=== PATIENT | male | born 1980 ===

== ENCOUNTER 2017-12-13 16:37 | Inpatient (IN) | payer MEDICAID, SELFPAY ==
[2017-12-13] MEDS ORDERED: Clindamycin 600mg/50ml D5W 300 MG/25 ML VIAL IVPB STA (17:12)
[2017-12-13] MEDS ORDERED: Vancomycin 1 g Inj ONE (17:33)
[2017-12-13 17:43] LABS: BASO % 0.4 % (0.0-2.0); EOS # 0.1 K/uL (0.0-0.7); HEMOGLOBIN 14.2 g/dL (12.0-18.0); LYMPH # 0.7 K/uL (1.0-4.3); LYMPH % 9.7 % (20.0-40.0); MEAN CELL VOLUME 77.8 fl (80.0-94.0); MEAN CORPUSCULAR HEMOGLOBIN 25.9 pg (27.0-31.0); MEAN CORPUSCULAR HGB CONC 33.3 g/dL (33.0-37.0); MEAN PLATELET VOLUME 8.2 fl (7.2-11.7); MONO # 0.6 K/uL (0.0-0.8); NEUT # 5.9 K/uL (1.8-7.0); NEUT % 80.9 % (50.0-75.0); PLATELET COUNT 261 K/uL (130-400); RBC 5.46 Mil/uL (4.40-5.90); RED CELL DISTRIBUTION WIDTH 13.9 % (11.5-14.5); WHITE BLOOD COUNT 7.3 K/uL (4.8-10.8)
--- NOTE | 2017-12-13 17:45 | ED PDOC ---
HPI: Back Time Seen by Provider: 12/13/17 16:48 Chief Complaint (Nursing): Back Pain Chief Complaint (Provider): chronic pain from sinus tract History Per: Patient, Family History/Exam Limitations: no limitations Onset/Duration Of Symptoms: Days (chronic) Current Symptoms Are (Timing): Still Present Quality Of Discomfort: "Pain" Associated Symptoms: Other (fever) Additional Complaint(s): Sundar Maloney is a 37 year old male, with a past medical history of paraplegia, who presents to the emergency department complaining of fever and a worsening chronic pain to sinus tracts in the back from surgery site since yesterday. Patient states he recently moved from [place] x20 days ago and became paraplegic after he attempted suicide by jumping off a building. Family member states patient constantly drains from sinus tracts and they change his dressing daily due to it. Patient was initially prescribed antibiotics but hasn' t taken any in many years despite the constant draining. He denies any chills, nausea or vomit. No further medical complaints. PMD: None provided. Past Medical History Reviewed: Historical Data, Nursing Documentation, Vital Signs Vital Signs: Last Vital Signs Temp 101.7 F H 12/13/17 16:40 Pulse 127 H 12/13/17 17:35 Resp 18 12/13/17 17:35 BP 130/76 12/13/17 16:40 Pulse Ox 99 12/13/17 17:35 - Medical History Other PMH: paraplegia - Surgical History Surgical History: Back Surgery - Family History Family History: States: Unknown Family Hx - Living Arrangements Living Arrangements: With Family - Social History Current smoker - smoking cessation education provided: No Alcohol: None Drugs: Denies - Home Medications Home Medications: Ambulatory Orders Medication Instructions Recorded No Known Home Med 12/13/17 - Allergies Allergies/Adverse Reactions: Allergies Allergy/AdvReac Type Severity Reaction Status Date / Time aspirin Allergy URTICARIA Verified 12/13/17 19:12 shellfish derived Allergy ANAPHYLAXIS Verified 12/13/17 17:13 Review of Systems ROS Statement: Except As Marked, All Systems Reviewed And Found Negative Constitutional: Positive for: Fever. Negative for: Chills Gastrointestinal: Negative for: Nausea, Vomiting Musculoskeletal: Positive for: Back Pain (chronic sinus tracts) Physical Exam - Reviewed Nursing Documentation Reviewed: Yes Vital Signs Reviewed: Yes - Physical Exam Appears: Positive for: Non-toxic, No Acute Distress Head Exam: Positive for: ATRAUMATIC, NORMAL INSPECTION, NORMOCEPHALIC Skin: Positive for: Normal Color, Warm, Dry Eye Exam: Positive for: Normal appearance, EOMI, PERRL Neck: Positive for: Painless ROM, Supple Cardiovascular/Chest: Positive for: Regular Rate, Rhythm. Negative for: Murmur Respiratory: Positive for: Normal Breath Sounds. Negative for: Respiratory Distress Gastrointestinal/Abdominal: Positive for: Normal Exam, Soft. Negative for: Tenderness Back: Positive for: Other (midline surgical scar w/ 3 opening tracts draining serosanguineous. Surrounding tenderness b/l from healed incision site.) Extremity: Negative for: Normal ROM (No symmetrical movement on lower extremities ) Neurologic/Psych: Positive for: Alert, Oriented (x3) - Laboratory Results Result Diagrams: 12/13/17 17:38 12/13/17 17:38 - ECG O2 Sat by Pulse Oximetry: 99 (RA) Pulse Ox Interpretation: Normal Medical Decision Making Medical Decision Making: Time: 16:48 Initial Impression: fistula sinus tract infection r/o sepsis Initial Plan: --VBG --EKG --CMP --Magnesium --Phosphorus --CBC w/ differential --PTT --PT --Chest portable [RAD] --Tylenol 325mg tab 975 mg PO --Clindamycin --Lactated Ringers 2,000 ml IV --Vancomycin 1 gm/NS 250 ml X1Dose --Blood culture --Urine culture --Urinalysis --Reevaluation 17:38 CXR FINDINGS: LUNGS: No active pulmonary disease. PLEURA: No significant pleural effusion identified, no pneumothorax apparent. CARDIOVASCULAR: Normal. OSSEOUS STRUCTURES: Incompletely visualize Bedolla rods lower thoracic and lumbar spine. VISUALIZED UPPER ABDOMEN: Normal. OTHER FINDINGS: None. IMPRESSION: No active disease. ----- Scribe Attestation: Documented by Shawn Blunt, acting as a scribe for Monique Nguyễn MD. Provider Scribe Attestation: All medical record entries made by the Scribe were at my direction and personally dictated by me. I have reviewed the chart and agree that the record accurately reflects my personal performance of the history, physical exam, medical decision making, and the department course for this patient. I have also personally directed, reviewed, and agree with the discharge instructions and disposition. Patient has uncontrolled DM, fever, drainage from fistula tracts of the spine and initial lactate of 2.5. His HR is improved and a repeat lactate is pending. Will admit to hospitalist for further management of sepsis. Disposition - Clinical Impression Clinical Impression: Fever, Diabetes, Spine fracture, Paraplegia - Patient ED Disposition Is Patient to be Admitted: Yes Doctor Will See Patient In The: Hospital - Disposition Disposition: Transfer of Care Disposition Time: 19:26 Condition: GUARDED Forms: [facility] ([place]) - Pt Status Changed To: Hospital Disposition Of: Inpatient - Admit Certification Admit to Inpatient:: After my assessment, the patient will require hospitalization for at least two midnights. This is because of the severity of symptoms shown, intensity of services needed, and/or the medical risk in this patient being treated as an outpatient. - POA Present On Arrival: None
--- NOTE | 2017-12-13 17:46 | RAD ---
Date of service: 12/13/2017 HISTORY: Sepsis Patient COMPARISON: No prior. FINDINGS: LUNGS: No active pulmonary disease. PLEURA: No significant pleural effusion identified, no pneumothorax apparent. CARDIOVASCULAR: Normal. OSSEOUS STRUCTURES: Incompletely visualize Bedolla rods lower thoracic and lumbar spine. VISUALIZED UPPER ABDOMEN: Normal. OTHER FINDINGS: None. IMPRESSION: No active disease.
[2017-12-13 17:48] LABS: VENOUS BLOOD GAS BASE EXCESS 2.2 mmol/L (0.0-2.0); VENOUS BLOOD GAS PCO2 56 mmHg (40-60); VENOUS BLOOD GAS PO2 15 mm/Hg (30-55); VENOUS BLOOD PH 7.33 (7.32-7.43)
[2017-12-13 17:53] LABS: ALBUMIN 4.2 g/dL (3.5-5.0); CALCIUM 9.1 mg/dL (8.4-10.2); GFR NON-AFRICAN AMERICAN > 60
[2017-12-13 17:55] LABS: INR 1.3 (0.9-1.2); PARTIAL THROMBOPLASTIN TIME 30.2 Seconds (25.6-37.1); PROTHROMBIN TIME 13.9 Seconds (9.8-13.1)
[2017-12-13 18:01] LABS: ALT/SGPT 16 U/L (21-72); AST/SGOT 25 U/L (17-59); BLOOD UREA NITROGEN 12 mg/dl (9-20)
[2017-12-13 18:09] LABS: URINE BACTERIA MANY (<OCC); URINE BILIRUBIN NEGATIVE (NEGATIVE); URINE BLOOD LARGE (NEGATIVE); URINE CLARITY TURBID (Clear); URINE COLOR YELLOW (YELLOW); URINE GLUCOSE (UA) >=500 mg/dL (Normal); URINE LEUKOCYTE ESTERASE LARGE Leu/uL (Negative); URINE PROTEIN 100 mg/dL (NEGATIVE)
[2017-12-13] MEDS ORDERED: Clindamycin in NS 300 MG/50 ML BAG IVPB STA (19:22)
--- NOTE | 2017-12-13 19:40 | ED PDOC ---
HPI: Back <Monique Nguyễn - Last Filed: 12/14/17 00:30> <Luis Alberto Bacon - Last Filed: 12/14/17 10:22> Time Seen by Provider: 12/13/17 19:45 Chief Complaint (Nursing): Back Pain Past Medical History Vital Signs: Last Vital Signs Temp 98.5 F 12/13/17 19:33 Pulse 96 H 12/13/17 23:10 Resp 12/13/17 23:10 BP 106/68 12/13/17 23:10 Pulse Ox 96 12/13/17 23:10 <DelmaMoniquelily Blas - Last Filed: 12/14/17 00:30> Vital Signs: Last Vital Signs Temp 99.6 F 12/13/17 18:26 Pulse 116 H 12/13/17 18:26 Resp 18 12/13/17 18:26 BP 116/72 12/13/17 18:26 Pulse Ox 98 12/13/17 18:26 - Medical History Other PMH: paraplegia - Surgical History Surgical History: Back Surgery - Family History Family History: States: Unknown Family Hx - Social History Current smoker - smoking cessation education provided: No Alcohol: None Drugs: Denies <Luis Alberto Bacon - Last Filed: 12/14/17 10:22> - Home Medications Home Medications: Ambulatory Orders Medication Instructions Recorded No Known Home Med 12/13/17 - Allergies Allergies/Adverse Reactions: Allergies Allergy/AdvReac Type Severity Reaction Status Date / Time aspirin Allergy URTICARIA Verified 12/13/17 19:12 shellfish derived Allergy ANAPHYLAXIS Verified 12/13/17 17:13 - Laboratory Results Result Diagrams: 12/13/17 17:38 12/13/17 17:38 - Radiology X-Ray: Viewed By In - Critical Care Total Time (In Min): 30 <Monique Nguyễn - Last Filed: 12/14/17 00:30> - Laboratory Results Result Diagrams: 12/14/17 05:20 12/14/17 05:20 - ECG O2 Sat by Pulse Oximetry: 98 <Luis Alberto Bacon - Last Filed: 12/14/17 10:22> Medical Decision Making Medical Decision Making: Case d/w neurosurgery before and after CT-scan of the spine. Dr. Weir does not feel that there is a need for neurosurgical intervention. Case d/w Dr. Sorensen after surgery evaluation and review of CT-scan. After discussion with Dr. Julio, it is felt that surgical intervention in the OR is not presently needed. Patient will need wound care and IV antibiotics and surgery followup. repeat lactate is normal HR now <100 BP is stable <Monique Nguyễn - Last Filed: 12/14/17 00:30> Disposition - Patient ED Disposition Is Patient to be Admitted: Yes Doctor Will See Patient In The: Hospital - Disposition Disposition: Transfer of Care Disposition Time: 00:34 - Pt Status Changed To: Hospital Disposition Of: Inpatient - Admit Certification Admit to Inpatient:: After my assessment, the patient will require hospitalization for at least two midnights. This is because of the severity of symptoms shown, intensity of services needed, and/or the medical risk in this patient being treated as an outpatient. - POA Present On Arrival: None <Monique Nguyễn - Last Filed: 12/14/17 00:30> <Luis Alberto Bacon - Last Filed: 12/14/17 10:22> - Clinical Impression Clinical Impression: Fever, Diabetes, Spine fracture, Paraplegia - Disposition Condition: GUARDED
[2017-12-13 20:32] LABS: VENOUS BLOOD GAS BASE EXCESS 2.7 mmol/L (0.0-2.0); VENOUS BLOOD GAS PCO2 36 mmHg (40-60); VENOUS BLOOD GAS PO2 83 mm/Hg (30-55); VENOUS BLOOD PH 7.47 (7.32-7.43)
[2017-12-13 20:43] LABS: BANDS 4 % (0-2); EOSINOPHIL 1 % (0-7); LYMPHOCYTE 11 % (20-50); MONOCYTE 10 % (0-10); NEUTROPHIL 74 % (42-75); PLATELET ESTIMATE NORMAL (NORMAL); TOTAL CELLS COUNTED 100
[2017-12-13 20:44] LABS: MICROCYTOSIS SLIGHT; TOXIC GRANULATION PRESENT
[2017-12-13] MEDS ORDERED: Sodium Chloride 0.9% 50 ML IV ONE (21:37)
[2017-12-13] MEDS ORDERED: Iohexol 300 100 ML IJ ONE (21:37)
[2017-12-14] MEDS ORDERED: Dextrose 50% SYRINGE Inj (50 ml) IV PRN (00:40)
[2017-12-14] MEDS ORDERED: Glucagon Recombinant 1 mg Inj IM PRN (00:40)
--- NOTE | 2017-12-14 00:40 | CP.PCM.CON ---
History of Present Illness - History of Present Illness History of Present Illness: General surgery consult note for Dr. Jeni Mcdaniels, PGY-2 Pt S & E at bedside at [facility]. Italian speaking only. Wendy Ramirez - #[id number] 37M w/PMH sig for paraplegia and subsequent back surgery consulted for back abscess. Pt reports back pain since incident/surgery, drainage from 3 sites along midline of spine x 2 years. Back pain worsened 2 days [employer], pt reports wounds have not been draining as much as usual due to "new mattress". Pt usually changes his wound dressings himself. Admits to F & C x 1 day. Denies N & V, changes in bowel or bladder habits, abdominal pain, WARREN, cough, congestion , sore throat, chest pain, SOB, other complaints. In ED - febrile Tmax 101.7, no leukocytosis. 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 absent: Headache - EENT Ears: absent: Dizziness Nose/Mouth/Throat: absent: Sore Throat - Cardiovascular Cardiovascular: absent: Chest Pain - Respiratory Respiratory: absent: Cough - Gastrointestinal Gastrointestinal: absent: Abdominal Pain, Constipation, Diarrhea, Hematemesis, Hematochezia, Nausea, Vomiting - Genitourinary Genitourinary: absent: Change in Urinary Stream, Dysuria, Hematuria - Musculoskeletal Musculoskeletal: Back Pain (chronic) Additional comments: unable to purposefully move legs, has involuntary twitching - Integumentary Integumentary: Wounds (3 draining wounds along spine). absent: Erythema - Psychiatric Psychiatric: absent: Change in Appetite - Endocrine Endocrine: absent: Fatigue Past Patient History - Past Social History Alcohol: None Drugs: Denies - NEUROLOGICAL Other/Comment: Paraplegic - PSYCHIATRIC Hx Substance Use: No Meds Allergies/Adverse Reactions: Allergies Allergy/AdvReac Type Severity Reaction Status Date / Time aspirin Allergy URTICARIA Verified 12/13/17 19:12 shellfish derived Allergy ANAPHYLAXIS Verified 12/13/17 17:13 - Medications Medications: Current Medications Piperacillin Sod/Tazobactam (Sod 3.375 gm/ Sodium Chloride) 100 mls @ 100 mls/ hr IVPB Q6 ADAM PRN Reason: Protocol Vancomycin HCl (Vancomycin Inj) 1,000 mg 15 mg/kg (1000 mg) IVPB Q12H ADAM PRN Reason: Protocol Physical Exam - Constitutional Appears: Non-toxic, No Acute Distress - Head Exam Head Exam: ATRAUMATIC, NORMAL INSPECTION, NORMOCEPHALIC - Eye Exam Eye Exam: EOMI, Normal appearance - ENT Exam ENT Exam: Mucous Membranes Moist. absent: Normal Exam (poor dentition) - Neck Exam Neck exam: Positive for: Full Rom, Normal Inspection - Respiratory Exam Respiratory Exam: NORMAL BREATHING PATTERN - Cardiovascular Exam Cardiovascular Exam: Tachycardia, +S1, +S2 - GI/Abdominal Exam GI & Abdominal Exam: Soft. absent: Distended, Firm, Guarding, Tenderness - Extremities Exam Extremities exam: Negative for: normal inspection Additional comments: atrophy of lower extremities with few superficial scabs, internal rotation of left leg - Back Exam Back exam: tenderness. absent: NORMAL INSPECTION, rash noted Additional comments: 3 midline small circular wounds draining purulent material, one in thoracic area , one in midthoracic and one in lumbar area, no erythema or fluctuance appreciated. Tender to palpation. Able to palpate applicance/paraspinal rodes under skin. Small dressings in place saturated with purulent output. - Neurological Exam Neurological exam: Alert, CN II-XII Intact, Oriented x3 - Psychiatric Exam Psychiatric exam: Normal Affect, Normal Mood - Skin Skin Exam: Dry, Normal Color, Warm Results - Vital Signs Recent Vital Signs: Last Vital Signs Temp 98.5 F 12/13/17 19:33 Pulse 96 H 12/13/17 23:10 Resp 17 12/13/17 23:10 BP 106/68 12/13/17 23:10 Pulse Ox 96 12/13/17 23:10 - Labs Result Diagrams: 12/13/17 17:38 12/13/17 17:38 Labs: Laboratory Results - last 24 hr 12/13/17 12/13/17 12/13/17 17:19 17:38 17:38 WBC 7.3 RBC 5.46 Hgb 14.2 Hct 42.5 MCV 77.8 L MCH 25.9 L MCHC 33.3 RDW 13.9 Plt Count 261 MPV 8.2 Neut % (Auto) 80.9 H Lymph % (Auto) 9.7 L Wharton % (Auto) 8.0 Eos % (Auto) 1.0 Baso % (Auto) 0.4 Neut # (Auto) 5.9 Lymph # (Auto) 0.7 L Wharton # (Auto) 0.6 Eos # (Auto) 0.1 Baso # (Auto) 0.0 Neutrophils % (Manual) 74 Band Neutrophils % 4 H Lymphocytes % (Manual) 11 L Monocytes % (Manual) 10 Eosinophils % (Manual) 1 Toxic Granulation Present Platelet Estimate Normal Microcytosis (manual) Slight PT INR APTT pO2 15 L VBG pH 7.33 VBG pCO2 56 VBG HCO3 24.4 VBG Total CO2 31.2 H VBG O2 Sat (Calc) 19.8 L VBG Base Excess 2.2 H VBG Potassium 3.6 Sodium 134.0 134 Chloride 95.0 L 97 L Glucose 379 H Lactate 2.5 H FiO2 21.0 Potassium 4.0 Carbon Dioxide 22 Anion Gap 19 BUN 12 Creatinine 0.5 L Est GFR ( Amer) > 60 Est GFR (Non-Af Amer) > 60 Random Glucose 333 H Calcium 9.1 Phosphorus 3.0 Magnesium 1.6 Total Bilirubin 0.9 AST 25 ALT 16 L Alkaline Phosphatase 108 Total Protein 8.3 H Albumin 4.2 Globulin 4.0 H Albumin/Globulin Ratio 1.0 Venous Blood Potassium 3.6 Urine Color Urine Clarity Urine pH Ur Specific Chandler Urine Protein Urine Glucose (UA) Urine Ketones Urine Blood Urine Nitrate Urine Bilirubin Urine Urobilinogen Ur Leukocyte Esterase Urine RBC (Auto) Urine Microscopic WBC Urine Bacteria Urine Yeast (Budding) 12/13/17 12/13/17 12/13/17 17:38 17:56 20:16 WBC RBC Hgb Hct MCV MCH MCHC RDW Plt Count MPV Neut % (Auto) Lymph % (Auto) Wharton % (Auto) Eos % (Auto) Baso % (Auto) Neut # (Auto) Lymph # (Auto) Wharton # (Auto) Eos # (Auto) Baso # (Auto) Neutrophils % (Manual) Band Neutrophils % Lymphocytes % (Manual) Monocytes % (Manual) Eosinophils % (Manual) Toxic Granulation Platelet Estimate Microcytosis (manual) PT 13.9 H INR 1.3 H APTT 30.2 pO2 83 H VBG pH 7.47 H VBG pCO2 36 L VBG HCO3 27.0 VBG Total CO2 27.3 VBG O2 Sat (Calc) 99.5 H VBG Base Excess 2.7 H VBG Potassium 3.5 L Sodium 127.0 L Chloride 100.0 Glucose 355 H Lactate 1.5 FiO2 21.0 Potassium Carbon Dioxide Anion Gap BUN Creatinine Est GFR ( Amer) Est GFR (Non-Af Amer) Random Glucose Calcium Phosphorus Magnesium Total Bilirubin AST ALT Alkaline Phosphatase Total Protein Albumin Globulin Albumin/Globulin Ratio Venous Blood Potassium 3.5 L Urine Color Yellow Urine Clarity Turbid Urine pH 5.0 Ur Specific Chandler 1.030 Urine Protein 100 Urine Glucose (UA) >=500 Urine Ketones Negative Urine Blood Large Urine Nitrate Negative Urine Bilirubin Negative Urine Urobilinogen 2.0 Ur Leukocyte Esterase Large Urine RBC (Auto) 140 H Urine Microscopic WBC 645 H Urine Bacteria Many H Urine Yeast (Budding) Occ H Assessment & Plan - Assessment and Plan (Free Text) Assessment: 37M w/PMH sig for paraplegia and subsequent back surgery consulted for back abscess- unable to appreciate abscess, wounds continuing to drain Plan: Monitor wounds IV Abx Pain control Wound care Admit to medicine No general surgery intervention at this time DW attending Enedelia, PGY-2 - Date & Time Date: 12/14/17 Time: 00:39
[2017-12-14] MEDS ORDERED: Vancomycin 500 mg Inj IVPB SCH (00:45)
[2017-12-14] MEDS ORDERED: Vancomycin 1 g Inj ONE (01:01)
[2017-12-14] MEDS: Sodium Chloride 0.9% 1,000 ML IV SCH ×2 (01:03→10:44)
[2017-12-14] MEDS ORDERED: Oxycodone/Acetaminophen 5/325 mg Tab ONE (01:22)
[2017-12-14] MEDS: Oxycodone/Acetaminophen 5/325 mg Tab PO PRN ×3 (01:22→21:30)
[2017-12-14] MEDS ORDERED: Insulin Regular 100 units/ml ONE (01:40)
--- NOTE | 2017-12-14 01:40 | CP.PCM.HP ---
History of Present Illness - History of Present Illness History of Present Illness: Chief complaint: Back pain and draining superficial lesions on his back. HPI: Sundar Maloney is a 37 year old Salvadorean speaking male with a past medical history of paraplegia, DM, frequent UTI's and a neurogenic bladder he self drains with a condom catheter. He comes in with 3 draining superficial ulcers with a sinus tract complaining of fever and a worsening chronic pain due to sinus tracts in the back that worsened in the last 24 hrs. Patient states he recently moved from [place] approx 3 weeks back but never attended doctors back in [place] for the last 10 yrs and is therefore not on any medications or knows of any other medical conditions other than that mentioned above. He became paraplegic in 2003 after he attempted suicide by jumping off a building. Family member states patient constantly drains from sinus tracts and they change his dressing daily due to it. Patient was initially prescribed antibiotics but hasn't taken any in many years despite the constant draining. He has no other complaints. PMD: None provided, no insurance PMHX: DM type 2, paraplegia from the waist down, draining sinus tracts for several years Vital Signs: Last Vital Signs Temp 101.7 F H 12/13/17 16:40 Pulse 127 H 12/13/17 17:35 Resp 18 12/13/17 17:35 BP 130/76 12/13/17 16:40 Pulse Ox 99 12/13/17 17:35 Surgical History: Back Surgery with Bedolla Rods inserted Social HX: No toxic habits, denies smoking, lives with family and just moved from [place] Family History: States: Unknown Family Hx Home Medication: DEnies Allergies/Adverse Reactions: Allergies Allergy/AdvReac Type Severity Reaction Status Date / Time aspirin Allergy URTICARIA Verified 12/13/17 19:12 shellfish derived Allergy ANAPHYLAXIS Verified 12/13/17 17:13 ROS Statement: Except As Marked, All Systems Reviewed And Found Negative Constitutional: Positive for: Fever. Negative for: Chills Gastrointestinal: Negative for: Nausea, Vomiting Musculoskeletal: Positive for: Back Pain (chronic sinus tracts) Physical EXAM Appears: Positive for: Non-toxic, No Acute Distress Head Exam: Positive for: ATRAUMATIC, NORMAL INSPECTION, NORMOCEPHALIC Skin: Positive for: Normal Color, Warm, Dry Eye Exam: Positive for: Normal appearance, EOMI, PERRL Neck: Positive for: Painless ROM, Supple Cardiovascular/Chest: Positive for: Regular Rate, Rhythm. Negative for: Murmur Respiratory: Positive for: Normal Breath Sounds. Negative for: Respiratory Distress Gastrointestinal/Abdominal: Positive for: Normal Exam, Soft. Negative for: Tenderness Back: Positive for: Other (midline surgical scar w/ 3 opening tracts draining serosanguineous. Surrounding tenderness b/l from healed incision site.) Extremity: Negative for: Normal ROM (No symmetrical movement on lower extremities ) Neurologic/Psych: Positive for: Alert, Oriented (x3) - ECG O2 Sat by Pulse Oximetry: 99 (RA) Pulse Ox Interpretation: Normal Present on Admission - Present on Admission Any Indicators Present on Admission: Yes History of DVT/PE: No History of Uncontrolled Diabetes: Yes Urinary Catheter: Yes (Condom Catheter) Decubitus Ulcer Present: No Review of Systems - Constitutional Constitutional: Fever, Headache - EENT Eyes: absent: As Per HPI, Blind Spots, Blurred Vision, Change in Vision, Decreased Night Vision, Diplopia, Discharge, Dry Eye, Exophthalmos, Floaters, Irritation, Itchy Eyes, Loss of Peripheral Vision, Pain, Photophobia, Requires Corrective Lenses, Sees Flashes, Spots in Vision, Tunnel Vision, Other Visual Disturbances, Loss of Vision, Other Ears: absent: As Per HPI, Decreased Hearing, Ear Discharge, Ear Pain, Tinnitus, Abnormal Hearing, Disequilibrium, Dizziness, Other Nose/Mouth/Throat: absent: As Per HPI, Epistaxis, Nasal Congestion, Nasal Discharge, Nasal Obstruction, Nasal Trauma, Nose Pain, Post Nasal Drip, Sinus Pain, Sinus Pressure, Bleeding Gums, Change in Voice, Dental Pain, Dry Mouth, Dysphagia, Halitosis, Hoarsness, Lip Swelling, Mouth Lesions, Mouth Pain, Odynophagia, Sore Throat, Throat Swelling, Tongue Swelling, Facial Pain, Neck Pain, Neck Mass, Other - Cardiovascular Cardiovascular: absent: As Per HPI, Acrocyanosis, Chest Pain, Chest Pain at Rest , Chest Pain with Activity, Claudication, Diaphoresis, Dyspnea, Dyspnea on Exertion, Edema, Irregular Heart Rhythm, Pain Radiating to Arm/Neck/Jaw, Leg Edema, Leg Ulcers, Lightheadedness, Orthopnea, Palpitations, Paroxysmal Nocturnal Dyspnea, Pedal Edema, Radiating Pain, Rapid Heart Rate, Slow Heart Rate, Syncope, Other - Respiratory Respiratory: absent: As Per HPI, Cough, Dyspnea, Hemoptysis, Dyspnea on Exertion , Wheezing, Snoring, Stridor, Pain on Inspiration, Chest Congestion, Excessive Mucous Production, Change in Mucous Color, Pain with Coughing, Other - Gastrointestinal Gastrointestinal: absent: As Per HPI, Abdominal Pain, Belching, Bloating, Change in Bowel Habits, Change in Stool Character, Coffee Ground Emesis, Constipation, Cramping, Diarrhea, Dyspepsia, Dysphagia, Early Satiety, Excessive Flatus, Fecal Incontinence, Heartburn, Hematemesis, Hematochezia, Loose Stools, Melena, Nausea, Odynophagia, Temesmus, Vomiting, Other - Genitourinary Genitourinary: absent: As Per HPI, Change in Urinary Stream, Difficulty Urinating, Dysuria, Flank Pain, Hematuria, Pyuria, Nocturia, Urinary Incontinence, Urinary Frequency, Urinary Hesitance, Urinary Urgency, Voiding Freq/Small Amts, Freq UTI, Hx Renal/Bladder Calculi, Hx /Renal Surgery, Bladder Distension, Other - Musculoskeletal Musculoskeletal: absent: As Per HPI, Abnormal Gait, Arthralgias, Atrophy, Back Pain, Deformity, Joint Swelling, Limited Range of Motion, Loss of Height, Muscle Cramps, Muscle Weakness, Myalgias, Neck Pain, Numbness, Radiating Pain into Limb, Stiffness, Tingling, Other - Integumentary Integumentary: absent: As Per HPI, Acne, Alopecia, Bleeding Lesions, Change in Hair, Change in Nails, Change in Pigmentation, Changing Lesions, Dry Skin, Erythema, Furuncle, Hirsutism, Lesions, New Lesions, Non-Healing Lesions, Photosensitivity, Pruritus, Rash, Skin Pain, Skin Ulcer, Sores, Striae, Swelling , Unusual Bruising, Wounds, Jaundice, Other - Neurological Neurological: absent: As Per HPI, Abnormal Gait, Abnormal Hearing, Abnormal Movements, Abnormal Speech, Behavioral Changes, Burning Sensations, Confusion, Convulsions, Disequilibrium, Dizziness, Numbness, Focal Weakness, Frequent Falls , Headaches, Lack of Coordination, Loss of Vision, Memory Loss, Paresthesias, Radicular Pain, Restless Legs, Sensory Deficit, Syncope, Tingling, Tremor, Vertigo, Weakness, Other Visual Disturbances, Other - Psychiatric Psychiatric: absent: As Per HPI, Abnormal Sleep Pattern, Anhedonia, Anxiety, Auditory Hallucinations, Behavioral Changes, Change in Appetite, Change in Libido, Confusion, Depression, Difficulty Concentrating, Hallucinations, Homicidal Ideation, Hopelessness, Irritability, Memory Loss, Mood Swings, Panic Attacks, Paranoia, Suicidal Ideation, Visual Hallucinations, Tactile Hallucinations, Other - Endocrine Endocrine: absent: As Per HPI, Change in Body Appearance, Change in Libido, Cold Intolorance, Deepening of Voice, Excessive Sweating, Fatigue, Flushing, Heat Intolorance, Increase in Ring/Shoe/Hat Size, Palpitations, Polydipsia, Polyphagia, Polyuria, Other - Hematologic/Lymphatic Hematologic: absent: As Per HPI, Easy Bleeding, Easy Bruising, Lymphadenopathy, Other Past Patient History - Past Social History Alcohol: None Drugs: Denies - NEUROLOGICAL Other/Comment: Paraplegic - PSYCHIATRIC Hx Substance Use: No Meds Allergies/Adverse Reactions: Allergies Allergy/AdvReac Type Severity Reaction Status Date / Time aspirin Allergy URTICARIA Verified 12/13/17 19:12 shellfish derived Allergy ANAPHYLAXIS Verified 12/13/17 17:13 Results - Vital Signs Recent Vital Signs: Last Vital Signs Temp 98.8 F 12/14/17 01:18 Pulse 104 H 12/14/17 01:18 Resp 14 12/14/17 01:18 BP 118/60 12/14/17 01:18 Pulse Ox 98 12/14/17 01:18 - Labs Result Diagrams: 12/13/17 17:38 12/13/17 17:38 Labs: Laboratory Results - last 24 hr 12/13/17 12/13/17 12/13/17 17:19 17:38 17:38 WBC 7.3 RBC 5.46 Hgb 14.2 Hct 42.5 MCV 77.8 L MCH 25.9 L MCHC 33.3 RDW 13.9 Plt Count 261 MPV 8.2 Neut % (Auto) 80.9 H Lymph % (Auto) 9.7 L Bowie % (Auto) 8.0 Eos % (Auto) 1.0 Baso % (Auto) 0.4 Neut # (Auto) 5.9 Lymph # (Auto) 0.7 L [place] # (Auto) 0.6 Eos # (Auto) 0.1 Baso # (Auto) 0.0 Neutrophils % (Manual) 74 Band Neutrophils % 4 H Lymphocytes % (Manual) 11 L Monocytes % (Manual) 10 Eosinophils % (Manual) 1 Toxic Granulation Present Platelet Estimate Normal Microcytosis (manual) Slight PT INR APTT pO2 15 L VBG pH 7.33 VBG pCO2 56 VBG HCO3 24.4 VBG Total CO2 31.2 H VBG O2 Sat (Calc) 19.8 L VBG Base Excess 2.2 H VBG Potassium 3.6 Sodium 134.0 134 Chloride 95.0 L 97 L Glucose 379 H Lactate 2.5 H FiO2 21.0 Potassium 4.0 Carbon Dioxide 22 Anion Gap 19 BUN 12 Creatinine 0.5 L Est GFR ( Amer) > 60 Est GFR (Non-Af Amer) > 60 Random Glucose 333 H Calcium 9.1 Phosphorus 3.0 Magnesium 1.6 Total Bilirubin 0.9 AST 25 ALT 16 L Alkaline Phosphatase 108 Total Protein 8.3 H Albumin 4.2 Globulin 4.0 H Albumin/Globulin Ratio 1.0 Venous Blood Potassium 3.6 Urine Color Urine Clarity Urine pH Ur Specific [place] Urine Protein Urine Glucose (UA) Urine Ketones Urine Blood Urine Nitrate Urine Bilirubin Urine Urobilinogen Ur Leukocyte Esterase Urine RBC (Auto) Urine Microscopic WBC Urine Bacteria Urine Yeast (Budding) 12/13/17 12/13/17 12/13/17 17:38 17:56 20:16 WBC RBC Hgb Hct MCV MCH MCHC RDW Plt Count MPV Neut % (Auto) Lymph % (Auto) [place] % (Auto) Eos % (Auto) Baso % (Auto) Neut # (Auto) Lymph # (Auto) [place] # (Auto) Eos # (Auto) Baso # (Auto) Neutrophils % (Manual) Band Neutrophils % Lymphocytes % (Manual) Monocytes % (Manual) Eosinophils % (Manual) Toxic Granulation Platelet Estimate Microcytosis (manual) PT 13.9 H INR 1.3 H APTT 30.2 pO2 83 H VBG pH 7.47 H VBG pCO2 36 L VBG HCO3 27.0 VBG Total CO2 27.3 VBG O2 Sat (Calc) 99.5 H VBG Base Excess 2.7 H VBG Potassium 3.5 L Sodium 127.0 L Chloride 100.0 Glucose 355 H Lactate 1.5 FiO2 21.0 Potassium Carbon Dioxide Anion Gap BUN Creatinine Est GFR ( Amer) Est GFR (Non-Af Amer) Random Glucose Calcium Phosphorus Magnesium Total Bilirubin AST ALT Alkaline Phosphatase Total Protein Albumin Globulin Albumin/Globulin Ratio Venous Blood Potassium 3.5 L Urine Color Yellow Urine Clarity Turbid Urine pH 5.0 Ur Specific [place] 1.030 Urine Protein 100 Urine Glucose (UA) >=500 Urine Ketones Negative Urine Blood Large Urine Nitrate Negative Urine Bilirubin Negative Urine Urobilinogen 2.0 Ur Leukocyte Esterase Large Urine RBC (Auto) 140 H Urine Microscopic WBC 645 H Urine Bacteria Many H Urine Yeast (Budding) Occ H - EKG Data Rate: Normal Assessment & Plan - Assessment and Plan (Free Text) Plan: Patient with a draining sinus tract and uncontrolled DM who is paraplegic and wanting to get insurance for his care. 1) Sinus tract with drainage:- given two - CT thoracic and spine showed a 3.5 by 4 cm lesion according to ED Physician - surgery Evaluated for Subcutaneous abscess which was drained by surgery - wound care - wound culture - iv antibiotics with IV zosyn and IV vanco - vanco trough and peak after 4 doses - medsurg admission - pain control 2) Paraplegia- - physical therapy - pain control 3) Hyponatremia and dehydration: Mild at 134 - started on NS at 125 4) Hyperglycemia- - insulin sliding scale and medium coverage - diabetic diet - iv fluid hydration 5) UTI - U/a shows many bacteria and LE along with a turbid Urine and fungal - started on PO diflucan for two days for fungal coverage - iv abx as above - urine culture GI and DVT prophylaxis - Date & Time Date: 12/14/17 Time: 01:53
[2017-12-14] MEDS: Insulin Regular 100 units/ml SC SCH ×5 (01:41→21:29)
[2017-12-14] MEDS: Piperacillin/Tazobact 3.375 GM in Sodium Chloride 0.9% 100 ML IVPB SCH ×4 (04:45→21:31)
[2017-12-14] MEDS: Magnesium Sulfate 1 gm in D5W 1 GM/100 ML BAG IVPB ONE ×2 (04:50→04:51)
[2017-12-14 07:17] LABS: BASO % 0.4 % (0.0-2.0); EOS # 0.2 K/uL (0.0-0.7); EOS % 2.4 % (0.0-4.0); HEMOGLOBIN 12.1 g/dL (12.0-18.0); LYMPH # 0.9 K/uL (1.0-4.3); LYMPH % 14.5 % (20.0-40.0); MEAN CELL VOLUME 78.3 fl (80.0-94.0); MEAN CORPUSCULAR HEMOGLOBIN 25.8 pg (27.0-31.0); MEAN PLATELET VOLUME 8.4 fl (7.2-11.7); MONO # 0.6 K/uL (0.0-0.8); MONO % 8.9 % (0.0-10.0); NEUT # 4.8 K/uL (1.8-7.0); NEUT % 73.8 % (50.0-75.0); NRBC % 0.1 % (0.0-0.0); RBC 4.7 Mil/uL (4.40-5.90); WHITE BLOOD COUNT 6.5 K/uL (4.8-10.8)
[2017-12-14 07:54] LABS: BLOOD UREA NITROGEN 8 mg/dl (9-20); CALCIUM 8.4 mg/dL (8.4-10.2); GFR NON-AFRICAN AMERICAN > 60
[2017-12-14] MEDS ORDERED: Potassium Chloride 20 mEq ER Tab PO ONE (07:58)
[2017-12-14] MEDS: Enoxaparin 40 mg Syringe SC SCH (10:43)
[2017-12-14] MEDS: Pantoprazole 40 mg EC Tab PO SCH (10:44)
[2017-12-14] MEDS: GlipiZIDE 2.5 mg SR Tab PO SCH (12:03)
--- NOTE | 2017-12-14 14:53 | CARD ---
APPROVED REPORT Date of service: 12/13/2017 EKG Measurement Heart [id number] CT [id number] <Conclusion> Sinus tachycardia Possible Left atrial enlargement Anterior infarct, age undetermined Abnormal ECG
--- NOTE | 2017-12-14 17:45 | CP.PCM.PN ---
Subjective - Date & Time of Evaluation Date of Evaluation: 12/14/17 Time of Evaluation: 17:46 - Subjective Subjective: I D NOTE FULL CONSULT DICTATED FOR PRESENT HAVE ADDED JUANIS dawson HOSPITALIST,GENERAL SURGEON, AND [employer] Objective - Vital Signs/Intake and Output Vital Signs (last 24 hours): Temp Pulse Resp BP Pulse Ox 98.1 F 106 H 18 123/76 97 12/14/17 16:58 12/14/17 16:58 12/14/17 16:58 12/14/17 16:58 12/14/17 16:58 Intake and Output: 12/14/17 12/14/17 06:59 18:59 Intake Total 1450 Output Total 1200 Balance 250 - Medications Medications: Current Medications Acetaminophen (Tylenol 325mg Tab) 650 mg PO Q6 PRN PRN Reason: Pain, Mild (1-3) Dextrose (Dextrose 50% Inj) 0 ml IV STAT PRN; Protocol PRN Reason: Hypoglycemia Protocol Dextrose (Glutose 15) 0 gm PO ONCE PRN; Protocol PRN Reason: Hypoglycemia Protocol Enoxaparin Sodium (Lovenox) 40 mg SC DAILY ADAM PRN Reason: Protocol Last Admin: 12/14/17 10:43 Dose: 40 mg Fluconazole (Diflucan) 100 mg PO DAILY ADAM PRN Reason: Protocol Stop: 12/15/17 23:59 Last Admin: 12/14/17 10:14 Dose: 100 mg Glipizide (Glucotrol Xl) 2.5 mg PO BRK ADAM Last Admin: 12/14/17 12:03 Dose: 2.5 mg Glucagon (Glucagen Diagnostic Kit) 0 mg IM STAT PRN; Protocol PRN Reason: Hypoglycemia Protocol Piperacillin Sod/Tazobactam (Sod 3.375 gm/ Sodium Chloride) 100 mls @ 100 mls/ hr IVPB Q6 ADAM PRN Reason: Protocol Last Admin: 12/14/17 10:45 Dose: 100 mls/hr Vancomycin HCl 1 gm/ Sodium (Chloride) 250 mls @ 166.667 mls/hr IVPB Q12H [facility] Last Admin: 12/14/17 11:46 Dose: 166.667 mls/hr Sodium Chloride (Sodium Chloride 0.9%) 1,000 mls @ 125 mls/hr IV .Q8H [facility] Stop: 12/15/17 00:39 Last Admin: 12/14/17 10:44 Dose: 125 mls/hr Ceftriaxone Sodium 2 gm/ (Sodium Chloride) 100 mls @ 100 mls/hr IVPB DAILY ADAM PRN Reason: Protocol Insulin Human Regular (Humulin R) 0 units SC ACHS ADAM PRN Reason: Protocol Last Admin: 12/14/17 11:41 Dose: 4 units Morphine Sulfate (Morphine) 1 mg IVP Q4 PRN PRN Reason: Pain, severe (8-10) Last Admin: 12/14/17 10:52 Dose: 1 mg Ondansetron HCl (Zofran Inj) 4 mg IVP Q6 PRN PRN Reason: Nausea/Vomiting Oxycodone/Acetaminophen (Percocet 5/325 Mg Tab) 1 tab PO Q4 PRN PRN Reason: Pain, moderate (4-7) Stop: 12/17/17 00:44 Last Admin: 12/14/17 12:02 Dose: 1 tab Pantoprazole Sodium (Protonix Ec Tab) 40 mg PO DAILY ADAM Last Admin: 12/14/17 10:44 Dose: 40 mg - Labs Labs: 12/14/17 05:20 12/14/17 05:20 PT 13.9 Seconds (9.8-13.1) H 12/13/17 17:38 INR 1.3 (0.9-1.2) H 12/13/17 17:38 APTT 30.2 Seconds (25.6-37.1) 12/13/17 17:38
[2017-12-15] MEDS: Piperacillin/Tazobact 3.375 GM in Sodium Chloride 0.9% 100 ML IVPB SCH ×4 (04:48→21:01)
[2017-12-15] MEDS: Insulin Regular 100 units/ml SC SCH ×4 (06:53→22:22)
[2017-12-15 07:06] LABS: BASO % 0.5 % (0.0-2.0); EOS # 0.1 K/uL (0.0-0.7); EOS % 2.3 % (0.0-4.0); HEMOGLOBIN 12.5 g/dL (12.0-18.0); LYMPH # 0.8 K/uL (1.0-4.3); LYMPH % 13.7 % (20.0-40.0); MEAN CELL VOLUME 78.1 fl (80.0-94.0); MEAN CORPUSCULAR HEMOGLOBIN 26.2 pg (27.0-31.0); MEAN CORPUSCULAR HGB CONC 33.6 g/dL (33.0-37.0); MEAN PLATELET VOLUME 8.3 fl (7.2-11.7); MONO # 0.5 K/uL (0.0-0.8); MONO % 8.7 % (0.0-10.0); NEUT # 4.5 K/uL (1.8-7.0); NEUT % 74.8 % (50.0-75.0); RBC 4.75 Mil/uL (4.40-5.90); RED CELL DISTRIBUTION WIDTH 13.6 % (11.5-14.5)
[2017-12-15 07:23] LABS: ALBUMIN 3.5 g/dL (3.5-5.0); ALT/SGPT 20 U/L (21-72); AST/SGOT 15 U/L (17-59); BLOOD UREA NITROGEN 7 mg/dl (9-20); CALCIUM 8.8 mg/dL (8.4-10.2); GFR NON-AFRICAN AMERICAN > 60
--- NOTE | 2017-12-15 07:27 | CP.PCM.PN ---
Subjective - Date & Time of Evaluation Date of Evaluation: 12/15/17 Time of Evaluation: 07:22 - Subjective Subjective: General Surgery - Dr. Julio Pt S&E. NAEO. Pt complains of pain in the back, unchanged. He denies any other complaints. No Fevrs/Chills. Back wounds draining purulent drainage. Objective - Vital Signs/Intake and Output Vital Signs (last 24 hours): Temp Pulse Resp BP Pulse Ox 99.0 F 112 H 18 113/63 95 12/14/17 23:23 12/14/17 23:23 12/14/17 23:23 12/14/17 23:23 12/14/17 23:23 Intake and Output: 12/15/17 12/15/17 06:59 18:59 Intake Total 3700 Output Total 3975 Balance -275 - Medications Medications: Current Medications Acetaminophen (Tylenol 325mg Tab) 650 mg PO Q6 PRN PRN Reason: Pain, Mild (1-3) Dextrose (Dextrose 50% Inj) 0 ml IV STAT PRN; Protocol PRN Reason: Hypoglycemia Protocol Dextrose (Glutose 15) 0 gm PO ONCE PRN; Protocol PRN Reason: Hypoglycemia Protocol Enoxaparin Sodium (Lovenox) 40 mg SC DAILY ADAM PRN Reason: Protocol Last Admin: 12/14/17 10:43 Dose: 40 mg Fluconazole (Diflucan) 100 mg PO DAILY ADAM PRN Reason: Protocol Stop: 12/15/17 23:59 Last Admin: 12/14/17 10:14 Dose: 100 mg Glipizide (Glucotrol Xl) 2.5 mg PO BRK [facility] Last Admin: 12/14/17 12:03 Dose: 2.5 mg Glucagon (Glucagen Diagnostic Kit) 0 mg IM STAT PRN; Protocol PRN Reason: Hypoglycemia Protocol Piperacillin Sod/Tazobactam (Sod 3.375 gm/ Sodium Chloride) 100 mls @ 100 mls/ hr IVPB Q6 ADAM PRN Reason: Protocol Last Admin: 12/15/17 04:48 Dose: 100 mls/hr Vancomycin HCl 1 gm/ Sodium (Chloride) 250 mls @ 166.667 mls/hr IVPB Q12H [facility] Last Admin: 12/15/17 00:07 Dose: 166.667 mls/hr Ceftriaxone Sodium 2 gm/ (Sodium Chloride) 100 mls @ 100 mls/hr IVPB DAILY ADAM PRN Reason: Protocol Insulin Human Regular (Humulin R) 0 units SC ACHS ADAM PRN Reason: Protocol Last Admin: 12/15/17 06:53 Dose: 4 units Morphine Sulfate (Morphine) 1 mg IVP Q4 PRN PRN Reason: Pain, severe (8-10) Last Admin: 12/14/17 10:52 Dose: 1 mg Ondansetron HCl (Zofran Inj) 4 mg IVP Q6 PRN PRN Reason: Nausea/Vomiting Oxycodone/Acetaminophen (Percocet 5/325 Mg Tab) 1 tab PO Q4 PRN PRN Reason: Pain, moderate (4-7) Stop: 12/17/17 00:44 Last Admin: 12/14/17 21:30 Dose: 1 tab Pantoprazole Sodium (Protonix Ec Tab) 40 mg PO DAILY [facility] Last Admin: 12/14/17 10:44 Dose: 40 mg Pneumococcal Polyvalent Vaccine (Pneumovax 23 Vaccine) 0.5 ml IM .ONCE ONE Stop: 12/15/17 09:01 - Labs Labs: 12/15/17 05:20 12/14/17 05:20 PT 13.9 Seconds (9.8-13.1) H 12/13/17 17:38 INR 1.3 (0.9-1.2) H 12/13/17 17:38 APTT 30.2 Seconds (25.6-37.1) 12/13/17 17:38 - Constitutional Appears: No Acute Distress - Head Exam Head Exam: ATRAUMATIC, NORMAL INSPECTION, NORMOCEPHALIC - Eye Exam Eye Exam: Normal appearance - Respiratory Exam Respiratory Exam: NORMAL BREATHING PATTERN. absent: Respiratory Distress - Cardiovascular Exam Cardiovascular Exam: REGULAR RHYTHM - Back Exam Back Exam: tenderness Additional comments: Draining sinus tracts x3 - upper thoracic, mid thoracic and lumber, lumber with signifncant region of induration and erythema, purulent drainage, palpable spinal hardware - Neurological Exam Neurological Exam: Alert, Oriented x3 - Psychiatric Exam Psychiatric exam: Normal Affect, Normal Mood - Skin Skin Exam: Dry Assessment and Plan - Assessment and Plan (Free Text) Assessment: 37M paraplegic s/p thoracolumbar spine surgery, with chronic draining sinus tracts Plan: -Wound care -IV Abx as per ID -No general surgery intervention Recommend Neurosurgical Evaluation and Tx. DW Dr Sumanth Mills PGY4
[2017-12-15] MEDS ORDERED: Pneumococcal 23-Valent Vaccine IM ONE (09:00)
[2017-12-15] MEDS: GlipiZIDE 2.5 mg SR Tab PO SCH (09:09)
[2017-12-15] MEDS: Enoxaparin 40 mg Syringe SC SCH (09:09)
[2017-12-15] MEDS: Pantoprazole 40 mg EC Tab PO SCH (09:10)
[2017-12-15] MEDS: Oxycodone/Acetaminophen 5/325 mg Tab PO PRN ×2 (09:22→20:57)
[2017-12-15] MEDS: cefTRIAXone 2 GM in Sodium Chloride 0.9% 100 ML IVPB SCH (11:00)
--- NOTE | 2017-12-15 11:23 | CP.PCM.PN ---
Subjective - Date & Time of Evaluation Date of Evaluation: 12/15/17 Time of Evaluation: 11:00 - Subjective Subjective: Pt came in febrile yesterday - no fever today sl lumbar pain and tenderness pt has 3 wound opening in his spine ( upper thoracic , mid-throracic and lumbar) lumbar wound draining some purulent discharge denies CP no SOB voiding freely Objective - Vital Signs/Intake and Output Vital Signs (last 24 hours): Temp Pulse Resp BP Pulse Ox 98.3 F 102 H 20 118/76 97 12/15/17 08:26 12/15/17 08:26 12/15/17 08:26 12/15/17 08:26 12/15/17 08:26 Intake and Output: 12/15/17 12/15/17 06:59 18:59 Intake Total 3700 Output Total 3975 Balance -275 - Medications Medications: Current Medications Acetaminophen (Tylenol 325mg Tab) 650 mg PO Q6 PRN PRN Reason: Pain, Mild (1-3) Dextrose (Dextrose 50% Inj) 0 ml IV STAT PRN; Protocol PRN Reason: Hypoglycemia Protocol Dextrose (Glutose 15) 0 gm PO ONCE PRN; Protocol PRN Reason: Hypoglycemia Protocol Enoxaparin Sodium (Lovenox) 40 mg SC DAILY ADAM PRN Reason: Protocol Last Admin: 12/15/17 09:09 Dose: 40 mg Fluconazole (Diflucan) 100 mg PO DAILY ADAM PRN Reason: Protocol Stop: 12/15/17 23:59 Last Admin: 12/15/17 09:09 Dose: 100 mg Glipizide (Glucotrol Xl) 5 mg PO BRK ADAM Glucagon (Glucagen Diagnostic Kit) 0 mg IM STAT PRN; Protocol PRN Reason: Hypoglycemia Protocol Piperacillin Sod/Tazobactam (Sod 3.375 gm/ Sodium Chloride) 100 mls @ 100 mls/ hr IVPB Q6 ADAM PRN Reason: Protocol Last Admin: 12/15/17 09:10 Dose: 100 mls/hr Vancomycin HCl 1 gm/ Sodium (Chloride) 250 mls @ 166.667 mls/hr IVPB Q12H [facility] Last Admin: 12/15/17 00:07 Dose: 166.667 mls/hr Ceftriaxone Sodium 2 gm/ (Sodium Chloride) 100 mls @ 100 mls/hr IVPB DAILY ADAM PRN Reason: Protocol Last Admin: 12/15/17 11:00 Dose: 100 mls/hr Insulin Human Regular (Humulin R) 0 units SC ACHS ADAM PRN Reason: Protocol Last Admin: 12/15/17 06:53 Dose: 4 units Morphine Sulfate (Morphine) 1 mg IVP Q4 PRN PRN Reason: Pain, severe (8-10) Last Admin: 12/14/17 10:52 Dose: 1 mg Ondansetron HCl (Zofran Inj) 4 mg IVP Q6 PRN PRN Reason: Nausea/Vomiting Oxycodone/Acetaminophen (Percocet 5/325 Mg Tab) 1 tab PO Q4 PRN PRN Reason: Pain, moderate (4-7) Stop: 12/17/17 00:44 Last Admin: 12/15/17 09:22 Dose: 1 tab Pantoprazole Sodium (Protonix Ec Tab) 40 mg PO DAILY [facility] Last Admin: 12/15/17 09:10 Dose: 40 mg - Labs Labs: 12/15/17 05:20 12/15/17 05:20 PT 13.9 Seconds (9.8-13.1) H 12/13/17 17:38 INR 1.3 (0.9-1.2) H 12/13/17 17:38 APTT 30.2 Seconds (25.6-37.1) 12/13/17 17:38 - Constitutional Appears: No Acute Distress - Head Exam Head Exam: ATRAUMATIC, NORMAL INSPECTION, NORMOCEPHALIC - Eye Exam Eye Exam: EOMI, Normal appearance, PERRL Pupil Exam: NORMAL ACCOMODATION - ENT Exam ENT Exam: Mucous Membranes Moist, Normal External Ear Exam - Neck Exam Neck Exam: Full ROM. absent: Meningismus - Respiratory Exam Respiratory Exam: absent: Respiratory Distress - Cardiovascular Exam Cardiovascular Exam: REGULAR RHYTHM, +S1, +S2 - GI/Abdominal Exam GI & Abdominal Exam: Soft, Normal Bowel Sounds. absent: Tenderness - Extremities Exam Extremities Exam: Normal Capillary Refill. absent: Calf Tenderness, Full ROM - Back Exam Back Exam: absent: CVA tenderness (L), CVA tenderness (R) - Neurological Exam Neurological Exam: Alert, Awake, Motor Sensory Deficit, Oriented x3 Neuro motor strength exam: Left Upper Extremity: 5, Right Upper Extremity: 5, Left Lower Extremity: 0, Right Lower Extremity: 0 Additional comments: no sensation LE - Psychiatric Exam Psychiatric exam: Normal Affect, Normal Mood - Skin Skin Exam: Dry, Normal Color, Warm Assessment and Plan (1) Paraspinal abscess Status: Acute (2) UTI (urinary tract infection) Status: Acute (3) Paraplegia Status: Chronic (4) Spine fracture Status: Chronic (5) DM type 2 (diabetes mellitus, type 2) Status: Chronic (6) DVT prophylaxis Status: Acute - Assessment and Plan (Free Text) Assessment: 37 y/o male Paraplegic as a results of Cord compression from Spinal Fracture after Fall 10 yrs ago s/p Spinal Surgery ( Bedolla rods placed), 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 As a result , pt has had chronic drainage from his wound intermittently for years however his last IV abx tx was 10 yrs ago. Patient came in to our ED because of fever, pain and tenderness on his lower back and increase drainage from his wound. CT of L spine/T spine :3.2 x 2.9 x 3.4 cm low-attenuation collection with peripheral enhancement in the right posterior paraspinal soft tissues. Nonspecific moderate left hydroureteronephrosis. Neurosurgery was consulted in the ED - as per Dr Weir - no neuro surgical intervention, abscess is supeficial so General Surgery was consulted. Abscess drained from wound and specimen sent for culture. 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 records from 2007 that pt had ) cont IV Vanco , Zosyn and Ceftriaxone ID consulted- discussed case with Dr downing who recommended doing an MRI of the Thoracic and L spine ESR, CRP Procalcitonin level normal (2) UTI (urinary tract infection) Status: Acute urine c/s ; Gram neg rods pt on Iv ceftriaxone and Zosyn Left Hydronephrosis noted- a sper pt's mother , this is chronic , pt is voiding freely Yeast also noted on UA - on PO Diflucan (3) Paraplegia Status: Chronic hx of Cord compression from spine fracture 2007 (4) Spine fracture s/p Bedolla Rods Status: Chronic as above (5) DM type 2 (diabetes mellitus, type 2) Status: Chronic accucheck with coverage start Levemir 10 units q hs (6) DVT prophylaxis Status: Acute Lovenox
--- NOTE | 2017-12-15 11:42 | CT ---
Date of service: 12/13/2017 PROCEDURE: CT Thoracic and Lumbar Spine with contrast HISTORY: r/o abscess vs. fluid collection COMPARISON: None. TECHNIQUE: Axial computed tomography images were obtained of the thoracic and lumbar spine were obtained, following administration of intravenous iodinated contrast. Coronal and sagittal reformatted images were created and reviewed. Intravenous contrast dose: 100 mL Omnipaque 300 Radiation dose: Total exam DLP = 1113.9 mGy-cm. This CT exam was performed using one or more of the following dose reduction techniques: Automated exposure control, adjustment of the mA and/or kV according to patient size, and/or use of iterative reconstruction technique. FINDINGS: VERTEBRAE: Bilateral pedicle screws and paraspinal rods from T8-L2. Chronic mild wedge deformity of T11. No acute fracture. DISCS/SPINAL CANAL/NEURAL FORAMINA: Within the limits of the CT technique, no disc herniation seen. No central canal or neural foraminal stenosis. Limited evaluation due to streak artifact from hardware. PARASPINAL SOFT TISSUES: 3.2 x 2.9 x 3.4 cm low-attenuation collection with peripheral enhancement in the right posterior paraspinal soft tissues. ENHANCEMENT: No abnormal enhancement. OTHER FINDINGS: Nonspecific left hydroureteronephrosis. IMPRESSION: 3.2 x 2.9 x 3.4 cm low-attenuation collection with peripheral enhancement in the right posterior paraspinal soft tissues. Nonspecific moderate left hydroureteronephrosis.
--- NOTE | 2017-12-15 11:44 | CT ---
Date of service: 12/13/2017 PROCEDURE: CT Thoracic Spine without contrast HISTORY: r/o abscess vs. fluid collection COMPARISON: None. TECHNIQUE: Axial computed tomography images were obtained of the thoracic spine without intravenous contrast. Coronal and sagittal reformatted images were created and reviewed. Radiation dose: Total exam DLP = 640.1 mGy-cm. This CT exam was performed using one or more of the following dose reduction techniques: Automated exposure control, adjustment of the mA and/or kV according to patient size, and/or use of iterative reconstruction technique. FINDINGS: VERTEBRAE: Bilateral pedicle screws and paraspinal rods extending from T8-L2. Chronic mild wedge deformity of T11. DISCS/SPINAL CANAL/NEURAL FORAMINA: Within the limits of the CT technique, no disc herniation seen. No central canal or neural foraminal stenosis.. PARASPINAL SOFT TISSUES: Abnormal infiltration in the posterior paraspinal tissues at the mid and lower thoracic spine, asymmetric to the right. OTHER FINDINGS: Unremarkable. IMPRESSION: Bedolla rods from T8-L2. The Abnormal infiltration the posterior paraspinal soft tissues asymmetric to the right.
--- NOTE | 2017-12-15 16:40 | CP.PCM.PN ---
Subjective - Date & Time of Evaluation Date of Evaluation: 12/15/17 Time of Evaluation: 16:37 - Subjective Subjective: I D NOTE GRAM NEGATIVE RODS IN URINE GRAM POSITINVE COCCI IN WOUND CULTURE FOR PRESENT NO CHANGE INANTIBIOTIC RX Objective - Vital Signs/Intake and Output Vital Signs (last 24 hours): Temp Pulse Resp BP Pulse Ox 98.3 F 102 H 20 118/76 97 12/15/17 08:26 12/15/17 08:26 12/15/17 08:26 12/15/17 08:26 12/15/17 08:26 Intake and Output: 12/15/17 12/15/17 06:59 18:59 Intake Total 3700 Output Total 3975 Balance -275 - Medications Medications: Current Medications Acetaminophen (Tylenol 325mg Tab) 650 mg PO Q6 PRN PRN Reason: Pain, Mild (1-3) Dextrose (Dextrose 50% Inj) 0 ml IV STAT PRN; Protocol PRN Reason: Hypoglycemia Protocol Dextrose (Glutose 15) 0 gm PO ONCE PRN; Protocol PRN Reason: Hypoglycemia Protocol Enoxaparin Sodium (Lovenox) 40 mg SC DAILY ADAM PRN Reason: Protocol Last Admin: 12/15/17 09:09 Dose: 40 mg Fluconazole (Diflucan) 100 mg PO DAILY ADAM PRN Reason: Protocol Stop: 12/15/17 23:59 Last Admin: 12/15/17 09:09 Dose: 100 mg Glipizide (Glucotrol Xl) 5 mg PO BRK ADAM Glucagon (Glucagen Diagnostic Kit) 0 mg IM STAT PRN; Protocol PRN Reason: Hypoglycemia Protocol Piperacillin Sod/Tazobactam (Sod 3.375 gm/ Sodium Chloride) 100 mls @ 100 mls/ hr IVPB Q6 ADAM PRN Reason: Protocol Last Admin: 12/15/17 16:19 Dose: 100 mls/hr Vancomycin HCl 1 gm/ Sodium (Chloride) 250 mls @ 166.667 mls/hr IVPB Q12H ADAM Last Admin: 12/15/17 12:37 Dose: 166.667 mls/hr Ceftriaxone Sodium 2 gm/ (Sodium Chloride) 100 mls @ 100 mls/hr IVPB DAILY ADAM PRN Reason: Protocol Last Admin: 12/15/17 11:00 Dose: 100 mls/hr Insulin Human Regular (Humulin R) 0 units SC ACHS ADAM PRN Reason: Protocol Last Admin: 12/15/17 12:45 Dose: 6 units Morphine Sulfate (Morphine) 1 mg IVP Q4 PRN PRN Reason: Pain, severe (8-10) Last Admin: 12/14/17 10:52 Dose: 1 mg Ondansetron HCl (Zofran Inj) 4 mg IVP Q6 PRN PRN Reason: Nausea/Vomiting Oxycodone/Acetaminophen (Percocet 5/325 Mg Tab) 1 tab PO Q4 PRN PRN Reason: Pain, moderate (4-7) Stop: 12/17/17 00:44 Last Admin: 12/15/17 09:22 Dose: 1 tab Pantoprazole Sodium (Protonix Ec Tab) 40 mg PO DAILY [facility] Last Admin: 12/15/17 09:10 Dose: 40 mg - Labs Labs: 12/15/17 05:20 12/15/17 05:20 PT 13.9 Seconds (9.8-13.1) H 12/13/17 17:38 INR 1.3 (0.9-1.2) H 12/13/17 17:38 APTT 30.2 Seconds (25.6-37.1) 12/13/17 17:38
[2017-12-16] MEDS: Piperacillin/Tazobact 3.375 GM in Sodium Chloride 0.9% 100 ML IVPB SCH ×4 (04:48→21:24)
[2017-12-16 06:40] LABS: BASO % 0.3 % (0.0-2.0); EOS # 0.2 K/uL (0.0-0.7); EOS % 3.6 % (0.0-4.0); HEMOGLOBIN 12.3 g/dL (12.0-18.0); LYMPH # 0.8 K/uL (1.0-4.3); LYMPH % 13.1 % (20.0-40.0); MEAN CORPUSCULAR HEMOGLOBIN 26.6 pg (27.0-31.0); MEAN CORPUSCULAR HGB CONC 34.5 g/dL (33.0-37.0); MEAN PLATELET VOLUME 7.8 fl (7.2-11.7); MONO # 0.6 K/uL (0.0-0.8); MONO % 9.4 % (0.0-10.0); NEUT # 4.4 K/uL (1.8-7.0); NEUT % 73.6 % (50.0-75.0); NRBC % 0.1 % (0.0-0.0); RBC 4.63 Mil/uL (4.40-5.90); RED CELL DISTRIBUTION WIDTH 13.8 % (11.5-14.5); WHITE BLOOD COUNT 5.9 K/uL (4.8-10.8)
[2017-12-16] MEDS: Insulin Regular 100 units/ml SC SCH ×4 (06:59→21:28)
[2017-12-16 07:19] LABS: BLOOD UREA NITROGEN 7 mg/dl (9-20); CALCIUM 8.7 mg/dL (8.4-10.2); GFR NON-AFRICAN AMERICAN > 60
--- NOTE | 2017-12-16 08:05 | CP.PCM.PN ---
Subjective - Date & Time of Evaluation Date of Evaluation: 12/16/17 Time of Evaluation: 08:03 - Subjective Subjective: Surgery Pt seen and examined. No acute events. Dressing changed by surgical team. Back wound draining ss fluids. Saturated. Denies fever, nausea, vomiting. Afebrile. Mild tachycardia. Objective - Vital Signs/Intake and Output Vital Signs (last 24 hours): Temp Pulse Resp BP Pulse Ox 98.2 F 94 H 19 114/76 97 12/16/17 07:59 12/16/17 07:59 12/16/17 07:59 12/16/17 07:59 12/16/17 07:59 Intake and Output: 12/16/17 12/16/17 06:59 18:59 Output Total 1000 Balance -1000 - Medications Medications: Current Medications Acetaminophen (Tylenol 325mg Tab) 650 mg PO Q6 PRN PRN Reason: Pain, Mild (1-3) Dextrose (Dextrose 50% Inj) 0 ml IV STAT PRN; Protocol PRN Reason: Hypoglycemia Protocol Dextrose (Glutose 15) 0 gm PO ONCE PRN; Protocol PRN Reason: Hypoglycemia Protocol Enoxaparin Sodium (Lovenox) 40 mg SC DAILY ADAM PRN Reason: Protocol Last Admin: 12/15/17 09:09 Dose: 40 mg Glipizide (Glucotrol Xl) 5 mg PO BRK ADAM Glucagon (Glucagen Diagnostic Kit) 0 mg IM STAT PRN; Protocol PRN Reason: Hypoglycemia Protocol Piperacillin Sod/Tazobactam (Sod 3.375 gm/ Sodium Chloride) 100 mls @ 100 mls/ hr IVPB Q6 ADAM PRN Reason: Protocol Last Admin: 12/16/17 04:48 Dose: 100 mls/hr Vancomycin HCl 1 gm/ Sodium (Chloride) 250 mls @ 166.667 mls/hr IVPB Q12H [facility] Last Admin: 12/16/17 00:09 Dose: 166.667 mls/hr Ceftriaxone Sodium 2 gm/ (Sodium Chloride) 100 mls @ 100 mls/hr IVPB DAILY [facility] PRN Reason: Protocol Last Admin: 12/15/17 11:00 Dose: 100 mls/hr Sodium Chloride (Sodium Chloride 0.9%) 1,000 mls @ 50 mls/hr IV .Q20H [facility] Stop: 12/17/17 08:00 Insulin Human Regular (Humulin R) 0 units SC ACHS ADAM PRN Reason: Protocol Last Admin: 12/16/17 06:59 Dose: 3 units Morphine Sulfate (Morphine) 1 mg IVP Q4 PRN PRN Reason: Pain, severe (8-10) Last Admin: 12/14/17 10:52 Dose: 1 mg Ondansetron HCl (Zofran Inj) 4 mg IVP Q6 PRN PRN Reason: Nausea/Vomiting Oxycodone/Acetaminophen (Percocet 5/325 Mg Tab) 1 tab PO Q4 PRN PRN Reason: Pain, moderate (4-7) Stop: 12/17/17 00:44 Last Admin: 12/15/17 20:57 Dose: 1 tab Pantoprazole Sodium (Protonix Ec Tab) 40 mg PO DAILY [facility] Last Admin: 12/15/17 09:10 Dose: 40 mg - Labs Labs: 12/16/17 05:45 12/16/17 05:45 PT 13.9 Seconds (9.8-13.1) H 12/13/17 17:38 INR 1.3 (0.9-1.2) H 12/13/17 17:38 APTT 30.2 Seconds (25.6-37.1) 12/13/17 17:38 - Constitutional Appears: No Acute Distress, Chronically Ill - Head Exam Head Exam: ATRAUMATIC, NORMAL INSPECTION, NORMOCEPHALIC - Eye Exam Eye Exam: EOMI, Normal appearance, PERRL Pupil Exam: NORMAL ACCOMODATION, PERRL - ENT Exam ENT Exam: Mucous Membranes Moist, Normal Exam - Neck Exam Neck Exam: Full ROM, Normal Inspection. absent: Lymphadenopathy - Respiratory Exam Respiratory Exam: NORMAL BREATHING PATTERN - Cardiovascular Exam Cardiovascular Exam: Tachycardia, REGULAR RHYTHM, +S1, +S2. absent: Murmur - GI/Abdominal Exam GI & Abdominal Exam: Soft, Normal Bowel Sounds. absent: Distended, Firm, Guarding, Rigid, Tenderness - Rectal Exam Rectal Exam: NORMAL INSPECTION - Exam Exam: NORMAL INSPECTION - Extremities Exam Extremities Exam: absent: Full ROM - Back Exam Back Exam: tenderness. absent: NORMAL INSPECTION, paraspinal tenderness Additional comments: back 3 ss draining sinuses. Dressing in place. - Neurological Exam Neurological Exam: Alert, Awake, Oriented x3. absent: Normal Gait - Skin Skin Exam: Erythema, Warm. absent: Dry, Intact, Normal Color Assessment and Plan - Assessment and Plan (Free Text) Assessment: 37M paraplegic s/p thoracolumbar spine surgery, with chronic draining sinus tracts Plan: -Wound care with betadine and peroxide. -IV Abx as per ID -No general surgery intervention Will KARLEY Julio
--- NOTE | 2017-12-16 08:19 | CON ---
DATE: 12/14/2017 INFECTIOUS DISEASE CONSULT HISTORY OF PRESENT ILLNESS: The patient is a 37-year-old male who just came from [place] with past medical history of paraplegia, diabetes, frequent UTIs and neurogenic bladder. He apparently self-catheterizes himself with a condom catheter. He apparently has a long history of drainage from the spinal area including three drainingl ulcers with sinus tract, and he was complaining of fever and worsening pain. He always has pain, but has worsened in the last 24 to 48 hours. He has not seen his doctors in [place] for the last 10 years. Apparently, he sustained an injury in 2003 and in 2007, he was treated for sinus tract drainage possibly epidural abscesses and has had drainage again over the past 10 years. Apparently, he took IV antibiotics obtained from the records being vancomycin, Zosyn, and gentamicin. He also grew MRSA from these wounds. He has had constant drainage over this period of time. Raymundo has Bedolla rods in place. When questioned again directly about when he received antibiotics, he said 10 years ago. PHYSICAL EXAMINATION: HEENT: Head is normocephalic and atraumatic. NECK: Supple. HEART: Regular sinus rhythm. LUNGS: Clear. ABDOMEN: Soft. Positive bowel sounds. BACK: He has a midline surgical scar in the back with three open tracks draining serosanguineous fluid. There is tenderness around the healed incision site. NEUROLOGIC: The patient has no movement on the lower extremities, but he is oriented to time and place. He has difficulty urinating, has dysuria and flank pain, and apparently prior history of frequent UTIs. IMPRESSION AND PLAN: The patient with draining sinus tracts and uncontrolled diabetes. He is paraplegic. He came here to try and get insurance for his care. CT scan showed a 3 x 5 x 4 cm lesion according to the emergency room physician. Apparently, he was evaluated for an abscess that was drained by Surgery. At present time, we will review urine cultures and will review cultures of the drainage. We will continue vancomycin but feel we should treat with Rocephin 2 g every 24 hours as may get better [employer] SWISS TYPE absorption.We will have this case reviewed by the medical department as I feel this case should be seen by Neurosurgery and possible further surgical intervention may be needed in regards to the sinus tract and chronic infection. In lieu of that, he would also definitely need six weeks of intravenous antibiotics treatment. Patrick Carolina MD [facility] # [id number] [facility]ITAL[facility]ulay
--- NOTE | 2017-12-16 08:40 | CP.PCM.PN ---
Subjective - Date & Time of Evaluation Date of Evaluation: 12/16/17 Time of Evaluation: 08:40 - Subjective Subjective: complains of pain located back 5/10 able to turn in bed only does not want to sit in chair due to pain no cp, no sob no diarrhea normally in wheel chair Objective - Vital Signs/Intake and Output Vital Signs (last 24 hours): Temp Pulse Resp BP Pulse Ox 98.2 F 94 H 19 114/76 97 12/16/17 07:59 12/16/17 07:59 12/16/17 07:59 12/16/17 07:59 12/16/17 07:59 Intake and Output: 12/16/17 12/16/17 06:59 18:59 Output Total 1000 Balance -1000 - Medications Medications: Current Medications Acetaminophen (Tylenol 325mg Tab) 650 mg PO Q6 PRN PRN Reason: Pain, Mild (1-3) Dextrose (Dextrose 50% Inj) 0 ml IV STAT PRN; Protocol PRN Reason: Hypoglycemia Protocol Dextrose (Glutose 15) 0 gm PO ONCE PRN; Protocol PRN Reason: Hypoglycemia Protocol Enoxaparin Sodium (Lovenox) 40 mg SC DAILY ADAM PRN Reason: Protocol Last Admin: 12/15/17 09:09 Dose: 40 mg Glipizide (Glucotrol Xl) 5 mg PO BRK ADAM Glucagon (Glucagen Diagnostic Kit) 0 mg IM STAT PRN; Protocol PRN Reason: Hypoglycemia Protocol Piperacillin Sod/Tazobactam (Sod 3.375 gm/ Sodium Chloride) 100 mls @ 100 mls/ hr IVPB Q6 ADAM PRN Reason: Protocol Last Admin: 12/16/17 04:48 Dose: 100 mls/hr Vancomycin HCl 1 gm/ Sodium (Chloride) 250 mls @ 166.667 mls/hr IVPB Q12H [facility] Last Admin: 12/16/17 00:09 Dose: 166.667 mls/hr Ceftriaxone Sodium 2 gm/ (Sodium Chloride) 100 mls @ 100 mls/hr IVPB DAILY ADAM PRN Reason: Protocol Last Admin: 12/15/17 11:00 Dose: 100 mls/hr Sodium Chloride (Sodium Chloride 0.9%) 1,000 mls @ 50 mls/hr IV .Q20H [facility] Stop: 12/17/17 08:00 Insulin Human Regular (Humulin R) 0 units SC ACHS ADAM PRN Reason: Protocol Last Admin: 12/16/17 06:59 Dose: 3 units Morphine Sulfate (Morphine) 1 mg IVP Q4 PRN PRN Reason: Pain, severe (8-10) Last Admin: 12/14/17 10:52 Dose: 1 mg Ondansetron HCl (Zofran Inj) 4 mg IVP Q6 PRN PRN Reason: Nausea/Vomiting Oxycodone/Acetaminophen (Percocet 5/325 Mg Tab) 1 tab PO Q4 PRN PRN Reason: Pain, moderate (4-7) Stop: 12/17/17 00:44 Last Admin: 12/15/17 20:57 Dose: 1 tab Pantoprazole Sodium (Protonix Ec Tab) 40 mg PO DAILY [facility] Last Admin: 12/15/17 09:10 Dose: 40 mg - Labs Labs: 12/16/17 05:45 12/16/17 05:45 PT 13.9 Seconds (9.8-13.1) H 12/13/17 17:38 INR 1.3 (0.9-1.2) H 12/13/17 17:38 APTT 30.2 Seconds (25.6-37.1) 12/13/17 17:38 - Constitutional Appears: Well, Non-toxic, No Acute Distress - Head Exam Head Exam: NORMAL INSPECTION - Eye Exam Pupil Exam: NORMAL ACCOMODATION - ENT Exam ENT Exam: Mucous Membranes Dry - Respiratory Exam Respiratory Exam: Clear to Ausculation Bilateral, NORMAL BREATHING PATTERN. absent: Rales, Rhonchi, Wheezes - Cardiovascular Exam Cardiovascular Exam: REGULAR RHYTHM, +S1, +S2 - GI/Abdominal Exam GI & Abdominal Exam: Soft, Normal Bowel Sounds. 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 As a result , pt has had chronic drainage from his wound intermittently for years however his last IV abx tx was 10 yrs ago. Patient came in to our ED because of fever, pain and tenderness on his lower back and increase drainage from his wound. CT of L spine/T spine :3.2 x 2.9 x 3.4 cm low-attenuation collection with peripheral enhancement in the right posterior paraspinal soft tissues. Nonspecific moderate left hydroureteronephrosis. Neurosurgery was consulted in the ED - as per Dr Weir - no neuro surgical intervention, abscess is surficial so General Surgery was consulted. Abscess drained from wound and specimen sent for culture. Wound c/s : follow final Urine c/s : follow final (1) Paraspinal Soft Tissue abscess r/o Osteomyelitis Status: Acute Neurosurgery and Gen surgery consulted Wound c/s : Gram + cocci ( pt had previous hx of MRSA accdg to medical records from 2007 that pt had ) cont IV Vanco , Zosyn and Ceftriaxone ID consulted- discussed case with Dr downing who recommended doing an MRI of the Thoracic and L spine planned for today ESR high CRP high consistent with infection Procalcitonin level normal (2) UTI (urinary tract infection) Status: Acute urine c/s ; Gram neg rods pt on Iv ceftriaxone and Zosyn Left Hydronephrosis noted- as per patient's mother , this is chronic , pt is voiding freely Yeast also noted on UA - on PO Diflucan (3) Paraplegia Status: Chronic hx of Cord compression from spine fracture 2007 (4) Spine fracture s/p Bedolla Rods Status: Chronic as above (5) DM type 2 (diabetes mellitus, type 2) Status: Chronic accucheck with coverage start Levemir 10 units q hs (6)Sepsis sec to Paraspinal soft tissue abscess - Lactic acid elevated, pt febrile, tachycardic and fever on admission (7) DVT prophylaxis Status: Acute Lovenox
[2017-12-16] MEDS: Sodium Chloride 0.9% 1,000 ML IV SCH (08:59)
[2017-12-16] MEDS: Enoxaparin 40 mg Syringe SC SCH (08:59)
[2017-12-16] MEDS: GlipiZIDE 5 mg SR Tab PO SCH (09:00)
[2017-12-16] MEDS: Pantoprazole 40 mg EC Tab PO SCH (09:00)
[2017-12-16] MEDS: cefTRIAXone 2 GM in Sodium Chloride 0.9% 100 ML IVPB SCH (09:00)
[2017-12-16] MEDS: Oxycodone/Acetaminophen 5/325 mg Tab PO PRN (17:53)
--- NOTE | 2017-12-16 18:45 | MRI ---
Date of service: 12/16/2017 PROCEDURE: MR THORACIC SPINE WITHOUT CONTRAST HISTORY: hx of spine surgery, draining abscess site of surg COMPARISON: Comparison is made with the previous CT of the thoracic spine dated 12/13/2017 TECHNIQUE: Multiecho multiplanar sequences were performed through the thoracic spine without the use of intravenous contrast. FINDINGS: ALIGNMENT: Normal thoracic spinal alignment. The patient is status post posterior internal fixation and Gabrielle writes at the lower thoracic and upper lumbar spine VERTEBRA: There is a partial destruction of the mid and upper T11 vertebral body and intervertebral disc space at T10-T11 noted. The possibility of osteomyelitis discitis cannot be excluded. There are bilateral pedicle screws seen at T11, T12 and upper lumbar spine vertebrae. MARROW: Bone marrow edema at T10 and T11 vertebrae noted. PARASPINAL SOFT TISSUES: The assessment of the paraspinal soft tissue is limited due to artifact from the hardware. CORD: There is suspicious for cord compression at T10-T11 level. DISCS: Complete destruction and narrowing with possible partial fusion at T10-T11. Narrowing of the disc is space at T11-T12 is also noted. OTHER FINDINGS: None. IMPRESSION: Severe narrowing of the spinal canal at T10-T11 with possible cord compression at this level. Please correlate clinically. Partial destruction of the mid and upper T11 and adjacent T10-T11 disc. The possibility of osteomyelitis discitis also should be considered.
--- NOTE | 2017-12-16 18:51 | CP.PCM.PN ---
Subjective - Date & Time of Evaluation Date of Evaluation: 12/16/17 Time of Evaluation: 18:46 - Subjective Subjective: ID NOTE WOUND CULTURE :STAPH AUREUS (MSSA) URINE CULTURE :PROVIDENCIA STUARTI:S TO CETRIAXONE AWAIT IDENTIFICATION OF UZAIR(-) IN WOUND CULTURE AND READING OF MRI Objective - Vital Signs/Intake and Output Vital Signs (last 24 hours): Temp Pulse Resp BP Pulse Ox 98 F 93 H 20 114/73 97 12/16/17 16:35 12/16/17 16:35 12/16/17 16:35 12/16/17 16:35 12/16/17 16:35 Intake and Output: 12/16/17 12/16/17 06:59 18:59 Output Total 1000 1500 Balance -1000 -1500 - Medications Medications: Current Medications Acetaminophen (Tylenol 325mg Tab) 650 mg PO Q6 PRN PRN Reason: Pain, Mild (1-3) Dextrose (Dextrose 50% Inj) 0 ml IV STAT PRN; Protocol PRN Reason: Hypoglycemia Protocol Dextrose (Glutose 15) 0 gm PO ONCE PRN; Protocol PRN Reason: Hypoglycemia Protocol Enoxaparin Sodium (Lovenox) 40 mg SC DAILY ADAM PRN Reason: Protocol Last Admin: 12/16/17 08:59 Dose: 40 mg Glipizide (Glucotrol Xl) 5 mg PO BRK ADAM Last Admin: 12/16/17 09:00 Dose: 5 mg Glucagon (Glucagen Diagnostic Kit) 0 mg IM STAT PRN; Protocol PRN Reason: Hypoglycemia Protocol Piperacillin Sod/Tazobactam (Sod 3.375 gm/ Sodium Chloride) 100 mls @ 100 mls/ hr IVPB Q6 ADAM PRN Reason: Protocol Last Admin: 12/16/17 15:15 Dose: 100 mls/hr Vancomycin HCl 1 gm/ Sodium (Chloride) 250 mls @ 166.667 mls/hr IVPB Q12H [facility] Last Admin: 12/16/17 12:32 Dose: 166.667 mls/hr Ceftriaxone Sodium 2 gm/ (Sodium Chloride) 100 mls @ 100 mls/hr IVPB DAILY [facility] PRN Reason: Protocol Last Admin: 12/16/17 09:00 Dose: 100 mls/hr Sodium Chloride (Sodium Chloride 0.9%) 1,000 mls @ 50 mls/hr IV .Q20H [facility] Stop: 12/17/17 08:00 Last Admin: 12/16/17 08:59 Dose: 50 mls/hr Insulin Human Regular (Humulin R) 0 units SC ACHS ADAM PRN Reason: Protocol Last Admin: 12/16/17 16:15 Dose: 3 units Morphine Sulfate (Morphine) 1 mg IVP Q4 PRN PRN Reason: Pain, severe (8-10) Last Admin: 12/14/17 10:52 Dose: 1 mg Ondansetron HCl (Zofran Inj) 4 mg IVP Q6 PRN PRN Reason: Nausea/Vomiting Oxycodone HCl (Oxycontin Extended Release Tab) 20 mg PO Q12 [facility] Oxycodone/Acetaminophen (Percocet 5/325 Mg Tab) 1 tab PO Q4 PRN PRN Reason: Pain, moderate (4-7) Stop: 12/17/17 00:44 Last Admin: 12/16/17 17:53 Dose: 1 tab Pantoprazole Sodium (Protonix Ec Tab) 40 mg PO DAILY [facility] Last Admin: 12/16/17 09:00 Dose: 40 mg - Labs Labs: 12/16/17 05:45 12/16/17 05:45 PT 13.9 Seconds (9.8-13.1) H 12/13/17 17:38 INR 1.3 (0.9-1.2) H 12/13/17 17:38 APTT 30.2 Seconds (25.6-37.1) 12/13/17 17:38
[2017-12-16] MEDS: oxyCODONE 20 mg ER Tab (oxyCONTIN) PO SCH (21:27)
[2017-12-17] MEDS: Piperacillin/Tazobact 3.375 GM in Sodium Chloride 0.9% 100 ML IVPB SCH ×4 (04:24→22:43)
[2017-12-17] MEDS: Sodium Chloride 0.9% 1,000 ML IV SCH (04:25)
[2017-12-17] MEDS: Insulin Regular 100 units/ml SC SCH ×4 (06:36→21:50)
--- NOTE | 2017-12-17 07:39 | CP.PCM.PN ---
Subjective - Date & Time of Evaluation Date of Evaluation: 12/17/17 Time of Evaluation: 07:37 - Subjective Subjective: General surgery progress note for Dr. Jeni Mcdaniels, PGY-2 Pt S & E at bedside at 0705 Pt reports continued pain over back, continues with drainage from all 3 wounds. Denies F & C. Tolerating diet. Afebrile. Objective - Vital Signs/Intake and Output Vital Signs (last 24 hours): Temp Pulse Resp BP Pulse Ox 97.6 F 95 H 18 109/68 96 12/17/17 00:00 12/17/17 00:00 12/17/17 00:00 12/17/17 00:00 12/17/17 00:00 Intake and Output: 12/17/17 12/17/17 06:59 18:59 Output Total 2000 Balance -1999 - Medications Medications: Current Medications Acetaminophen (Tylenol 325mg Tab) 650 mg PO Q6 PRN PRN Reason: Pain, Mild (1-3) Dextrose (Dextrose 50% Inj) 0 ml IV STAT PRN; Protocol PRN Reason: Hypoglycemia Protocol Dextrose (Glutose 15) 0 gm PO ONCE PRN; Protocol PRN Reason: Hypoglycemia Protocol Enoxaparin Sodium (Lovenox) 40 mg SC DAILY ADAM PRN Reason: Protocol Last Admin: 12/16/17 08:59 Dose: 40 mg Glipizide (Glucotrol Xl) 5 mg PO BRK ADAM Last Admin: 12/16/17 09:00 Dose: 5 mg Glucagon (Glucagen Diagnostic Kit) 0 mg IM STAT PRN; Protocol PRN Reason: Hypoglycemia Protocol Ceftriaxone Sodium 2 gm/ (Sodium Chloride) 100 mls @ 100 mls/hr IVPB DAILY ADAM PRN Reason: Protocol Last Admin: 12/16/17 09:00 Dose: 100 mls/hr Sodium Chloride (Sodium Chloride 0.9%) 1,000 mls @ 50 mls/hr IV .Q20H ADAM Stop: 12/17/17 08:00 Last Admin: 12/17/17 04:25 Dose: Not Given Insulin Human Regular (Humulin R) 0 units SC ACHS ADAM PRN Reason: Protocol Last Admin: 12/17/17 06:36 Dose: 3 units Morphine Sulfate (Morphine) 1 mg IVP Q4 PRN PRN Reason: Pain, severe (8-10) Last Admin: 12/14/17 10:52 Dose: 1 mg Ondansetron HCl (Zofran Inj) 4 mg IVP Q6 PRN PRN Reason: Nausea/Vomiting Last Admin: 12/17/17 06:32 Dose: 4 mg Oxycodone HCl (Oxycontin Extended Release Tab) 20 mg PO Q12 [facility] Last Admin: 12/16/17 21:27 Dose: 20 mg Pantoprazole Sodium (Protonix Ec Tab) 40 mg PO DAILY [facility] Last Admin: 12/16/17 09:00 Dose: 40 mg - Labs Labs: 12/16/17 05:45 12/16/17 05:45 PT 13.9 Seconds (9.8-13.1) H 12/13/17 17:38 INR 1.3 (0.9-1.2) H 12/13/17 17:38 APTT 30.2 Seconds (25.6-37.1) 12/13/17 17:38 - Constitutional Appears: Non-toxic, No Acute Distress - Head Exam Head Exam: ATRAUMATIC, NORMAL INSPECTION, NORMOCEPHALIC - Eye Exam Eye Exam: EOMI, Normal appearance - ENT Exam ENT Exam: Mucous Membranes Moist, Normal Exam Additional comments: poor dentition - Respiratory Exam Respiratory Exam: NORMAL BREATHING PATTERN - Cardiovascular Exam Cardiovascular Exam: REGULAR RHYTHM - GI/Abdominal Exam GI & Abdominal Exam: Soft - Extremities Exam Extremities Exam: absent: Normal Inspection Additional comments: unable to move lower extremities purposefully - Neurological Exam Neurological Exam: Alert, Awake, CN II-XII Intact, Oriented x3 - Psychiatric Exam Psychiatric exam: Normal Affect, Normal Mood - Skin Additional comments: 3 midline spinal wounds in thoracic, midthoracic, and lumbar areas draining purulent material, tender to palpation along spine & implant. Assessment and Plan - Assessment and Plan (Free Text) Assessment: 37M paraplegic s/p thoracolumbar spine surgery, with chronic draining sinus tracts MRI spine -Severe narrowing of the spinal canal at T10-T11 with possible cord compression at this level. Please correlate clinically.Partial destruction of the mid and upper T11 and adjacent T10-T11 disc. The possibility of osteomyelitis discitis also should be considered. Plan: Wound care TID per nursing Wound care referral IV Abx No general surgery intervention at this time Please re-consult as needed Will KARLEY attending Enedelia, PGY-2
[2017-12-17] MEDS: oxyCODONE 20 mg ER Tab (oxyCONTIN) PO SCH ×2 (08:42→20:27)
[2017-12-17] MEDS: cefTRIAXone 2 GM in Sodium Chloride 0.9% 100 ML IVPB SCH (08:45)
[2017-12-17] MEDS: GlipiZIDE 5 mg SR Tab PO SCH (08:46)
[2017-12-17] MEDS: Enoxaparin 40 mg Syringe SC SCH (08:46)
[2017-12-17] MEDS: Pantoprazole 40 mg EC Tab PO SCH (08:47)
[2017-12-17] MEDS ORDERED: Oxycodone/Acetaminophen 5/325 mg Tab PO PRN (08:49)
--- NOTE | 2017-12-17 13:53 | MRI ---
Date of service: 12/16/2017 PROCEDURE: MR LUMBAR SPINE WITHOUT CONTRAST HISTORY: history of Spine surgery , draining abscess spine COMPARISON: Comparison is made with the previous CT dated 12/13/2017. TECHNIQUE: Multiecho multiplanar sequences were performed through the lumbar spine without the use of intravenous contrast. FINDINGS: The patient is again status post fusion and posterior fixation at lower thoracic and upper lumbar spine. There are bilateral pedicles screws at L1 and L2. There is a endplate destruction and disc space fusion at L1-L2. No definite evidence of significant bone marrow edema to suggest active osteomyelitis discitis. There is [id number] loss of the L2 vertebral height noted. Marrow signal unremarkable. Conus medullaris unremarkable at the level of T12-L1 There is hyperintense T2 and hypointense T1 subcutaneous fluid collection noted in the subcutaneous region to the right of the midline at the level of L2 and L3 measures 5 centimeter in the transverse diameter 2.4 centimeter in the AP diameter and 5.4 centimeter in the longitudinal diameter may represent seroma or abscess formation. The assessment is suboptimal without IV contrast administration. T12-L1: Limited assessment at this level due to hardware. No disc herniation, spinal canal stenosis or neural foraminal narrowing. L1-2: Also limited assessment at this level due to presence of pedicle screws and posterior hardware. No disc herniation, spinal canal stenosis or neural foraminal narrowing. L2-3: Mild disc desiccation. No disc herniation, spinal canal stenosis or neural foraminal narrowing. L3-4: No disc herniation, spinal canal stenosis or neural foraminal narrowing. L4-5: No disc herniation, spinal canal stenosis or neural foraminal narrowing. L5-S1: No disc herniation, spinal canal stenosis or neural foraminal narrowing. OTHER FINDINGS: None. IMPRESSION: Status post fusion and internal fixation at the lower thoracic and upper lumbar spine including bilateral pedicles screws and posterior longitudinal rods at L1 and L2. No evidence of spinal stenosis or neural foraminal narrowing at the lumbar spine. Endplate destruction and disc space fusion at L1-L2. Subcutaneous fluid collection to the right of the midline at the level of L2 and L2-L3 may represent seroma or abscess formation.
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
[2017-12-18] MEDS: Piperacillin/Tazobact 3.375 GM in Sodium Chloride 0.9% 100 ML IVPB SCH ×2 (03:36→09:02)
[2017-12-18] MEDS: cefTRIAXone 2 GM in Sodium Chloride 0.9% 100 ML IVPB SCH (08:48)
[2017-12-18] MEDS: oxyCODONE 20 mg ER Tab (oxyCONTIN) PO SCH ×2 (08:50→21:33)
[2017-12-18] MEDS: Pantoprazole 40 mg EC Tab PO SCH (08:51)
[2017-12-18] MEDS: GlipiZIDE 10 mg SR Tab PO SCH (08:51)
[2017-12-18] MEDS: Insulin Regular 100 units/ml SC SCH ×4 (08:51→22:19)
[2017-12-18] MEDS: Enoxaparin 40 mg Syringe SC SCH ×2 (08:52→16:30)
[2017-12-18] MEDS ORDERED: Lidocaine Hydrochloride 5 ML INJ ONE (12:14)
--- NOTE | 2017-12-18 12:28 | PCM.SURG1 ---
Surgeon's Initial Post Op Note - Surgeon's Notes Surgeon: Mike Wright MD [place] Worker: NONE Type of Anesthesia: Local Pre-Operative Diagnosis: Back subcutaneous fluid collection, draining sinus. Operative Findings: US showed small < 3 cm upper thoracic right paraspinal subcutaneous collection and a larger 6+ cm collection right paraspinal lumbar subcutaneous collection. Post-Operative Diagnosis: Back subcutaneous fluid collection, draining sinus. Operation Performed: US guided aspiration of thoracic and lumbar subcutaneous collection. 22 cc of purulent drainage removed from lumbar subcutaneous collection. Specimen/Specimens Removed: 22 cc Estimated Blood Loss: EBL {In ML}: 2 Blood Products Given: N/A Drains Used: No Drains Post-Op Condition: Fair Date of Surgery/Procedure: 12/18/17 Time of Surgery/Procedure: 12:25
--- NOTE | 2017-12-18 13:03 | CP.PCM.PN ---
Subjective - Date & Time of Evaluation Date of Evaluation: 12/18/17 Time of Evaluation: 12:58 - Subjective Subjective: I D NOTE HAD IR DRAINAGE DONE TODAY HAVE DISCOTNUED ZOSYN AND ROCEPHEN STARTED CIPRO FOR UTI / SPINAL DRAINAGE WILL AWAIT CULTURES FROM TODAY'S PROCEDURE Objective - Vital Signs/Intake and Output Vital Signs (last 24 hours): Temp Pulse Resp BP Pulse Ox 98.4 F 80 18 116/70 100 12/18/17 12:00 12/18/17 12:00 12/18/17 12:00 12/18/17 12:00 12/18/17 12:00 Intake and Output: 12/18/17 12/18/17 06:59 18:59 Intake Total 450 Output Total 1400 Balance -950 - Medications Medications: Current Medications Acetaminophen (Tylenol 325mg Tab) 650 mg PO Q6 PRN PRN Reason: Pain, Mild (1-3) Dextrose (Dextrose 50% Inj) 0 ml IV STAT PRN; Protocol PRN Reason: Hypoglycemia Protocol Dextrose (Glutose 15) 0 gm PO ONCE PRN; Protocol PRN Reason: Hypoglycemia Protocol Enoxaparin Sodium (Lovenox) 40 mg SC DAILY ADAM PRN Reason: Protocol Last Admin: 12/18/17 08:52 Dose: Not Given Glipizide (Glucotrol Xl) 10 mg PO BRK ADAM Last Admin: 12/18/17 08:51 Dose: 10 mg Glucagon (Glucagen Diagnostic Kit) 0 mg IM STAT PRN; Protocol PRN Reason: Hypoglycemia Protocol Ceftriaxone Sodium 2 gm/ (Sodium Chloride) 100 mls @ 100 mls/hr IVPB DAILY ADAM PRN Reason: Protocol Last Admin: 12/18/17 08:48 Dose: 100 mls/hr Vancomycin HCl 1 gm/ Sodium (Chloride) 250 mls @ 166.667 mls/hr IVPB Q12 ADAM PRN Reason: Protocol Last Admin: 12/18/17 08:48 Dose: 166.667 mls/hr Ciprofloxacin (Cipro 400mg/200ml Dsw) 400 mg in 200 mls @ 200 mls/hr IVPB Q12 ADAM PRN Reason: Protocol Insulin Human Regular (Humulin R) 0 units SC ACHS ADAM PRN Reason: Protocol Last Admin: 12/18/17 08:51 Dose: 2 units Ondansetron HCl (Zofran Inj) 4 mg IVP Q6 PRN PRN Reason: Nausea/Vomiting Last Admin: 12/17/17 06:32 Dose: 4 mg Oxycodone HCl (Oxycontin Extended Release Tab) 20 mg PO Q12 [facility] Last Admin: 12/18/17 08:50 Dose: 20 mg Oxycodone/Acetaminophen (Percocet 5/325 Mg Tab) 1 tab PO Q6 PRN PRN Reason: Pain, moderate (4-7) Stop: 12/20/17 08:50 Pantoprazole Sodium (Protonix Ec Tab) 40 mg PO DAILY [facility] Last Admin: 12/18/17 08:51 Dose: 40 mg - Labs Labs: 12/16/17 05:45 12/16/17 05:45 PT 13.9 Seconds (9.8-13.1) H 12/13/17 17:38 INR 1.3 (0.9-1.2) H 12/13/17 17:38 APTT 30.2 Seconds (25.6-37.1) 12/13/17 17:38
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
--- NOTE | 2017-12-18 13:30 | CT ---
PROCEDURE: Date of procedure: 12/18/2017 Procedure: 1. Lumbar paraspinal subcutaneous collection aspiration. 2. Thoracic paraspinal subcutaneous collection aspiration Medications: 4 cubic centimeters 1 percent lidocaine HISTORY: Spinal fusion with spinal subcutaneous collections in the lumbar and thoracic region TECHNIQUE: Following informed consent procedure time-out, the patient was placed in a lateral position on ultrasound patient back confirmed the presence of a large subcutaneous collection right of midline in the lumbar area. A smaller subcutaneous collection was seen in the mid thoracic area. The patient's back was prepped and draped in the usual sterile fashion. After the skin was anesthetized with lidocaine, a drainage catheter was advanced under ultrasound guidance into the large subcutaneous lower back collection. 22 cubic centimeters of purulent drainage the aspirated. This was followed by aspiration of the upper collection. Only 3 cubic centimeters of purulent fluid was removed from the upper collection. A dressing was applied. IMPRESSION: Ultrasound-guided aspiration of subcutaneous paraspinal collection in the lumbar and thoracic region.
[2017-12-18] MEDS: Ciprofloxacin 400mg/200ml D5W 400 MG/200 ML BAG IVPB SCH (21:31)
[2017-12-18] MEDS ORDERED: Insulin Detemir 100 Units/ml Inj SC SCH (22:00)
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
[2017-12-19] MEDS: Insulin Regular 100 units/ml SC SCH ×4 (06:45→21:45)
[2017-12-19] MEDS: GlipiZIDE 10 mg SR Tab PO SCH (08:12)
[2017-12-19] MEDS: Ciprofloxacin 400mg/200ml D5W 400 MG/200 ML BAG IVPB SCH ×2 (09:09→20:16)
[2017-12-19] MEDS: Enoxaparin 40 mg Syringe SC SCH (09:10)
[2017-12-19] MEDS: cefTRIAXone 2 GM in Sodium Chloride 0.9% 100 ML IVPB SCH (09:10)
[2017-12-19] MEDS: Pantoprazole 40 mg EC Tab PO SCH (09:12)
[2017-12-19] MEDS: oxyCODONE 20 mg ER Tab (oxyCONTIN) PO SCH ×2 (09:22→21:43)
[2017-12-19] MEDS ORDERED: Lidocaine Hydrochloride 5 ML INJ ONE (12:54)
--- NOTE | 2017-12-19 16:09 | CP.PCM.PN ---
Subjective - Date & Time of Evaluation Date of Evaluation: 12/19/17 Time of Evaluation: 14:30 - Subjective Subjective: Pt is afebrile low back pain better nonew neurologic deficit no CP no SOB no abd pain Abscess drained 12/18 PICC line placed today Objective - Vital Signs/Intake and Output Vital Signs (last 24 hours): Temp Pulse Resp BP Pulse Ox 98.1 F 80 18 109/72 97 12/19/17 12:57 12/19/17 12:57 12/19/17 12:57 12/19/17 12:57 12/19/17 08:17 - Medications Medications: Current Medications Acetaminophen (Tylenol 325mg Tab) 650 mg PO Q6 PRN PRN Reason: Pain, Mild (1-3) Dextrose (Dextrose 50% Inj) 0 ml IV STAT PRN; Protocol PRN Reason: Hypoglycemia Protocol Dextrose (Glutose 15) 0 gm PO ONCE PRN; Protocol PRN Reason: Hypoglycemia Protocol Enoxaparin Sodium (Lovenox) 40 mg SC DAILY [facility] PRN Reason: Protocol Last Admin: 12/19/17 09:10 Dose: 40 mg Glipizide (Glucotrol Xl) 10 mg PO BRK [facility] Last Admin: 12/19/17 08:12 Dose: 10 mg Glucagon (Glucagen Diagnostic Kit) 0 mg IM STAT PRN; Protocol PRN Reason: Hypoglycemia Protocol Ceftriaxone Sodium 2 gm/ (Sodium Chloride) 100 mls @ 100 mls/hr IVPB DAILY [facility] PRN Reason: Protocol Last Admin: 12/19/17 09:10 Dose: 100 mls/hr Vancomycin HCl 1 gm/ Sodium (Chloride) 250 mls @ 166.667 mls/hr IVPB Q12 [facility] PRN Reason: Protocol Last Admin: 12/19/17 09:11 Dose: 166.667 mls/hr Ciprofloxacin (Cipro 400mg/200ml Dsw) 400 mg in 200 mls @ 200 mls/hr IVPB Q12 [facility] PRN Reason: Protocol Last Admin: 12/19/17 09:09 Dose: 200 mls/hr Insulin Detemir (Levemir) 16 units SC HS ADAM Insulin Human Regular (Humulin R) 0 units SC ACHS [facility] PRN Reason: Protocol Last Admin: 12/19/17 06:45 Dose: 3 units Ondansetron HCl (Zofran Inj) 4 mg IVP Q6 PRN PRN Reason: Nausea/Vomiting Last Admin: 12/17/17 06:32 Dose: 4 mg Oxycodone HCl (Oxycontin Extended Release Tab) 20 mg PO Q12 [facility] Last Admin: 12/19/17 09:22 Dose: 20 mg Oxycodone/Acetaminophen (Percocet 5/325 Mg Tab) 1 tab PO Q6 PRN PRN Reason: Pain, moderate (4-7) Stop: 12/20/17 08:50 Pantoprazole Sodium (Protonix Ec Tab) 40 mg PO DAILY [facility] Last Admin: 12/19/17 09:12 Dose: 40 mg - Labs Labs: 12/16/17 05:45 12/16/17 05:45 PT 13.9 Seconds (9.8-13.1) H 12/13/17 17:38 INR 1.3 (0.9-1.2) H 12/13/17 17:38 APTT 30.2 Seconds (25.6-37.1) 12/13/17 17:38 - Constitutional Appears: No Acute Distress - Head Exam Head Exam: ATRAUMATIC, NORMAL INSPECTION, NORMOCEPHALIC - Eye Exam Eye Exam: EOMI, Normal appearance, PERRL Pupil Exam: NORMAL ACCOMODATION - ENT Exam ENT Exam: Mucous Membranes Moist, Normal External Ear Exam - Neck Exam Neck Exam: Full ROM. absent: Meningismus - Respiratory Exam Respiratory Exam: absent: Respiratory Distress - Cardiovascular Exam Cardiovascular Exam: REGULAR RHYTHM, +S1, +S2 - GI/Abdominal Exam GI & Abdominal Exam: Soft, Normal Bowel Sounds. absent: Tenderness - Extremities Exam Extremities Exam: Normal Capillary Refill. absent: Calf Tenderness, Full ROM - Back Exam Back Exam: absent: CVA tenderness (L), CVA tenderness (R) draining spinal abscess with dressing - Neurological Exam Neurological Exam: Alert, Awake, Motor Sensory Deficit, Oriented x3 Neuro motor strength exam: Left Upper Extremity: 5, Right Upper Extremity: 5, Left Lower Extremity: 0, Right Lower Extremity: 0 Additional comments: no sensation LE Pt able to turn however paraplegic from waist down - Psychiatric Exam Psychiatric exam: Normal Affect, Normal Mood - Skin Skin Exam: Dry, Normal Color, Warm Assessment and Plan (1) Paraspinal abscess Status: Acute (2) UTI (urinary tract infection) Status: Acute (3) Paraplegia Status: Chronic (4) Spine fracture Status: Chronic (5) DM type 2 (diabetes mellitus, type 2) Status: Chronic (6) DVT prophylaxis Status: Acute - Assessment and Plan (Free Text) Assessment: 37 y/o male Paraplegic as a results of Cord compression from Spinal Fracture after Fall 10 yrs ago s/p Spinal Surgery ( Bedolla rods placed), 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 As a result , pt has had chronic drainage from his wound intermittently for years however his last IV abx tx was 10 yrs ago. Patient came in to our ED because of fever, pain and tenderness on his lower back and increase drainage from his wound. CT of L spine/T spine :3.2 x 2.9 x 3.4 cm low-attenuation collection with peripheral enhancement in the right posterior paraspinal soft tissues. Nonspecific moderate left hydroureteronephrosis. Neurosurgery was consulted in the ED - as per Dr Weir - no neuro surgical intervention, abscess is surficial so General Surgery was consulted. Abscess drained from wound and specimen sent for culture. Wound c/s : follow final Urine c/s : follow final MRI of Thoracic and Lumbar Spine :Status post fusion and internal fixation at the lower thoracic and upper lumbar spine including bilateral pedicles screws and posterior longitudinal rods at L1 and L2. No evidence of spinal stenosis or neural foraminal narrowing at the lumbar spine. Endplate destruction and disc space fusion at L1-L2. Subcutaneous fluid collection to the right of the midline at the level of L2 and L2-L3 may represent seroma or abscess formation. Severe narrowing of the spinal canal at T10-T11 with possible cord compression at this level. Please correlate clinically. Partial destruction of the mid and upper T11 and adjacent T10-T11 disc. The possibility of osteomyelitis discitis also should be considered. (1) Sepsis ( POA) sec to Paraspinal Soft Tissue abscess with ? Discitis / Osteomyelitis s/p Drainage of abscess by IR Status: Acute Neurosurgery and Gen surgery consulted Wound c/s : MSSA and Proteus cont IV Vanco , and Ceftriaxone, Dr Carolina d/c Zosyn and added Cipro ID consulted- discussed case ESR high, CRP high consistent with infection Procalcitonin level normal Pt would likely need 6-8 wks of IV abx IR Aspiration of abscess - obtained 22 ml purulent material- sent for c/s (2) UTI (urinary tract infection) Status: Acute urine c/s : Providencia pt on Iv ceftriaxone and Cipro Left Hydronephrosis noted- as per patient's mother , this is chronic , pt is voiding freely, Grey inserted Renal Sonogram Urology consulted - Dr Huizar - rec to just tx UTI Yeast also noted on UA - on PO Diflucan (3) Paraplegia Status: Chronic hx of Cord compression from spine fracture 2007 (4) Spine fracture s/p Bedolla Rods Status: Chronic as above (5) DM type 2 (diabetes mellitus, type 2) Status: Chronic accucheck with coverage cont Glucotrol Increase Levemir to 16 units q hs (6)Sepsis sec to Paraspinal soft tissue abscess ( POA) - Lactic acid elevated, pt febrile, tachycardic and fever on admission (7) DVT prophylaxis Status: Acute Lovenox
[2017-12-19] MEDS: Insulin Detemir 100 Units/ml Inj SC SCH (21:48)
[2017-12-20] MEDS: Insulin Regular 100 units/ml SC SCH ×4 (06:37→22:22)
[2017-12-20] MEDS: cefTRIAXone 2 GM in Sodium Chloride 0.9% 100 ML IVPB SCH (08:51)
[2017-12-20] MEDS: Ciprofloxacin 400mg/200ml D5W 400 MG/200 ML BAG IVPB SCH ×2 (08:57→20:57)
[2017-12-20] MEDS: GlipiZIDE 10 mg SR Tab PO SCH (09:00)
[2017-12-20] MEDS: Pantoprazole 40 mg EC Tab PO SCH (09:00)
[2017-12-20] MEDS: Enoxaparin 40 mg Syringe SC SCH (09:00)
[2017-12-20] MEDS: oxyCODONE 20 mg ER Tab (oxyCONTIN) PO SCH ×2 (09:05→21:00)
--- NOTE | 2017-12-20 12:20 | CP.PCM.PN ---
Subjective - Date & Time of Evaluation Date of Evaluation: 12/20/17 Time of Evaluation: 11:30 - Subjective Subjective: Pt is afebrile Low back pain now better PICC line placed denies CP no SOB no abd pain no diarrhea Objective - Vital Signs/Intake and Output Vital Signs (last 24 hours): Temp Pulse Resp BP Pulse Ox 97.5 F L 83 20 96/63 L 97 12/20/17 08:22 12/20/17 08:22 12/20/17 08:22 12/20/17 08:22 12/20/17 08:22 Intake and Output: 12/20/17 12/20/17 06:59 18:59 Intake Total 700 Output Total 1350 Balance -650 - Medications Medications: Current Medications Acetaminophen (Tylenol 325mg Tab) 650 mg PO Q6 PRN PRN Reason: Pain, Mild (1-3) Dextrose (Dextrose 50% Inj) 0 ml IV STAT PRN; Protocol PRN Reason: Hypoglycemia Protocol Dextrose (Glutose 15) 0 gm PO ONCE PRN; Protocol PRN Reason: Hypoglycemia Protocol Docusate Sodium (Colace) 100 mg PO BID [facility] Last Admin: 12/20/17 09:00 Dose: 100 mg Enoxaparin Sodium (Lovenox) 40 mg SC DAILY ADAM PRN Reason: Protocol Last Admin: 12/20/17 09:00 Dose: 40 mg Glipizide (Glucotrol Xl) 10 mg PO BRK [facility] Last Admin: 12/20/17 09:00 Dose: 10 mg Glucagon (Glucagen Diagnostic Kit) 0 mg IM STAT PRN; Protocol PRN Reason: Hypoglycemia Protocol Ceftriaxone Sodium 2 gm/ (Sodium Chloride) 100 mls @ 100 mls/hr IVPB DAILY [facility] PRN Reason: Protocol Last Admin: 12/20/17 08:51 Dose: 100 mls/hr Vancomycin HCl 1 gm/ Sodium (Chloride) 250 mls @ 166.667 mls/hr IVPB Q12 [facility] PRN Reason: Protocol Last Admin: 12/20/17 08:58 Dose: 166.667 mls/hr Ciprofloxacin (Cipro 400mg/200ml Dsw) 400 mg in 200 mls @ 200 mls/hr IVPB Q12 [facility] PRN Reason: Protocol Last Admin: 12/20/17 08:57 Dose: 200 mls/hr Insulin Detemir (Levemir) 16 units SC HS [facility] Last Admin: 12/19/17 21:48 Dose: 16 units Insulin Human Regular (Humulin R) 0 units SC ACHS [facility] PRN Reason: Protocol Last Admin: 12/20/17 06:37 Dose: Not Given Ondansetron HCl (Zofran Inj) 4 mg IVP Q6 PRN PRN Reason: Nausea/Vomiting Last Admin: 12/17/17 06:32 Dose: 4 mg Oxycodone HCl (Oxycontin Extended Release Tab) 20 mg PO Q12 [facility] Last Admin: 12/20/17 09:05 Dose: 20 mg Pantoprazole Sodium (Protonix Ec Tab) 40 mg PO DAILY [facility] Last Admin: 12/20/17 09:00 Dose: 40 mg - Labs Labs: 12/16/17 05:45 12/16/17 05:45 PT 13.9 Seconds (9.8-13.1) H 12/13/17 17:38 INR 1.3 (0.9-1.2) H 12/13/17 17:38 APTT 30.2 Seconds (25.6-37.1) 12/13/17 17:38 - Constitutional Appears: No Acute Distress - Head Exam Head Exam: ATRAUMATIC, NORMAL INSPECTION, NORMOCEPHALIC - Eye Exam Eye Exam: EOMI, Normal appearance, PERRL Pupil Exam: NORMAL ACCOMODATION - ENT Exam ENT Exam: Mucous Membranes Moist, Normal External Ear Exam - Neck Exam Neck Exam: Full ROM. absent: Meningismus - Respiratory Exam Respiratory Exam: absent: Respiratory Distress - Cardiovascular Exam Cardiovascular Exam: REGULAR RHYTHM, +S1, +S2 - GI/Abdominal Exam GI & Abdominal Exam: Soft, Normal Bowel Sounds. absent: Tenderness - Extremities Exam Extremities Exam: Normal Capillary Refill. absent: Calf Tenderness, Full ROM - Back Exam Back Exam: absent: CVA tenderness (L), CVA tenderness (R) draining spinal abscess with dressing - Neurological Exam Neurological Exam: Alert, Awake, Motor Sensory Deficit, Oriented x3 Neuro motor strength exam: Left Upper Extremity: 5, Right Upper Extremity: 5, Left Lower Extremity: 0, Right Lower Extremity: 0 Additional comments: no sensation LE Pt able to turn however paraplegic from waist down - Psychiatric Exam Psychiatric exam: Normal Affect, Normal Mood - Skin Skin Exam: Dry, Normal Color, Warm Assessment and Plan (1) Paraspinal abscess Status: Acute (2) UTI (urinary tract infection) Status: Acute (3) Paraplegia Status: Chronic (4) Spine fracture Status: Chronic (5) DM type 2 (diabetes mellitus, type 2) Status: Chronic (6) DVT prophylaxis Status: Acute - Assessment and Plan (Free Text) Assessment: 37 y/o male Paraplegic as a results of Cord compression from Spinal Fracture after Fall 10 yrs ago s/p Spinal Surgery ( Bedolla rods placed), 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 As a result , pt has had chronic drainage from his wound intermittently for years however his last IV abx tx was 10 yrs ago. Patient came in to our ED because of fever, pain and tenderness on his lower back and increase drainage from his wound. CT of L spine/T spine :3.2 x 2.9 x 3.4 cm low-attenuation collection with peripheral enhancement in the right posterior paraspinal soft tissues. Nonspecific moderate left hydroureteronephrosis. Neurosurgery was consulted in the ED - as per Dr Weir - no neuro surgical intervention, abscess is surficial so General Surgery was consulted. Abscess drained from wound and specimen sent for culture. Wound c/s : MSSA, Proteus Urine c/s : Providencia MRI of Thoracic and Lumbar Spine :Status post fusion and internal fixation at the lower thoracic and upper lumbar spine including bilateral pedicles screws and posterior longitudinal rods at L1 and L2. No evidence of spinal stenosis or neural foraminal narrowing at the lumbar spine. Endplate destruction and disc space fusion at L1-L2. Subcutaneous fluid collection to the right of the midline at the level of L2 and L2-L3 may represent seroma or abscess formation. Severe narrowing of the spinal canal at T10-T11 with possible cord compression at this level. Please correlate clinically. Partial destruction of the mid and upper T11 and adjacent T10-T11 disc. The possibility of osteomyelitis discitis also should be considered. (1) Sepsis ( POA) sec to Paraspinal Soft Tissue abscess with ? Discitis / Osteomyelitis s/p Drainage of abscess by IR Status: Acute Neurosurgery and Gen surgery consulted Wound c/s : MSSA and Proteus cont IV Vanco , Ceftriaxone, and Cipro (Dr Carolina d/c Zosyn and added Cipro) ID consulted- discussed case ESR high, CRP high consistent with infection Procalcitonin level normal Pt would need 6 wks of IV abx IR Aspiration of abscess - obtained 22 ml purulent material- sent for c/s- negative so far (2) UTI (urinary tract infection) Status: Acute urine c/s : Providencia pt on Iv ceftriaxone and Cipro Left Hydronephrosis noted- as per patient's mother , this is chronic , pt is voiding freely, Grey inserted Renal Sonogram Urology consulted - Dr Huizar - rec to just tx UTI Yeast also noted on UA - on PO Diflucan (3) Paraplegia Status: Chronic hx of Cord compression from spine fracture 2007 (4) Spine fracture s/p Bedolla Rods Status: Chronic as above (5) DM type 2 (diabetes mellitus, type 2) Status: Chronic accucheck with coverage cont Glucotrol Increase Levemir to 16 units q hs (6)Sepsis sec to Paraspinal soft tissue abscess ( POA) - Lactic acid elevated, pt febrile, tachycardic and fever on admission (7) DVT prophylaxis Status: Acute Lovenox
[2017-12-20] MEDS: Insulin Detemir 100 Units/ml Inj SC SCH (22:22)
[2017-12-21] MEDS: Insulin Regular 100 units/ml SC SCH ×4 (08:26→22:01)
[2017-12-21] MEDS: Ciprofloxacin 400mg/200ml D5W 400 MG/200 ML BAG IVPB SCH ×2 (08:28→21:42)
[2017-12-21] MEDS: Enoxaparin 40 mg Syringe SC SCH (08:28)
[2017-12-21] MEDS: GlipiZIDE 10 mg SR Tab PO SCH (08:30)
[2017-12-21] MEDS: Pantoprazole 40 mg EC Tab PO SCH (08:30)
[2017-12-21] MEDS: cefTRIAXone 2 GM in Sodium Chloride 0.9% 100 ML IVPB SCH (08:30)
[2017-12-21] MEDS: oxyCODONE 20 mg ER Tab (oxyCONTIN) PO SCH ×2 (08:44→21:42)
--- NOTE | 2017-12-21 13:25 | CP.PCM.PN ---
Subjective - Date & Time of Evaluation Date of Evaluation: 12/21/17 Time of Evaluation: 12:00 - Subjective Subjective: No fever back pain better dressing intact no CP no SOB Objective - Vital Signs/Intake and Output Vital Signs (last 24 hours): Temp Pulse Resp BP Pulse Ox 97.4 F L 78 20 96/67 L 97 12/21/17 08:21 12/21/17 08:21 12/21/17 08:21 12/21/17 08:21 12/21/17 08:21 - Medications Medications: Current Medications Acetaminophen (Tylenol 325mg Tab) 650 mg PO Q6 PRN PRN Reason: Pain, Mild (1-3) Dextrose (Dextrose 50% Inj) 0 ml IV STAT PRN; Protocol PRN Reason: Hypoglycemia Protocol Dextrose (Glutose 15) 0 gm PO ONCE PRN; Protocol PRN Reason: Hypoglycemia Protocol Docusate Sodium (Colace) 100 mg PO BID [facility] Last Admin: 12/21/17 08:29 Dose: 100 mg Enoxaparin Sodium (Lovenox) 40 mg SC DAILY [facility] PRN Reason: Protocol Last Admin: 12/21/17 08:28 Dose: 40 mg Glipizide (Glucotrol Xl) 10 mg PO BRK [facility] Last Admin: 12/21/17 08:30 Dose: 10 mg Glucagon (Glucagen Diagnostic Kit) 0 mg IM STAT PRN; Protocol PRN Reason: Hypoglycemia Protocol Ceftriaxone Sodium 2 gm/ (Sodium Chloride) 100 mls @ 100 mls/hr IVPB DAILY [facility] PRN Reason: Protocol Last Admin: 12/21/17 08:30 Dose: 100 mls/hr Vancomycin HCl 1 gm/ Sodium (Chloride) 250 mls @ 166.667 mls/hr IVPB Q12 [facility] PRN Reason: Protocol Last Admin: 12/21/17 08:29 Dose: 166.667 mls/hr Ciprofloxacin (Cipro 400mg/200ml Dsw) 400 mg in 200 mls @ 200 mls/hr IVPB Q12 [facility] PRN Reason: Protocol Last Admin: 12/21/17 08:28 Dose: 200 mls/hr Insulin Detemir (Levemir) 16 units SC HS [facility] Last Admin: 12/20/17 22:22 Dose: 16 units Insulin Human Regular (Humulin R) 0 units SC ACHS [facility] PRN Reason: Protocol Last Admin: 12/21/17 12:24 Dose: 3 units Ondansetron HCl (Zofran Inj) 4 mg IVP Q6 PRN PRN Reason: Nausea/Vomiting Last Admin: 12/17/17 06:32 Dose: 4 mg Oxycodone HCl (Oxycontin Extended Release Tab) 20 mg PO Q12 [facility] Last Admin: 12/21/17 08:44 Dose: 20 mg Pantoprazole Sodium (Protonix Ec Tab) 40 mg PO DAILY [facility] Last Admin: 12/21/17 08:30 Dose: 40 mg - Labs Labs: 12/16/17 05:45 12/16/17 05:45 PT 13.9 Seconds (9.8-13.1) H 12/13/17 17:38 INR 1.3 (0.9-1.2) H 12/13/17 17:38 APTT 30.2 Seconds (25.6-37.1) 12/13/17 17:38 - Constitutional Appears: No Acute Distress - Head Exam Head Exam: ATRAUMATIC, NORMAL INSPECTION, NORMOCEPHALIC - Eye Exam Eye Exam: EOMI, Normal appearance, PERRL Pupil Exam: NORMAL ACCOMODATION - ENT Exam ENT Exam: Mucous Membranes Moist, Normal External Ear Exam - Neck Exam Neck Exam: Full ROM. absent: Meningismus - Respiratory Exam Respiratory Exam: absent: Respiratory Distress - Cardiovascular Exam Cardiovascular Exam: REGULAR RHYTHM, +S1, +S2 - GI/Abdominal Exam GI & Abdominal Exam: Soft, Normal Bowel Sounds. absent: Tenderness - Extremities Exam Extremities Exam: Normal Capillary Refill. absent: Calf Tenderness, Full ROM - Back Exam Back Exam: absent: CVA tenderness (L), CVA tenderness (R) spinal wound with dressing - Neurological Exam Neurological Exam: Alert, Awake, Motor Sensory Deficit, Oriented x3 Neuro motor strength exam: Left Upper Extremity: 5, Right Upper Extremity: 5, Left Lower Extremity: 0, Right Lower Extremity: 0 Additional comments: no sensation LE Pt able to turn however paraplegic from waist down - Psychiatric Exam Psychiatric exam: Normal Affect, Normal Mood - Skin Skin Exam: Dry, Normal Color, Warm Assessment and Plan (1) Paraspinal abscess Status: Acute (2) UTI (urinary tract infection) Status: Acute (3) Paraplegia Status: Chronic (4) Spine fracture Status: Chronic (5) DM type 2 (diabetes mellitus, type 2) Status: Chronic (6) DVT prophylaxis Status: Acute - Assessment and Plan (Free Text) Assessment: 37 y/o male Paraplegic as a results of Cord compression from Spinal Fracture after Fall 10 yrs ago s/p Spinal Surgery ( Bedolla rods placed), 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 As a result , pt has had chronic drainage from his wound intermittently for years however his last IV abx tx was 10 yrs ago. Patient came in to our ED because of fever, pain and tenderness on his lower back and increase drainage from his wound. CT of L spine/T spine :3.2 x 2.9 x 3.4 cm low-attenuation collection with peripheral enhancement in the right posterior paraspinal soft tissues. Nonspecific moderate left hydroureteronephrosis. Neurosurgery was consulted in the ED - as per Dr Weir - no neuro surgical intervention, abscess is surficial so General Surgery was consulted. Abscess drained from wound and specimen sent for culture. Wound c/s : MSSA, Proteus Urine c/s : Providencia MRI of Thoracic and Lumbar Spine :Status post fusion and internal fixation at the lower thoracic and upper lumbar spine including bilateral pedicles screws and posterior longitudinal rods at L1 and L2. No evidence of spinal stenosis or neural foraminal narrowing at the lumbar spine. Endplate destruction and disc space fusion at L1-L2. Subcutaneous fluid collection to the right of the midline at the level of L2 and L2-L3 may represent seroma or abscess formation. Severe narrowing of the spinal canal at T10-T11 with possible cord compression at this level. Please correlate clinically. Partial destruction of the mid and upper T11 and adjacent T10-T11 disc. The possibility of osteomyelitis discitis also should be considered. (1) Sepsis ( POA) sec to Paraspinal Soft Tissue abscess with ? Discitis / Osteomyelitis s/p Drainage of abscess by IR Status: Acute Neurosurgery and Gen surgery consulted Wound c/s : MSSA and Proteus cont IV Vanco , Ceftriaxone, and Cipro (Dr Carolina d/c Milenasykenzie and added Cipro) ID consulted- discussed case ESR high, CRP high consistent with infection Procalcitonin level normal Pt would need 6 wks of IV abx IR Aspiration of abscess - obtained 22 ml purulent material- sent for c/s- negative so far (2) UTI (urinary tract infection) Status: Acute urine c/s : Providencia pt on Iv ceftriaxone and Cipro Left Hydronephrosis noted- as per patient's mother , this is chronic , pt is voiding freely, Grey inserted Renal Sonogram Urology consulted - Dr Huizar - rec to just tx UTI Yeast also noted on UA - pt received PO Diflucan (3) Paraplegia Status: Chronic hx of Cord compression from spine fracture 2007 (4) Spine fracture s/p Bedolla Rods Status: Chronic as above (5) DM type 2 (diabetes mellitus, type 2) Status: Chronic accucheck with coverage cont Glucotrol Increase Levemir to 20 units q hs (6)Sepsis sec to Paraspinal soft tissue abscess ( POA) - Lactic acid elevated, pt febrile, tachycardic and fever on admission (7) DVT prophylaxis Status: Acute Lovenox
[2017-12-21] MEDS: Insulin Detemir 100 Units/ml Inj SC SCH (22:02)
[2017-12-22] MEDS: Ciprofloxacin 400mg/200ml D5W 400 MG/200 ML BAG IVPB SCH ×2 (08:42→21:36)
[2017-12-22] MEDS: Enoxaparin 40 mg Syringe SC SCH (08:45)
[2017-12-22] MEDS: GlipiZIDE 10 mg SR Tab PO SCH (08:45)
[2017-12-22] MEDS: Pantoprazole 40 mg EC Tab PO SCH (08:46)
[2017-12-22] MEDS: Insulin Regular 100 units/ml SC SCH ×4 (08:46→23:30)
[2017-12-22] MEDS: oxyCODONE 20 mg ER Tab (oxyCONTIN) PO SCH ×2 (08:54→21:36)
[2017-12-22] MEDS: cefTRIAXone 2 GM in Sodium Chloride 0.9% 100 ML IVPB SCH (10:16)
--- NOTE | 2017-12-22 10:49 | CP.PCM.PN ---
Subjective - Date & Time of Evaluation Date of Evaluation: 12/22/17 Time of Evaluation: 09:30 - Subjective Subjective: Patient seen and examined at bedside. He states that his pain is still present in his back but continues to improve. No cp, sob, fevers, chills, n/v, no new complaints. Objective - Vital Signs/Intake and Output Vital Signs (last 24 hours): Temp Pulse Resp BP Pulse Ox 97.8 F 76 18 116/77 98 12/22/17 07:42 12/22/17 07:42 12/22/17 07:42 12/22/17 07:42 12/22/17 07:42 Intake and Output: 12/22/17 12/22/17 06:59 18:59 Intake Total 750 Output Total 2100 Balance -1350 - Medications Medications: Current Medications Acetaminophen (Tylenol 325mg Tab) 650 mg PO Q6 PRN PRN Reason: Pain, Mild (1-3) Dextrose (Dextrose 50% Inj) 0 ml IV STAT PRN; Protocol PRN Reason: Hypoglycemia Protocol Dextrose (Glutose 15) 0 gm PO ONCE PRN; Protocol PRN Reason: Hypoglycemia Protocol Docusate Sodium (Colace) 100 mg PO BID [facility] Last Admin: 12/22/17 08:45 Dose: 100 mg Enoxaparin Sodium (Lovenox) 40 mg SC DAILY [facility] PRN Reason: Protocol Last Admin: 12/22/17 08:45 Dose: 40 mg Glipizide (Glucotrol Xl) 10 mg PO BRK [facility] Last Admin: 12/22/17 08:45 Dose: 10 mg Glucagon (Glucagen Diagnostic Kit) 0 mg IM STAT PRN; Protocol PRN Reason: Hypoglycemia Protocol Ceftriaxone Sodium 2 gm/ (Sodium Chloride) 100 mls @ 100 mls/hr IVPB DAILY [facility] PRN Reason: Protocol Last Admin: 12/22/17 10:16 Dose: 100 mls/hr Ciprofloxacin (Cipro 400mg/200ml Dsw) 400 mg in 200 mls @ 200 mls/hr IVPB Q12 [facility] PRN Reason: Protocol Last Admin: 12/22/17 08:42 Dose: 200 mls/hr Insulin Detemir (Levemir) 20 units SC HS [facility] Last Admin: 12/21/17 22:02 Dose: 20 unit Insulin Human Regular (Humulin R) 0 units SC ACHS [facility] PRN Reason: Protocol Last Admin: 12/22/17 08:46 Dose: 3 units Ondansetron HCl (Zofran Inj) 4 mg IVP Q6 PRN PRN Reason: Nausea/Vomiting Last Admin: 12/17/17 06:32 Dose: 4 mg Oxycodone HCl (Oxycontin Extended Release Tab) 20 mg PO Q12 [facility] Last Admin: 12/22/17 08:54 Dose: 20 mg Pantoprazole Sodium (Protonix Ec Tab) 40 mg PO DAILY [facility] Last Admin: 12/22/17 08:46 Dose: 40 mg - Labs Labs: 12/16/17 05:45 12/16/17 05:45 PT 13.9 Seconds (9.8-13.1) H 12/13/17 17:38 INR 1.3 (0.9-1.2) H 12/13/17 17:38 APTT 30.2 Seconds (25.6-37.1) 12/13/17 17:38 - Additional Findings Additional findings: Physical exam: Constitutional- cooperative, awake, alert Head- NCAT, PERRL Eye- PERRL, EOMI ENT- normal exam, MMM. Neck- normal inspection, supple, no JVD Respiratory- CTAB, no wheezes rales rhonchi Cardiovascular- RRR, +S1, +S2 no MRG GI/Abdominal- normal bowel sounds, soft, no mass, no hsm Skin- warm, dry Extremities Exam- normal capillary refill, normal inspection Neurological Exam- +spinal wound with dressing. + No sensation to lower extremities. Left Upper Extremity: 5, Right Upper Extremity: 5, Left Lower Extremity: 0, Right Lower Extremity: 0. Alert, awake, oriented Psych- normal mood, normal affect Assessment and Plan - Assessment and Plan (Free Text) Plan: 37 y/o male Paraplegic as a results of Cord compression from Spinal Fracture after Fall 10 yrs ago s/p Spinal Surgery ( Bedolla rods placed), 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 As a result , pt has had chronic drainage from his wound intermittently for years however his last IV abx tx was 10 yrs ago. Patient came in to our ED because of fever, pain and tenderness on his lower back and increase drainage from his wound. CT of L spine/T spine :3.2 x 2.9 x 3.4 cm low-attenuation collection with peripheral enhancement in the right posterior paraspinal soft tissues. Nonspecific moderate left hydroureteronephrosis. Neurosurgery was consulted in the ED - as per Dr Weir - no neuro surgical intervention, abscess is surficial so General Surgery was consulted. Abscess drained from wound and specimen sent for culture. Wound c/s : MSSA, Proteus Urine c/s : Providencia MRI of Thoracic and Lumbar Spine :Status post fusion and internal fixation at the lower thoracic and upper lumbar spine including bilateral pedicles screws and posterior longitudinal rods at L1 and L2. No evidence of spinal stenosis or neural foraminal narrowing at the lumbar spine. Endplate destruction and disc space fusion at L1-L2. Subcutaneous fluid collection to the right of the midline at the level of L2 and L2-L3 may represent seroma or abscess formation. Severe narrowing of the spinal canal at T10-T11 with possible cord compression at this level. Please correlate clinically. Partial destruction of the mid and upper T11 and adjacent T10-T11 disc. The possibility of osteomyelitis discitis also should be considered. (1) Sepsis ( POA) sec to Paraspinal Soft Tissue abscess with ? Discitis / Osteomyelitis s/p Drainage of abscess by IR Status: Acute Neurosurgery and Gen surgery consulted Wound c/s : MSSA and Proteus cont IV Vanco , Ceftriaxone, and Cipro (Dr Carolina d/c Fiordaliza and added Cipro) ID consulted- discussed case ESR high, CRP high consistent with infection Procalcitonin level normal Pt would need 6 wks of IV abx IR Aspiration of abscess - obtained 22 ml purulent material- sent for c/s- negative so far (2) UTI (urinary tract infection) Status: Acute urine c/s : Providencia pt on Iv ceftriaxone and Cipro Left Hydronephrosis noted- as per patient's mother , this is chronic , pt is voiding freely, Grey inserted Renal Sonogram Urology consulted - Dr Huizar - rec to just tx UTI Yeast also noted on UA - pt received PO Diflucan (3) Paraplegia Status: Chronic hx of Cord compression from spine fracture 2007 (4) Spine fracture s/p Bedolla Rods Status: Chronic as above (5) DM type 2 (diabetes mellitus, type 2) Status: Chronic accucheck with coverage cont Glucotrol Increase Levemir to 20 units q hs (6)Sepsis sec to Paraspinal soft tissue abscess ( POA) - Lactic acid elevated, pt febrile, tachycardic and fever on admission (7) DVT prophylaxis Status: Acute Lovenox
[2017-12-22] MEDS: Insulin Detemir 100 Units/ml Inj SC SCH (23:30)
[2017-12-23 06:57] LABS: HEMOGLOBIN 13.8 g/dL (12.0-18.0); MEAN CELL VOLUME 78.6 fl (80.0-94.0); MEAN CORPUSCULAR HEMOGLOBIN 25.6 pg (27.0-31.0); MEAN CORPUSCULAR HGB CONC 32.6 g/dL (33.0-37.0); RBC 5.4 Mil/uL (4.40-5.90); RED CELL DISTRIBUTION WIDTH 13.9 % (11.5-14.5)
[2017-12-23 07:15] LABS: BLOOD UREA NITROGEN 15 mg/dl (9-20); CALCIUM 9.9 mg/dL (8.4-10.2); GFR NON-AFRICAN AMERICAN > 60
[2017-12-23] MEDS: Insulin Regular 100 units/ml SC SCH ×4 (07:30→22:35)
[2017-12-23] MEDS: oxyCODONE 20 mg ER Tab (oxyCONTIN) PO SCH ×2 (09:00→20:52)
[2017-12-23] MEDS: cefTRIAXone 2 GM in Sodium Chloride 0.9% 100 ML IVPB SCH (09:37)
[2017-12-23] MEDS: Enoxaparin 40 mg Syringe SC SCH (09:39)
[2017-12-23] MEDS: Ciprofloxacin 400mg/200ml D5W 400 MG/200 ML BAG IVPB SCH (09:39)
[2017-12-23] MEDS: GlipiZIDE 10 mg SR Tab PO SCH (09:40)
[2017-12-23] MEDS: Pantoprazole 40 mg EC Tab PO SCH (09:40)
--- NOTE | 2017-12-23 11:33 | CP.PCM.PN ---
Subjective - Date & Time of Evaluation Date of Evaluation: 12/23/17 Time of Evaluation: 11:00 - Subjective Subjective: No fever back pain better dressing intact no CP no SOB Discussed with pt plan for correction IV antibiotics - pt states he is unable to come in daily for IV abx bec he has no transportation. Will arrange with case mgt plan for d/c. Objective - Vital Signs/Intake and Output Vital Signs (last 24 hours): Temp Pulse Resp BP Pulse Ox 97.6 F 79 20 109/72 95 12/23/17 07:59 12/23/17 07:59 12/23/17 07:59 12/23/17 07:59 12/23/17 07:59 Intake and Output: 12/23/17 12/23/17 06:59 18:59 Intake Total 1000 Output Total 1300 Balance -300 - Medications Medications: Current Medications Acetaminophen (Tylenol 325mg Tab) 650 mg PO Q6 PRN PRN Reason: Pain, Mild (1-3) Ciprofloxacin (Cipro) 500 mg PO Q12 [facility] Dextrose (Dextrose 50% Inj) 0 ml IV STAT PRN; Protocol PRN Reason: Hypoglycemia Protocol Dextrose (Glutose 15) 0 gm PO ONCE PRN; Protocol PRN Reason: Hypoglycemia Protocol Docusate Sodium (Colace) 100 mg PO BID [facility] Last Admin: 12/23/17 09:39 Dose: Not Given Enoxaparin Sodium (Lovenox) 40 mg SC DAILY [facility] PRN Reason: Protocol Last Admin: 12/23/17 09:39 Dose: 40 mg Glipizide (Glucotrol Xl) 10 mg PO BRK [facility] Last Admin: 12/23/17 09:40 Dose: 10 mg Glucagon (Glucagen Diagnostic Kit) 0 mg IM STAT PRN; Protocol PRN Reason: Hypoglycemia Protocol Ceftriaxone Sodium 2 gm/ (Sodium Chloride) 100 mls @ 100 mls/hr IVPB DAILY [facility] PRN Reason: Protocol Last Admin: 12/23/17 09:37 Dose: 100 mls/hr Vancomycin HCl 1 gm/ Sodium (Chloride) 250 mls @ 166.667 mls/hr IVPB Q12 [facility] PRN Reason: Protocol Insulin Detemir (Levemir) 20 units SC HS [facility] Last Admin: 12/22/17 23:30 Dose: 20 unit Insulin Human Regular (Humulin R) 0 units SC ACHS [facility] PRN Reason: Protocol Last Admin: 12/22/17 23:30 Dose: Not Given Ondansetron HCl (Zofran Inj) 4 mg IVP Q6 PRN PRN Reason: Nausea/Vomiting Last Admin: 12/17/17 06:32 Dose: 4 mg Oxycodone HCl (Oxycontin Extended Release Tab) 20 mg PO Q12 [facility] Pantoprazole Sodium (Protonix Ec Tab) 40 mg PO DAILY [facility] Last Admin: 12/23/17 09:40 Dose: 40 mg - Labs Labs: 12/23/17 05:32 12/23/17 05:32 PT 13.9 Seconds (9.8-13.1) H 12/13/17 17:38 INR 1.3 (0.9-1.2) H 12/13/17 17:38 APTT 30.2 Seconds (25.6-37.1) 12/13/17 17:38 - Constitutional Appears: No Acute Distress - Head Exam Head Exam: ATRAUMATIC, NORMAL INSPECTION, NORMOCEPHALIC - Eye Exam Eye Exam: EOMI, Normal appearance, PERRL Pupil Exam: NORMAL ACCOMODATION - ENT Exam ENT Exam: Mucous Membranes Moist, Normal External Ear Exam - Neck Exam Neck Exam: Full ROM. absent: Meningismus - Respiratory Exam Respiratory Exam: absent: Respiratory Distress - Cardiovascular Exam Cardiovascular Exam: REGULAR RHYTHM, +S1, +S2 - GI/Abdominal Exam GI & Abdominal Exam: Soft, Normal Bowel Sounds. absent: Tenderness - Extremities Exam Extremities Exam: Normal Capillary Refill. absent: Calf Tenderness, Full ROM - Back Exam Back Exam: absent: CVA tenderness (L), CVA tenderness (R) spinal wound with dressing - Neurological Exam Neurological Exam: Alert, Awake, Motor Sensory Deficit, Oriented x3 Neuro motor strength exam: Left Upper Extremity: 5, Right Upper Extremity: 5, Left Lower Extremity: 0, Right Lower Extremity: 0 Additional comments: no sensation LE Pt able to turn however paraplegic from waist down - Psychiatric Exam Psychiatric exam: Normal Affect, Normal Mood - Skin Skin Exam: Dry, Normal Color, Warm Assessment and Plan (1) Paraspinal abscess Status: Acute (2) UTI (urinary tract infection) Status: Acute (3) Paraplegia Status: Chronic (4) Spine fracture Status: Chronic (5) DM type 2 (diabetes mellitus, type 2) Status: Chronic (6) DVT prophylaxis Status: Acute - Assessment and Plan (Free Text) Assessment: 37 y/o male Paraplegic as a results of Cord compression from Spinal Fracture after Fall 10 yrs ago s/p Spinal Surgery ( Bedolla rods placed), 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 As a result , pt has had chronic drainage from his wound intermittently for years however his last IV abx tx was 10 yrs ago. Patient came in to our ED because of fever, pain and tenderness on his lower back and increase drainage from his wound. CT of L spine/T spine :3.2 x 2.9 x 3.4 cm low-attenuation collection with peripheral enhancement in the right posterior paraspinal soft tissues. Nonspecific moderate left hydroureteronephrosis. Neurosurgery was consulted in the ED - as per Dr Weir - no neuro surgical intervention, abscess is surficial so General Surgery was consulted. Abscess drained from wound and specimen sent for culture. Wound c/s : MSSA, Proteus Urine c/s : Providencia MRI of Thoracic and Lumbar Spine :Status post fusion and internal fixation at the lower thoracic and upper lumbar spine including bilateral pedicles screws and posterior longitudinal rods at L1 and L2. No evidence of spinal stenosis or neural foraminal narrowing at the lumbar spine. Endplate destruction and disc space fusion at L1-L2. Subcutaneous fluid collection to the right of the midline at the level of L2 and L2-L3 may represent seroma or abscess formation. Severe narrowing of the spinal canal at T10-T11 with possible cord compression at this level. Please correlate clinically. Partial destruction of the mid and upper T11 and adjacent T10-T11 disc. The possibility of osteomyelitis discitis also should be considered. (1) Sepsis ( POA) sec to Paraspinal Soft Tissue abscess with ? Discitis / Osteomyelitis s/p Drainage of abscess by IR Status: Acute Neurosurgery and Gen surgery consulted Wound c/s : MSSA and Proteus cont IV Vanco , Ceftriaxone, and Cipro (Dr Carolina d/c Fiordaliza and added Cipro) ID consulted- discussed case ESR high, CRP high consistent with infection Procalcitonin level normal Pt would need 6 wks of IV abx- will arrange Outpt vs Home IV abx with Case mgt IR Aspiration of abscess - obtained 22 ml purulent material- sent for c/s- MSSA (2) UTI (urinary tract infection) Status: Acute urine c/s : Providencia pt on Iv ceftriaxone and Cipro Left Hydronephrosis noted- as per patient's mother , this is chronic , pt is voiding freely, Grye inserted Renal Sonogram Urology consulted - Dr Huizar - rec to just tx UTI Yeast also noted on UA - pt received PO Diflucan (3) Paraplegia Status: Chronic hx of Cord compression from spine fracture 2007 (4) Spine fracture s/p Bedolla Rods Status: Chronic as above (5) DM type 2 (diabetes mellitus, type 2) Status: Chronic accucheck with coverage cont Glucotrol Increase Levemir to 20 units q hs (6)Sepsis sec to Paraspinal soft tissue abscess ( POA) - Lactic acid elevated, pt febrile, tachycardic and fever on admission (7) DVT prophylaxis Status: Acute Lovenox
[2017-12-23] MEDS: Insulin Detemir 100 Units/ml Inj SC SCH (22:36)
[2017-12-24] MEDS: Insulin Regular 100 units/ml SC SCH ×3 (08:19→17:05)
[2017-12-24] MEDS: Enoxaparin 40 mg Syringe SC SCH (10:02)
[2017-12-24] MEDS: Pantoprazole 40 mg EC Tab PO SCH (10:02)
[2017-12-24] MEDS: cefTRIAXone 2 GM in Sodium Chloride 0.9% 100 ML IVPB SCH (10:02)
[2017-12-24] MEDS: GlipiZIDE 10 mg SR Tab PO SCH (10:03)
[2017-12-24] MEDS: oxyCODONE 20 mg ER Tab (oxyCONTIN) PO SCH ×2 (10:16→22:46)
--- NOTE | 2017-12-24 10:46 | VASCULAR ---
PROCEDURE: Date of procedure: 12/19/2017 Procedure: 1. Placement of a right arm PICC with ultrasound and fluoroscopic guidance, CPT 30420 2. PICC tip confirmation with spot radiograph and is in the superior vena cava Medications: 1 percent lidocaine Total Fluoro time: 4 seconds Radiation: 2 mGy EBL: 2 cc HISTORY: Infection requiring long-term IV antibiotics TECHNIQUE: Following informed consent and procedure time-out, the patient was placed supine on the interventional table and the right arm prepped and draped in the usual sterile fashion. Ultrasound showed a patent and compressible right basilic vein. After the skin was anesthetized with lidocaine, the basilic vein was accessed with micro micropuncture technique using ultrasound guidance. A guidewire was then advanced under fluoroscopic guidance into the superior vena cava. An image documenting ultrasound guidance for vascular access was permanently saved. The length of the single-lumen 4 [place] PICC was trimmed to 35 centimeters and advanced through a peel-away sheath. The PICC was position with tip of PICC confirm a spot radiograph the superior vena cava. The PICC was secured to the patient's skin. The PICC was flushed. A biopatch and sterile dressing was applied. IMPRESSION: Placement of a single-lumen 4 [place] PICC trimmed to 35 centimeters via right basilic vein. The tip of the PICC is confirmed with spot radiograph and is in the superior vena cava.
--- NOTE | 2017-12-24 12:39 | CP.PCM.PN ---
Subjective - Date & Time of Evaluation Date of Evaluation: 12/24/17 Time of Evaluation: 12:00 - Subjective Subjective: No fever No back pain dressing intact no CP no SOB no abd pain Objective - Vital Signs/Intake and Output Vital Signs (last 24 hours): Temp Pulse Resp BP Pulse Ox 97.5 F L 78 20 107/73 97 12/24/17 08:20 12/24/17 08:20 12/24/17 08:20 12/24/17 08:20 12/24/17 08:20 Intake and Output: 12/24/17 12/24/17 06:59 18:59 Intake Total 800 Output Total 1300 Balance -500 - Medications Medications: Current Medications Acetaminophen (Tylenol 325mg Tab) 650 mg PO Q6 PRN PRN Reason: Pain, Mild (1-3) Ciprofloxacin (Cipro) 500 mg PO Q12 [facility] Last Admin: 12/24/17 10:02 Dose: 500 mg Dextrose (Dextrose 50% Inj) 0 ml IV STAT PRN; Protocol PRN Reason: Hypoglycemia Protocol Dextrose (Glutose 15) 0 gm PO ONCE PRN; Protocol PRN Reason: Hypoglycemia Protocol Docusate Sodium (Colace) 100 mg PO BID [facility] Last Admin: 12/24/17 10:03 Dose: 100 mg Enoxaparin Sodium (Lovenox) 40 mg SC DAILY [facility] PRN Reason: Protocol Last Admin: 12/24/17 10:02 Dose: 40 mg Glipizide (Glucotrol Xl) 10 mg PO BRK [facility] Last Admin: 12/24/17 10:03 Dose: 10 mg Glucagon (Glucagen Diagnostic Kit) 0 mg IM STAT PRN; Protocol PRN Reason: Hypoglycemia Protocol Ceftriaxone Sodium 2 gm/ (Sodium Chloride) 100 mls @ 100 mls/hr IVPB DAILY [facility] PRN Reason: Protocol Last Admin: 12/24/17 10:02 Dose: 100 mls/hr Vancomycin HCl 1 gm/ Sodium (Chloride) 250 mls @ 166.667 mls/hr IVPB Q12 [facility] PRN Reason: Protocol Last Admin: 12/24/17 10:04 Dose: 166.667 mls/hr Insulin Detemir (Levemir) 20 units SC HS [facility] Last Admin: 12/23/17 22:36 Dose: 20 unit Insulin Human Regular (Humulin R) 0 units SC ACHS [facility] PRN Reason: Protocol Last Admin: 12/24/17 08:19 Dose: 2 units Ondansetron HCl (Zofran Inj) 4 mg IVP Q6 PRN PRN Reason: Nausea/Vomiting Last Admin: 12/17/17 06:32 Dose: 4 mg Oxycodone HCl (Oxycontin Extended Release Tab) 20 mg PO Q12 [facility] Last Admin: 12/24/17 10:16 Dose: 20 mg Pantoprazole Sodium (Protonix Ec Tab) 40 mg PO DAILY [facility] Last Admin: 12/24/17 10:02 Dose: 40 mg - Labs Labs: 12/23/17 05:32 12/23/17 05:32 PT 13.9 Seconds (9.8-13.1) H 12/13/17 17:38 INR 1.3 (0.9-1.2) H 12/13/17 17:38 APTT 30.2 Seconds (25.6-37.1) 12/13/17 17:38 - Constitutional Appears: No Acute Distress - Head Exam Head Exam: ATRAUMATIC, NORMAL INSPECTION, NORMOCEPHALIC - Eye Exam Eye Exam: EOMI, Normal appearance, PERRL Pupil Exam: NORMAL ACCOMODATION - ENT Exam ENT Exam: Mucous Membranes Moist, Normal External Ear Exam - Neck Exam Neck Exam: Full ROM. absent: Meningismus - Respiratory Exam Respiratory Exam: absent: Respiratory Distress - Cardiovascular Exam Cardiovascular Exam: REGULAR RHYTHM, +S1, +S2 - GI/Abdominal Exam GI & Abdominal Exam: Soft, Normal Bowel Sounds. absent: Tenderness - Extremities Exam Extremities Exam: Normal Capillary Refill. absent: Calf Tenderness, Full ROM - Back Exam Back Exam: absent: CVA tenderness (L), CVA tenderness (R) spinal wound with dressing - Neurological Exam Neurological Exam: Alert, Awake, Motor Sensory Deficit, Oriented x3 Neuro motor strength exam: Left Upper Extremity: 5, Right Upper Extremity: 5, Left Lower Extremity: 0, Right Lower Extremity: 0 Additional comments: no sensation LE paraplegic from waist down - Psychiatric Exam Psychiatric exam: Normal Affect, Normal Mood - Skin Skin Exam: Dry, Normal Color, Warm Assessment and Plan (1) Paraspinal abscess Status: Acute (2) UTI (urinary tract infection) Status: Acute (3) Paraplegia Status: Chronic (4) Spine fracture Status: Chronic (5) DM type 2 (diabetes mellitus, type 2) Status: Chronic (6) DVT prophylaxis Status: Acute - Assessment and Plan (Free Text) Assessment: 37 y/o male Paraplegic as a results of Cord compression from Spinal Fracture after Fall 10 yrs ago s/p Spinal Surgery ( Bedolla rods placed), 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 As a result , pt has had chronic drainage from his wound intermittently for years however his last IV abx tx was 10 yrs ago. Patient came in to our ED because of fever, pain and tenderness on his lower back and increase drainage from his wound. CT of L spine/T spine :3.2 x 2.9 x 3.4 cm low-attenuation collection with peripheral enhancement in the right posterior paraspinal soft tissues. Nonspecific moderate left hydroureteronephrosis. Neurosurgery was consulted in the ED - as per Dr Weir - no neuro surgical intervention, abscess is surficial so General Surgery was consulted. Abscess drained from wound and specimen sent for culture. Wound c/s : MSSA, Proteus Urine c/s : Providencia MRI of Thoracic and Lumbar Spine :Status post fusion and internal fixation at the lower thoracic and upper lumbar spine including bilateral pedicles screws and posterior longitudinal rods at L1 and L2. No evidence of spinal stenosis or neural foraminal narrowing at the lumbar spine. Endplate destruction and disc space fusion at L1-L2. Subcutaneous fluid collection to the right of the midline at the level of L2 and L2-L3 may represent seroma or abscess formation. Severe narrowing of the spinal canal at T10-T11 with possible cord compression at this level. Please correlate clinically. Partial destruction of the mid and upper T11 and adjacent T10-T11 disc. The possibility of osteomyelitis discitis also should be considered. (1) Sepsis ( POA) sec to Paraspinal Soft Tissue abscess with Discitis / Osteomyelitis s/p Drainage of abscess by IR Status: Acute Neurosurgery and Gen surgery consulted Per Neurosurgery - no surgical intervention Wound c/s : MSSA and Proteus cont IV Vanco , Ceftriaxone, and Cipro (Dr Carolina d/c Fiordaliza and added Cipro) ID consulted- discussed case ESR high, CRP high consistent with infection Procalcitonin level normal Pt would need 6 wks of IV abx- Pt is uninsure, he has no means to come back for daily IV abx tx. IR Aspiration of abscess - obtained 22 ml purulent material- sent for c/s- MSSA (2) UTI (urinary tract infection) Status: Acute urine c/s : Providencia pt on Iv ceftriaxone and Cipro Left Hydronephrosis noted- as per patient's mother , this is chronic , pt is voiding freely, Grey inserted Renal Sonogram Urology consulted - Dr Huizar - rec to just tx UTI Yeast also noted on UA - pt received PO Diflucan (3) Paraplegia Status: Chronic hx of Cord compression from spine fracture 2007 (4) Spine fracture s/p Bedolla Rods Status: Chronic as above (5) DM type 2 (diabetes mellitus, type 2) Status: Chronic accucheck with coverage cont Glucotrol Increased Levemir to 20 units q hs (6)Sepsis sec to Paraspinal soft tissue abscess ( POA) - Lactic acid elevated, pt febrile, tachycardic and fever on admission (7) DVT prophylaxis Status: Acute Lovenox
[2017-12-25] MEDS: Insulin Regular 100 units/ml SC SCH ×5 (00:25→22:00)
[2017-12-25] MEDS: Insulin Detemir 100 Units/ml Inj SC SCH ×2 (00:26→22:30)
[2017-12-25] MEDS: Pantoprazole 40 mg EC Tab PO SCH (09:05)
[2017-12-25] MEDS: oxyCODONE 20 mg ER Tab (oxyCONTIN) PO SCH ×2 (09:05→20:29)
[2017-12-25] MEDS: Enoxaparin 40 mg Syringe SC SCH (09:06)
[2017-12-25] MEDS: GlipiZIDE 10 mg SR Tab PO SCH (09:11)
--- NOTE | 2017-12-25 14:22 | CP.PCM.PN ---
Subjective - Date & Time of Evaluation Date of Evaluation: 12/25/17 Time of Evaluation: 11:00 - Subjective Subjective: Pt is afebrile Back pain controlled Daily dressing done no diarrhea Pt states he is unable to come back daily for IV antibiotic bec he has no means of transportation . Objective - Vital Signs/Intake and Output Vital Signs (last 24 hours): Temp Pulse Resp BP Pulse Ox 97.4 F L 73 18 106/67 96 12/25/17 08:51 12/25/17 08:51 12/25/17 08:51 12/25/17 08:51 12/25/17 08:51 Intake and Output: 12/25/17 12/25/17 06:59 18:59 Intake Total 450 Output Total 2000 Balance -1550 - Medications Medications: Current Medications Acetaminophen (Tylenol 325mg Tab) 650 mg PO Q6 PRN PRN Reason: Pain, Mild (1-3) Ciprofloxacin (Cipro) 500 mg PO Q12 REPLACED BY [facility] Last Admin: 12/25/17 09:05 Dose: 500 mg Dextrose (Dextrose 50% Inj) 0 ml IV STAT PRN; Protocol PRN Reason: Hypoglycemia Protocol Dextrose (Glutose 15) 0 gm PO ONCE PRN; Protocol PRN Reason: Hypoglycemia Protocol Docusate Sodium (Colace) 100 mg PO BID REPLACED BY [facility] Last Admin: 12/25/17 09:06 Dose: 100 mg Enoxaparin Sodium (Lovenox) 40 mg SC DAILY ADAM PRN Reason: Protocol Last Admin: 12/25/17 09:06 Dose: 40 mg Glipizide (Glucotrol Xl) 10 mg PO BRK REPLACED BY [facility] Last Admin: 12/25/17 09:11 Dose: 10 mg Glucagon (Glucagen Diagnostic Kit) 0 mg IM STAT PRN; Protocol PRN Reason: Hypoglycemia Protocol Vancomycin HCl 1 gm/ Sodium (Chloride) 250 mls @ 166.667 mls/hr IVPB Q12 REPLACED BY [facility] PRN Reason: Protocol Last Admin: 12/25/17 09:03 Dose: 166.667 mls/hr Insulin Detemir (Levemir) 20 units SC HS REPLACED BY [facility] Last Admin: 12/25/17 00:26 Dose: 20 unit Insulin Human Regular (Humulin R) 0 units SC ACHS ADAM PRN Reason: Protocol Last Admin: 12/25/17 12:27 Dose: 3 units Ondansetron HCl (Zofran Inj) 4 mg IVP Q6 PRN PRN Reason: Nausea/Vomiting Last Admin: 12/17/17 06:32 Dose: 4 mg Oxycodone HCl (Oxycontin Extended Release Tab) 20 mg PO Q12 REPLACED BY [facility] Last Admin: 12/25/17 09:05 Dose: 20 mg Pantoprazole Sodium (Protonix Ec Tab) 40 mg PO DAILY REPLACED BY [facility] Last Admin: 12/25/17 09:05 Dose: 40 mg - Labs Labs: 12/23/17 05:32 12/23/17 05:32 PT 13.9 Seconds (9.8-13.1) H 12/13/17 17:38 INR 1.3 (0.9-1.2) H 12/13/17 17:38 APTT 30.2 Seconds (25.6-37.1) 12/13/17 17:38 - Constitutional Appears: No Acute Distress - Head Exam Head Exam: ATRAUMATIC, NORMAL INSPECTION, NORMOCEPHALIC - Eye Exam Eye Exam: EOMI, Normal appearance, PERRL Pupil Exam: NORMAL ACCOMODATION - ENT Exam ENT Exam: Mucous Membranes Moist, Normal External Ear Exam - Neck Exam Neck Exam: Full ROM. absent: Meningismus - Respiratory Exam Respiratory Exam: absent: Respiratory Distress - Cardiovascular Exam Cardiovascular Exam: REGULAR RHYTHM, +S1, +S2 - GI/Abdominal Exam GI & Abdominal Exam: Soft, Normal Bowel Sounds. absent: Tenderness - Extremities Exam Extremities Exam: Normal Capillary Refill. absent: Calf Tenderness, Full ROM - Back Exam Back Exam: absent: CVA tenderness (L), CVA tenderness (R) spinal wound with dressing - Neurological Exam Neurological Exam: Alert, Awake, Motor Sensory Deficit, Oriented x3 Neuro motor strength exam: Left Upper Extremity: 5, Right Upper Extremity: 5, Left Lower Extremity: 0, Right Lower Extremity: 0 Additional comments: no sensation LE paraplegic from waist down - Psychiatric Exam Psychiatric exam: Normal Affect, Normal Mood - Skin Skin Exam: Dry, Normal Color, Warm Assessment and Plan (1) Paraspinal abscess Status: Acute (2) UTI (urinary tract infection) Status: Acute (3) Paraplegia Status: Chronic (4) Spine fracture Status: Chronic (5) DM type 2 (diabetes mellitus, type 2) Status: Chronic (6) DVT prophylaxis Status: Acute - Assessment and Plan (Free Text) Assessment: 37 y/o male Paraplegic as a results of Cord compression from Spinal Fracture after Fall 10 yrs ago s/p Spinal Surgery ( Bedolla rods placed), 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 As a result , pt has had chronic drainage from his wound intermittently for years however his last IV abx tx was 10 yrs ago. Patient came in to our ED because of fever, pain and tenderness on his lower back and increase drainage from his wound. CT of L spine/T spine :3.2 x 2.9 x 3.4 cm low-attenuation collection with peripheral enhancement in the right posterior paraspinal soft tissues. Nonspecific moderate left hydroureteronephrosis. Neurosurgery was consulted in the ED - as per Dr Weir - no neuro surgical intervention, abscess is surficial so General Surgery was consulted. Abscess drained from wound and specimen sent for culture. Wound c/s : MSSA, Proteus Urine c/s : Providencia MRI of Thoracic and Lumbar Spine :Status post fusion and internal fixation at the lower thoracic and upper lumbar spine including bilateral pedicles screws and posterior longitudinal rods at L1 and L2. No evidence of spinal stenosis or neural foraminal narrowing at the lumbar spine. Endplate destruction and disc space fusion at L1-L2. Subcutaneous fluid collection to the right of the midline at the level of L2 and L2-L3 may represent seroma or abscess formation. Severe narrowing of the spinal canal at T10-T11 with possible cord compression at this level. Please correlate clinically. Partial destruction of the mid and upper T11 and adjacent T10-T11 disc. The possibility of osteomyelitis discitis also should be considered. (1) Sepsis ( POA) sec to Paraspinal Soft Tissue abscess with Discitis / Osteomyelitis s/p Drainage of abscess by IR Status: Acute Neurosurgery and Gen surgery consulted Per Neurosurgery - no surgical intervention Wound c/s : MSSA and Proteus cont IV Vanco , Ceftriaxone, and Cipro (Dr Ge ramirez/c Fiordaliza and added Cipro) ID consulted- discussed case ESR high, CRP high consistent with infection Procalcitonin level normal Pt would need 6 wks of IV abx- Pt is uninsured, he has no means to come back for daily IV abx tx. IR Aspiration of abscess - obtained 22 ml purulent material- sent for c/s- MSSA (2) UTI (urinary tract infection) Status: Acute urine c/s : Providencia pt on Iv ceftriaxone and Cipro Left Hydronephrosis noted- as per patient's mother , this is chronic , pt is voiding freely, Grey inserted Renal Sonogram Urology consulted - Dr Huizar - rec to just tx UTI Yeast also noted on UA - pt received PO Diflucan (3) Paraplegia Status: Chronic hx of Cord compression from spine fracture 2007 (4) Spine fracture s/p Bedolla Rods Status: Chronic as above (5) DM type 2 (diabetes mellitus, type 2) Status: Chronic accucheck with coverage cont Glucotrol Increased Levemir to 20 units q hs (6)Sepsis sec to Paraspinal soft tissue abscess ( POA) - Lactic acid elevated, pt febrile, tachycardic and fever on admission (7) DVT prophylaxis Status: Acute Lovenox
[2017-12-26] MEDS: Insulin Regular 100 units/ml SC SCH ×4 (06:36→21:54)
[2017-12-26] MEDS: Lactobacillus Acidophilus 500 MU Cap PO SCH ×2 (08:29→17:03)
[2017-12-26] MEDS: oxyCODONE 20 mg ER Tab (oxyCONTIN) PO SCH ×2 (08:29→21:19)
[2017-12-26] MEDS: Enoxaparin 40 mg Syringe SC SCH (08:30)
[2017-12-26] MEDS: GlipiZIDE 10 mg SR Tab PO SCH (08:30)
[2017-12-26] MEDS: Pantoprazole 40 mg EC Tab PO SCH (08:30)
--- NOTE | 2017-12-26 13:11 | CP.PCM.PN ---
Subjective - Date & Time of Evaluation Date of Evaluation: 12/26/17 Time of Evaluation: 13:11 - Subjective Subjective: tolerating abx well no complaints hd stable nad Objective - Vital Signs/Intake and Output Vital Signs (last 24 hours): Temp Pulse Resp BP Pulse Ox 97.7 F 75 20 108/72 98 12/26/17 08:05 12/26/17 08:05 12/26/17 08:05 12/26/17 08:05 12/26/17 08:05 Intake and Output: 12/26/17 12/26/17 06:59 18:59 Intake Total 450 Output Total 2150 Balance -1700 Vitals Reviewed GEN: WDWN, alert, cooperative HEENT: NCAT, PERRL, EOMI HEART: RRR, +S1S2, NO MRG LUNG: CTAB, NO WRR ABD: soft, NT, ND, No HSM, No masses EXT: normal pedal pulses, normal capillary refill NEURO: awake, alert, no focal deficits SKIN: warm, dry PSYCH: normal mood, normal affect - Medications Medications: Current Medications Acetaminophen (Tylenol 325mg Tab) 650 mg PO Q6 PRN PRN Reason: Pain, Mild (1-3) Ciprofloxacin (Cipro) 500 mg PO Q12 [facility] Last Admin: 12/26/17 08:30 Dose: 500 mg Dextrose (Dextrose 50% Inj) 0 ml IV STAT PRN; Protocol PRN Reason: Hypoglycemia Protocol Dextrose (Glutose 15) 0 gm PO ONCE PRN; Protocol PRN Reason: Hypoglycemia Protocol Docusate Sodium (Colace) 100 mg PO BID [facility] Last Admin: 12/26/17 08:30 Dose: 100 mg Enoxaparin Sodium (Lovenox) 40 mg SC DAILY [facility] PRN Reason: Protocol Last Admin: 12/26/17 08:30 Dose: 40 mg Glipizide (Glucotrol Xl) 10 mg PO BRK [facility] Last Admin: 12/26/17 08:30 Dose: 10 mg Glucagon (Glucagen Diagnostic Kit) 0 mg IM STAT PRN; Protocol PRN Reason: Hypoglycemia Protocol Vancomycin HCl 1 gm/ Sodium (Chloride) 250 mls @ 166.667 mls/hr IVPB Q12 [facility] PRN Reason: Protocol Last Admin: 12/26/17 08:31 Dose: 166.667 mls/hr Insulin Detemir (Levemir) 20 units SC HS [facility] Last Admin: 12/25/17 22:30 Dose: 20 unit Insulin Human Regular (Humulin R) 0 units SC ACHS [facility] PRN Reason: Protocol Last Admin: 12/26/17 12:28 Dose: 3 units Lactobacillus Acidophilus (Bacid Acidophilus) 1 cap PO BID [facility] Last Admin: 12/26/17 08:29 Dose: 1 cap Ondansetron HCl (Zofran Inj) 4 mg IVP Q6 PRN PRN Reason: Nausea/Vomiting Last Admin: 12/17/17 06:32 Dose: 4 mg Oxycodone HCl (Oxycontin Extended Release Tab) 20 mg PO Q12 [facility] Last Admin: 12/26/17 08:29 Dose: 20 mg Pantoprazole Sodium (Protonix Ec Tab) 40 mg PO DAILY [facility] Last Admin: 12/26/17 08:30 Dose: 40 mg - Labs Labs: 12/23/17 05:32 12/23/17 05:32 PT 13.9 Seconds (9.8-13.1) H 12/13/17 17:38 INR 1.3 (0.9-1.2) H 12/13/17 17:38 APTT 30.2 Seconds (25.6-37.1) 12/13/17 17:38 Assessment and Plan - Assessment and Plan (Free Text) Plan: 37 y/o male Paraplegic as a results of Cord compression from Spinal Fracture after Fall 10 yrs ago s/p Spinal Surgery ( Bedolla rods placed), 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 As a result , pt has had chronic drainage from his wound intermittently for years however his last IV abx tx was 10 yrs ago. Patient came in to our ED because of fever, pain and tenderness on his lower back and increase drainage from his wound. CT of L spine/T spine :3.2 x 2.9 x 3.4 cm low-attenuation collection with peripheral enhancement in the right posterior paraspinal soft tissues. Nonspecific moderate left hydroureteronephrosis. Neurosurgery was consulted in the ED - as per Dr Weir - no neuro surgical intervention, abscess is surficial so General Surgery was consulted. Abscess drained from wound and specimen sent for culture. Wound c/s : MSSA, Proteus Urine c/s : Providencia MRI of Thoracic and Lumbar Spine :Status post fusion and internal fixation at the lower thoracic and upper lumbar spine including bilateral pedicles screws and posterior longitudinal rods at L1 and L2. No evidence of spinal stenosis or neural foraminal narrowing at the lumbar spine. Endplate destruction and disc space fusion at L1-L2. Subcutaneous fluid collection to the right of the midline at the level of L2 and L2-L3 may represent seroma or abscess formation. Severe narrowing of the spinal canal at T10-T11 with possible cord compression at this level. Please correlate clinically. Partial destruction of the mid and upper T11 and adjacent T10-T11 disc. The possibility of osteomyelitis discitis also should be considered. (1) Sepsis ( POA) sec to Paraspinal Soft Tissue abscess with Discitis / Osteomyelitis s/p Drainage of abscess by IR Status: Acute Neurosurgery and Gen surgery consulted Per Neurosurgery - no surgical intervention Wound c/s : MSSA and Proteus cont IV Vanco , Ceftriaxone, and Cipro (Dr Carolina d/c Zosyn and added Cipro) ID consulted- discussed case ESR high, CRP high consistent with infection Procalcitonin level normal Pt would need 6 wks of IV abx- Pt is uninsured, he has no means to come back for daily IV abx tx. IR Aspiration of abscess - obtained 22 ml purulent material- sent for c/s- MSSA (2) UTI (urinary tract infection) Status: Acute urine c/s : Providencia pt on Iv ceftriaxone and Cipro Left Hydronephrosis noted- as per patient's mother , this is chronic , pt is voiding freely, Grey inserted Renal Sonogram Urology consulted - Dr Huizar - rec to just tx UTI Yeast also noted on UA - pt received PO Diflucan (3) Paraplegia Status: Chronic hx of Cord compression from spine fracture 2007 (4) Spine fracture s/p Bedolla Rods Status: Chronic as above (5) DM type 2 (diabetes mellitus, type 2) Status: Chronic accucheck with coverage cont Glucotrol Increased Levemir to 20 units q hs (6)Sepsis sec to Paraspinal soft tissue abscess ( POA) - Lactic acid elevated, pt febrile, tachycardic and fever on admission (7) DVT prophylaxis Status: Acute Lovenox
[2017-12-26] MEDS: Insulin Detemir 100 Units/ml Inj SC SCH (23:03)
[2017-12-27] MEDS: Insulin Regular 100 units/ml SC SCH ×4 (06:37→23:08)
[2017-12-27] MEDS: oxyCODONE 20 mg ER Tab (oxyCONTIN) PO SCH (10:06)
[2017-12-27] MEDS: Lactobacillus Acidophilus 500 MU Cap PO SCH ×2 (10:06→16:55)
[2017-12-27] MEDS: Pantoprazole 40 mg EC Tab PO SCH (10:07)
[2017-12-27] MEDS: Enoxaparin 40 mg Syringe SC SCH (10:07)
[2017-12-27] MEDS: GlipiZIDE 10 mg SR Tab PO SCH (10:07)
--- NOTE | 2017-12-27 11:23 | CP.PCM.PN ---
Subjective - Date & Time of Evaluation Date of Evaluation: 12/27/17 Time of Evaluation: 11:00 - Subjective Subjective: No fever has sl back pain no CP no SOB no abd pain no diarrhea Objective - Vital Signs/Intake and Output Vital Signs (last 24 hours): Temp Pulse Resp BP Pulse Ox 98.3 F 84 18 110/74 97 12/27/17 08:40 12/27/17 08:40 12/27/17 08:40 12/27/17 08:40 12/27/17 08:40 Intake and Output: 12/27/17 12/27/17 06:59 18:59 Intake Total 300 Output Total 2450 Balance -2150 - Medications Medications: Current Medications Acetaminophen (Tylenol 325mg Tab) 650 mg PO Q6 PRN PRN Reason: Pain, Mild (1-3) Ciprofloxacin (Cipro) 500 mg PO Q12 [facility] Last Admin: 12/27/17 10:07 Dose: 500 mg Dextrose (Dextrose 50% Inj) 0 ml IV STAT PRN; Protocol PRN Reason: Hypoglycemia Protocol Dextrose (Glutose 15) 0 gm PO ONCE PRN; Protocol PRN Reason: Hypoglycemia Protocol Docusate Sodium (Colace) 100 mg PO BID [facility] Last Admin: 12/27/17 10:07 Dose: 100 mg Enoxaparin Sodium (Lovenox) 40 mg SC DAILY ADAM PRN Reason: Protocol Last Admin: 12/27/17 10:07 Dose: 40 mg Glipizide (Glucotrol Xl) 10 mg PO BRK [facility] Last Admin: 12/27/17 10:07 Dose: 10 mg Glucagon (Glucagen Diagnostic Kit) 0 mg IM STAT PRN; Protocol PRN Reason: Hypoglycemia Protocol Vancomycin HCl 1 gm/ Sodium (Chloride) 250 mls @ 166.667 mls/hr IVPB Q12 [facility] PRN Reason: Protocol Last Admin: 12/27/17 10:08 Dose: 166.667 mls/hr Insulin Detemir (Levemir) 20 units SC HS [facility] Last Admin: 12/26/17 23:03 Dose: 20 unit Insulin Human Regular (Humulin R) 0 units SC ACHS ADAM PRN Reason: Protocol Last Admin: 12/27/17 06:37 Dose: 6 units Lactobacillus Acidophilus (Bacid Acidophilus) 1 cap PO BID [facility] Last Admin: 12/27/17 10:06 Dose: 1 cap Ondansetron HCl (Zofran Inj) 4 mg IVP Q6 PRN PRN Reason: Nausea/Vomiting Last Admin: 12/17/17 06:32 Dose: 4 mg Oxycodone HCl (Oxycontin Extended Release Tab) 20 mg PO Q12 [facility] Last Admin: 12/27/17 10:06 Dose: 20 mg Pantoprazole Sodium (Protonix Ec Tab) 40 mg PO DAILY [facility] Last Admin: 12/27/17 10:07 Dose: 40 mg - Labs Labs: 12/23/17 05:32 12/23/17 05:32 PT 13.9 Seconds (9.8-13.1) H 12/13/17 17:38 INR 1.3 (0.9-1.2) H 12/13/17 17:38 APTT 30.2 Seconds (25.6-37.1) 12/13/17 17:38 - Constitutional Appears: No Acute Distress - Head Exam Head Exam: ATRAUMATIC, NORMAL INSPECTION, NORMOCEPHALIC - Eye Exam Eye Exam: EOMI, Normal appearance, PERRL Pupil Exam: NORMAL ACCOMODATION - ENT Exam ENT Exam: Mucous Membranes Moist, Normal External Ear Exam - Neck Exam Neck Exam: Full ROM. absent: Meningismus - Respiratory Exam Respiratory Exam: absent: Respiratory Distress - Cardiovascular Exam Cardiovascular Exam: REGULAR RHYTHM, +S1, +S2 - GI/Abdominal Exam GI & Abdominal Exam: Soft, Normal Bowel Sounds. absent: Tenderness - Extremities Exam Extremities Exam: Normal Capillary Refill. absent: Calf Tenderness, Full ROM - Back Exam Back Exam: absent: CVA tenderness (L), CVA tenderness (R) spinal wound with dressing thoracic wound with sl drainage , lumbar wound no drainage sl vertebral tenderness thoracic area - Neurological Exam Neurological Exam: Alert, Awake, Motor Sensory Deficit, Oriented x3 Neuro motor strength exam: Left Upper Extremity: 5, Right Upper Extremity: 5, Left Lower Extremity: 0, Right Lower Extremity: 0 Additional comments: no sensation LE paraplegic from waist down - Psychiatric Exam Psychiatric exam: Normal Affect, Normal Mood - Skin Skin Exam: Dry, Normal Color, Warm Assessment and Plan (1) Paraspinal abscess Status: Acute (2) UTI (urinary tract infection) Status: Acute (3) Paraplegia Status: Chronic (4) Spine fracture Status: Chronic (5) DM type 2 (diabetes mellitus, type 2) Status: Chronic (6) DVT prophylaxis Status: Acute - Assessment and Plan (Free Text) Assessment: 37 y/o male Paraplegic as a results of Cord compression from Spinal Fracture after Fall 10 yrs ago s/p Spinal Surgery ( Bedolla rods placed), 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 As a result , pt has had chronic drainage from his wound intermittently for years however his last IV abx tx was 10 yrs ago. Patient came in to our ED because of fever, pain and tenderness on his lower back and increase drainage from his wound. CT of L spine/T spine :3.2 x 2.9 x 3.4 cm low-attenuation collection with peripheral enhancement in the right posterior paraspinal soft tissues. Nonspecific moderate left hydroureteronephrosis. Neurosurgery was consulted in the ED - as per Dr Weir - no neuro surgical intervention, abscess is surficial so General Surgery was consulted. Abscess drained from wound and specimen sent for culture. Wound c/s : MSSA, Proteus Urine c/s : Providencia MRI of Thoracic and Lumbar Spine :Status post fusion and internal fixation at the lower thoracic and upper lumbar spine including bilateral pedicles screws and posterior longitudinal rods at L1 and L2. No evidence of spinal stenosis or neural foraminal narrowing at the lumbar spine. Endplate destruction and disc space fusion at L1-L2. Subcutaneous fluid collection to the right of the midline at the level of L2 and L2-L3 may represent seroma or abscess formation. Severe narrowing of the spinal canal at T10-T11 with possible cord compression at this level. Please correlate clinically. Partial destruction of the mid and upper T11 and adjacent T10-T11 disc. The possibility of osteomyelitis discitis also should be considered. (1) Sepsis ( POA) sec to Paraspinal Soft Tissue abscess with Discitis / Osteomyelitis s/p Drainage of abscess by IR Status: Acute Neurosurgery and Gen surgery consulted Per Neurosurgery - no surgical intervention Wound c/s : MSSA and Proteus cont IV Vanco , and Cipro (Dr Carolina d/c [place], Ceftriaxone and added Cipro) ID consulted- discussed case ESR high, CRP high consistent with infection Procalcitonin level normal Pt would need 6 wks of IV abx- Pt is uninsured, he has no means to come back for daily IV abx tx. IR Aspiration of abscess 12/18 - obtained 22 ml purulent material- sent for c/s- MSSA (2) UTI (urinary tract infection) Status: Acute urine c/s : Providencia pt received ceftriaxone and Cipro Left Hydronephrosis noted- as per patient's mother , this is chronic , pt is voiding freely, Grey inserted Renal Sonogram Urology consulted - Dr Huizar - rec to just tx UTI Yeast also noted on UA - pt received PO Diflucan (3) Paraplegia Status: Chronic hx of Cord compression from spine fracture 2007 (4) Spine fracture s/p Bedolla Rods Status: Chronic as above (5) DM type 2 (diabetes mellitus, type 2) Status: Chronic accucheck with coverage cont Glucotrol Increased Levemir to 20 units q hs (6)Sepsis sec to Paraspinal soft tissue abscess ( POA) - Lactic acid elevated, pt febrile, tachycardic and fever on admission (7) DVT prophylaxis Status: Acute Lovenox
[2017-12-27] MEDS ORDERED: Insulin Detemir 100 Units/ml Inj SC SCH (17:13)
[2017-12-28] MEDS: oxyCODONE 5 mg Immediate Release Tab PO SCH ×3 (00:13→16:56)
[2017-12-28] MEDS: Insulin Regular 100 units/ml SC SCH ×4 (07:01→21:59)
[2017-12-28] MEDS: Lactobacillus Acidophilus 500 MU Cap PO SCH ×3 (09:47→16:53)
[2017-12-28] MEDS: Enoxaparin 40 mg Syringe SC SCH (09:48)
[2017-12-28] MEDS: GlipiZIDE 10 mg SR Tab PO SCH (09:49)
--- NOTE | 2017-12-28 14:14 | CP.PCM.PN ---
Subjective - Date & Time of Evaluation Date of Evaluation: 12/28/17 Time of Evaluation: 11:00 - Subjective Subjective: No fever denies any complaints no diarrhea Objective - Vital Signs/Intake and Output Vital Signs (last 24 hours): Temp Pulse Resp BP Pulse Ox 97.4 F L 74 20 108/72 97 12/28/17 08:32 12/28/17 08:32 12/28/17 08:32 12/28/17 08:32 12/28/17 08:32 Intake and Output: 12/28/17 12/28/17 06:59 18:59 Output Total 1999 Balance -1999 - Medications Medications: Current Medications Acetaminophen (Tylenol 325mg Tab) 650 mg PO Q6 PRN PRN Reason: Pain, Mild (1-3) Ciprofloxacin (Cipro) 500 mg PO Q12 [facility] Last Admin: 12/28/17 09:48 Dose: 500 mg Dextrose (Dextrose 50% Inj) 0 ml IV STAT PRN; Protocol PRN Reason: Hypoglycemia Protocol Dextrose (Glutose 15) 0 gm PO ONCE PRN; Protocol PRN Reason: Hypoglycemia Protocol Docusate Sodium (Colace) 100 mg PO BID [facility] Last Admin: 12/28/17 09:48 Dose: 100 mg Enoxaparin Sodium (Lovenox) 40 mg SC DAILY [facility] PRN Reason: Protocol Last Admin: 12/28/17 09:48 Dose: 40 mg Glipizide (Glucotrol Xl) 10 mg PO BRK [facility] Last Admin: 12/28/17 09:49 Dose: 10 mg Glucagon (Glucagen Diagnostic Kit) 0 mg IM STAT PRN; Protocol PRN Reason: Hypoglycemia Protocol Vancomycin HCl 1 gm/ Sodium (Chloride) 250 mls @ 166.667 mls/hr IVPB Q12 [facility] PRN Reason: Protocol Last Admin: 12/28/17 09:49 Dose: 166.667 mls/hr Insulin Detemir (Levemir) 24 units SC HS [facility] Last Admin: 12/27/17 23:10 Dose: 24 u Insulin Human Regular (Humulin R) 0 units SC ACHS [facility] PRN Reason: Protocol Last Admin: 12/28/17 13:29 Dose: 3 units Lactobacillus Acidophilus (Bacid Acidophilus) 1 cap PO BID [facility] Last Admin: 12/28/17 09:47 Dose: 1 cap Oxycodone HCl (Oxycodone Immediate Release Tab) 5 mg PO Q8 [facility] Last Admin: 12/28/17 09:47 Dose: 5 mg - Labs Labs: 12/23/17 05:32 12/23/17 05:32 PT 13.9 Seconds (9.8-13.1) H 12/13/17 17:38 INR 1.3 (0.9-1.2) H 12/13/17 17:38 APTT 30.2 Seconds (25.6-37.1) 12/13/17 17:38 - Constitutional Appears: No Acute Distress - Head Exam Head Exam: ATRAUMATIC, NORMAL INSPECTION, NORMOCEPHALIC - Eye Exam Eye Exam: EOMI, Normal appearance, PERRL Pupil Exam: NORMAL ACCOMODATION - ENT Exam ENT Exam: Mucous Membranes Moist, Normal External Ear Exam - Neck Exam Neck Exam: Full ROM. absent: Meningismus - Respiratory Exam Respiratory Exam: absent: Respiratory Distress - Cardiovascular Exam Cardiovascular Exam: REGULAR RHYTHM, +S1, +S2 - GI/Abdominal Exam GI & Abdominal Exam: Soft, Normal Bowel Sounds. absent: Tenderness - Extremities Exam Extremities Exam: Normal Capillary Refill. absent: Calf Tenderness, Full ROM - Back Exam Back Exam: absent: CVA tenderness (L), CVA tenderness (R) spinal wound with dressing - thoracic wound with sl drainage , lumbar wound no drainage sl vertebral tenderness thoracic area - Neurological Exam Neurological Exam: Alert, Awake, Motor Sensory Deficit, Oriented x3 Neuro motor strength exam: Left Upper Extremity: 5, Right Upper Extremity: 5, Left Lower Extremity: 0, Right Lower Extremity: 0 Additional comments: no sensation LE paraplegic from waist down - Psychiatric Exam Psychiatric exam: Normal Affect, Normal Mood - Skin Skin Exam: Dry, Normal Color, Warm Assessment and Plan (1) Paraspinal abscess Status: Acute (2) UTI (urinary tract infection) Status: Acute (3) Paraplegia Status: Chronic (4) Spine fracture Status: Chronic (5) DM type 2 (diabetes mellitus, type 2) Status: Chronic (6) DVT prophylaxis Status: Acute - Assessment and Plan (Free Text) Assessment: 37 y/o male Paraplegic as a results of Cord compression from Spinal Fracture after Fall 10 yrs ago s/p Spinal Surgery ( Bedolla rods placed), 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 As a result , pt has had chronic drainage from his wound intermittently for years however his last IV abx tx was 10 yrs ago. Patient came in to our ED because of fever, pain and tenderness on his lower back and increase drainage from his wound. CT of L spine/T spine :3.2 x 2.9 x 3.4 cm low-attenuation collection with peripheral enhancement in the right posterior paraspinal soft tissues. Nonspecific moderate left hydroureteronephrosis. Neurosurgery was consulted in the ED - as per Dr Weir - no neuro surgical intervention, abscess is surficial so General Surgery was consulted. Abscess drained from wound and specimen sent for culture. Wound c/s : MSSA, Proteus Urine c/s : Providencia MRI of Thoracic and Lumbar Spine :Status post fusion and internal fixation at the lower thoracic and upper lumbar spine including bilateral pedicles screws and posterior longitudinal rods at L1 and L2. No evidence of spinal stenosis or neural foraminal narrowing at the lumbar spine. Endplate destruction and disc space fusion at L1-L2. Subcutaneous fluid collection to the right of the midline at the level of L2 and L2-L3 may represent seroma or abscess formation. Severe narrowing of the spinal canal at T10-T11 with possible cord compression at this level. Please correlate clinically. Partial destruction of the mid and upper T11 and adjacent T10-T11 disc. The possibility of osteomyelitis discitis also should be considered. (1) Sepsis ( POA) sec to Paraspinal Soft Tissue abscess with Discitis / Osteomyelitis s/p Drainage of abscess by IR Status: Acute Neurosurgery and Gen surgery consulted Per Neurosurgery - no surgical intervention Wound c/s : MSSA and Proteus cont IV Vanco , and Cipro (Dr Carolina d/c Fiordaliza, Ceftriaxone and added Cipro) ID consulted- discussed case ESR high, CRP high consistent with infection Procalcitonin level normal Pt would need 6 wks of IV abx- Pt is uninsured, he has no means to come back for daily IV abx tx. ( till Jan 24) IR Aspiration of abscess 12/18 - obtained 22 ml purulent material- sent for c/s- MSSA (2) UTI (urinary tract infection) Status: Acute urine c/s : Providencia pt received ceftriaxone and Cipro Left Hydronephrosis noted- as per patient's mother , this is chronic , pt is voiding freely, Grey inserted Renal Sonogram Urology consulted - Dr Huizar - rec to just tx UTI Yeast also noted on UA - pt received PO Diflucan (3) Paraplegia Status: Chronic hx of Cord compression from spine fracture 2007 (4) Spine fracture s/p Bedolla Rods Status: Chronic as above (5) DM type 2 (diabetes mellitus, type 2) Status: Chronic accucheck with coverage cont Glucotrol Increased Levemir to 30 units q hs (6)Sepsis sec to Paraspinal soft tissue abscess ( POA) - Lactic acid elevated, pt febrile, tachycardic and fever on admission (7) DVT prophylaxis Status: Acute Lovenox
[2017-12-28] MEDS: Insulin Detemir 100 Units/ml Inj SC SCH (21:59)
[2017-12-29] MEDS: oxyCODONE 5 mg Immediate Release Tab PO SCH ×3 (00:45→16:37)
[2017-12-29 07:42] LABS: HEMOGLOBIN 13.8 g/dL (12.0-18.0); MEAN CELL VOLUME 77.5 fl (80.0-94.0); MEAN CORPUSCULAR HEMOGLOBIN 25.9 pg (27.0-31.0); MEAN CORPUSCULAR HGB CONC 33.4 g/dL (33.0-37.0); RBC 5.33 Mil/uL (4.40-5.90); RED CELL DISTRIBUTION WIDTH 14.2 % (11.5-14.5); WHITE BLOOD COUNT 5.4 K/uL (4.8-10.8)
[2017-12-29 07:58] LABS: BLOOD UREA NITROGEN 15 mg/dl (9-20); CALCIUM 9.6 mg/dL (8.4-10.2); GFR NON-AFRICAN AMERICAN > 60
[2017-12-29] MEDS: Lactobacillus Acidophilus 500 MU Cap PO SCH ×2 (09:24→16:37)
[2017-12-29] MEDS: GlipiZIDE 10 mg SR Tab PO SCH ×2 (09:25→16:38)
[2017-12-29] MEDS: Insulin Regular 100 units/ml SC SCH ×4 (09:26→21:54)
[2017-12-29] MEDS: Enoxaparin 40 mg Syringe SC SCH (09:27)
--- NOTE | 2017-12-29 09:44 | CP.PCM.PN ---
Subjective - Date & Time of Evaluation Date of Evaluation: 12/29/17 Time of Evaluation: 09:30 - Subjective Subjective: No fever sl upper back pain no CP no SOB no abd pain Objective - Vital Signs/Intake and Output Vital Signs (last 24 hours): Temp Pulse Resp BP Pulse Ox 97.7 F 70 20 110/71 97 12/29/17 08:25 12/29/17 08:25 12/29/17 08:25 12/29/17 08:25 12/29/17 08:25 Intake and Output: 12/29/17 12/29/17 06:59 18:59 Intake Total 0 Output Total 1950 Balance -1950 - Medications Medications: Current Medications Acetaminophen (Tylenol 325mg Tab) 650 mg PO Q6 PRN PRN Reason: Pain, Mild (1-3) Ciprofloxacin (Cipro) 500 mg PO Q12 [facility] Last Admin: 12/29/17 09:25 Dose: 500 mg Dextrose (Dextrose 50% Inj) 0 ml IV STAT PRN; Protocol PRN Reason: Hypoglycemia Protocol Dextrose (Glutose 15) 0 gm PO ONCE PRN; Protocol PRN Reason: Hypoglycemia Protocol Docusate Sodium (Colace) 100 mg PO BID [facility] Last Admin: 12/29/17 09:24 Dose: 100 mg Enoxaparin Sodium (Lovenox) 40 mg SC DAILY [facility] PRN Reason: Protocol Last Admin: 12/29/17 09:27 Dose: 40 mg Glipizide (Glucotrol Xl) 10 mg PO BRK [facility] Last Admin: 12/29/17 09:25 Dose: 10 mg Glucagon (Glucagen Diagnostic Kit) 0 mg IM STAT PRN; Protocol PRN Reason: Hypoglycemia Protocol Vancomycin HCl 1 gm/ Sodium (Chloride) 250 mls @ 166.667 mls/hr IVPB Q12 [facility] PRN Reason: Protocol Last Admin: 12/29/17 09:27 Dose: 166.667 mls/hr Insulin Detemir (Levemir) 30 units SC HS [facility] Last Admin: 12/28/17 21:59 Dose: 30 u Insulin Human Regular (Humulin R) 0 units SC ACHS [facility] PRN Reason: Protocol Last Admin: 12/29/17 09:26 Dose: 3 units Lactobacillus Acidophilus (Bacid Acidophilus) 1 cap PO BID [facility] Last Admin: 12/29/17 09:24 Dose: 1 cap Oxycodone HCl (Oxycodone Immediate Release Tab) 5 mg PO Q8 [facility] Last Admin: 12/29/17 09:24 Dose: 5 mg - Labs Labs: 12/29/17 06:00 12/29/17 06:00 PT 13.9 Seconds (9.8-13.1) H 12/13/17 17:38 INR 1.3 (0.9-1.2) H 12/13/17 17:38 APTT 30.2 Seconds (25.6-37.1) 12/13/17 17:38 - Constitutional Appears: No Acute Distress - Head Exam Head Exam: ATRAUMATIC, NORMAL INSPECTION, NORMOCEPHALIC - Eye Exam Eye Exam: EOMI, Normal appearance, PERRL Pupil Exam: NORMAL ACCOMODATION - ENT Exam ENT Exam: Mucous Membranes Moist, Normal External Ear Exam - Neck Exam Neck Exam: Full ROM. absent: Meningismus - Respiratory Exam Respiratory Exam: absent: Respiratory Distress - Cardiovascular Exam Cardiovascular Exam: REGULAR RHYTHM, +S1, +S2 - GI/Abdominal Exam GI & Abdominal Exam: Soft, Normal Bowel Sounds. absent: Tenderness - Extremities Exam Extremities Exam: Normal Capillary Refill. absent: Calf Tenderness, Full ROM - Back Exam Back Exam: absent: CVA tenderness (L), CVA tenderness (R) spinal wound with dressing - thoracic wound with sl drainage , lumbar wound no drainage sl vertebral tenderness thoracic area - Neurological Exam Neurological Exam: Alert, Awake, Motor Sensory Deficit, Oriented x3 Neuro motor strength exam: Left Upper Extremity: 5, Right Upper Extremity: 5, Left Lower Extremity: 0, Right Lower Extremity: 0 Additional comments: no sensation LE paraplegic from waist down - Psychiatric Exam Psychiatric exam: Normal Affect, Normal Mood - Skin Skin Exam: Dry, Normal Color, Warm Assessment and Plan (1) Paraspinal abscess Status: Acute (2) UTI (urinary tract infection) Status: Acute (3) Paraplegia Status: Chronic (4) Spine fracture Status: Chronic (5) DM type 2 (diabetes mellitus, type 2) Status: Chronic (6) DVT prophylaxis Status: Acute - Assessment and Plan (Free Text) Assessment: 37 y/o male Paraplegic as a results of Cord compression from Spinal Fracture after Fall 10 yrs ago s/p Spinal Surgery ( Bedolla rods placed), 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 As a result , pt has had chronic drainage from his wound intermittently for years however his last IV abx tx was 10 yrs ago. Patient came in to our ED because of fever, pain and tenderness on his lower back and increase drainage from his wound. CT of L spine/T spine :3.2 x 2.9 x 3.4 cm low-attenuation collection with peripheral enhancement in the right posterior paraspinal soft tissues. Nonspecific moderate left hydroureteronephrosis. Neurosurgery was consulted in the ED - as per Dr Weir - no neuro surgical intervention, abscess is surficial so General Surgery was consulted. Abscess drained from wound and specimen sent for culture. Wound c/s : MSSA, Proteus Urine c/s : Providencia MRI of Thoracic and Lumbar Spine :Status post fusion and internal fixation at the lower thoracic and upper lumbar spine including bilateral pedicles screws and posterior longitudinal rods at L1 and L2. No evidence of spinal stenosis or neural foraminal narrowing at the lumbar spine. Endplate destruction and disc space fusion at L1-L2. Subcutaneous fluid collection to the right of the midline at the level of L2 and L2-L3 may represent seroma or abscess formation. Severe narrowing of the spinal canal at T10-T11 with possible cord compression at this level. Please correlate clinically. Partial destruction of the mid and upper T11 and adjacent T10-T11 disc. The possibility of osteomyelitis discitis also should be considered. (1) Sepsis ( POA) sec to Paraspinal Soft Tissue abscess with Discitis / Osteomyelitis s/p Drainage of abscess by IR Status: Acute Neurosurgery and Gen surgery consulted Per Neurosurgery - no surgical intervention Wound c/s : MSSA and Proteus cont IV Vanco , and Cipro (Dr Carolina d/c Milenasykenzie, Ceftriaxone and added Cipro) ID consulted- discussed case ESR high, CRP high consistent with infection Procalcitonin level normal Pt would need 6 wks of IV abx- Pt is uninsured, he has no means to come back for daily IV abx tx. ( till Jan 24) IR Aspiration of abscess 12/18 - obtained 22 ml purulent material- sent for c/s- MSSA (2) UTI (urinary tract infection) Status: Acute urine c/s : Providencia pt received ceftriaxone and Cipro Left Hydronephrosis noted- as per patient's mother , this is chronic , pt is voiding freely, Grey inserted Renal Sonogram Urology consulted - Dr Huizar - rec to just tx UTI Yeast also noted on UA - pt received PO Diflucan (3) Paraplegia Status: Chronic hx of Cord compression from spine fracture 2007 (4) Spine fracture s/p Bedolla Rods Status: Chronic as above (5) DM type 2 (diabetes mellitus, type 2) Status: Chronic accucheck with coverage Increase Glucotrol 10 mg bid Increased Levemir to 30 units q hs (6) DVT prophylaxis Status: Acute Lovenox
[2017-12-29] MEDS: Insulin Detemir 100 Units/ml Inj SC SCH (21:51)
[2017-12-30] MEDS: oxyCODONE 5 mg Immediate Release Tab PO SCH ×3 (01:04→16:38)
[2017-12-30] MEDS: Lactobacillus Acidophilus 500 MU Cap PO SCH ×2 (09:26→16:38)
[2017-12-30] MEDS: GlipiZIDE 10 mg SR Tab PO SCH ×2 (09:27→16:38)
[2017-12-30] MEDS: Insulin Regular 100 units/ml SC SCH ×4 (09:27→21:54)
[2017-12-30] MEDS: Enoxaparin 40 mg Syringe SC SCH (09:28)
--- NOTE | 2017-12-30 11:40 | CP.PCM.PN ---
Subjective - Date & Time of Evaluation Date of Evaluation: 12/30/17 Time of Evaluation: 11:30 - Subjective Subjective: No fever has sl pain upper thoracic wound area lumbar pain resolved denies abd pain, no diarrhea Objective - Vital Signs/Intake and Output Vital Signs (last 24 hours): Temp Pulse Resp BP Pulse Ox 97.7 F 96 H 20 102/67 99 12/30/17 08:09 12/30/17 08:09 12/30/17 08:09 12/30/17 08:09 12/30/17 08:09 Intake and Output: 12/30/17 12/30/17 06:59 18:59 Output Total 1775 Balance -1775 - Medications Medications: Current Medications Acetaminophen (Tylenol 325mg Tab) 650 mg PO Q6 PRN PRN Reason: Pain, Mild (1-3) Ciprofloxacin (Cipro) 500 mg PO Q12 [facility] Last Admin: 12/30/17 09:27 Dose: 500 mg Dextrose (Dextrose 50% Inj) 0 ml IV STAT PRN; Protocol PRN Reason: Hypoglycemia Protocol Dextrose (Glutose 15) 0 gm PO ONCE PRN; Protocol PRN Reason: Hypoglycemia Protocol Docusate Sodium (Colace) 100 mg PO BID [facility] Last Admin: 12/30/17 09:27 Dose: 100 mg Enoxaparin Sodium (Lovenox) 40 mg SC DAILY [facility] PRN Reason: Protocol Last Admin: 12/30/17 09:28 Dose: 40 mg Glipizide (Glucotrol Xl) 10 mg PO BID [facility] Last Admin: 12/30/17 09:27 Dose: 10 mg Glucagon (Glucagen Diagnostic Kit) 0 mg IM STAT PRN; Protocol PRN Reason: Hypoglycemia Protocol Vancomycin HCl 1 gm/ Sodium (Chloride) 250 mls @ 166.667 mls/hr IVPB Q12 [facility] PRN Reason: Protocol Last Admin: 12/30/17 09:28 Dose: 166.667 mls/hr Insulin Detemir (Levemir) 30 units SC HS [facility] Last Admin: 12/29/17 21:51 Dose: 30 u Insulin Human Regular (Humulin R) 0 units SC ACHS [facility] PRN Reason: Protocol Last Admin: 12/30/17 09:27 Dose: 3 units Lactobacillus Acidophilus (Bacid Acidophilus) 1 cap PO BID [facility] Last Admin: 12/30/17 09:26 Dose: 1 cap Oxycodone HCl (Oxycodone Immediate Release Tab) 5 mg PO Q8 [facility] Last Admin: 12/30/17 09:28 Dose: 5 mg - Labs Labs: 12/29/17 06:00 12/29/17 06:00 PT 13.9 Seconds (9.8-13.1) H 12/13/17 17:38 INR 1.3 (0.9-1.2) H 12/13/17 17:38 APTT 30.2 Seconds (25.6-37.1) 12/13/17 17:38 Assessment and Plan (1) Paraspinal abscess Status: Acute (2) UTI (urinary tract infection) Status: Acute (3) Paraplegia Status: Chronic (4) Spine fracture Status: Chronic (5) DM type 2 (diabetes mellitus, type 2) Status: Chronic (6) DVT prophylaxis Status: Acute - Assessment and Plan (Free Text) Assessment: 37 y/o male Paraplegic as a results of Cord compression from Spinal Fracture after Fall 10 yrs ago s/p Spinal Surgery ( Bedolla rods placed), 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 As a result , pt has had chronic drainage from his wound intermittently for years however his last IV abx tx was 10 yrs ago. Patient came in to our ED because of fever, pain and tenderness on his lower back and increase drainage from his wound. CT of L spine/T spine :3.2 x 2.9 x 3.4 cm low-attenuation collection with peripheral enhancement in the right posterior paraspinal soft tissues. Nonspecific moderate left hydroureteronephrosis. Neurosurgery was consulted in the ED - as per Dr Weir - no neuro surgical intervention, abscess is surficial so General Surgery was consulted. Abscess drained from wound and specimen sent for culture. Wound c/s : MSSA, Proteus Urine c/s : Providencia MRI of Thoracic and Lumbar Spine :Status post fusion and internal fixation at the lower thoracic and upper lumbar spine including bilateral pedicles screws and posterior longitudinal rods at L1 and L2. No evidence of spinal stenosis or neural foraminal narrowing at the lumbar spine. Endplate destruction and disc space fusion at L1-L2. Subcutaneous fluid collection to the right of the midline at the level of L2 and L2-L3 may represent seroma or abscess formation. Severe narrowing of the spinal canal at T10-T11 with possible cord compression at this level. Please correlate clinically. Partial destruction of the mid and upper T11 and adjacent T10-T11 disc. The possibility of osteomyelitis discitis also should be considered. (1) Sepsis ( POA) sec to Paraspinal Soft Tissue abscess with Discitis / Osteomyelitis s/p Drainage of abscess by IR Status: Acute Neurosurgery and Gen surgery consulted Per Neurosurgery - no surgical intervention Wound c/s : MSSA and Proteus cont IV Vanco , and Cipro (Dr Carolina d/c Milenasyn, Ceftriaxone and added Cipro ) till ID consulted- discussed case ESR high, CRP high consistent with infection Procalcitonin level normal Pt would need 6 wks of IV abx- Pt is uninsured, he has no means to come back for daily IV abx tx. ( till Jan 24) IR Aspiration of abscess 12/18 - obtained 22 ml purulent material- sent for c/s- MSSA (2) UTI (urinary tract infection) Status: Acute urine c/s : Providencia pt received ceftriaxone and Cipro ( Cipro changed to PO) Left Hydronephrosis noted- as per patient's mother , this is chronic , pt is voiding freely, Grey inserted Urology consulted - Dr Huizar - rec to just tx UTI Yeast also noted on UA - pt received PO Diflucan (3) Paraplegia Status: Chronic hx of Cord compression from spine fracture 2007 (4) Spine fracture s/p Bedolla Rods Status: Chronic as above (5) DM type 2 (diabetes mellitus, type 2) Status: Chronic accucheck with coverage Increase Glucotrol 10 mg bid Increased Levemir to 30 units q hs (6) DVT prophylaxis Status: Acute Lovenox
[2017-12-30] MEDS: Insulin Detemir 100 Units/ml Inj SC SCH (21:58)
[2017-12-31] MEDS: oxyCODONE 5 mg Immediate Release Tab PO SCH ×3 (00:57→16:40)
[2017-12-31] MEDS: Enoxaparin 40 mg Syringe SC SCH (08:49)
[2017-12-31] MEDS: GlipiZIDE 10 mg SR Tab PO SCH ×2 (08:49→16:42)
[2017-12-31] MEDS: Lactobacillus Acidophilus 500 MU Cap PO SCH ×2 (08:49→16:40)
[2017-12-31] MEDS: Insulin Regular 100 units/ml SC SCH ×4 (08:50→21:24)
--- NOTE | 2017-12-31 12:38 | CP.PCM.PN ---
Subjective - Date & Time of Evaluation Date of Evaluation: 12/31/17 Time of Evaluation: 11:30 - Subjective Subjective: Pt is afebrile has sl tenderness in his upper thoracic wound also sl drainage from this wound denies WARREN no CP no SOB no abd pain, no diarrhea Objective - Vital Signs/Intake and Output Vital Signs (last 24 hours): Temp Pulse Resp BP Pulse Ox 97.5 F L 76 18 96/56 L 98 12/31/17 08:14 12/31/17 08:14 12/31/17 08:14 12/31/17 08:14 12/31/17 08:14 Intake and Output: 12/31/17 12/31/17 06:59 18:59 Output Total 850 Balance -850 - Medications Medications: Current Medications Acetaminophen (Tylenol 325mg Tab) 650 mg PO Q6 PRN PRN Reason: Pain, Mild (1-3) Ciprofloxacin (Cipro) 500 mg PO Q12 [facility] Last Admin: 12/31/17 08:49 Dose: 500 mg Dextrose (Dextrose 50% Inj) 0 ml IV STAT PRN; Protocol PRN Reason: Hypoglycemia Protocol Dextrose (Glutose 15) 0 gm PO ONCE PRN; Protocol PRN Reason: Hypoglycemia Protocol Docusate Sodium (Colace) 100 mg PO BID [facility] Last Admin: 12/31/17 08:49 Dose: 100 mg Enoxaparin Sodium (Lovenox) 40 mg SC DAILY [facility] PRN Reason: Protocol Last Admin: 12/31/17 08:49 Dose: 40 mg Glipizide (Glucotrol Xl) 10 mg PO BID [facility] Last Admin: 12/31/17 08:49 Dose: 10 mg Glucagon (Glucagen Diagnostic Kit) 0 mg IM STAT PRN; Protocol PRN Reason: Hypoglycemia Protocol Vancomycin HCl 1 gm/ Sodium (Chloride) 250 mls @ 166.667 mls/hr IVPB Q12 [facility] PRN Reason: Protocol Last Admin: 12/31/17 08:50 Dose: 166.667 mls/hr Insulin Detemir (Levemir) 30 units SC HS [facility] Last Admin: 12/30/17 21:58 Dose: 224 u Insulin Human Regular (Humulin R) 0 units SC ACHS [facility] PRN Reason: Protocol Last Admin: 12/31/17 12:04 Dose: 4 units Lactobacillus Acidophilus (Bacid Acidophilus) 1 cap PO BID [facility] Last Admin: 12/31/17 08:49 Dose: 1 cap Oxycodone HCl (Oxycodone Immediate Release Tab) 5 mg PO Q8 [facility] Last Admin: 12/31/17 08:48 Dose: 5 mg - Labs Labs: 12/29/17 06:00 12/29/17 06:00 PT 13.9 Seconds (9.8-13.1) H 12/13/17 17:38 INR 1.3 (0.9-1.2) H 12/13/17 17:38 APTT 30.2 Seconds (25.6-37.1) 12/13/17 17:38 - Constitutional Appears: No Acute Distress - Head Exam Head Exam: ATRAUMATIC, NORMAL INSPECTION, NORMOCEPHALIC - Eye Exam Eye Exam: EOMI, Normal appearance, PERRL Pupil Exam: NORMAL ACCOMODATION - ENT Exam ENT Exam: Mucous Membranes Moist, Normal External Ear Exam - Neck Exam Neck Exam: Full ROM. absent: Meningismus - Respiratory Exam Respiratory Exam: absent: Respiratory Distress - Cardiovascular Exam Cardiovascular Exam: REGULAR RHYTHM, +S1, +S2 - GI/Abdominal Exam GI & Abdominal Exam: Soft, Normal Bowel Sounds. absent: Tenderness - Extremities Exam Extremities Exam: Normal Capillary Refill. absent: Calf Tenderness, Full ROM - Back Exam Back Exam: absent: CVA tenderness (L), CVA tenderness (R) spinal wound with dressing - upper thoracic wound with sl drainage , lumbar wound no drainage sl vertebral tenderness thoracic area - Neurological Exam Neurological Exam: Alert, Awake, Motor Sensory Deficit, Oriented x3 Neuro motor strength exam: Left Upper Extremity: 5, Right Upper Extremity: 5, Left Lower Extremity: 0, Right Lower Extremity: 0 Additional comments: no sensation LE paraplegic from waist down - Psychiatric Exam Psychiatric exam: Normal Affect, Normal Mood - Skin Skin Exam: Dry, Normal Color, Warm Assessment and Plan (1) Paraspinal abscess Status: Acute (2) UTI (urinary tract infection) Status: Acute (3) Paraplegia Status: Chronic (4) Spine fracture Status: Chronic (5) DM type 2 (diabetes mellitus, type 2) Status: Chronic (6) DVT prophylaxis Status: Acute - Assessment and Plan (Free Text) Assessment: 37 y/o male Paraplegic as a result of Cord compression from Spinal Fracture after Fall 10 yrs ago s/p Spinal Surgery ( Bedolla rods placed), 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 As a result , pt has had chronic drainage from his wound intermittently for years however his last IV abx tx was 10 yrs ago. Patient came in to our ED because of fever, pain and tenderness on his lower back and increase drainage from his wound. CT of L spine/T spine :3.2 x 2.9 x 3.4 cm low-attenuation collection with peripheral enhancement in the right posterior paraspinal soft tissues. Nonspecific moderate left hydroureteronephrosis. Neurosurgery was consulted in the ED - as per Dr Weir - no neuro surgical intervention, abscess is surficial so General Surgery was consulted. Abscess drained from wound and specimen sent for culture. Wound c/s : MSSA, Proteus Urine c/s : Providencia MRI of Thoracic and Lumbar Spine :Status post fusion and internal fixation at the lower thoracic and upper lumbar spine including bilateral pedicles screws and posterior longitudinal rods at L1 and L2. No evidence of spinal stenosis or neural foraminal narrowing at the lumbar spine. Endplate destruction and disc space fusion at L1-L2. Subcutaneous fluid collection to the right of the midline at the level of L2 and L2-L3 may represent seroma or abscess formation. Severe narrowing of the spinal canal at T10-T11 with possible cord compression at this level. Please correlate clinically. Partial destruction of the mid and upper T11 and adjacent T10-T11 disc. The possibility of osteomyelitis discitis also should be considered. (1) Sepsis ( POA) sec to Paraspinal Soft Tissue abscess with Discitis / Osteomyelitis s/p Drainage of abscess by IR ( Staph aureus - MSSA) Status: Acute Neurosurgery and Gen surgery consulted Per Neurosurgery - no surgical intervention Wound c/s : MSSA and Proteus cont IV Vanco , and Cipro (Dr Carolina d/c Zosyn, Ceftriaxone and added Cipro ) till ID consulted- discussed case ESR high (however now 42 from 99) CRP high consistent with infection Procalcitonin level normal Pt would need 6 wks of IV abx- Pt is uninsured, he has no means to come back for daily IV abx tx. ( till Jan 24) IR Aspiration of abscess 12/18 - obtained 22 ml purulent material- sent for c/s- MSSA (2) UTI (urinary tract infection) Status: Acute urine c/s : Providencia pt received ceftriaxone and Cipro ( Cipro changed to PO) Left Hydronephrosis noted- as per patient's mother , this is chronic , pt is voiding freely, Grey inserted Urology consulted - Dr Huizar - rec to just tx UTI Yeast also noted on UA - pt received PO Diflucan (3) Paraplegia Status: Chronic hx of Cord compression from spine fracture 2007 (4) Spine fracture s/p Bedolla Rods Status: Chronic as above (5) DM type 2 (diabetes mellitus, type 2) Status: Chronic accucheck with coverage Increased to Glucotrol 10 mg bid Increase Levemir to 35 units q hs (6) DVT prophylaxis Status: Acute Lovenox
[2017-12-31] MEDS: Insulin Detemir 100 Units/ml Inj SC SCH (21:25)
[2018-01-01] MEDS: oxyCODONE 5 mg Immediate Release Tab PO SCH ×3 (00:39→17:24)
[2018-01-01] MEDS: Insulin Regular 100 units/ml SC SCH ×4 (06:51→23:03)
--- NOTE | 2018-01-01 07:49 | CP.PCM.PN ---
Subjective - Date & Time of Evaluation Date of Evaluation: 01/01/18 Time of Evaluation: 10:30 - Subjective Subjective: Patient seen and examined bedside. Lying in bed in NAD.Complains of back pain that is controlled with pain medications. Hemodynamically stable, afebrile No acute issues overnight. Objective - Vital Signs/Intake and Output Vital Signs (last 24 hours): Temp Pulse Resp BP Pulse Ox 97.7 F 70 19 100/66 96 01/01/18 00:48 01/01/18 00:48 01/01/18 00:48 01/01/18 00:48 01/01/18 00:48 Intake and Output: 01/01/18 01/01/18 06:59 18:59 Output Total 1750 Balance -1750 - Medications Medications: Current Medications Acetaminophen (Tylenol 325mg Tab) 650 mg PO Q6 PRN PRN Reason: Pain, Mild (1-3) Ciprofloxacin (Cipro) 500 mg PO Q12 [facility] Last Admin: 12/31/17 21:24 Dose: 500 mg Dextrose (Dextrose 50% Inj) 0 ml IV STAT PRN; Protocol PRN Reason: Hypoglycemia Protocol Dextrose (Glutose 15) 0 gm PO ONCE PRN; Protocol PRN Reason: Hypoglycemia Protocol Docusate Sodium (Colace) 100 mg PO BID [facility] Last Admin: 12/31/17 16:42 Dose: 100 mg Enoxaparin Sodium (Lovenox) 40 mg SC DAILY [facility] PRN Reason: Protocol Last Admin: 12/31/17 08:49 Dose: 40 mg Glipizide (Glucotrol) 10 mg PO BID [facility] Glucagon (Glucagen Diagnostic Kit) 0 mg IM STAT PRN; Protocol PRN Reason: Hypoglycemia Protocol Vancomycin HCl 1 gm/ Sodium (Chloride) 250 mls @ 166.667 mls/hr IVPB Q12 [facility] PRN Reason: Protocol Last Admin: 12/31/17 21:23 Dose: 166.667 mls/hr Insulin Detemir (Levemir) 30 units SC HS [facility] Last Admin: 12/31/17 21:25 Dose: 30 u Insulin Human Regular (Humulin R) 0 units SC ACHS [facility] PRN Reason: Protocol Last Admin: 01/01/18 06:51 Dose: Not Given Lactobacillus Acidophilus (Bacid Acidophilus) 1 cap PO BID [facility] Last Admin: 12/31/17 16:40 Dose: 1 cap Oxycodone HCl (Oxycodone Immediate Release Tab) 5 mg PO Q8 [facility] Last Admin: 01/01/18 00:39 Dose: 5 mg - Labs Labs: 12/29/17 06:00 12/29/17 06:00 PT 13.9 Seconds (9.8-13.1) H 12/13/17 17:38 INR 1.3 (0.9-1.2) H 12/13/17 17:38 APTT 30.2 Seconds (25.6-37.1) 12/13/17 17:38 - Constitutional Appears: Non-toxic, No Acute Distress - Head Exam Head Exam: ATRAUMATIC, NORMAL INSPECTION, NORMOCEPHALIC - Eye Exam Eye Exam: EOMI, Normal appearance, PERRL Pupil Exam: NORMAL ACCOMODATION - ENT Exam ENT Exam: Mucous Membranes Moist, Normal Exam - Neck Exam Neck Exam: Full ROM, Normal Inspection - Respiratory Exam Respiratory Exam: Clear to Ausculation Bilateral, NORMAL BREATHING PATTERN. absent: Rales, Rhonchi, Wheezes - Cardiovascular Exam Cardiovascular Exam: REGULAR RHYTHM, RRR, +S1, +S2. absent: JVD - GI/Abdominal Exam GI & Abdominal Exam: Soft, Normal Bowel Sounds. absent: Distended, Guarding, Tenderness, Rebound - Rectal Exam Rectal Exam: Deferred - Extremities Exam Additional comments: Left lower extremity contraction deformity thoracic area small wound with minimal discharge lower back, lumbar area small opening with discharge - Neurological Exam Neurological Exam: Alert, Awake, CN II-XII Intact Neuro motor strength exam: Left Upper Extremity: 5, Right Upper Extremity: 5, Left Lower Extremity: 0, Right Lower Extremity: 0 - Psychiatric Exam Psychiatric exam: Normal Affect - Skin Skin Exam: Dry, Warm Assessment and Plan - Assessment and Plan (Free Text) Assessment: 37 y/o male 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 Patient came in to our ED because of fever, pain and tenderness on his lower back and increased drainage from his wound. CT of L spine/T spine :3.2 x 2.9 x 3.4 cm low-attenuation collection with peripheral enhancement in the right posterior paraspinal soft tissues. Nonspecific moderate left hydroureteronephrosis. Neurosurgery was consulted and recommended IV antibiotics no surgical intervention Wound c/s : MSSA, Proteus Urine c/s : Providencia MRI of Thoracic and Lumbar Spine :Status post fusion and internal fixation at the lower thoracic and upper lumbar spine including bilateral pedicles screws and posterior longitudinal rods at L1 and L2. No evidence of spinal stenosis or neural foraminal narrowing at the lumbar spine. Endplate destruction and disc space fusion at L1-L2. Subcutaneous fluid collection to the right of the midline at the level of L2 and L2-L3 may represent seroma or abscess formation. Severe narrowing of the spinal canal at T10-T11 with possible cord compression at this level. Please correlate clinically. Partial destruction of the mid and upper T11 and adjacent T10-T11 disc. The possibility of osteomyelitis discitis also should be considered. Patient will need 6 weeks of IV antibiotics. 1. Sepsis ( POA) sec to Paraspinal Soft Tissue abscess with Discitis / Osteomyelitis s/p Drainage of abscess by IR ( Staph aureus - MSSA) Acute Neurosurgery and Gen surgery consulted Per Neurosurgery - no surgical intervention IR Aspiration of abscess 12/18 - obtained 22 ml purulent material- sent for c/s- MSSA Wound c/s : MSSA and Proteus cont IV Vanco , and Cipro (Dr Carolina d/c [place]zie, Ceftriaxone and added Cipro ) till ESR high (however now 42 from 99) CRP high consistent with infection Procalcitonin level normal Patient would need 6 weeks of IV abx. Since patient is uninsured, he has no means to come back for daily IV abx tx. ( till Jan 24) 2. UTI (urinary tract infection) Acute urine c/s : Providencia pt received ceftriaxone and Cipro ( Cipro changed to PO) Left Hydronephrosis noted- as per patient's mother , this is chronic , pt is voiding freely, Grey in place Urology consulted - Dr Huizar - rec to just tx UTI Yeast also noted on UA - pt received PO Diflucan 3.Paraplegia Chronic hx of Cord compression from spine fracture 2007 4.Spine fracture s/p Bedolla Rods Chronic as above 5. DM type 2 (diabetes mellitus, type 2) Chronic accucheck with coverage Glucotrol 10 mg bid Levemir to 35 units q hs 6. DVT prophylaxis Acute Lovenox
--- NOTE | 2018-01-01 09:58 | US ---
Date of service: 12/23/2017 PROCEDURE: Ultrasound of the Kidneys HISTORY: COMPARISON: None available. TECHNIQUE: Sonogram of the kidneys. FINDINGS: RIGHT KIDNEY: Measures: 4.7 X 5.9 X 11.2 cm. Normal in size, contour and echogenicity. No stone, solid mass lesion or hydronephrosis visualized. LEFT KIDNEY: Measures: 0.38 X 0.55 BILOBED 11.7 cm. Normal in size, contour and echogenicity. No stone, solid mass lesion. Mild fullness left collecting system OTHER FINDINGS: None. IMPRESSION: Fullness left collecting system which is mild. Otherwise unremarkable study.
[2018-01-01] MEDS: Enoxaparin 40 mg Syringe SC SCH (10:15)
[2018-01-01] MEDS: Lactobacillus Acidophilus 500 MU Cap PO SCH ×2 (17:17→17:18)
[2018-01-01] MEDS: Insulin Detemir 100 Units/ml Inj SC SCH (23:10)
[2018-01-02] MEDS: oxyCODONE 5 mg Immediate Release Tab PO SCH ×3 (00:52→17:13)
[2018-01-02] MEDS: Insulin Regular 100 units/ml SC SCH ×4 (07:05→22:41)
[2018-01-02 07:48] LABS: BLOOD UREA NITROGEN 14 mg/dl (9-20); CALCIUM 9.5 mg/dL (8.4-10.2); GFR NON-AFRICAN AMERICAN > 60
[2018-01-02] MEDS: Lactobacillus Acidophilus 500 MU Cap PO SCH ×2 (10:02→17:11)
[2018-01-02] MEDS: Enoxaparin 40 mg Syringe SC SCH (10:04)
--- NOTE | 2018-01-02 11:13 | CP.PCM.PN ---
Subjective - Date & Time of Evaluation Date of Evaluation: 01/02/18 Time of Evaluation: 10:30 - Subjective Subjective: Patient seen and examined bedside. Lying in bed in NAD.Complains of back pain that is controlled with pain medications. Hemodynamically stable, afebrile No acute issues overnight. Objective - Vital Signs/Intake and Output Vital Signs (last 24 hours): Temp Pulse Resp BP Pulse Ox 97.4 F L 63 20 106/74 99 01/02/18 08:14 01/02/18 08:14 01/02/18 08:14 01/02/18 08:14 01/02/18 08:14 Intake and Output: 01/02/18 01/02/18 06:59 18:59 Intake Total 450 Output Total 2750 Balance -2300 - Medications Medications: Current Medications Acetaminophen (Tylenol 325mg Tab) 650 mg PO Q6 PRN PRN Reason: Pain, Mild (1-3) Ciprofloxacin (Cipro) 500 mg PO Q12 [facility] [place] Last Admin: 01/02/18 10:03 Dose: 500 mg Dextrose (Dextrose 50% Inj) 0 ml IV STAT PRN; Protocol PRN Reason: Hypoglycemia Protocol Dextrose (Glutose 15) 0 gm PO ONCE PRN; Protocol PRN Reason: Hypoglycemia Protocol Docusate Sodium (Colace) 100 mg PO BID [facility] [place] Last Admin: 01/02/18 10:03 Dose: 100 mg Enoxaparin Sodium (Lovenox) 40 mg SC DAILY [facility] PRN Reason: Protocol Last Admin: 01/02/18 10:04 Dose: 40 mg Glipizide (Glucotrol) 10 mg PO BID [facility] Last Admin: 01/02/18 10:04 Dose: 10 mg Glucagon (Glucagen Diagnostic Kit) 0 mg IM STAT PRN; Protocol PRN Reason: Hypoglycemia Protocol Vancomycin HCl 1 gm/ Sodium (Chloride) 250 mls @ 166.667 mls/hr IVPB Q12 [facility] PRN Reason: Protocol Last Admin: 01/02/18 10:05 Dose: 166.667 mls/hr Insulin Detemir (Levemir) 30 units SC HS [facility] Last Admin: 01/01/18 23:10 Dose: 30 u Insulin Human Regular (Humulin R) 0 units SC ACHS [facility] PRN Reason: Protocol Last Admin: 01/02/18 07:05 Dose: Not Given Lactobacillus Acidophilus (Bacid Acidophilus) 1 cap PO BID [facility] [place] Last Admin: 01/02/18 10:02 Dose: 1 cap Oxycodone HCl (Oxycodone Immediate Release Tab) 5 mg PO Q8 [facility] Last Admin: 01/02/18 10:00 Dose: 5 mg - Labs Labs: 12/29/17 06:00 01/02/18 04:00 PT 13.9 Seconds (9.8-13.1) H 12/13/17 17:38 INR 1.3 (0.9-1.2) H 12/13/17 17:38 APTT 30.2 Seconds (25.6-37.1) 12/13/17 17:38 - Constitutional Appears: Non-toxic, No Acute Distress - Head Exam Head Exam: ATRAUMATIC, NORMAL INSPECTION, NORMOCEPHALIC - Eye Exam Eye Exam: EOMI, Normal appearance, PERRL Pupil Exam: NORMAL ACCOMODATION - ENT Exam ENT Exam: Mucous Membranes Moist, Normal Exam - Neck Exam Neck Exam: Full ROM, Normal Inspection - Respiratory Exam Respiratory Exam: Clear to Ausculation Bilateral, NORMAL BREATHING PATTERN. absent: Rales, Rhonchi, Wheezes - Cardiovascular Exam Cardiovascular Exam: REGULAR RHYTHM, RRR, +S1, +S2. absent: JVD - GI/Abdominal Exam GI & Abdominal Exam: Soft, Normal Bowel Sounds. absent: Distended, Guarding, Tenderness, Rebound - Rectal Exam Rectal Exam: Deferred - Extremities Exam Additional comments: left lower extremity contraction - Back Exam Additional comments: midline 2 small wound opening one over thoracic area and 1 over lumbar area with minimal discharge - Neurological Exam Neurological Exam: Alert, Awake, CN II-XII Intact Neuro motor strength exam: Left Upper Extremity: 5, Right Upper Extremity: 5, Left Lower Extremity: 0, Right Lower Extremity: 0 - Psychiatric Exam Psychiatric exam: Normal Affect - Skin Skin Exam: Dry, Normal Color, Warm Assessment and Plan - Assessment and Plan (Free Text) Assessment: 37 y/o male 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 Patient came in to our ED because of fever, pain and tenderness on his lower back and increased drainage from his wound. CT of L spine/T spine :3.2 x 2.9 x 3.4 cm low-attenuation collection with peripheral enhancement in the right posterior paraspinal soft tissues. Nonspecific moderate left hydroureteronephrosis. Neurosurgery was consulted and recommended IV antibiotics no surgical intervention Wound c/s : MSSA, Proteus Urine c/s : Providencia MRI of Thoracic and Lumbar Spine :Status post fusion and internal fixation at the lower thoracic and upper lumbar spine including bilateral pedicles screws and posterior longitudinal rods at L1 and L2. No evidence of spinal stenosis or neural foraminal narrowing at the lumbar spine. Endplate destruction and disc space fusion at L1-L2. Subcutaneous fluid collection to the right of the midline at the level of L2 and L2-L3 may represent seroma or abscess formation. Severe narrowing of the spinal canal at T10-T11 with possible cord compression at this level. Please correlate clinically. Partial destruction of the mid and upper T11 and adjacent T10-T11 disc. The possibility of osteomyelitis discitis also should be considered. Patient will need 6 weeks of IV antibiotics. 1. Sepsis ( POA) sec to Paraspinal Soft Tissue abscess with Discitis / Osteomyelitis s/p Drainage of abscess by IR ( Staph aureus - MSSA) Acute Neurosurgery and Gen surgery consulted Per Neurosurgery - no surgical intervention IR Aspiration of abscess 12/18 - obtained 22 ml purulent material- sent for c/s- MSSA Wound c/s : MSSA and Proteus cont IV Vanco , and Cipro (Dr Carolina d/c Zosyn, Ceftriaxone and added Cipro ) till ESR high (however now 42 from 99) CRP high consistent with infection Procalcitonin level normal Patient would need 6 weeks of IV abx. Since patient is uninsured, he has no means to come back for daily IV abx tx. ( till Jan 24) 2. UTI (urinary tract infection) Acute urine c/s : Providencia pt received ceftriaxone and Cipro ( Cipro changed to PO) Left Hydronephrosis noted- as per patient's mother , this is chronic , pt is voiding freely, Grey in place Urology consulted - Dr Huizar - rec to just tx UTI Yeast also noted on UA - pt received PO Diflucan 3.Paraplegia Chronic hx of Cord compression from spine fracture 2007 4.Spine fracture s/p Bedolla Rods Chronic as above 5. DM type 2 (diabetes mellitus, type 2) Chronic accucheck with coverage Glucotrol 10 mg bid Levemir to 35 units q hs 6. DVT prophylaxis Acute Lovenox
[2018-01-02] MEDS: Insulin Detemir 100 Units/ml Inj SC SCH (22:56)
[2018-01-03] MEDS: oxyCODONE 5 mg Immediate Release Tab PO SCH ×3 (01:34→16:45)
--- NOTE | 2018-01-03 07:58 | CP.PCM.PN ---
Subjective - Date & Time of Evaluation Date of Evaluation: 01/03/18 Time of Evaluation: 07:58 - Subjective Subjective: no changes doing well no complaints hd stable nad Objective - Vital Signs/Intake and Output Vital Signs (last 24 hours): Temp Pulse Resp BP Pulse Ox 97.5 F L 84 19 109/73 97 01/03/18 07:41 01/03/18 07:41 01/03/18 07:41 01/03/18 07:41 01/03/18 07:41 Intake and Output: 01/03/18 01/03/18 06:59 18:59 Intake Total 450 Output Total 1750 Balance -1300 GEN: awake alert HEENT: NCAT, PERRL, EOMI HEART: RRR +S1S2 LUNG: CTAB no WRR ABD: soft, NT, ND, no mass, BSx4 EXT: normal capillary refill, warm SKIN: warm, dry NEURO: awake, alert PSYCH: normal mood and affect - Medications Medications: Current Medications Acetaminophen (Tylenol 325mg Tab) 650 mg PO Q6 PRN PRN Reason: Pain, Mild (1-3) Ciprofloxacin (Cipro) 500 mg PO Q12 [facility] Last Admin: 01/02/18 21:23 Dose: 500 mg Dextrose (Dextrose 50% Inj) 0 ml IV STAT PRN; Protocol PRN Reason: Hypoglycemia Protocol Dextrose (Glutose 15) 0 gm PO ONCE PRN; Protocol PRN Reason: Hypoglycemia Protocol Docusate Sodium (Colace) 100 mg PO BID [facility] Last Admin: 01/02/18 17:11 Dose: 100 mg Enoxaparin Sodium (Lovenox) 40 mg SC DAILY [facility] PRN Reason: Protocol Last Admin: 01/02/18 10:04 Dose: 40 mg Glipizide (Glucotrol) 10 mg PO BID [facility] Last Admin: 01/02/18 17:11 Dose: 10 mg Glucagon (Glucagen Diagnostic Kit) 0 mg IM STAT PRN; Protocol PRN Reason: Hypoglycemia Protocol Vancomycin HCl 1 gm/ Sodium (Chloride) 250 mls @ 166.667 mls/hr IVPB Q12 [facility] PRN Reason: Protocol Last Admin: 01/02/18 21:21 Dose: 166.667 mls/hr Insulin Detemir (Levemir) 30 units SC HS [facility] Last Admin: 01/02/18 22:56 Dose: 30 u Insulin Human Regular (Humulin R) 0 units SC ACHS [facility] PRN Reason: Protocol Last Admin: 01/02/18 22:41 Dose: Not Given Lactobacillus Acidophilus (Bacid Acidophilus) 1 cap PO BID [facility] Last Admin: 01/02/18 17:11 Dose: 1 cap Oxycodone HCl (Oxycodone Immediate Release Tab) 5 mg PO Q8 [facility] Last Admin: 01/03/18 01:34 Dose: 5 mg - Labs Labs: 12/29/17 06:00 01/02/18 04:00 PT 13.9 Seconds (9.8-13.1) H 12/13/17 17:38 INR 1.3 (0.9-1.2) H 12/13/17 17:38 APTT 30.2 Seconds (25.6-37.1) 12/13/17 17:38 Assessment and Plan - Assessment and Plan (Free Text) Plan: 37 y/o male 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 Patient came in to our ED because of fever, pain and tenderness on his lower back and increased drainage from his wound. CT of L spine/T spine :3.2 x 2.9 x 3.4 cm low-attenuation collection with peripheral enhancement in the right posterior paraspinal soft tissues. Nonspecific moderate left hydroureteronephrosis. Neurosurgery was consulted and recommended IV antibiotics no surgical intervention Wound c/s : MSSA, Proteus Urine c/s : Providencia MRI of Thoracic and Lumbar Spine :Status post fusion and internal fixation at the lower thoracic and upper lumbar spine including bilateral pedicles screws and posterior longitudinal rods at L1 and L2. No evidence of spinal stenosis or neural foraminal narrowing at the lumbar spine. Endplate destruction and disc space fusion at L1-L2. Subcutaneous fluid collection to the right of the midline at the level of L2 and L2-L3 may represent seroma or abscess formation. Severe narrowing of the spinal canal at T10-T11 with possible cord compression at this level. Please correlate clinically. Partial destruction of the mid and upper T11 and adjacent T10-T11 disc. The possibility of osteomyelitis discitis also should be considered. Patient will need 6 weeks of IV antibiotics. Tolerating well. 1. Sepsis ( POA) sec to Paraspinal Soft Tissue abscess with Discitis / Osteomyelitis s/p Drainage of abscess by IR ( Staph aureus - MSSA) Acute Neurosurgery and Gen surgery consulted Per Neurosurgery - no surgical intervention IR Aspiration of abscess 12/18 - obtained 22 ml purulent material- sent for c/s- MSSA Wound c/s : MSSA and Proteus cont IV Vanco , and Cipro (Dr Carolina d/c Milenasyn, Ceftriaxone and added Cipro ) till ESR high (however now 42 from 99) CRP high consistent with infection Procalcitonin level normal Patient would need 6 weeks of IV abx. Since patient is uninsured, he has no means to come back for daily IV abx tx. ( till Jan 24) 2. UTI (urinary tract infection) Acute urine c/s : Providencia pt received ceftriaxone and Cipro ( Cipro changed to PO) Left Hydronephrosis noted- as per patient's mother , this is chronic , pt is voiding freely, Grey in place Urology consulted - Dr Huizar - rec to just tx UTI Yeast also noted on UA - pt received PO Diflucan 3.Paraplegia Chronic hx of Cord compression from spine fracture 2007 4.Spine fracture s/p Bedolla Rods Chronic as above 5. DM type 2 (diabetes mellitus, type 2) Chronic accucheck with coverage Glucotrol 10 mg bid Levemir to 35 units q hs 6. DVT prophylaxis Acute Lovenox
[2018-01-03] MEDS: Lactobacillus Acidophilus 500 MU Cap PO SCH ×2 (09:01→16:45)
[2018-01-03] MEDS: Enoxaparin 40 mg Syringe SC SCH (09:02)
[2018-01-03] MEDS: Insulin Regular 100 units/ml SC SCH ×4 (09:05→21:51)
[2018-01-03] MEDS: Insulin Detemir 100 Units/ml Inj SC SCH (21:48)
[2018-01-04] MEDS: oxyCODONE 5 mg Immediate Release Tab PO SCH ×3 (02:19→16:32)
[2018-01-04] MEDS: Lactobacillus Acidophilus 500 MU Cap PO SCH ×2 (08:17→16:32)
[2018-01-04] MEDS: Enoxaparin 40 mg Syringe SC SCH (08:18)
[2018-01-04] MEDS: Insulin Regular 100 units/ml SC SCH ×4 (08:19→22:00)
--- NOTE | 2018-01-04 08:41 | CP.PCM.PN ---
Subjective - Date & Time of Evaluation Date of Evaluation: 01/04/18 Time of Evaluation: 10:30 - Subjective Subjective: Patient seen and examined..Hemodynamically stable Afebrile No acute issues overnight Continuing IV antibiotics Objective - Vital Signs/Intake and Output Vital Signs (last 24 hours): Temp Pulse Resp BP Pulse Ox 97.3 F L 75 18 103/72 97 01/04/18 08:16 01/04/18 08:16 01/04/18 08:16 01/04/18 08:16 01/04/18 08:16 Intake and Output: 01/04/18 01/04/18 06:59 18:59 Intake Total 505 Output Total 1750 Balance -1245 - Medications Medications: Current Medications Acetaminophen (Tylenol 325mg Tab) 650 mg PO Q6 PRN PRN Reason: Pain, Mild (1-3) Ciprofloxacin (Cipro) 500 mg PO Q12 [facility] Last Admin: 01/04/18 08:19 Dose: 500 mg Dextrose (Dextrose 50% Inj) 0 ml IV STAT PRN; Protocol PRN Reason: Hypoglycemia Protocol Dextrose (Glutose 15) 0 gm PO ONCE PRN; Protocol PRN Reason: Hypoglycemia Protocol Docusate Sodium (Colace) 100 mg PO BID [facility] Last Admin: 01/04/18 08:18 Dose: 100 mg Enoxaparin Sodium (Lovenox) 40 mg SC DAILY [facility] PRN Reason: Protocol Last Admin: 01/04/18 08:18 Dose: 40 mg Glipizide (Glucotrol) 10 mg PO BID [facility] Last Admin: 01/04/18 08:18 Dose: 10 mg Glucagon (Glucagen Diagnostic Kit) 0 mg IM STAT PRN; Protocol PRN Reason: Hypoglycemia Protocol Vancomycin HCl 1 gm/ Sodium (Chloride) 250 mls @ 166.667 mls/hr IVPB Q12 [facility] PRN Reason: Protocol Last Admin: 01/04/18 08:20 Dose: 166.667 mls/hr Insulin Detemir (Levemir) 30 units SC HS [facility] Last Admin: 01/03/18 21:48 Dose: 30 u Insulin Human Regular (Humulin R) 0 units SC ACHS [facility] PRN Reason: Protocol Last Admin: 01/04/18 08:19 Dose: 6 units Lactobacillus Acidophilus (Bacid Acidophilus) 1 cap PO BID [facility] Last Admin: 01/04/18 08:17 Dose: 1 cap Oxycodone HCl (Oxycodone Immediate Release Tab) 5 mg PO Q8 [facility] Last Admin: 01/04/18 08:18 Dose: 5 mg - Labs Labs: 12/29/17 06:00 01/02/18 04:00 PT 13.9 Seconds (9.8-13.1) H 12/13/17 17:38 INR 1.3 (0.9-1.2) H 12/13/17 17:38 APTT 30.2 Seconds (25.6-37.1) 12/13/17 17:38 - Constitutional Appears: Non-toxic, No Acute Distress - Head Exam Head Exam: ATRAUMATIC, NORMAL INSPECTION, NORMOCEPHALIC - Eye Exam Eye Exam: EOMI, Normal appearance, PERRL Pupil Exam: NORMAL ACCOMODATION - ENT Exam ENT Exam: Mucous Membranes Moist, Normal Exam - Neck Exam Neck Exam: Normal Inspection - Respiratory Exam Respiratory Exam: Clear to Ausculation Bilateral, NORMAL BREATHING PATTERN. absent: Rales, Rhonchi, Wheezes - Cardiovascular Exam Cardiovascular Exam: REGULAR RHYTHM, RRR, +S1, +S2. absent: JVD - GI/Abdominal Exam GI & Abdominal Exam: Soft, Normal Bowel Sounds. absent: Distended, Guarding, Rebound - Rectal Exam Rectal Exam: Deferred - Back Exam Additional comments: midline back thoracic area small wound with drainage and lumbar area small wound with drainage - Neurological Exam Neurological Exam: Alert, Awake, CN II-XII Intact, Oriented x3 Neuro motor strength exam: Left Lower Extremity: 0, Right Lower Extremity: 0 Additional comments: left lower extremity contracted over the knee joint - Psychiatric Exam Psychiatric exam: Normal Affect, Normal Mood - Skin Skin Exam: Dry, Intact, Normal Color, Warm Assessment and Plan - Assessment and Plan (Free Text) Assessment: 37 y/o male 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 Patient came in to our ED because of fever, pain and tenderness on his lower back and increased drainage from his wound. CT of L spine/T spine :3.2 x 2.9 x 3.4 cm low-attenuation collection with peripheral enhancement in the right posterior paraspinal soft tissues. Nonspecific moderate left hydroureteronephrosis. Neurosurgery was consulted and recommended IV antibiotics no surgical intervention Wound c/s : MSSA, Proteus Urine c/s : Providencia MRI of Thoracic and Lumbar Spine :Status post fusion and internal fixation at the lower thoracic and upper lumbar spine including bilateral pedicles screws and posterior longitudinal rods at L1 and L2. No evidence of spinal stenosis or neural foraminal narrowing at the lumbar spine. Endplate destruction and disc space fusion at L1-L2. Subcutaneous fluid collection to the right of the midline at the level of L2 and L2-L3 may represent seroma or abscess formation. Severe narrowing of the spinal canal at T10-T11 with possible cord compression at this level. Please correlate clinically. Partial destruction of the mid and upper T11 and adjacent T10-T11 disc. The possibility of osteomyelitis discitis also should be considered. Patient will need 6 weeks of IV antibiotics. Tolerating well. 1. Sepsis ( POA) sec to Paraspinal Soft Tissue abscess with Discitis / Osteomyelitis s/p Drainage of abscess by IR ( Staph aureus - MSSA) Acute Neurosurgery and Gen surgery consulted Per Neurosurgery - no surgical intervention IR Aspiration of abscess 12/18 - obtained 22 ml purulent material- sent for c/s- MSSA Wound c/s : MSSA and Proteus cont IV Vanco , and Cipro (Dr Carolina d/c Zosyn, Ceftriaxone and added Cipro ) till ESR high (however now 42 from 99) CRP high consistent with infection Procalcitonin level normal Patient would need 6 weeks of IV abx. Since patient is uninsured, he has no means to come back for daily IV abx tx. ( till Jan 24) 2. UTI (urinary tract infection) Acute urine c/s : Providencia pt received ceftriaxone and Cipro ( Cipro changed to PO) Left Hydronephrosis noted- as per patient's mother , this is chronic , pt is voiding freely, Grey in place Urology consulted - Dr Huizar - rec to just tx UTI Yeast also noted on UA - pt received PO Diflucan 3.Paraplegia Chronic hx of Cord compression from spine fracture 2007 4.Spine fracture s/p Bedolla Rods Chronic as above 5. DM type 2 (diabetes mellitus, type 2) Chronic accucheck with coverage Glucotrol 10 mg bid Levemir to 30 units q hs 6. DVT prophylaxis Acute Lovenox
[2018-01-04] MEDS: Insulin Detemir 100 Units/ml Inj SC SCH (21:24)
[2018-01-05] MEDS: oxyCODONE 5 mg Immediate Release Tab PO SCH ×3 (01:39→16:18)
--- NOTE | 2018-01-05 07:37 | CP.PCM.PN ---
Subjective - Date & Time of Evaluation Date of Evaluation: 01/05/18 Time of Evaluation: 11:00 - Subjective Subjective: patient seen and examined. Hemodynamically stable, afebrile No acute issues overnight On Iv antibiotics Bed bound due to paraplegia. Complains of chronic back pain ,but has improved since admission. Objective - Vital Signs/Intake and Output Vital Signs (last 24 hours): Temp Pulse Resp BP Pulse Ox 98.5 F 91 H 20 108/61 97 01/05/18 01:14 01/05/18 01:14 01/05/18 01:14 01/05/18 01:14 01/05/18 01:14 Intake and Output: 01/05/18 01/05/18 06:59 18:59 Intake Total 1050 Output Total 1800 Balance -750 - Medications Medications: Current Medications Acetaminophen (Tylenol 325mg Tab) 650 mg PO Q6 PRN PRN Reason: Pain, Mild (1-3) Ciprofloxacin (Cipro) 500 mg PO Q12 [facility] Last Admin: 01/04/18 20:48 Dose: 500 mg Dextrose (Dextrose 50% Inj) 0 ml IV STAT PRN; Protocol PRN Reason: Hypoglycemia Protocol Dextrose (Glutose 15) 0 gm PO ONCE PRN; Protocol PRN Reason: Hypoglycemia Protocol Enoxaparin Sodium (Lovenox) 40 mg SC DAILY [facility] PRN Reason: Protocol Last Admin: 01/04/18 08:18 Dose: 40 mg Glipizide (Glucotrol) 10 mg PO BID [facility] Last Admin: 01/04/18 16:33 Dose: 10 mg Glucagon (Glucagen Diagnostic Kit) 0 mg IM STAT PRN; Protocol PRN Reason: Hypoglycemia Protocol Vancomycin HCl 1 gm/ Sodium (Chloride) 250 mls @ 166.667 mls/hr IVPB Q12 [facility] PRN Reason: Protocol Last Admin: 01/04/18 20:48 Dose: 166.667 mls/hr Insulin Detemir (Levemir) 30 units SC HS [facility] Last Admin: 01/04/18 21:24 Dose: 30 u Insulin Human Regular (Humulin R) 0 units SC ACHS [facility] PRN Reason: Protocol Last Admin: 01/04/18 22:00 Dose: Not Given Lactobacillus Acidophilus (Bacid Acidophilus) 1 cap PO BID [facility] Last Admin: 01/04/18 16:32 Dose: 1 cap Oxycodone HCl (Oxycodone Immediate Release Tab) 5 mg PO Q8 [facility] Last Admin: 01/05/18 01:39 Dose: 5 mg - Labs Labs: 12/29/17 06:00 01/02/18 04:00 PT 13.9 Seconds (9.8-13.1) H 12/13/17 17:38 INR 1.3 (0.9-1.2) H 12/13/17 17:38 APTT 30.2 Seconds (25.6-37.1) 12/13/17 17:38 - Constitutional Appears: Non-toxic, No Acute Distress - Head Exam Head Exam: ATRAUMATIC, NORMAL INSPECTION, NORMOCEPHALIC - Eye Exam Eye Exam: EOMI, Normal appearance, PERRL Pupil Exam: NORMAL ACCOMODATION - ENT Exam ENT Exam: Mucous Membranes Moist, Normal Exam - Neck Exam Neck Exam: Full ROM - Respiratory Exam Respiratory Exam: Clear to Ausculation Bilateral, NORMAL BREATHING PATTERN. absent: Rales, Rhonchi, Wheezes, Respiratory Distress - Cardiovascular Exam Cardiovascular Exam: REGULAR RHYTHM, RRR, +S1, +S2. absent: JVD - GI/Abdominal Exam GI & Abdominal Exam: Soft, Normal Bowel Sounds. absent: Distended, Guarding, Tenderness, Rebound - Rectal Exam Rectal Exam: Deferred - Extremities Exam Additional comments: left knee contraction deformity paraplegic - Neurological Exam Neurological Exam: Alert, Awake, Oriented x3 Neuro motor strength exam: Left Upper Extremity: 5, Right Upper Extremity: 5, Left Lower Extremity: 0, Right Lower Extremity: 0 - Psychiatric Exam Psychiatric exam: Normal Affect - Skin Skin Exam: Dry, Normal Color, Warm Assessment and Plan - Assessment and Plan (Free Text) Assessment: 37 y/o male 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 Patient came in to our ED because of fever, pain and tenderness on his lower back and increased drainage from his wound. CT of L spine/T spine :3.2 x 2.9 x 3.4 cm low-attenuation collection with peripheral enhancement in the right posterior paraspinal soft tissues. Nonspecific moderate left hydroureteronephrosis. Neurosurgery was consulted and recommended IV antibiotics no surgical intervention Wound c/s : MSSA, Proteus Urine c/s : Providencia MRI of Thoracic and Lumbar Spine :Status post fusion and internal fixation at the lower thoracic and upper lumbar spine including bilateral pedicles screws and posterior longitudinal rods at L1 and L2. No evidence of spinal stenosis or neural foraminal narrowing at the lumbar spine. Endplate destruction and disc space fusion at L1-L2. Subcutaneous fluid collection to the right of the midline at the level of L2 and L2-L3 may represent seroma or abscess formation. Severe narrowing of the spinal canal at T10-T11 with possible cord compression at this level. Please correlate clinically. Partial destruction of the mid and upper T11 and adjacent T10-T11 disc. The possibility of osteomyelitis discitis also should be considered. Patient will need 6 weeks of IV antibiotics. Tolerating well. 1. Sepsis ( POA) sec to Paraspinal Soft Tissue abscess with Discitis / Osteomyelitis s/p Drainage of abscess by IR ( Staph aureus - MSSA) Acute Neurosurgery and Gen surgery consulted Per Neurosurgery - no surgical intervention IR Aspiration of abscess 12/18 - obtained 22 ml purulent material- sent for c/s- MSSA Wound c/s : MSSA and Proteus cont IV Vanco , and Cipro (Dr Carolina d/c Milenasykenzie, Ceftriaxone and added Cipro ) till ESR high (however now 42 from 99) CRP high consistent with infection Procalcitonin level normal Patient would need 6 weeks of IV abx. Since patient is uninsured, he has no means to come back for daily IV abx tx. ( till Jan 24) 2. UTI (urinary tract infection) Acute urine c/s : Providencia pt received ceftriaxone and Cipro ( Cipro changed to PO) Left Hydronephrosis noted- as per patient's mother , this is chronic , pt is voiding freely, Grey in place Urology consulted - Dr Huizar - rec to just tx UTI Yeast also noted on UA - pt received PO Diflucan 3.Paraplegia Chronic hx of Cord compression from spine fracture 2007 4.Spine fracture s/p Bedolla Rods Chronic as above 5. DM type 2 (diabetes mellitus, type 2) Chronic accucheck with coverage Glucotrol 10 mg bid Levemir to 30 units q hs 6. DVT prophylaxis Acute Lovenox
[2018-01-05] MEDS: Insulin Regular 100 units/ml SC SCH ×4 (07:47→21:50)
[2018-01-05] MEDS: Lactobacillus Acidophilus 500 MU Cap PO SCH ×2 (09:46→16:17)
[2018-01-05] MEDS: Enoxaparin 40 mg Syringe SC SCH (09:48)
[2018-01-05] MEDS: Insulin Detemir 100 Units/ml Inj SC SCH (21:56)
[2018-01-06] MEDS: oxyCODONE 5 mg Immediate Release Tab PO SCH ×3 (00:55→18:20)
--- NOTE | 2018-01-06 08:53 | CP.PCM.PN ---
Subjective - Date & Time of Evaluation Date of Evaluation: 01/06/18 Time of Evaluation: 10:00 - Subjective Subjective: Patient seen and examined. Hemodynamically stable, afebrile No acute issues overnight On IV antibiotics Bedbound due to paraplegia. Complains of chronic back pain ,but has improved since admission. Objective - Vital Signs/Intake and Output Vital Signs (last 24 hours): Temp Pulse Resp BP Pulse Ox 97.4 F L 84 20 110/71 98 01/06/18 08:45 01/06/18 08:45 01/06/18 08:45 01/06/18 08:45 01/06/18 08:45 Intake and Output: 01/06/18 01/06/18 06:59 18:59 Intake Total 240 Output Total 1700 Balance -1460 - Medications Medications: Current Medications Acetaminophen (Tylenol 325mg Tab) 650 mg PO Q6 PRN PRN Reason: Pain, Mild (1-3) Ciprofloxacin (Cipro) 500 mg PO Q12 [facility] [place] Last Admin: 01/05/18 21:09 Dose: 500 mg Dextrose (Dextrose 50% Inj) 0 ml IV STAT PRN; Protocol PRN Reason: Hypoglycemia Protocol Dextrose (Glutose 15) 0 gm PO ONCE PRN; Protocol PRN Reason: Hypoglycemia Protocol Enoxaparin Sodium (Lovenox) 40 mg SC DAILY [facility] [place] PRN Reason: Protocol Last Admin: 01/05/18 09:48 Dose: 40 mg Glipizide (Glucotrol) 10 mg PO BID [facility] [place] Last Admin: 01/05/18 16:24 Dose: 10 mg Glucagon (Glucagen Diagnostic Kit) 0 mg IM STAT PRN; Protocol PRN Reason: Hypoglycemia Protocol Vancomycin HCl 1 gm/ Sodium (Chloride) 250 mls @ 166.667 mls/hr IVPB Q12 [facility] PRN Reason: Protocol Last Admin: 01/05/18 21:09 Dose: 166.667 mls/hr Insulin Detemir (Levemir) 30 units SC HS [facility] [place] Last Admin: 01/05/18 21:56 Dose: 30 u Insulin Human Regular (Humulin R) 0 units SC ACHS [facility] PRN Reason: Protocol Last Admin: 01/05/18 21:50 Dose: Not Given Lactobacillus Acidophilus (Bacid Acidophilus) 1 cap PO BID [facility] [place] Last Admin: 01/05/18 16:17 Dose: 1 cap Oxycodone HCl (Oxycodone Immediate Release Tab) 5 mg PO Q8 [facility] Last Admin: 01/06/18 00:55 Dose: 5 mg - Labs Labs: 12/29/17 06:00 01/02/18 04:00 PT 13.9 Seconds (9.8-13.1) H 12/13/17 17:38 INR 1.3 (0.9-1.2) H 12/13/17 17:38 APTT 30.2 Seconds (25.6-37.1) 12/13/17 17:38 - Constitutional Appears: Non-toxic, No Acute Distress - Head Exam Head Exam: ATRAUMATIC, NORMAL INSPECTION, NORMOCEPHALIC - Eye Exam Eye Exam: EOMI, Normal appearance, PERRL Pupil Exam: NORMAL ACCOMODATION - ENT Exam ENT Exam: Mucous Membranes Moist, Normal Exam - Neck Exam Neck Exam: Full ROM, Normal Inspection - Respiratory Exam Respiratory Exam: Clear to Ausculation Bilateral, NORMAL BREATHING PATTERN. absent: Rales, Rhonchi, Wheezes - Cardiovascular Exam Cardiovascular Exam: REGULAR RHYTHM, RRR, +S1, +S2. absent: JVD - GI/Abdominal Exam GI & Abdominal Exam: Soft, Normal Bowel Sounds. absent: Distended, Guarding, Tenderness, Rebound Additional comments: carrasco in place - Rectal Exam Rectal Exam: Deferred - Extremities Exam Extremities Exam: Normal Inspection. absent: Pedal Edema - Back Exam Additional comments: midline 2 small open wounds , thoracic area and lumbar area with small amount of drainage - Neurological Exam Neurological Exam: Alert, Awake, CN II-XII Intact, Oriented x3 Neuro motor strength exam: Left Upper Extremity: 5, Right Upper Extremity: 5, Left Lower Extremity: 0, Right Lower Extremity: 0 - Psychiatric Exam Psychiatric exam: Normal Affect, Normal Mood - Skin Skin Exam: Dry, Warm Assessment and Plan - Assessment and Plan (Free Text) Assessment: 37 y/o male 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 Patient came in to our ED because of fever, pain and tenderness on his lower back and increased drainage from his wound. CT of L spine/T spine :3.2 x 2.9 x 3.4 cm low-attenuation collection with peripheral enhancement in the right posterior paraspinal soft tissues. Nonspecific moderate left hydroureteronephrosis. Neurosurgery was consulted and recommended IV antibiotics no surgical intervention Wound c/s : MSSA, Proteus Urine c/s : Providencia MRI of Thoracic and Lumbar Spine :Status post fusion and internal fixation at the lower thoracic and upper lumbar spine including bilateral pedicles screws and posterior longitudinal rods at L1 and L2. No evidence of spinal stenosis or neural foraminal narrowing at the lumbar spine. Endplate destruction and disc space fusion at L1-L2. Subcutaneous fluid collection to the right of the midline at the level of L2 and L2-L3 may represent seroma or abscess formation. Severe narrowing of the spinal canal at T10-T11 with possible cord compression at this level. Please correlate clinically. Partial destruction of the mid and upper T11 and adjacent T10-T11 disc. The possibility of osteomyelitis discitis also should be considered. Patient will need 6 weeks of IV antibiotics. Tolerating well. 1. Sepsis ( POA) sec to Paraspinal Soft Tissue abscess with Discitis / Osteomyelitis s/p Drainage of abscess by IR ( Staph aureus - MSSA) Acute Neurosurgery and Gen surgery consulted Per Neurosurgery - no surgical intervention IR Aspiration of abscess 12/18 - obtained 22 ml purulent material- sent for c/s- MSSA Wound c/s : MSSA and Proteus cont IV Vanco , and Cipro (Dr Carolina d/c Zosyn, Ceftriaxone and added Cipro ) till ESR high (however now 42 from 99) CRP high consistent with infection Procalcitonin level normal Patient would need 6 weeks of IV abx. Since patient is uninsured, he has no means to come back for daily IV abx tx. ( till Jan 24) 2. UTI (urinary tract infection) Acute urine c/s : Providencia pt received ceftriaxone and Cipro ( Cipro changed to PO) Left Hydronephrosis noted- as per patient's mother , this is chronic , pt is voiding freely, Carrasco in place Urology consulted - Dr Huizar - rec to just tx UTI Yeast also noted on UA - pt received PO Diflucan 3.Paraplegia Chronic hx of Cord compression from spine fracture 2007 4.Spine fracture s/p Bedolla Rods Chronic as above 5. DM type 2 (diabetes mellitus, type 2) Chronic accucheck with coverage Glucotrol 10 mg bid Levemir to 30 units q hs 6. DVT prophylaxis Acute Lovenox
[2018-01-06] MEDS: Insulin Regular 100 units/ml SC SCH ×4 (09:27→21:26)
[2018-01-06] MEDS: Enoxaparin 40 mg Syringe SC SCH (09:27)
[2018-01-06] MEDS: Lactobacillus Acidophilus 500 MU Cap PO SCH ×3 (09:35→18:23)
[2018-01-06] MEDS: Insulin Detemir 100 Units/ml Inj SC SCH (21:25)
[2018-01-07] MEDS: oxyCODONE 5 mg Immediate Release Tab PO SCH ×3 (00:57→17:28)
--- NOTE | 2018-01-07 08:54 | CP.PCM.PN ---
Subjective - Date & Time of Evaluation Date of Evaluation: 01/07/18 Time of Evaluation: 09:30 - Subjective Subjective: Patient seen and examined. Hemodynamically stable, afebrile No acute issues overnight On IV antibiotics Bedbound due to paraplegia. Complains of chronic back pain ,but has improved since admission. Objective - Vital Signs/Intake and Output Vital Signs (last 24 hours): Temp Pulse Resp BP Pulse Ox 97.4 F L 76 18 101/68 99 01/07/18 08:21 01/07/18 08:21 01/07/18 08:21 01/07/18 08:21 01/07/18 08:21 Intake and Output: 01/07/18 01/07/18 06:59 18:59 Output Total 1300 Balance -1300 - Medications Medications: Current Medications Acetaminophen (Tylenol 325mg Tab) 650 mg PO Q6 PRN PRN Reason: Pain, Mild (1-3) Ciprofloxacin (Cipro) 500 mg PO Q12 [facility] Last Admin: 01/06/18 21:27 Dose: 500 mg Dextrose (Dextrose 50% Inj) 0 ml IV STAT PRN; Protocol PRN Reason: Hypoglycemia Protocol Dextrose (Glutose 15) 0 gm PO ONCE PRN; Protocol PRN Reason: Hypoglycemia Protocol Enoxaparin Sodium (Lovenox) 40 mg SC DAILY [facility] PRN Reason: Protocol Last Admin: 01/06/18 09:27 Dose: 40 mg Glipizide (Glucotrol) 10 mg PO BID [facility] Last Admin: 01/06/18 18:23 Dose: 10 mg Glucagon (Glucagen Diagnostic Kit) 0 mg IM STAT PRN; Protocol PRN Reason: Hypoglycemia Protocol Vancomycin HCl 1 gm/ Sodium (Chloride) 250 mls @ 166.667 mls/hr IVPB Q12 [facility] PRN Reason: Protocol Last Admin: 01/06/18 21:25 Dose: 166.667 mls/hr Insulin Detemir (Levemir) 30 units SC HS [facility] Last Admin: 01/06/18 21:25 Dose: 30 u Insulin Human Regular (Humulin R) 0 units SC ACHS [facility] PRN Reason: Protocol Last Admin: 01/06/18 21:26 Dose: Not Given Lactobacillus Acidophilus (Bacid Acidophilus) 1 cap PO BID [facility] Last Admin: 01/06/18 18:23 Dose: 1 cap Oxycodone HCl (Oxycodone Immediate Release Tab) 5 mg PO Q8 [facility] Last Admin: 01/07/18 00:57 Dose: 5 mg - Labs Labs: 12/29/17 06:00 01/02/18 04:00 PT 13.9 Seconds (9.8-13.1) H 12/13/17 17:38 INR 1.3 (0.9-1.2) H 12/13/17 17:38 APTT 30.2 Seconds (25.6-37.1) 12/13/17 17:38 - Constitutional Appears: Non-toxic, No Acute Distress - Head Exam Head Exam: ATRAUMATIC, NORMAL INSPECTION, NORMOCEPHALIC - Eye Exam Eye Exam: EOMI, Normal appearance, PERRL Pupil Exam: NORMAL ACCOMODATION - ENT Exam ENT Exam: Mucous Membranes Moist, Normal Exam - Neck Exam Neck Exam: Full ROM, Normal Inspection - Respiratory Exam Respiratory Exam: Clear to Ausculation Bilateral, NORMAL BREATHING PATTERN. absent: Rales, Rhonchi, Wheezes - Cardiovascular Exam Cardiovascular Exam: REGULAR RHYTHM, RRR, +S1, +S2. absent: JVD - GI/Abdominal Exam GI & Abdominal Exam: Soft, Normal Bowel Sounds. absent: Distended, Guarding, Tenderness, Rebound - Rectal Exam Rectal Exam: Deferred - Extremities Exam Extremities Exam: Normal Inspection. absent: Calf Tenderness, Pedal Edema - Back Exam Additional comments: Midline thoracic and lumbar area small wound with minimal drainage - Neurological Exam Neurological Exam: Alert, Awake, CN II-XII Intact, Oriented x3 Neuro motor strength exam: Left Upper Extremity: 5, Right Upper Extremity: 5, Left Lower Extremity: 0, Right Lower Extremity: 0 - Psychiatric Exam Psychiatric exam: Normal Affect, Normal Mood - Skin Skin Exam: Dry, Warm Assessment and Plan - Assessment and Plan (Free Text) Assessment: 37 y/o male 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 Patient came in to our ED because of fever, pain and tenderness on his lower back and increased drainage from his wound. CT of L spine/T spine :3.2 x 2.9 x 3.4 cm low-attenuation collection with peripheral enhancement in the right posterior paraspinal soft tissues. Nonspecific moderate left hydroureteronephrosis. Neurosurgery was consulted and recommended IV antibiotics no surgical intervention Wound c/s : MSSA, Proteus Urine c/s : Providencia MRI of Thoracic and Lumbar Spine :Status post fusion and internal fixation at the lower thoracic and upper lumbar spine including bilateral pedicles screws and posterior longitudinal rods at L1 and L2. No evidence of spinal stenosis or neural foraminal narrowing at the lumbar spine. Endplate destruction and disc space fusion at L1-L2. Subcutaneous fluid collection to the right of the midline at the level of L2 and L2-L3 may represent seroma or abscess formation. Severe narrowing of the spinal canal at T10-T11 with possible cord compression at this level. Please correlate clinically. Partial destruction of the mid and upper T11 and adjacent T10-T11 disc. The possibility of osteomyelitis discitis also should be considered. Patient will need 6 weeks of IV antibiotics. Tolerating well. 1. Sepsis ( POA) sec to Paraspinal Soft Tissue abscess with Discitis / Osteomyelitis s/p Drainage of abscess by IR ( Staph aureus - MSSA) Acute Neurosurgery and Gen surgery consulted Per Neurosurgery - no surgical intervention IR Aspiration of abscess 12/18 - obtained 22 ml purulent material- sent for c/s- MSSA Wound c/s : MSSA and Proteus cont IV Vanco , and Cipro (Dr Carolina d/c Zosyn, Ceftriaxone and added Cipro ) till ESR high (however now 42 from 99) CRP high consistent with infection Procalcitonin level normal Patient would need 6 weeks of IV abx. Since patient is uninsured, he has no means to come back for daily IV abx tx. ( till Jan 24) 2. UTI (urinary tract infection) Acute urine c/s : Providencia pt received ceftriaxone and Cipro ( Cipro changed to PO) Left Hydronephrosis noted- as per patient's mother , this is chronic , pt is voiding freely, Grey in place Urology consulted - Dr Huizar - rec to just tx UTI Yeast also noted on UA - pt received PO Diflucan 3.Paraplegia Chronic hx of Cord compression from spine fracture 2007 4.Spine fracture s/p Bedolla Rods Chronic as above 5. DM type 2 (diabetes mellitus, type 2) Chronic accucheck with coverage Glucotrol 10 mg bid Levemir to 30 units q hs 6. DVT prophylaxis Acute Lovenox
[2018-01-07] MEDS: Lactobacillus Acidophilus 500 MU Cap PO SCH ×2 (09:18→17:28)
[2018-01-07] MEDS: Insulin Regular 100 units/ml SC SCH ×4 (09:19→22:21)
[2018-01-07] MEDS: Enoxaparin 40 mg Syringe SC SCH (09:19)
[2018-01-07] MEDS: Insulin Detemir 100 Units/ml Inj SC SCH (22:21)
[2018-01-08] MEDS: oxyCODONE 5 mg Immediate Release Tab PO SCH ×3 (00:23→17:03)
[2018-01-08 07:13] LABS: BLOOD UREA NITROGEN 13 mg/dl (9-20); CALCIUM 9.4 mg/dL (8.4-10.2); GFR NON-AFRICAN AMERICAN > 60
[2018-01-08] MEDS: Insulin Regular 100 units/ml SC SCH ×4 (07:30→21:26)
[2018-01-08] MEDS: Lactobacillus Acidophilus 500 MU Cap PO SCH ×2 (09:33→17:03)
[2018-01-08] MEDS: Enoxaparin 40 mg Syringe SC SCH (09:34)
--- NOTE | 2018-01-08 10:36 | CP.PCM.PN ---
Subjective - Date & Time of Evaluation Date of Evaluation: 01/08/18 Time of Evaluation: 10:35 - Subjective Subjective: PT TOLERATING IVABX WELL NO COMPLAINTS HD STABLE NAD Objective - Vital Signs/Intake and Output Vital Signs (last 24 hours): Temp Pulse Resp BP Pulse Ox 97.8 F 87 19 109/73 99 01/08/18 07:37 01/08/18 07:37 01/08/18 07:37 01/08/18 07:37 01/08/18 07:37 - Medications Medications: Current Medications Acetaminophen (Tylenol 325mg Tab) 650 mg PO Q6 PRN PRN Reason: Pain, Mild (1-3) Ciprofloxacin (Cipro) 500 mg PO Q12 [facility] Last Admin: 01/08/18 09:35 Dose: 500 mg Dextrose (Dextrose 50% Inj) 0 ml IV STAT PRN; Protocol PRN Reason: Hypoglycemia Protocol Dextrose (Glutose 15) 0 gm PO ONCE PRN; Protocol PRN Reason: Hypoglycemia Protocol Enoxaparin Sodium (Lovenox) 40 mg SC DAILY [facility] PRN Reason: Protocol Last Admin: 01/08/18 09:34 Dose: 40 mg Glipizide (Glucotrol) 10 mg PO BID [facility] Last Admin: 01/08/18 09:35 Dose: 10 mg Glucagon (Glucagen Diagnostic Kit) 0 mg IM STAT PRN; Protocol PRN Reason: Hypoglycemia Protocol Vancomycin HCl 1 gm/ Sodium (Chloride) 250 mls @ 166.667 mls/hr IVPB Q12 [facility] PRN Reason: Protocol Last Admin: 01/08/18 09:58 Dose: 166.667 mls/hr Insulin Detemir (Levemir) 30 units SC HS [facility] Last Admin: 01/07/18 22:21 Dose: 30 u Insulin Human Regular (Humulin R) 0 units SC ACHS [facility] PRN Reason: Protocol Last Admin: 01/08/18 07:30 Dose: Not Given Lactobacillus Acidophilus (Bacid Acidophilus) 1 cap PO BID [facility] Last Admin: 01/08/18 09:33 Dose: 1 cap Oxycodone HCl (Oxycodone Immediate Release Tab) 5 mg PO Q8 [facility] Last Admin: 01/08/18 09:33 Dose: 5 mg - Labs Labs: 12/29/17 06:00 01/08/18 05:50 PT 13.9 Seconds (9.8-13.1) H 12/13/17 17:38 INR 1.3 (0.9-1.2) H 12/13/17 17:38 APTT 30.2 Seconds (25.6-37.1) 12/13/17 17:38 - Constitutional Appears: Non-toxic, No Acute Distress - Head Exam Head Exam: ATRAUMATIC, NORMOCEPHALIC - Eye Exam Eye Exam: EOMI, Normal appearance, PERRL Pupil Exam: NORMAL ACCOMODATION, PERRL - ENT Exam ENT Exam: Mucous Membranes Moist, Normal Exam - Respiratory Exam Respiratory Exam: Clear to Ausculation Bilateral, NORMAL BREATHING PATTERN - Cardiovascular Exam Cardiovascular Exam: RRR, +S1, +S2 - GI/Abdominal Exam GI & Abdominal Exam: Soft, Normal Bowel Sounds - Extremities Exam Extremities Exam: Normal Capillary Refill, Normal Inspection - Back Exam Back Exam: NORMAL INSPECTION. absent: CVA tenderness (L), CVA tenderness (R) - Neurological Exam Neurological Exam: Alert, Awake - Psychiatric Exam Psychiatric exam: Normal Affect, Normal Mood - Skin Skin Exam: Dry, Warm Assessment and Plan - Assessment and Plan (Free Text) Plan: essment: 37 y/o male 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 Patient came in to our ED because of fever, pain and tenderness on his lower back and increased drainage from his wound. CT of L spine/T spine :3.2 x 2.9 x 3.4 cm low-attenuation collection with peripheral enhancement in the right posterior paraspinal soft tissues. Nonspecific moderate left hydroureteronephrosis. Neurosurgery was consulted and recommended IV antibiotics no surgical intervention Wound c/s : MSSA, Proteus Urine c/s : Providencia MRI of Thoracic and Lumbar Spine :Status post fusion and internal fixation at the lower thoracic and upper lumbar spine including bilateral pedicles screws and posterior longitudinal rods at L1 and L2. No evidence of spinal stenosis or neural foraminal narrowing at the lumbar spine. Endplate destruction and disc space fusion at L1-L2. Subcutaneous fluid collection to the right of the midline at the level of L2 and L2-L3 may represent seroma or abscess formation. Severe narrowing of the spinal canal at T10-T11 with possible cord compression at this level. Please correlate clinically. Partial destruction of the mid and upper T11 and adjacent T10-T11 disc. The possibility of osteomyelitis discitis also should be considered. Patient will need 6 weeks of IV antibiotics. Tolerating well. NO CHANGES 1. Sepsis ( POA) sec to Paraspinal Soft Tissue abscess with Discitis / Osteomyelitis s/p Drainage of abscess by IR ( Staph aureus - MSSA) Acute Neurosurgery and Gen surgery consulted Per Neurosurgery - no surgical intervention IR Aspiration of abscess 12/18 - obtained 22 ml purulent material- sent for c/s- MSSA Wound c/s : MSSA and Proteus cont IV Vanco , and Cipro (Dr Carolina d/c Fiordaliza, Ceftriaxone and added Cipro ) till ESR high (however now 42 from 99) CRP high consistent with infection Procalcitonin level normal Patient would need 6 weeks of IV abx. Since patient is uninsured, he has no means to come back for daily IV abx tx. ( till Jan 24) 2. UTI (urinary tract infection) Acute urine c/s : Providencia pt received ceftriaxone and Cipro ( Cipro changed to PO) Left Hydronephrosis noted- as per patient's mother , this is chronic , pt is voiding freely, Grey in place Urology consulted - Dr Huizar - rec to just tx UTI Yeast also noted on UA - pt received PO Diflucan 3.Paraplegia Chronic hx of Cord compression from spine fracture 2007 4.Spine fracture s/p Bedolla Rods Chronic as above 5. DM type 2 (diabetes mellitus, type 2) Chronic accucheck with coverage Glucotrol 10 mg bid Levemir to 30 units q hs 6. DVT prophylaxis Acute Lovenox
[2018-01-08] MEDS: Insulin Detemir 100 Units/ml Inj SC SCH (21:25)
[2018-01-09] MEDS: oxyCODONE 5 mg Immediate Release Tab PO SCH ×3 (01:09→16:56)
[2018-01-09] MEDS: Enoxaparin 40 mg Syringe SC SCH (08:38)
[2018-01-09] MEDS: Insulin Regular 100 units/ml SC SCH ×4 (08:39→21:02)
[2018-01-09] MEDS: Lactobacillus Acidophilus 500 MU Cap PO SCH ×2 (08:44→16:56)
[2018-01-09 14:04] VITALS: BMI 24.2
--- NOTE | 2018-01-09 17:59 | CP.PCM.PN ---
Subjective - Date & Time of Evaluation Date of Evaluation: 01/09/18 Time of Evaluation: 11:00 - Subjective Subjective: No new complaints. Tolerating IV abx well HD stable, NAD Objective - Vital Signs/Intake and Output Vital Signs (last 24 hours): Temp Pulse Resp BP Pulse Ox 97.7 F 95 H 20 103/65 96 01/09/18 15:40 01/09/18 15:40 01/09/18 15:40 01/09/18 15:40 01/09/18 15:40 Intake and Output: 01/09/18 01/09/18 06:59 18:59 Intake Total 450 Output Total 3000 Balance -2550 - Medications Medications: Current Medications Acetaminophen (Tylenol 325mg Tab) 650 mg PO Q6 PRN PRN Reason: Pain, Mild (1-3) Ciprofloxacin (Cipro) 500 mg PO Q12 [facility] Last Admin: 01/09/18 08:38 Dose: 500 mg Dextrose (Dextrose 50% Inj) 0 ml IV STAT PRN; Protocol PRN Reason: Hypoglycemia Protocol Dextrose (Glutose 15) 0 gm PO ONCE PRN; Protocol PRN Reason: Hypoglycemia Protocol Enoxaparin Sodium (Lovenox) 40 mg SC DAILY [facility] PRN Reason: Protocol Last Admin: 01/09/18 08:38 Dose: 40 mg Glipizide (Glucotrol) 10 mg PO BID [facility] Last Admin: 01/09/18 16:57 Dose: 10 mg Glucagon (Glucagen Diagnostic Kit) 0 mg IM STAT PRN; Protocol PRN Reason: Hypoglycemia Protocol Vancomycin HCl 1 gm/ Sodium (Chloride) 250 mls @ 166.667 mls/hr IVPB Q12 [facility] PRN Reason: Protocol Last Admin: 01/09/18 08:37 Dose: 166.667 mls/hr Insulin Detemir (Levemir) 30 units SC HS [facility] Last Admin: 01/08/18 21:25 Dose: 30 u Insulin Human Regular (Humulin R) 0 units SC ACHS [facility] PRN Reason: Protocol Last Admin: 01/09/18 16:05 Dose: 2 units Oxycodone HCl (Oxycodone Immediate Release Tab) 5 mg PO Q8 [facility] Last Admin: 01/09/18 16:56 Dose: 5 mg - Labs Labs: 12/29/17 06:00 01/08/18 05:50 PT 13.9 Seconds (9.8-13.1) H 12/13/17 17:38 INR 1.3 (0.9-1.2) H 12/13/17 17:38 APTT 30.2 Seconds (25.6-37.1) 12/13/17 17:38 - Additional Findings Additional findings: - Constitutional Appears: Non-toxic, No Acute Distress - Head Exam Head Exam: ATRAUMATIC, NORMOCEPHALIC - Eye Exam Eye Exam: EOMI, Normal appearance, PERRL Pupil Exam: NORMAL ACCOMODATION, PERRL - ENT Exam ENT Exam: Mucous Membranes Moist, Normal Exam - Respiratory Exam Respiratory Exam: Clear to Ausculation Bilateral, NORMAL BREATHING PATTERN - Cardiovascular Exam Cardiovascular Exam: RRR, +S1, +S2 - GI/Abdominal Exam GI & Abdominal Exam: Soft, Normal Bowel Sounds - Extremities Exam Extremities Exam: Normal Capillary Refill, Normal Inspection - Back Exam Back Exam: NORMAL INSPECTION. absent: CVA tenderness (L), CVA tenderness (R) - Neurological Exam Neurological Exam: Alert, Awake - Psychiatric Exam Psychiatric exam: Normal Affect, Normal Mood - Skin Skin Exam: Dry, Warm Assessment and Plan - Assessment and Plan (Free Text) Plan: 37 y/o male 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 Patient came in to our ED because of fever, pain and tenderness on his lower back and increased drainage from his wound. CT of L spine/T spine :3.2 x 2.9 x 3.4 cm low-attenuation collection with peripheral enhancement in the right posterior paraspinal soft tissues. Nonspecific moderate left hydroureteronephrosis. Neurosurgery was consulted and recommended IV antibiotics no surgical intervention Wound c/s : MSSA, Proteus Urine c/s : Providencia MRI of Thoracic and Lumbar Spine :Status post fusion and internal fixation at the lower thoracic and upper lumbar spine including bilateral pedicles screws and posterior longitudinal rods at L1 and L2. No evidence of spinal stenosis or neural foraminal narrowing at the lumbar spine. Endplate destruction and disc space fusion at L1-L2. Subcutaneous fluid collection to the right of the midline at the level of L2 and L2-L3 may represent seroma or abscess formation. Severe narrowing of the spinal canal at T10-T11 with possible cord compression at this level. Please correlate clinically. Partial destruction of the mid and upper T11 and adjacent T10-T11 disc. The possibility of osteomyelitis discitis also should be considered. Patient will need 6 weeks of IV antibiotics. Tolerating well. NO CHANGES 1. Sepsis ( POA) sec to Paraspinal Soft Tissue abscess with Discitis / Osteomyelitis s/p Drainage of abscess by IR ( Staph aureus - MSSA) Acute Neurosurgery and Gen surgery consulted Per Neurosurgery - no surgical intervention IR Aspiration of abscess 12/18 - obtained 22 ml purulent material- sent for c/s- MSSA Wound c/s : MSSA and Proteus cont IV Vanco , and Cipro (Dr Carolina d/c Milenasykenzie, Ceftriaxone and added Cipro ) till ESR high (however now 42 from 99) CRP high consistent with infection Procalcitonin level normal Patient would need 6 weeks of IV abx. Since patient is uninsured, he has no means to come back for daily IV abx tx. ( till Jan 24) 2. UTI (urinary tract infection) Acute urine c/s : Providencia pt received ceftriaxone and Cipro ( Cipro changed to PO) Left Hydronephrosis noted- as per patient's mother , this is chronic , pt is voiding freely, Grey in place Urology consulted - Dr Huizar - rec to just tx UTI Yeast also noted on UA - pt received PO Diflucan 3.Paraplegia Chronic hx of Cord compression from spine fracture 2007 4.Spine fracture s/p Bedolla Rods Chronic as above 5. DM type 2 (diabetes mellitus, type 2) Chronic accucheck with coverage Glucotrol 10 mg bid Levemir to 30 units q hs 6. DVT prophylaxis Acute Lovenox
[2018-01-09] MEDS: Insulin Detemir 100 Units/ml Inj SC SCH (21:01)
[2018-01-10] MEDS: oxyCODONE 5 mg Immediate Release Tab PO SCH ×3 (01:28→17:07)
[2018-01-10] MEDS: Insulin Regular 100 units/ml SC SCH ×4 (08:09→23:33)
--- NOTE | 2018-01-10 08:30 | CP.PCM.PN ---
Subjective - Date & Time of Evaluation Date of Evaluation: 01/10/18 Time of Evaluation: 10:30 - Subjective Subjective: Patient seen bedside . Complained of dry skin Hemodynamically stable, afebrile. No acute issues overnight Tolerating IV antibiotics Objective - Vital Signs/Intake and Output Vital Signs (last 24 hours): Temp Pulse Resp BP Pulse Ox 97.5 F L 77 19 101/64 98 01/10/18 07:58 01/10/18 07:58 01/10/18 07:58 01/10/18 07:58 01/10/18 07:58 Intake and Output: 01/10/18 01/10/18 06:59 18:59 Intake Total 400 Output Total 2500 Balance -2100 - Medications Medications: Current Medications Acetaminophen (Tylenol 325mg Tab) 650 mg PO Q6 PRN PRN Reason: Pain, Mild (1-3) Ciprofloxacin (Cipro) 500 mg PO Q12 [facility] Last Admin: 01/09/18 21:00 Dose: 500 mg Dextrose (Dextrose 50% Inj) 0 ml IV STAT PRN; Protocol PRN Reason: Hypoglycemia Protocol Dextrose (Glutose 15) 0 gm PO ONCE PRN; Protocol PRN Reason: Hypoglycemia Protocol Enoxaparin Sodium (Lovenox) 40 mg SC DAILY [facility] PRN Reason: Protocol Last Admin: 01/09/18 08:38 Dose: 40 mg Glipizide (Glucotrol) 10 mg PO BID [facility] Last Admin: 01/09/18 16:57 Dose: 10 mg Glucagon (Glucagen Diagnostic Kit) 0 mg IM STAT PRN; Protocol PRN Reason: Hypoglycemia Protocol Insulin Detemir (Levemir) 30 units SC HS [facility] Last Admin: 01/09/18 21:01 Dose: 30 u Insulin Human Regular (Humulin R) 0 units SC [facility] PRN Reason: Protocol Last Admin: 01/10/18 08:09 Dose: Not Given Oxycodone HCl (Oxycodone Immediate Release Tab) 5 mg PO Q8 [facility] Last Admin: 01/10/18 01:28 Dose: 5 mg - Labs Labs: 12/29/17 06:00 01/08/18 05:50 PT 13.9 Seconds (9.8-13.1) H 12/13/17 17:38 INR 1.3 (0.9-1.2) H 12/13/17 17:38 APTT 30.2 Seconds (25.6-37.1) 12/13/17 17:38 - Constitutional Appears: Non-toxic, No Acute Distress - Head Exam Head Exam: ATRAUMATIC, NORMAL INSPECTION, NORMOCEPHALIC - Eye Exam Eye Exam: EOMI, Normal appearance, PERRL Pupil Exam: NORMAL ACCOMODATION - ENT Exam ENT Exam: Mucous Membranes Moist, Normal Exam - Neck Exam Neck Exam: Full ROM, Normal Inspection - Respiratory Exam Respiratory Exam: Clear to Ausculation Bilateral, NORMAL BREATHING PATTERN. absent: Rales, Rhonchi, Wheezes - Cardiovascular Exam Cardiovascular Exam: REGULAR RHYTHM, RRR, +S1, +S2. absent: JVD - GI/Abdominal Exam GI & Abdominal Exam: Soft, Normal Bowel Sounds. absent: Distended, Guarding, Tenderness, Rebound - Rectal Exam Rectal Exam: Deferred - Extremities Exam Extremities Exam: Full ROM, Normal Capillary Refill, Normal Inspection. absent : Calf Tenderness, Pedal Edema - Back Exam Back Exam: NORMAL INSPECTION Additional comments: small open wound to thoracic and lumbar - Neurological Exam Neurological Exam: Alert, Awake, CN II-XII Intact, Oriented x3 Neuro motor strength exam: Left Upper Extremity: 5, Right Upper Extremity: 5, Left Lower Extremity: 0, Right Lower Extremity: 0 - Psychiatric Exam Psychiatric exam: Normal Affect, Normal Mood - Skin Skin Exam: Dry, Intact, Normal Color, Warm Assessment and Plan - Assessment and Plan (Free Text) Assessment: 37 y/o male 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 Patient came in to our ED because of fever, pain and tenderness on his lower back and increased drainage from his wound. CT of L spine/T spine :3.2 x 2.9 x 3.4 cm low-attenuation collection with peripheral enhancement in the right posterior paraspinal soft tissues. Nonspecific moderate left hydroureteronephrosis. Neurosurgery was consulted and recommended IV antibiotics no surgical intervention Wound c/s : MSSA, Proteus Urine c/s : Providencia MRI of Thoracic and Lumbar Spine :Status post fusion and internal fixation at the lower thoracic and upper lumbar spine including bilateral pedicles screws and posterior longitudinal rods at L1 and L2. No evidence of spinal stenosis or neural foraminal narrowing at the lumbar spine. Endplate destruction and disc space fusion at L1-L2. Subcutaneous fluid collection to the right of the midline at the level of L2 and L2-L3 may represent seroma or abscess formation. Severe narrowing of the spinal canal at T10-T11 with possible cord compression at this level. Please correlate clinically. Partial destruction of the mid and upper T11 and adjacent T10-T11 disc. The possibility of osteomyelitis discitis also should be considered. Patient will need 6 weeks of IV antibiotics. Tolerating well. 1. Sepsis ( POA) sec to Paraspinal Soft Tissue abscess with Discitis / Osteomyelitis s/p Drainage of abscess by IR ( Staph aureus - MSSA) Acute Neurosurgery and General surgery consulted Per Neurosurgery - no surgical intervention IR Aspiration of abscess 12/18 - obtained 22 ml purulent material- sent for c/s- MSSA Wound c/s : MSSA and Proteus cont IV Vanco , and Cipro (Dr Carolina d/c Milenasykenzie, Ceftriaxone and added Cipro ) till ESR high (however now 42 from 99) CRP high consistent with infection Procalcitonin level normal Patient would need 6 weeks of IV abx. Since patient is uninsured, he has no means to come back for daily IV abx tx. ( till Jan 24) 2. UTI (urinary tract infection) Acute urine c/s : Providencia pt received ceftriaxone and Cipro ( Cipro changed to PO) Left Hydronephrosis noted- as per patient's mother , this is chronic , pt is voiding freely, Grey in place Urology consulted - Dr Huizar - rec to just tx UTI Yeast also noted on UA - pt received PO Diflucan 3.Paraplegia Chronic hx of Cord compression from spine fracture 2007 4.Spine fracture s/p Ebdolla Rods Chronic as above 5. DM type 2 (diabetes mellitus, type 2) Chronic accucheck with coverage Glucotrol 10 mg bid Levemir to 30 units q hs 6. DVT prophylaxis Acute Lovenox
[2018-01-10] MEDS: Enoxaparin 40 mg Syringe SC SCH (09:52)
[2018-01-10] MEDS: Lactobacillus Acidophilus 500 MU Cap PO SCH (17:07)
[2018-01-10] MEDS: Insulin Detemir 100 Units/ml Inj SC SCH (21:05)
[2018-01-11] MEDS: oxyCODONE 5 mg Immediate Release Tab PO SCH ×3 (00:45→16:30)
--- NOTE | 2018-01-11 08:15 | CP.PCM.PN ---
Subjective - Date & Time of Evaluation Date of Evaluation: 01/11/18 Time of Evaluation: 09:30 - Subjective Subjective: Patient seen bedside . Hemodynamically stable, afebrile. No acute issues overnight Tolerating IV antibiotics Objective - Vital Signs/Intake and Output Vital Signs (last 24 hours): Temp Pulse Resp BP Pulse Ox 98.3 F 85 18 101/68 98 01/11/18 00:01 01/11/18 00:01 01/11/18 00:01 01/11/18 00:01 01/11/18 00:01 Intake and Output: 01/11/18 01/11/18 06:59 18:59 Output Total 1800 Balance -1800 - Medications Medications: Current Medications Acetaminophen (Tylenol 325mg Tab) 650 mg PO Q6 PRN PRN Reason: Pain, Mild (1-3) Ciprofloxacin (Cipro) 500 mg PO Q12 [facility] Last Admin: 01/10/18 21:04 Dose: 500 mg Dextrose (Dextrose 50% Inj) 0 ml IV STAT PRN; Protocol PRN Reason: Hypoglycemia Protocol Dextrose (Glutose 15) 0 gm PO ONCE PRN; Protocol PRN Reason: Hypoglycemia Protocol Enoxaparin Sodium (Lovenox) 40 mg SC DAILY [facility] PRN Reason: Protocol Last Admin: 01/10/18 09:52 Dose: 40 mg Glipizide (Glucotrol) 10 mg PO BID [facility] Last Admin: 01/10/18 09:52 Dose: 10 mg Glucagon (Glucagen Diagnostic Kit) 0 mg IM STAT PRN; Protocol PRN Reason: Hypoglycemia Protocol Vancomycin HCl 1 gm/ Sodium (Chloride) 250 mls @ 166.667 mls/hr IVPB Q12 [facility] PRN Reason: Protocol Last Admin: 01/10/18 21:04 Dose: 166.667 mls/hr Insulin Detemir (Levemir) 30 units SC HS [facility] Last Admin: 01/10/18 21:05 Dose: 30 u Insulin Human Regular (Humulin R) 0 units SC ACHS [facility] PRN Reason: Protocol Last Admin: 01/10/18 23:33 Dose: 3 units Lactobacillus Acidophilus (Bacid Acidophilus) 1 cap PO BID [facility] Last Admin: 01/10/18 17:07 Dose: 1 cap Oxycodone HCl (Oxycodone Immediate Release Tab) 5 mg PO Q8 [facility] Last Admin: 01/11/18 00:45 Dose: 5 mg - Labs Labs: 12/29/17 06:00 01/08/18 05:50 PT 13.9 Seconds (9.8-13.1) H 12/13/17 17:38 INR 1.3 (0.9-1.2) H 12/13/17 17:38 APTT 30.2 Seconds (25.6-37.1) 12/13/17 17:38 - Constitutional Appears: Non-toxic, No Acute Distress - Head Exam Head Exam: ATRAUMATIC, NORMOCEPHALIC - Eye Exam Eye Exam: EOMI, PERRL Pupil Exam: NORMAL ACCOMODATION - ENT Exam ENT Exam: Mucous Membranes Moist, Normal Exam - Neck Exam Neck Exam: Full ROM, Normal Inspection - Respiratory Exam Respiratory Exam: Clear to Ausculation Bilateral. absent: Rales, Rhonchi, Wheezes, Respiratory Distress - Cardiovascular Exam Cardiovascular Exam: REGULAR RHYTHM, RRR, +S1, +S2. absent: JVD - GI/Abdominal Exam GI & Abdominal Exam: Soft, Normal Bowel Sounds. absent: Distended, Tenderness, Rebound - Rectal Exam Rectal Exam: Deferred - Back Exam Back Exam: NORMAL INSPECTION Additional comments: thoracic and lumbar area small wound with drainage - Neurological Exam Neurological Exam: Alert, Awake, CN II-XII Intact, Oriented x3 Neuro motor strength exam: Left Lower Extremity: 0, Right Lower Extremity: 0 Additional comments: LLE contracture - Psychiatric Exam Psychiatric exam: Normal Affect, Normal Mood - Skin Skin Exam: Dry, Intact, Normal Color, Warm Assessment and Plan - Assessment and Plan (Free Text) Assessment: 37 y/o male 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 Patient came in to our ED because of fever, pain and tenderness on his lower back and increased drainage from his wound. CT of L spine/T spine :3.2 x 2.9 x 3.4 cm low-attenuation collection with peripheral enhancement in the right posterior paraspinal soft tissues. Nonspecific moderate left hydroureteronephrosis. Neurosurgery was consulted and recommended IV antibiotics no surgical intervention Wound c/s : MSSA, Proteus Urine c/s : Providencia MRI of Thoracic and Lumbar Spine :Status post fusion and internal fixation at the lower thoracic and upper lumbar spine including bilateral pedicles screws and posterior longitudinal rods at L1 and L2. No evidence of spinal stenosis or neural foraminal narrowing at the lumbar spine. Endplate destruction and disc space fusion at L1-L2. Subcutaneous fluid collection to the right of the midline at the level of L2 and L2-L3 may represent seroma or abscess formation. Severe narrowing of the spinal canal at T10-T11 with possible cord compression at this level. Please correlate clinically. Partial destruction of the mid and upper T11 and adjacent T10-T11 disc. The possibility of osteomyelitis discitis also should be considered. Patient will need 6 weeks of IV antibiotics. Tolerating well. 1. Sepsis ( POA) sec to Paraspinal Soft Tissue abscess with Discitis / Osteomyelitis s/p Drainage of abscess by IR ( Staph aureus - MSSA) Acute Neurosurgery and General surgery consulted Per Neurosurgery - no surgical intervention IR Aspiration of abscess 12/18 - obtained 22 ml purulent material- sent for c/s- MSSA Wound c/s : MSSA and Proteus cont IV Vanco , and Cipro (Dr Carolina d/c Zosyn, Ceftriaxone and added Cipro ) till ESR high (however now 42 from 99) CRP high consistent with infection Procalcitonin level normal Patient would need 6 weeks of IV abx. Since patient is uninsured, he has no means to come back for daily IV abx tx. ( till Jan 24) 2. UTI (urinary tract infection) Acute urine c/s : Providencia pt received ceftriaxone and Cipro ( Cipro changed to PO) Left Hydronephrosis noted- as per patient's mother , this is chronic , pt is voiding freely, Grey in place Urology consulted - Dr Huizar - rec to just tx UTI Yeast also noted on UA - pt received PO Diflucan 3.Paraplegia Chronic hx of Cord compression from spine fracture 2007 4.Spine fracture s/p Bedolla Rods Chronic as above 5. DM type 2 (diabetes mellitus, type 2) Chronic accucheck with coverage Glucotrol 10 mg bid Levemir to 30 units q hs 6. DVT prophylaxis Acute Lovenox
[2018-01-11] MEDS: Lactobacillus Acidophilus 500 MU Cap PO SCH ×2 (08:37→16:28)
[2018-01-11] MEDS: Enoxaparin 40 mg Syringe SC SCH (08:39)
[2018-01-11] MEDS: Insulin Regular 100 units/ml SC SCH ×4 (08:40→22:05)
[2018-01-11] MEDS: Insulin Detemir 100 Units/ml Inj SC SCH (22:05)
[2018-01-12] MEDS: oxyCODONE 5 mg Immediate Release Tab PO SCH ×3 (00:48→17:36)
--- NOTE | 2018-01-12 07:16 | CP.PCM.PN ---
Subjective - Date & Time of Evaluation Date of Evaluation: 01/12/18 Time of Evaluation: 09:30 - Subjective Subjective: Patient seen bedside . Hemodynamically stable, afebrile. No acute issues overnight Tolerating IV antibiotics Objective - Vital Signs/Intake and Output Vital Signs (last 24 hours): Temp Pulse Resp BP Pulse Ox 97.6 F 87 18 109/70 98 01/12/18 00:32 01/12/18 00:32 01/12/18 00:32 01/12/18 00:32 01/12/18 00:32 - Medications Medications: Current Medications Acetaminophen (Tylenol 325mg Tab) 650 mg PO Q6 PRN PRN Reason: Pain, Mild (1-3) Ciprofloxacin (Cipro) 500 mg PO Q12 [facility] Last Admin: 01/11/18 21:43 Dose: 500 mg Dextrose (Dextrose 50% Inj) 0 ml IV STAT PRN; Protocol PRN Reason: Hypoglycemia Protocol Dextrose (Glutose 15) 0 gm PO ONCE PRN; Protocol PRN Reason: Hypoglycemia Protocol Enoxaparin Sodium (Lovenox) 40 mg SC DAILY [facility] PRN Reason: Protocol Last Admin: 01/11/18 08:39 Dose: 40 mg Glipizide (Glucotrol) 10 mg PO BID [facility] Last Admin: 01/11/18 16:29 Dose: 10 mg Glucagon (Glucagen Diagnostic Kit) 0 mg IM STAT PRN; Protocol PRN Reason: Hypoglycemia Protocol Vancomycin HCl 1 gm/ Sodium (Chloride) 250 mls @ 166.667 mls/hr IVPB Q12 [facility] PRN Reason: Protocol Last Admin: 01/11/18 21:43 Dose: 166.667 mls/hr Insulin Detemir (Levemir) 30 units SC HS [facility] Last Admin: 01/11/18 22:05 Dose: 30 u Insulin Human Regular (Humulin R) 0 units SC ACHS [facility] PRN Reason: Protocol Last Admin: 01/11/18 22:05 Dose: 2 units Lactobacillus Acidophilus (Bacid Acidophilus) 1 cap PO BID [facility] Last Admin: 01/11/18 16:28 Dose: 1 cap Oxycodone HCl (Oxycodone Immediate Release Tab) 5 mg PO Q8 [facility] Last Admin: 01/12/18 00:48 Dose: 5 mg - Labs Labs: 12/29/17 06:00 01/08/18 05:50 PT 13.9 Seconds (9.8-13.1) H 12/13/17 17:38 INR 1.3 (0.9-1.2) H 12/13/17 17:38 APTT 30.2 Seconds (25.6-37.1) 12/13/17 17:38 - Constitutional Appears: Non-toxic, No Acute Distress - Head Exam Head Exam: ATRAUMATIC, NORMAL INSPECTION, NORMOCEPHALIC - Eye Exam Eye Exam: EOMI, Normal appearance, PERRL Pupil Exam: NORMAL ACCOMODATION - ENT Exam ENT Exam: Mucous Membranes Moist, Normal Exam - Neck Exam Neck Exam: Normal Inspection - Respiratory Exam Respiratory Exam: Clear to Ausculation Bilateral, NORMAL BREATHING PATTERN. absent: Rales, Rhonchi, Wheezes - Cardiovascular Exam Cardiovascular Exam: REGULAR RHYTHM, RRR, +S1, +S2. absent: JVD - GI/Abdominal Exam GI & Abdominal Exam: Soft, Normal Bowel Sounds. absent: Distended, Guarding, Tenderness, Rebound - Rectal Exam Rectal Exam: Deferred - Extremities Exam Extremities Exam: absent: Pedal Edema Additional comments: left knee flexure - Back Exam Additional comments: thoracic and lumbar area small wound with some drainage - Neurological Exam Neurological Exam: Alert, Awake, CN II-XII Intact, Oriented x3 Neuro motor strength exam: Left Upper Extremity: 5, Right Upper Extremity: 5, Left Lower Extremity: 0, Right Lower Extremity: 0 - Psychiatric Exam Psychiatric exam: Normal Affect - Skin Skin Exam: Dry, Normal Color, Warm Assessment and Plan - Assessment and Plan (Free Text) Assessment: 37 y/o male 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 Patient came in to our ED because of fever, pain and tenderness on his lower back and increased drainage from his wound. CT of L spine/T spine :3.2 x 2.9 x 3.4 cm low-attenuation collection with peripheral enhancement in the right posterior paraspinal soft tissues. Nonspecific moderate left hydroureteronephrosis. Neurosurgery was consulted and recommended IV antibiotics no surgical intervention Wound c/s : MSSA, Proteus Urine c/s : Providencia MRI of Thoracic and Lumbar Spine :Status post fusion and internal fixation at the lower thoracic and upper lumbar spine including bilateral pedicles screws and posterior longitudinal rods at L1 and L2. No evidence of spinal stenosis or neural foraminal narrowing at the lumbar spine. Endplate destruction and disc space fusion at L1-L2. Subcutaneous fluid collection to the right of the midline at the level of L2 and L2-L3 may represent seroma or abscess formation. Severe narrowing of the spinal canal at T10-T11 with possible cord compression at this level. Please correlate clinically. Partial destruction of the mid and upper T11 and adjacent T10-T11 disc. The possibility of osteomyelitis discitis also should be considered. Patient will need 6 weeks of IV antibiotics. Tolerating well. 1. Sepsis ( POA) sec to Paraspinal Soft Tissue abscess with Discitis / Osteomyelitis s/p Drainage of abscess by IR ( Staph aureus - MSSA) Acute Neurosurgery and General surgery consulted Per Neurosurgery - no surgical intervention IR Aspiration of abscess 12/18 - obtained 22 ml purulent material- sent for c/s- MSSA Wound c/s : MSSA and Proteus cont IV Vanco , and Cipro (Dr Carolina d/c Zosyn, Ceftriaxone and added Cipro ) till ESR high (however now 42 from 99) CRP high consistent with infection Procalcitonin level normal Patient would need 6 weeks of IV abx. Since patient is uninsured, he has no means to come back for daily IV abx tx. ( till Jan 24) 2. UTI (urinary tract infection) Acute urine c/s : Providencia pt received ceftriaxone and Cipro ( Cipro changed to PO) Left Hydronephrosis noted- as per patient's mother , this is chronic , pt is voiding freely, Grey in place Urology consulted - Dr Huizar - rec to just tx UTI Yeast also noted on UA - pt received PO Diflucan 3.Paraplegia Chronic hx of Cord compression from spine fracture 2007 4.Spine fracture s/p Bedolla Rods Chronic as above 5. DM type 2 (diabetes mellitus, type 2) Chronic accucheck with coverage Glucotrol 10 mg bid Levemir to 30 units q hs 6. DVT prophylaxis Acute Lovenox
[2018-01-12] MEDS: Insulin Regular 100 units/ml SC SCH ×3 (07:30→21:46)
[2018-01-12] MEDS: Lactobacillus Acidophilus 500 MU Cap PO SCH ×2 (09:58→17:37)
[2018-01-12] MEDS: Enoxaparin 40 mg Syringe SC SCH (09:58)
[2018-01-12] MEDS: Insulin Detemir 100 Units/ml Inj SC SCH (21:45)
[2018-01-13] MEDS: oxyCODONE 5 mg Immediate Release Tab PO SCH ×3 (01:32→16:23)
[2018-01-13] MEDS: Enoxaparin 40 mg Syringe SC SCH (09:12)
[2018-01-13] MEDS: Insulin Regular 100 units/ml SC SCH ×4 (09:12→21:30)
[2018-01-13] MEDS: Lactobacillus Acidophilus 500 MU Cap PO SCH ×2 (09:12→16:26)
--- NOTE | 2018-01-13 17:13 | CP.PCM.PN ---
Subjective - Date & Time of Evaluation Date of Evaluation: 01/13/18 Time of Evaluation: 09:00 - Subjective Subjective: Patient seen and examined bedside. Hemodynamically stable, afebrile Receiving IV antibiotics and tolerating well No acute issues overnight Objective - Vital Signs/Intake and Output Vital Signs (last 24 hours): Temp Pulse Resp BP Pulse Ox 97.6 F 89 20 111/71 98 01/13/18 15:43 01/13/18 15:43 01/13/18 15:43 01/13/18 15:43 01/13/18 15:43 Intake and Output: 01/13/18 01/13/18 06:59 18:59 Intake Total 755 1000 Output Total 1400 1750 Balance -645 -750 - Medications Medications: Current Medications Acetaminophen (Tylenol 325mg Tab) 650 mg PO Q6 PRN PRN Reason: Pain, Mild (1-3) Ciprofloxacin (Cipro) 500 mg PO Q12 [facility] Last Admin: 01/13/18 09:12 Dose: 500 mg Dextrose (Dextrose 50% Inj) 0 ml IV STAT PRN; Protocol PRN Reason: Hypoglycemia Protocol Dextrose (Glutose 15) 0 gm PO ONCE PRN; Protocol PRN Reason: Hypoglycemia Protocol Enoxaparin Sodium (Lovenox) 40 mg SC DAILY [facility] PRN Reason: Protocol Last Admin: 01/13/18 09:12 Dose: 40 mg Glipizide (Glucotrol) 10 mg PO BID [facility] Last Admin: 01/13/18 16:23 Dose: 10 mg Glucagon (Glucagen Diagnostic Kit) 0 mg IM STAT PRN; Protocol PRN Reason: Hypoglycemia Protocol Vancomycin HCl 1 gm/ Sodium (Chloride) 250 mls @ 166.667 mls/hr IVPB Q12 [facility] PRN Reason: Protocol Last Admin: 01/13/18 09:11 Dose: 166.667 mls/hr Insulin Detemir (Levemir) 30 units SC HS [facility] Last Admin: 01/12/18 21:45 Dose: 30 u Insulin Human Regular (Humulin R) 0 units SC ACHS [facility] PRN Reason: Protocol Last Admin: 01/13/18 16:24 Dose: 2 units Lactobacillus Acidophilus (Bacid Acidophilus) 1 cap PO BID [facility] Last Admin: 01/13/18 16:26 Dose: 1 cap Oxycodone HCl (Oxycodone Immediate Release Tab) 5 mg PO Q8 [facility] Last Admin: 01/13/18 16:23 Dose: 5 mg - Labs Labs: 12/29/17 06:00 01/08/18 05:50 PT 13.9 Seconds (9.8-13.1) H 12/13/17 17:38 INR 1.3 (0.9-1.2) H 12/13/17 17:38 APTT 30.2 Seconds (25.6-37.1) 12/13/17 17:38 - Constitutional Appears: Non-toxic, No Acute Distress - Head Exam Head Exam: ATRAUMATIC, NORMAL INSPECTION, NORMOCEPHALIC - Eye Exam Eye Exam: EOMI, Normal appearance, PERRL Pupil Exam: NORMAL ACCOMODATION - ENT Exam ENT Exam: Mucous Membranes Moist, Normal Exam - Neck Exam Neck Exam: Full ROM, Normal Inspection - Respiratory Exam Respiratory Exam: Clear to Ausculation Bilateral, NORMAL BREATHING PATTERN. absent: Rales, Rhonchi, Wheezes - Cardiovascular Exam Cardiovascular Exam: REGULAR RHYTHM, RRR, +S1, +S2. absent: JVD - GI/Abdominal Exam GI & Abdominal Exam: Soft, Normal Bowel Sounds. absent: Distended, Guarding, Tenderness, Rebound - Rectal Exam Rectal Exam: Deferred - Extremities Exam Extremities Exam: Normal Capillary Refill. absent: Calf Tenderness, Joint Swelling, Pedal Edema Additional comments: left knee contracture deformity - Back Exam Additional comments: thoracic and lumbar area, midline , small wound with drainage - Neurological Exam Neurological Exam: Alert, Awake, CN II-XII Intact, Oriented x3 Neuro motor strength exam: Left Upper Extremity: 5, Right Upper Extremity: 5, Left Lower Extremity: 0, Right Lower Extremity: 0 - Psychiatric Exam Psychiatric exam: Normal Affect - Skin Skin Exam: Dry, Warm Assessment and Plan - Assessment and Plan (Free Text) Assessment: 37 y/o male 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 Patient came in to our ED because of fever, pain and tenderness on his lower back and increased drainage from his wound. CT of L spine/T spine :3.2 x 2.9 x 3.4 cm low-attenuation collection with peripheral enhancement in the right posterior paraspinal soft tissues. Nonspecific moderate left hydroureteronephrosis. Neurosurgery was consulted and recommended IV antibiotics no surgical intervention Wound c/s : MSSA, Proteus Urine c/s : Providencia MRI of Thoracic and Lumbar Spine :Status post fusion and internal fixation at the lower thoracic and upper lumbar spine including bilateral pedicles screws and posterior longitudinal rods at L1 and L2. No evidence of spinal stenosis or neural foraminal narrowing at the lumbar spine. Endplate destruction and disc space fusion at L1-L2. Subcutaneous fluid collection to the right of the midline at the level of L2 and L2-L3 may represent seroma or abscess formation. Severe narrowing of the spinal canal at T10-T11 with possible cord compression at this level. Please correlate clinically. Partial destruction of the mid and upper T11 and adjacent T10-T11 disc. The possibility of osteomyelitis discitis also should be considered. Patient will need 6 weeks of IV antibiotics. Tolerating well. 1. Sepsis ( POA) sec to Paraspinal Soft Tissue abscess with Discitis / Osteomyelitis s/p Drainage of abscess by IR ( Staph aureus - MSSA) Acute Neurosurgery and General surgery consulted Per Neurosurgery - no surgical intervention IR Aspiration of abscess 12/18 - obtained 22 ml purulent material- sent for c/s- MSSA Wound c/s : MSSA and Proteus cont IV Vanco , and Cipro (Dr Carolina d/c Zosyn, Ceftriaxone and added Cipro ) till ESR high (however now 42 from 99) CRP high consistent with infection Procalcitonin level normal Patient would need 6 weeks of IV abx. Since patient is uninsured, he has no means to come back for daily IV abx tx. ( till Jan 24) 2. UTI (urinary tract infection) Acute urine c/s : Providencia pt received ceftriaxone and Cipro ( Cipro changed to PO) Left Hydronephrosis noted- as per patient's mother , this is chronic , pt is voiding freely, Grey in place Urology consulted - Dr Huizar - rec to just tx UTI Yeast also noted on UA - pt received PO Diflucan 3.Paraplegia Chronic hx of Cord compression from spine fracture 2007 4.Spine fracture s/p Bedolla Rods Chronic as above 5. DM type 2 (diabetes mellitus, type 2) Chronic accucheck with coverage Glucotrol 10 mg bid Levemir to 30 units q hs 6. DVT prophylaxis Acute Lovenox
[2018-01-13] MEDS: Insulin Detemir 100 Units/ml Inj SC SCH (21:25)
[2018-01-14] MEDS: oxyCODONE 5 mg Immediate Release Tab PO SCH ×2 (02:14→12:20)
[2018-01-14] MEDS: Insulin Regular 100 units/ml SC SCH ×5 (08:25→21:47)
[2018-01-14] MEDS: Lactobacillus Acidophilus 500 MU Cap PO SCH ×2 (12:13→20:42)
[2018-01-14] MEDS: Enoxaparin 40 mg Syringe SC SCH (12:18)
--- NOTE | 2018-01-14 14:55 | CP.PCM.PN ---
Subjective - Date & Time of Evaluation Date of Evaluation: 01/14/18 Time of Evaluation: 12:00 - Subjective Subjective: Patient seen and examined at bedside. HD stable, afebrile Tolerating abx well No acute vents overnight Objective - Vital Signs/Intake and Output Vital Signs (last 24 hours): Temp Pulse Resp BP Pulse Ox 97.7 F 100 H 19 123/80 99 01/14/18 07:54 01/14/18 07:54 01/14/18 07:54 01/14/18 07:54 01/14/18 07:54 Intake and Output: 01/14/18 01/14/18 06:59 18:59 Output Total 1999 Balance -1999 - Medications Medications: Current Medications Acetaminophen (Tylenol 325mg Tab) 650 mg PO Q6 PRN PRN Reason: Pain, Mild (1-3) Ciprofloxacin (Cipro) 500 mg PO Q12 [facility] Last Admin: 01/14/18 12:20 Dose: 500 mg Dextrose (Dextrose 50% Inj) 0 ml IV STAT PRN; Protocol PRN Reason: Hypoglycemia Protocol Dextrose (Glutose 15) 0 gm PO ONCE PRN; Protocol PRN Reason: Hypoglycemia Protocol Enoxaparin Sodium (Lovenox) 40 mg SC DAILY [facility] PRN Reason: Protocol Last Admin: 01/14/18 12:18 Dose: 40 mg Glipizide (Glucotrol) 10 mg PO BID [facility] Last Admin: 01/14/18 12:18 Dose: 10 mg Glucagon (Glucagen Diagnostic Kit) 0 mg IM STAT PRN; Protocol PRN Reason: Hypoglycemia Protocol Vancomycin HCl 1 gm/ Sodium (Chloride) 250 mls @ 166.667 mls/hr IVPB Q12 [facility] PRN Reason: Protocol Last Admin: 01/14/18 12:21 Dose: 166.667 mls/hr Insulin Detemir (Levemir) 30 units SC HS [facility] Last Admin: 01/13/18 21:25 Dose: 30 u Insulin Human Regular (Humulin R) 0 units SC ACHS [facility] PRN Reason: Protocol Last Admin: 01/14/18 12:27 Dose: 4 units Lactobacillus Acidophilus (Bacid Acidophilus) 1 cap PO BID [facility] Last Admin: 01/14/18 12:13 Dose: 1 cap - Labs Labs: 12/29/17 06:00 01/08/18 05:50 PT 13.9 Seconds (9.8-13.1) H 12/13/17 17:38 INR 1.3 (0.9-1.2) H 18 17:38 APTT 30.2 Seconds (25.6-37.1) 12/13/17 17:38 - Additional Findings Additional findings: Physical exam: Constitutional- cooperative, awake, alert Head- NCAT, PERRL Eye- PERRL, EOMI ENT- normal exam, MMM. Neck- normal inspection, supple, no JVD Respiratory- CTAB, no wheezes rales rhonchi Cardiovascular- RRR, +S1, +S2 no MRG GI/Abdominal- normal bowel sounds, soft, no mass, no hsm Skin- warm, dry +thoracolumbar area with small wound w/ drainage Extremities Exam- normal capillary refill, normal inspection Neurological Exam- alert, awake, oriented Psych- normal mood, normal affect Assessment and Plan - Assessment and Plan (Free Text) Plan: - Assessment and Plan (Free Text) Assessment: 37 y/o male 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 Patient came in to our ED because of fever, pain and tenderness on his lower back and increased drainage from his wound. CT of L spine/T spine :3.2 x 2.9 x 3.4 cm low-attenuation collection with peripheral enhancement in the right posterior paraspinal soft tissues. Nonspecific moderate left hydroureteronephrosis. Neurosurgery was consulted and recommended IV antibiotics no surgical intervention Wound c/s : MSSA, Proteus Urine c/s : Providencia MRI of Thoracic and Lumbar Spine :Status post fusion and internal fixation at the lower thoracic and upper lumbar spine including bilateral pedicles screws and posterior longitudinal rods at L1 and L2. No evidence of spinal stenosis or neural foraminal narrowing at the lumbar spine. Endplate destruction and disc space fusion at L1-L2. Subcutaneous fluid collection to the right of the midline at the level of L2 and L2-L3 may represent seroma or abscess formation. Severe narrowing of the spinal canal at T10-T11 with possible cord compression at this level. Please correlate clinically. Partial destruction of the mid and upper T11 and adjacent T10-T11 disc. The possibility of osteomyelitis discitis also should be considered. Patient will need 6 weeks of IV antibiotics. Tolerating well. 1. Sepsis ( POA) sec to Paraspinal Soft Tissue abscess with Discitis / Osteomyelitis s/p Drainage of abscess by IR ( Staph aureus - MSSA) Acute Neurosurgery and General surgery consulted Per Neurosurgery - no surgical intervention IR Aspiration of abscess 12/18 - obtained 22 ml purulent material- sent for c/s- MSSA Wound c/s : MSSA and Proteus cont IV Vanco , and Cipro (Dr Carolina d/c Zosykenzie, Ceftriaxone and added Cipro ) till ESR high (however now 42 from 99) CRP high consistent with infection Procalcitonin level normal Patient would need 6 weeks of IV abx. Since patient is uninsured, he has no means to come back for daily IV abx tx. ( till Jan 24) 2. UTI (urinary tract infection) Acute urine c/s : Providencia pt received ceftriaxone and Cipro ( Cipro changed to PO) Left Hydronephrosis noted- as per patient's mother , this is chronic , pt is voiding freely, Grey in place Urology consulted - Dr Huizar - rec to just tx UTI Yeast also noted on UA - pt received PO Diflucan 3.Paraplegia Chronic hx of Cord compression from spine fracture 2007 4.Spine fracture s/p Bedolla Rods Chronic as above 5. DM type 2 (diabetes mellitus, type 2) Chronic accucheck with coverage Glucotrol 10 mg bid Levemir to 30 units q hs 6. DVT prophylaxis Acute Lovenox
[2018-01-14] MEDS: Insulin Detemir 100 Units/ml Inj SC SCH (21:47)
[2018-01-15] MEDS: Lactobacillus Acidophilus 500 MU Cap PO SCH ×2 (08:39→17:03)
[2018-01-15] MEDS: Enoxaparin 40 mg Syringe SC SCH (08:41)
[2018-01-15] MEDS: Insulin Regular 100 units/ml SC SCH ×5 (08:46→22:22)
--- NOTE | 2018-01-15 09:47 | CP.PCM.PN ---
Subjective - Date & Time of Evaluation Date of Evaluation: 01/15/18 Time of Evaluation: 09:47 - Subjective Subjective: doing well no complaints hd stable nad Objective - Vital Signs/Intake and Output Vital Signs (last 24 hours): Temp Pulse Resp BP Pulse Ox 97.4 F L 86 18 100/68 99 01/15/18 08:14 01/15/18 08:14 01/15/18 08:14 01/15/18 08:14 01/15/18 08:14 Intake and Output: 01/15/18 01/15/18 06:59 18:59 Output Total 1000 Balance -1000 - Medications Medications: Current Medications Acetaminophen (Tylenol 325mg Tab) 650 mg PO Q6 PRN PRN Reason: Pain, Mild (1-3) Ciprofloxacin (Cipro) 500 mg PO Q12 [facility] Last Admin: 01/15/18 08:41 Dose: 500 mg Dextrose (Dextrose 50% Inj) 0 ml IV STAT PRN; Protocol PRN Reason: Hypoglycemia Protocol Dextrose (Glutose 15) 0 gm PO ONCE PRN; Protocol PRN Reason: Hypoglycemia Protocol Enoxaparin Sodium (Lovenox) 40 mg SC DAILY [facility] PRN Reason: Protocol Last Admin: 01/15/18 08:41 Dose: 40 mg Glipizide (Glucotrol) 10 mg PO BID [facility] Last Admin: 01/15/18 08:41 Dose: 10 mg Glucagon (Glucagen Diagnostic Kit) 0 mg IM STAT PRN; Protocol PRN Reason: Hypoglycemia Protocol Vancomycin HCl 1 gm/ Sodium (Chloride) 250 mls @ 166.667 mls/hr IVPB Q12 [facility] PRN Reason: Protocol Last Admin: 01/15/18 08:42 Dose: 166.667 mls/hr Insulin Detemir (Levemir) 30 units SC HS [facility] Last Admin: 01/14/18 21:47 Dose: Not Given Insulin Human Regular (Humulin R) 0 units SC ACHS [facility] PRN Reason: Protocol Last Admin: 01/15/18 08:46 Dose: 2 units Lactobacillus Acidophilus (Bacid Acidophilus) 1 cap PO BID [facility] Last Admin: 01/15/18 08:39 Dose: 1 cap - Labs Labs: 12/29/17 06:00 01/08/18 05:50 PT 13.9 Seconds (9.8-13.1) H 12/13/17 17:38 INR 1.3 (0.9-1.2) H 12/13/17 17:38 APTT 30.2 Seconds (25.6-37.1) 12/13/17 17:38 - Constitutional Appears: Non-toxic, No Acute Distress - Head Exam Head Exam: ATRAUMATIC, NORMOCEPHALIC - Eye Exam Eye Exam: EOMI, Normal appearance - ENT Exam ENT Exam: Mucous Membranes Moist, Normal Oropharynx - Respiratory Exam Respiratory Exam: Clear to Ausculation Bilateral, NORMAL BREATHING PATTERN - Cardiovascular Exam Cardiovascular Exam: RRR, +S1, +S2 - GI/Abdominal Exam GI & Abdominal Exam: Soft, Normal Bowel Sounds. absent: Organomegaly - Extremities Exam Extremities Exam: Normal Capillary Refill, Normal Inspection - Neurological Exam Neurological Exam: Alert, Awake - Psychiatric Exam Psychiatric exam: Normal Affect, Normal Mood - Skin Skin Exam: Dry, Warm Assessment and Plan - Assessment and Plan (Free Text) Plan: 7 y/o male 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 Patient came in to our ED because of fever, pain and tenderness on his lower back and increased drainage from his wound. CT of L spine/T spine :3.2 x 2.9 x 3.4 cm low-attenuation collection with peripheral enhancement in the right posterior paraspinal soft tissues. Nonspecific moderate left hydroureteronephrosis. Neurosurgery was consulted and recommended IV antibiotics no surgical intervention Wound c/s : MSSA, Proteus Urine c/s : Providencia MRI of Thoracic and Lumbar Spine :Status post fusion and internal fixation at the lower thoracic and upper lumbar spine including bilateral pedicles screws and posterior longitudinal rods at L1 and L2. No evidence of spinal stenosis or neural foraminal narrowing at the lumbar spine. Endplate destruction and disc space fusion at L1-L2. Subcutaneous fluid collection to the right of the midline at the level of L2 and L2-L3 may represent seroma or abscess formation. Severe narrowing of the spinal canal at T10-T11 with possible cord compression at this level. Please correlate clinically. Partial destruction of the mid and upper T11 and adjacent T10-T11 disc. The possibility of osteomyelitis discitis also should be considered. Patient will need 6 weeks of IV antibiotics until Jan 24. No changes. Tolerating well. 1. Sepsis ( POA) sec to Paraspinal Soft Tissue abscess with Discitis / Osteomyelitis s/p Drainage of abscess by IR ( Staph aureus - MSSA) Acute Neurosurgery and General surgery consulted Per Neurosurgery - no surgical intervention IR Aspiration of abscess 12/18 - obtained 22 ml purulent material- sent for c/s- MSSA Wound c/s : MSSA and Proteus cont IV Vanco , and Cipro (Dr Carolina d/c Zosykenzie, Ceftriaxone and added Cipro ) till ESR high (however now 42 from 99) CRP high consistent with infection Procalcitonin level normal Patient would need 6 weeks of IV abx. Since patient is uninsured, he has no means to come back for daily IV abx tx. ( till Jan 24) 2. UTI (urinary tract infection) Acute urine c/s : Providencia pt received ceftriaxone and Cipro ( Cipro changed to PO) Left Hydronephrosis noted- as per patient's mother , this is chronic , pt is voiding freely, Grey in place Urology consulted - Dr Huizar - rec to just tx UTI Yeast also noted on UA - pt received PO Diflucan 3.Paraplegia Chronic hx of Cord compression from spine fracture 2007 4.Spine fracture s/p Bedolla Rods Chronic as above 5. DM type 2 (diabetes mellitus, type 2) Chronic accucheck with coverage Glucotrol 10 mg bid Levemir to 30 units q hs 6. DVT prophylaxis Acute Lovenox
[2018-01-15] MEDS: Insulin Detemir 100 Units/ml Inj SC SCH (22:22)
[2018-01-16] MEDS: Enoxaparin 40 mg Syringe SC SCH (08:50)
[2018-01-16] MEDS: Lactobacillus Acidophilus 500 MU Cap PO SCH ×2 (08:51→17:01)
[2018-01-16] MEDS: Insulin Regular 100 units/ml SC SCH ×3 (08:51→17:01)
--- NOTE | 2018-01-16 13:45 | CP.PCM.PN ---
<Thea Garcia - Last Filed: 01/16/18 18:47> Subjective - Date & Time of Evaluation Date of Evaluation: 01/16/18 Time of Evaluation: 11:30 - Subjective Subjective: Patient seen and examined bedside. No acute overnight events. Patient lying comfortably. No complaints offered. Feeling OK. On IV abx until Jan 24. Objective - Vital Signs/Intake and Output Vital Signs (last 24 hours): Temp Pulse Resp BP Pulse Ox 97.7 F 76 20 112/77 99 01/16/18 07:45 01/16/18 07:45 01/16/18 07:45 01/16/18 07:45 01/16/18 07:45 Intake and Output: 01/16/18 01/16/18 06:59 18:59 Intake Total 250 Output Total 1500 Balance -1250 - Medications Medications: Current Medications Acetaminophen (Tylenol 325mg Tab) 650 mg PO Q6 PRN PRN Reason: Pain, Mild (1-3) Dextrose (Dextrose 50% Inj) 0 ml IV STAT PRN; Protocol PRN Reason: Hypoglycemia Protocol Dextrose (Glutose 15) 0 gm PO ONCE PRN; Protocol PRN Reason: Hypoglycemia Protocol Enoxaparin Sodium (Lovenox) 40 mg SC DAILY ADAM PRN Reason: Protocol Last Admin: 01/16/18 08:50 Dose: 40 mg Glucagon (Glucagen Diagnostic Kit) 0 mg IM STAT PRN; Protocol PRN Reason: Hypoglycemia Protocol Vancomycin HCl 1 gm/ Sodium (Chloride) 250 mls @ 166.667 mls/hr IVPB Q12 ADAM PRN Reason: Protocol Last Admin: 01/16/18 08:50 Dose: 166.667 mls/hr Insulin Detemir (Levemir) 30 units SC HS ADAM Last Admin: 01/15/18 22:22 Dose: 30 u Insulin Human Regular (Humulin R) 0 units SC ACHS ADAM PRN Reason: Protocol Last Admin: 01/16/18 11:49 Dose: 6 units Lactobacillus Acidophilus (Bacid Acidophilus) 1 cap PO BID ADAM Last Admin: 01/16/18 08:51 Dose: 1 cap - Labs Labs: 12/29/17 06:00 01/08/18 05:50 PT 13.9 Seconds (9.8-13.1) H 12/13/17 17:38 INR 1.3 (0.9-1.2) H 12/13/17 17:38 APTT 30.2 Seconds (25.6-37.1) 12/13/17 17:38 - Constitutional Appears: Non-toxic, No Acute Distress - Head Exam Head Exam: ATRAUMATIC, NORMAL INSPECTION, NORMOCEPHALIC - Eye Exam Pupil Exam: NORMAL ACCOMODATION - Respiratory Exam Respiratory Exam: NORMAL BREATHING PATTERN - Cardiovascular Exam Cardiovascular Exam: REGULAR RHYTHM, +S1, +S2. absent: Murmur - GI/Abdominal Exam GI & Abdominal Exam: Soft, Normal Bowel Sounds. absent: Tenderness - Neurological Exam Neurological Exam: Alert, Awake Assessment and Plan - Assessment and Plan (Free Text) Assessment: 37 y/o male 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 Patient came in to our ED because of fever, pain and tenderness on his lower back and increased drainage from his wound. CT of L spine/T spine :3.2 x 2.9 x 3.4 cm low-attenuation collection with peripheral enhancement in the right posterior paraspinal soft tissues. Nonspecific moderate left hydroureteronephrosis. Neurosurgery was consulted and recommended IV antibiotics no surgical intervention Wound c/s : MSSA, Proteus Urine c/s : Providencia MRI of Thoracic and Lumbar Spine :Status post fusion and internal fixation at the lower thoracic and upper lumbar spine including bilateral pedicles screws and posterior longitudinal rods at L1 and L2. No evidence of spinal stenosis or neural foraminal narrowing at the lumbar spine. Endplate destruction and disc space fusion at L1-L2. Subcutaneous fluid collection to the right of the midline at the level of L2 and L2-L3 may represent seroma or abscess formation. Severe narrowing of the spinal canal at T10-T11 with possible cord compression at this level. Please correlate clinically. Partial destruction of the mid and upper T11 and adjacent T10-T11 disc. The possibility of osteomyelitis discitis also should be considered. Patient will need 6 weeks of IV antibiotics until Jan 7. No changes. Tolerating well. 1. Sepsis ( POA) sec to Paraspinal Soft Tissue abscess with Discitis / Osteomyelitis s/p Drainage of abscess by IR ( Staph aureus - MSSA) Acute Neurosurgery and General surgery consulted Per Neurosurgery - no surgical intervention IR Aspiration of abscess 12/18 - obtained 22 ml purulent material- sent for c/s- MSSA Wound c/s : MSSA and Proteus cont IV Vanco , and Cipro (Dr Carolina d/c Zosyn, Ceftriaxone and added Cipro ) till ESR high (however now 42 from 99) CRP high consistent with infection Procalcitonin level normal Patient would need 6 weeks of IV abx. Since patient is uninsured, he has no means to come back for daily IV abx tx. ( till Jan 24) 2. UTI (urinary tract infection) Acute urine c/s : Providencia pt received ceftriaxone and Cipro ( Cipro changed to PO) Left Hydronephrosis noted- as per patient's mother , this is chronic , pt is voiding freely, Grey in place Urology consulted - Dr Huizar - rec to just tx UTI Yeast also noted on UA - pt received PO Diflucan 3.Paraplegia Chronic hx of Cord compression from spine fracture 2007 4.Spine fracture s/p Bedolla Rods Chronic as above 5. DM type 2 (diabetes mellitus, type 2) Chronic accucheck with coverage Glucotrol 10 mg bid Levemir to 30 units q hs 6. DVT prophylaxis Acute Lovenox <Adwoa Lin - Last Filed: 01/17/18 07:07> Objective - Vital Signs/Intake and Output Vital Signs (last 24 hours): Temp Pulse Resp BP Pulse Ox 98.5 F 92 H 20 117/75 97 01/17/18 01:00 01/17/18 01:00 01/17/18 01:00 01/17/18 01:00 01/17/18 01:00 - Medications Medications: Current Medications Acetaminophen (Tylenol 325mg Tab) 650 mg PO Q6 PRN PRN Reason: Pain, Mild (1-3) Ciprofloxacin (Cipro) 500 mg PO Q12 ADAM PRN Reason: Protocol Last Admin: 01/16/18 21:45 Dose: 500 mg Dextrose (Dextrose 50% Inj) 0 ml IV STAT PRN; Protocol PRN Reason: Hypoglycemia Protocol Dextrose (Glutose 15) 0 gm PO ONCE PRN; Protocol PRN Reason: Hypoglycemia Protocol Enoxaparin Sodium (Lovenox) 40 mg SC DAILY ADAM PRN Reason: Protocol Last Admin: 01/16/18 08:50 Dose: 40 mg Glucagon (Glucagen Diagnostic Kit) 0 mg IM STAT PRN; Protocol PRN Reason: Hypoglycemia Protocol Vancomycin HCl 1 gm/ Sodium (Chloride) 250 mls @ 166.667 mls/hr IVPB Q12 ADAM PRN Reason: Protocol Last Admin: 01/16/18 20:25 Dose: 166.667 mls/hr Insulin Detemir (Levemir) 30 units SC HS ADAM Last Admin: 01/16/18 22:10 Dose: 30 u Insulin Human Regular (Humulin R) 0 units SC ACHS ADAM PRN Reason: Protocol Last Admin: 01/17/18 05:29 Dose: Not Given Lactobacillus Acidophilus (Bacid Acidophilus) 1 cap PO BID [facility] Last Admin: 01/16/18 17:01 Dose: 1 cap - Labs Labs: 12/29/17 06:00 01/08/18 05:50 PT 13.9 Seconds (9.8-13.1) H 12/13/17 17:38 INR 1.3 (0.9-1.2) H 12/13/17 17:38 APTT 30.2 Seconds (25.6-37.1) 12/13/17 17:38 Attending/Attestation - Attestation I have personally seen and examined this patient.: Yes I have fully participated in the care of the patient.: Yes I have reviewed all pertinent clinical information, including history, physical exam and plan: Yes Notes (Text): 01/17/18 07:06 Seen examined and discussed with resident Dr. Garcia, agree with findings and plan as above
[2018-01-16] MEDS: Insulin Detemir 100 Units/ml Inj SC SCH (22:10)
[2018-01-17] MEDS: Insulin Regular 100 units/ml SC SCH ×5 (05:29→21:22)
[2018-01-17] MEDS: Enoxaparin 40 mg Syringe SC SCH (08:42)
[2018-01-17] MEDS: Lactobacillus Acidophilus 500 MU Cap PO SCH ×2 (08:53→16:49)
[2018-01-17] MEDS ORDERED: oxyCODONE 5 mg Immediate Release Tab PO SCH (09:00)
[2018-01-17] MEDS: oxyCODONE 5 mg Immediate Release Tab PO SCH ×2 (15:53→21:22)
--- NOTE | 2018-01-17 18:07 | CP.PCM.PN ---
Subjective - Date & Time of Evaluation Date of Evaluation: 01/17/18 Time of Evaluation: 18:06 - Subjective Subjective: no complaints hd stable nad Objective - Vital Signs/Intake and Output Vital Signs (last 24 hours): Temp Pulse Resp BP Pulse Ox 97.9 F 18 L 97 H 126/81 99 01/17/18 16:12 01/17/18 16:12 01/17/18 16:12 01/17/18 16:12 01/17/18 07:48 - Medications Medications: Current Medications Acetaminophen (Tylenol 325mg Tab) 650 mg PO Q6 PRN PRN Reason: Pain, Mild (1-3) Ciprofloxacin (Cipro) 500 mg PO Q12 ADAM PRN Reason: Protocol Last Admin: 01/17/18 08:45 Dose: 500 mg Dextrose (Dextrose 50% Inj) 0 ml IV STAT PRN; Protocol PRN Reason: Hypoglycemia Protocol Dextrose (Glutose 15) 0 gm PO ONCE PRN; Protocol PRN Reason: Hypoglycemia Protocol Enoxaparin Sodium (Lovenox) 40 mg SC DAILY ADAM PRN Reason: Protocol Last Admin: 01/17/18 08:42 Dose: 40 mg Glipizide (Glucotrol) 10 mg PO BIDAC [facility] Last Admin: 01/17/18 15:54 Dose: 10 mg Glucagon (Glucagen Diagnostic Kit) 0 mg IM STAT PRN; Protocol PRN Reason: Hypoglycemia Protocol Vancomycin HCl 1 gm/ Sodium (Chloride) 250 mls @ 166.667 mls/hr IVPB Q12 ADAM PRN Reason: Protocol Last Admin: 01/17/18 08:42 Dose: 166.667 mls/hr Insulin Detemir (Levemir) 30 units SC HS [facility] Last Admin: 01/16/18 22:10 Dose: 30 u Insulin Human Regular (Humulin R) 0 units SC ACHS ADAM PRN Reason: Protocol Last Admin: 01/17/18 16:49 Dose: Not Given Lactobacillus Acidophilus (Bacid Acidophilus) 1 cap PO BID [facility] Last Admin: 01/17/18 16:49 Dose: 1 cap Oxycodone HCl (Oxycodone Immediate Release Tab) 5 mg PO Q8@0500,1300,2100 [facility] Last Admin: 01/17/18 15:53 Dose: Not Given - Labs Labs: 12/29/17 06:00 08/22/18 05:50 PT 13.9 Seconds (9.8-13.1) H 12/13/17 17:38 INR 1.3 (0.9-1.2) H 12/13/17 17:38 APTT 30.2 Seconds (25.6-37.1) 12/13/17 17:38 - Constitutional Appears: Non-toxic, No Acute Distress - Head Exam Head Exam: ATRAUMATIC, NORMOCEPHALIC - Eye Exam Eye Exam: EOMI, Normal appearance - ENT Exam ENT Exam: Mucous Membranes Moist, Normal Oropharynx - Respiratory Exam Respiratory Exam: Clear to Ausculation Bilateral, NORMAL BREATHING PATTERN - Cardiovascular Exam Cardiovascular Exam: RRR, +S1, +S2 - GI/Abdominal Exam GI & Abdominal Exam: Soft, Normal Bowel Sounds - Extremities Exam Extremities Exam: Normal Capillary Refill. absent: Pedal Edema - Back Exam Back Exam: absent: CVA tenderness (L), CVA tenderness (R) - Neurological Exam Neurological Exam: Alert, Awake - Psychiatric Exam Psychiatric exam: Normal Affect, Normal Mood - Skin Skin Exam: Dry, Warm Assessment and Plan - Assessment and Plan (Free Text) Plan: 37 y/o male 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 Patient came in to our ED because of fever, pain and tenderness on his lower back and increased drainage from his wound. CT of L spine/T spine :3.2 x 2.9 x 3.4 cm low-attenuation collection with peripheral enhancement in the right posterior paraspinal soft tissues. Nonspecific moderate left hydroureteronephrosis. Neurosurgery was consulted and recommended IV antibiotics no surgical intervention Wound c/s : MSSA, Proteus Urine c/s : Providencia MRI of Thoracic and Lumbar Spine :Status post fusion and internal fixation at the lower thoracic and upper lumbar spine including bilateral pedicles screws and posterior longitudinal rods at L1 and L2. No evidence of spinal stenosis or neural foraminal narrowing at the lumbar spine. Endplate destruction and disc space fusion at L1-L2. Subcutaneous fluid collection to the right of the midline at the level of L2 and L2-L3 may represent seroma or abscess formation. Severe narrowing of the spinal canal at T10-T11 with possible cord compression at this level. Please correlate clinically. Partial destruction of the mid and upper T11 and adjacent T10-T11 disc. The possibility of osteomyelitis discitis also should be considered. Patient will need 6 weeks of IV antibiotics until Jan 24. No changes. Tolerating well. 1. Sepsis ( POA) sec to Paraspinal Soft Tissue abscess with Discitis / Osteomyelitis s/p Drainage of abscess by IR ( Staph aureus - MSSA) Acute Neurosurgery and General surgery consulted Per Neurosurgery - no surgical intervention IR Aspiration of abscess 12/18 - obtained 22 ml purulent material- sent for c/s- MSSA Wound c/s : MSSA and Proteus cont IV Vanco , and Cipro (Dr Carolina d/c Milenasykenzie, Ceftriaxone and added Cipro ) till ESR high (however now 42 from 99) CRP high consistent with infection Procalcitonin level normal Patient would need 6 weeks of IV abx. Since patient is uninsured, he has no means to come back for daily IV abx tx. ( till Jan 24) 2. UTI (urinary tract infection) Acute urine c/s : Providencia pt received ceftriaxone and Cipro ( Cipro changed to PO) Left Hydronephrosis noted- as per patient's mother , this is chronic , pt is voiding freely, Grey in place Urology consulted - Dr Huizar - rec to just tx UTI Yeast also noted on UA - pt received PO Diflucan 3.Paraplegia Chronic hx of Cord compression from spine fracture 2007 4.Spine fracture s/p Bedolla Rods Chronic as above 5. DM type 2 (diabetes mellitus, type 2) Chronic accucheck with coverage Glucotrol 10 mg bid Levemir to 30 units q hs 6. DVT prophylaxis Acute Lovenox
[2018-01-17] MEDS: Insulin Detemir 100 Units/ml Inj SC SCH (21:21)
[2018-01-18] MEDS: oxyCODONE 5 mg Immediate Release Tab PO SCH ×3 (05:15→22:00)
--- NOTE | 2018-01-18 07:12 | CP.PCM.PN ---
Subjective - Date & Time of Evaluation Date of Evaluation: 01/18/18 Time of Evaluation: 07:11 - Subjective Subjective: no complaints no changes hd stabl nad Objective - Vital Signs/Intake and Output Vital Signs (last 24 hours): Temp Pulse Resp BP Pulse Ox 97.8 F 86 20 112/75 99 01/17/18 23:47 01/17/18 23:47 01/17/18 23:47 01/17/18 23:47 01/17/18 23:47 Vitals Reviewed GEN: WDWN, alert, cooperative HEENT: NCAT, PERRL, EOMI HEART: RRR, +S1S2, NO MRG LUNG: CTAB, NO WRR ABD: soft, NT, ND, No HSM, No masses EXT: normal pedal pulses NEURO: awake, alert SKIN: warm, dry PSYCH: normal mood, normal affect Intake and Output: 01/18/18 01/18/18 06:59 18:59 Intake Total 755 Output Total 2200 Balance -1445 - Medications Medications: Current Medications Acetaminophen (Tylenol 325mg Tab) 650 mg PO Q6 PRN PRN Reason: Pain, Mild (1-3) Ciprofloxacin (Cipro) 500 mg PO Q12 ADAM PRN Reason: Protocol Last Admin: 01/17/18 21:20 Dose: 500 mg Dextrose (Dextrose 50% Inj) 0 ml IV STAT PRN; Protocol PRN Reason: Hypoglycemia Protocol Dextrose (Glutose 15) 0 gm PO ONCE PRN; Protocol PRN Reason: Hypoglycemia Protocol Enoxaparin Sodium (Lovenox) 40 mg SC DAILY ADAM PRN Reason: Protocol Last Admin: 01/17/18 08:42 Dose: 40 mg Glipizide (Glucotrol) 10 mg PO BIDAC [facility] Last Admin: 01/17/18 15:54 Dose: 10 mg Glucagon (Glucagen Diagnostic Kit) 0 mg IM STAT PRN; Protocol PRN Reason: Hypoglycemia Protocol Vancomycin HCl 1 gm/ Sodium (Chloride) 250 mls @ 166.667 mls/hr IVPB Q12 ADAM PRN Reason: Protocol Last Admin: 01/17/18 21:21 Dose: 166.667 mls/hr Insulin Detemir (Levemir) 30 units SC HS [facility] Last Admin: 01/17/18 21:21 Dose: 30 u Insulin Human Regular (Humulin R) 0 units SC ACHS ADAM PRN Reason: Protocol Last Admin: 01/17/18 21:22 Dose: Not Given Lactobacillus Acidophilus (Bacid Acidophilus) 1 cap PO BID [facility] Last Admin: 01/17/18 16:49 Dose: 1 cap Oxycodone HCl (Oxycodone Immediate Release Tab) 5 mg PO Q8@0500,1300,2100 [facility] Last Admin: 01/18/18 05:15 Dose: 5 mg - Labs Labs: 12/29/17 06:00 01/08/18 05:50 PT 13.9 Seconds (9.8-13.1) H 12/13/17 17:38 INR 1.3 (0.9-1.2) H 12/13/17 17:38 APTT 30.2 Seconds (25.6-37.1) 12/13/17 17:38 Assessment and Plan - Assessment and Plan (Free Text) Plan: 37 y/o male 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 Patient came in to our ED because of fever, pain and tenderness on his lower back and increased drainage from his wound. CT of L spine/T spine :3.2 x 2.9 x 3.4 cm low-attenuation collection with peripheral enhancement in the right posterior paraspinal soft tissues. Nonspecific moderate left hydroureteronephrosis. Neurosurgery was consulted and recommended IV antibiotics no surgical intervention Wound c/s : MSSA, Proteus Urine c/s : Providencia MRI of Thoracic and Lumbar Spine :Status post fusion and internal fixation at the lower thoracic and upper lumbar spine including bilateral pedicles screws and posterior longitudinal rods at L1 and L2. No evidence of spinal stenosis or neural foraminal narrowing at the lumbar spine. Endplate destruction and disc space fusion at L1-L2. Subcutaneous fluid collection to the right of the midline at the level of L2 and L2-L3 may represent seroma or abscess formation. Severe narrowing of the spinal canal at T10-T11 with possible cord compression at this level. Please correlate clinically. Partial destruction of the mid and upper T11 and adjacent T10-T11 disc. The possibility of osteomyelitis discitis also should be considered. Patient will need 6 weeks of IV antibiotics until Jan 24. No changes. Tolerating well. 1. Sepsis ( POA) sec to Paraspinal Soft Tissue abscess with Discitis / Osteomyelitis s/p Drainage of abscess by IR ( Staph aureus - MSSA) Acute Neurosurgery and General surgery consulted Per Neurosurgery - no surgical intervention IR Aspiration of abscess 12/18 - obtained 22 ml purulent material- sent for c/s- MSSA Wound c/s : MSSA and Proteus cont IV Vanco , and Cipro (Dr Carolina d/c Zosyn, Ceftriaxone and added Cipro ) till ESR high (however now 42 from 99) CRP high consistent with infection Procalcitonin level normal Patient would need 6 weeks of IV abx. Since patient is uninsured, he has no means to come back for daily IV abx tx. ( till Jan 24) 2. UTI (urinary tract infection) Acute urine c/s : Providencia pt received ceftriaxone and Cipro ( Cipro changed to PO) Left Hydronephrosis noted- as per patient's mother , this is chronic , pt is voiding freely, Grey in place Urology consulted - Dr Huizar - rec to just tx UTI Yeast also noted on UA - pt received PO Diflucan 3.Paraplegia Chronic hx of Cord compression from spine fracture 2007 4.Spine fracture s/p Bedolla Rods Chronic as above 5. DM type 2 (diabetes mellitus, type 2) Chronic accucheck with coverage Glucotrol 10 mg bid Levemir to 30 units q hs 6. DVT prophylaxis Acute Lovenox
[2018-01-18] MEDS: Enoxaparin 40 mg Syringe SC SCH (09:29)
[2018-01-18] MEDS: Insulin Regular 100 units/ml SC SCH ×4 (09:30→22:45)
[2018-01-18] MEDS: Lactobacillus Acidophilus 500 MU Cap PO SCH ×2 (09:36→16:18)
[2018-01-18] MEDS: Insulin Detemir 100 Units/ml Inj SC SCH (22:18)
--- NOTE | 2018-01-19 05:31 | CP.PCM.PN ---
Subjective - Date & Time of Evaluation Date of Evaluation: 01/19/18 Time of Evaluation: 05:31 - Subjective Subjective: tolerating abx no complaints hd stable nad Objective - Vital Signs/Intake and Output Vital Signs (last 24 hours): Temp Pulse Resp BP Pulse Ox 98.4 F 88 19 100/60 95 01/19/18 00:36 01/19/18 00:36 01/19/18 00:36 01/19/18 00:36 01/19/18 00:36 Vitals Reviewed GEN: WDWN, alert, cooperative HEENT: NCAT, PERRL, EOMI HEART: RRR, +S1S2, NO MRG LUNG: CTAB, NO WRR ABD: soft, NT, ND, No HSM, No masses EXT: normal pedal pulses NEURO: awake, alert Intake and Output: 01/18/18 01/19/18 18:59 06:59 Intake Total 480 Output Total 950 2400 Balance -470 -2400 - Medications Medications: Current Medications Acetaminophen (Tylenol 325mg Tab) 650 mg PO Q6 PRN PRN Reason: Pain, Mild (1-3) Ciprofloxacin (Cipro) 500 mg PO Q12 ADAM PRN Reason: Protocol Last Admin: 01/18/18 22:00 Dose: 500 mg Dextrose (Dextrose 50% Inj) 0 ml IV STAT PRN; Protocol PRN Reason: Hypoglycemia Protocol Dextrose (Glutose 15) 0 gm PO ONCE PRN; Protocol PRN Reason: Hypoglycemia Protocol Enoxaparin Sodium (Lovenox) 40 mg SC DAILY ADAM PRN Reason: Protocol Last Admin: 01/18/18 09:29 Dose: 40 mg Glipizide (Glucotrol) 10 mg PO BIDAC [facility] Last Admin: 01/18/18 16:18 Dose: 10 mg Glucagon (Glucagen Diagnostic Kit) 0 mg IM STAT PRN; Protocol PRN Reason: Hypoglycemia Protocol Vancomycin HCl 1 gm/ Sodium (Chloride) 250 mls @ 166.667 mls/hr IVPB Q12 [facility] PRN Reason: Protocol Last Admin: 01/18/18 22:00 Dose: 166.667 mls/hr Insulin Detemir (Levemir) 30 units SC HS [facility] Last Admin: 01/18/18 22:18 Dose: 30 u Insulin Human Regular (Humulin R) 0 units SC ACHS [facility] PRN Reason: Protocol Last Admin: 01/18/18 22:45 Dose: Not Given Lactobacillus Acidophilus (Bacid Acidophilus) 1 cap PO BID [facility] Last Admin: 01/18/18 16:18 Dose: 1 cap Oxycodone HCl (Oxycodone Immediate Release Tab) 5 mg PO Q8@0500,1300,2100 [facility] Last Admin: 01/18/18 22:00 Dose: 5 mg - Labs Labs: 12/29/17 06:00 01/08/18 05:50 PT 13.9 Seconds (9.8-13.1) H 12/13/17 17:38 INR 1.3 (0.9-1.2) H 12/13/17 17:38 APTT 30.2 Seconds (25.6-37.1) 12/13/17 17:38 Assessment and Plan - Assessment and Plan (Free Text) Plan: 37 y/o male 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 Patient came in to our ED because of fever, pain and tenderness on his lower back and increased drainage from his wound. CT of L spine/T spine :3.2 x 2.9 x 3.4 cm low-attenuation collection with peripheral enhancement in the right posterior paraspinal soft tissues. Nonspecific moderate left hydroureteronephrosis. Neurosurgery was consulted and recommended IV antibiotics no surgical intervention Wound c/s : MSSA, Proteus Urine c/s : Providencia MRI of Thoracic and Lumbar Spine :Status post fusion and internal fixation at the lower thoracic and upper lumbar spine including bilateral pedicles screws and posterior longitudinal rods at L1 and L2. No evidence of spinal stenosis or neural foraminal narrowing at the lumbar spine. Endplate destruction and disc space fusion at L1-L2. Subcutaneous fluid collection to the right of the midline at the level of L2 and L2-L3 may represent seroma or abscess formation. Severe narrowing of the spinal canal at T10-T11 with possible cord compression at this level. Please correlate clinically. Partial destruction of the mid and upper T11 and adjacent T10-T11 disc. The possibility of osteomyelitis discitis also should be considered. Patient will need 6 weeks of IV antibiotics until Jan 24. No changes. Tolerating well. 1. Sepsis ( POA) sec to Paraspinal Soft Tissue abscess with Discitis / Osteomyelitis s/p Drainage of abscess by IR ( Staph aureus - MSSA) Acute Neurosurgery and General surgery consulted Per Neurosurgery - no surgical intervention IR Aspiration of abscess 12/18 - obtained 22 ml purulent material- sent for c/s- MSSA Wound c/s : MSSA and Proteus cont IV Vanco , and Cipro (Dr Carolina d/c Milenasykenzie, Ceftriaxone and added Cipro ) till ESR high (however now 42 from 99) CRP high consistent with infection Procalcitonin level normal Patient would need 6 weeks of IV abx. Since patient is uninsured, he has no means to come back for daily IV abx tx. ( till Jan 24) 2. UTI (urinary tract infection) Acute urine c/s : Providencia pt received ceftriaxone and Cipro ( Cipro changed to PO) Left Hydronephrosis noted- as per patient's mother , this is chronic , pt is voiding freely, Grey in place Urology consulted - Dr Huizar - rec to just tx UTI Yeast also noted on UA - pt received PO Diflucan 3.Paraplegia Chronic hx of Cord compression from spine fracture 2007 4.Spine fracture s/p Bedolla Rods Chronic as above 5. DM type 2 (diabetes mellitus, type 2) Chronic accucheck with coverage Glucotrol 10 mg bid Levemir to 30 units q hs 6. DVT prophylaxis Acute Lovenox
[2018-01-19] MEDS: oxyCODONE 5 mg Immediate Release Tab PO SCH ×3 (05:49→21:03)
[2018-01-19] MEDS: Lactobacillus Acidophilus 500 MU Cap PO SCH ×2 (09:02→16:41)
[2018-01-19] MEDS: Enoxaparin 40 mg Syringe SC SCH (09:03)
[2018-01-19] MEDS: Insulin Regular 100 units/ml SC SCH ×4 (09:03→22:17)
[2018-01-19] MEDS: Insulin Detemir 100 Units/ml Inj SC SCH (21:06)
[2018-01-20] MEDS: oxyCODONE 5 mg Immediate Release Tab PO SCH ×3 (04:53→20:38)
[2018-01-20] MEDS: Lactobacillus Acidophilus 500 MU Cap PO SCH ×2 (09:02→16:08)
[2018-01-20] MEDS: Enoxaparin 40 mg Syringe SC SCH (09:03)
[2018-01-20] MEDS: Insulin Regular 100 units/ml SC SCH ×4 (09:03→21:36)
--- NOTE | 2018-01-20 13:46 | CP.PCM.PN ---
<Sultan Bob - Last Filed: 01/20/18 13:31> Subjective - Date & Time of Evaluation Date of Evaluation: 01/20/18 Time of Evaluation: 10:50 - Subjective Subjective: Patient and examined with Dr. Manrique this morning. Lying comfortably and watching TV. Denies any complaints. Denies any discharge from the wound area. Denies diarrhea, abdominal pain, fever or chills. On IV abx until January 24. Objective - Vital Signs/Intake and Output Vital Signs (last 24 hours): Temp Pulse Resp BP Pulse Ox 97.5 F L 93 H 19 116/75 96 01/20/18 07:40 01/20/18 07:40 01/20/18 07:40 01/20/18 07:40 01/20/18 07:40 - Medications Medications: Current Medications Acetaminophen (Tylenol 325mg Tab) 650 mg PO Q6 PRN PRN Reason: Pain, Mild (1-3) Bacitracin (Bacitracin Oint) 1 applic TOP TID [facility] Dextrose (Dextrose 50% Inj) 0 ml IV STAT PRN; Protocol PRN Reason: Hypoglycemia Protocol Dextrose (Glutose 15) 0 gm PO ONCE PRN; Protocol PRN Reason: Hypoglycemia Protocol Enoxaparin Sodium (Lovenox) 40 mg SC DAILY [facility] PRN Reason: Protocol Last Admin: 01/20/18 09:03 Dose: 40 mg Glipizide (Glucotrol) 10 mg PO BIDAC [facility] Last Admin: 01/20/18 09:03 Dose: 10 mg Glucagon (Glucagen Diagnostic Kit) 0 mg IM STAT PRN; Protocol PRN Reason: Hypoglycemia Protocol Vancomycin HCl 1 gm/ Sodium (Chloride) 250 mls @ 166.667 mls/hr IVPB Q12 [facility] PRN Reason: Protocol Last Admin: 01/20/18 09:04 Dose: 166.667 mls/hr Insulin Detemir (Levemir) 30 units SC HS [facility] Last Admin: 01/19/18 21:06 Dose: 30 u Insulin Human Regular (Humulin R) 0 units SC ACHS [facility] PRN Reason: Protocol Last Admin: 01/20/18 13:00 Dose: 4 units Lactobacillus Acidophilus (Bacid Acidophilus) 1 cap PO BID [facility] Last Admin: 01/20/18 09:02 Dose: 1 cap Oxycodone HCl (Oxycodone Immediate Release Tab) 5 mg PO Q8@0500,1300,2100 [facility] Last Admin: 01/20/18 04:53 Dose: 5 mg - Labs Labs: 12/29/17 06:00 01/08/18 05:50 PT 13.9 Seconds (9.8-13.1) H 12/13/17 17:38 INR 1.3 (0.9-1.2) H 12/13/17 17:38 APTT 30.2 Seconds (25.6-37.1) 12/13/17 17:38 - Constitutional Appears: Non-toxic, No Acute Distress - Head Exam Head Exam: NORMAL INSPECTION - ENT Exam ENT Exam: Mucous Membranes Moist - Respiratory Exam Respiratory Exam: Clear to Ausculation Bilateral. absent: Rales, Rhonchi, Wheezes - Cardiovascular Exam Cardiovascular Exam: REGULAR RHYTHM, RRR, +S1, +S2 - GI/Abdominal Exam GI & Abdominal Exam: Soft, Normal Bowel Sounds. absent: Guarding, Tenderness - Back Exam Additional comments: Spinal wound with dressing - upper thoracic wound with has some serosanguineous drainage , lumbar wound no drainage. No surrounding erythema or swelling. Non tender spine. 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 Patient came in to our ED because of fever, pain and tenderness on his lower back and increased drainage from his wound. CT of L spine/T spine :3.2 x 2.9 x 3.4 cm low-attenuation collection with peripheral enhancement in the right posterior paraspinal soft tissues. Nonspecific moderate left hydroureteronephrosis. Neurosurgery was consulted and recommended IV antibiotics no surgical intervention Wound c/s : MSSA, Proteus Urine c/s : Providencia MRI of Thoracic and Lumbar Spine :Status post fusion and internal fixation at the lower thoracic and upper lumbar spine including bilateral pedicles screws and posterior longitudinal rods at L1 and L2. No evidence of spinal stenosis or neural foraminal narrowing at the lumbar spine. Endplate destruction and disc space fusion at L1-L2. Subcutaneous fluid collection to the right of the midline at the level of L2 and L2-L3 may represent seroma or abscess formation. Severe narrowing of the spinal canal at T10-T11 with possible cord compression at this level. Please correlate clinically. Partial destruction of the mid and upper T11 and adjacent T10-T11 disc. The possibility of osteomyelitis discitis also should be considered. Patient will need 6 weeks of IV antibiotics until Jan 24. No changes. Tolerating well. 1. Sepsis ( POA) sec to Paraspinal Soft Tissue abscess with Discitis / Osteomyelitis s/p Drainage of abscess by IR ( Staph aureus - MSSA) Acute Neurosurgery and General surgery consulted Per Neurosurgery - no surgical intervention IR Aspiration of abscess 12/18 - obtained 22 ml purulent material- sent for c/s- MSSA Wound c/s : MSSA and Proteus cont IV Vanco , and Cipro (Dr Carolina d/c Zosyn, Ceftriaxone and added Cipro ) till ESR high (however now 42 from 99) CRP high consistent with infection Procalcitonin level normal Patient would need 6 weeks of IV abx. Since patient is uninsured, he has no means to come back for daily IV abx tx. ( till Jan 24) 2. UTI (urinary tract infection) Acute urine c/s : Providencia pt received ceftriaxone and Cipro ( Cipro changed to PO) Left Hydronephrosis noted- as per patient's mother , this is chronic , pt is voiding freely, Grey in place Urology consulted - Dr Huizar - rec to just tx UTI Yeast also noted on UA - pt received PO Diflucan 3.Paraplegia Chronic hx of Cord compression from spine fracture 2007 4.Spine fracture s/p Bedolla Rods Chronic as above 5. DM type 2 (diabetes mellitus, type 2) Chronic accucheck with coverage Glucotrol 10 mg bid Levemir to 30 units q hs 6. DVT prophylaxis Acute Lovenox <Margie Manrique - Last Filed: 01/20/18 16:40> Objective - Vital Signs/Intake and Output Vital Signs (last 24 hours): Temp Pulse Resp BP Pulse Ox 98.1 F 101 H 18 120/77 97 01/20/18 16:10 01/20/18 16:10 01/20/18 16:10 01/20/18 16:10 01/20/18 16:10 - Medications Medications: Current Medications Acetaminophen (Tylenol 325mg Tab) 650 mg PO Q6 PRN PRN Reason: Pain, Mild (1-3) Bacitracin (Bacitracin Oint) 1 applic TOP TID [facility] Ciprofloxacin (Cipro) 500 mg PO Q12 [facility] PRN Reason: Protocol Last Admin: 01/20/18 16:09 Dose: Not Given Dextrose (Dextrose 50% Inj) 0 ml IV STAT PRN; Protocol PRN Reason: Hypoglycemia Protocol Dextrose (Glutose 15) 0 gm PO ONCE PRN; Protocol PRN Reason: Hypoglycemia Protocol Enoxaparin Sodium (Lovenox) 40 mg SC DAILY [facility] PRN Reason: Protocol Last Admin: 01/20/18 09:03 Dose: 40 mg Glipizide (Glucotrol) 10 mg PO BIDAC [facility] Last Admin: 01/20/18 16:09 Dose: 10 mg Glucagon (Glucagen Diagnostic Kit) 0 mg IM STAT PRN; Protocol PRN Reason: Hypoglycemia Protocol Vancomycin HCl 1 gm/ Sodium (Chloride) 250 mls @ 166.667 mls/hr IVPB Q12 [facility] PRN Reason: Protocol Last Admin: 01/20/18 09:04 Dose: 166.667 mls/hr Insulin Detemir (Levemir) 30 units SC HS [facility] Last Admin: 01/19/18 21:06 Dose: 30 u Insulin Human Regular (Humulin R) 0 units SC ACHS [facility] PRN Reason: Protocol Last Admin: 01/20/18 16:10 Dose: 2 units Lactobacillus Acidophilus (Bacid Acidophilus) 1 cap PO BID [facility] Last Admin: 01/20/18 16:08 Dose: 1 cap Oxycodone HCl (Oxycodone Immediate Release Tab) 5 mg PO Q8@0500,1300,2100 [facility] Last Admin: 01/20/18 14:05 Dose: 5 mg - Labs Labs: 12/29/17 06:00 01/08/18 05:50 PT 13.9 Seconds (9.8-13.1) H 12/13/17 17:38 INR 1.3 (0.9-1.2) H 12/13/17 17:38 APTT 30.2 Seconds (25.6-37.1) 12/13/17 17:38 Assessment and Plan (1) Paraspinal abscess Status: Acute (2) UTI (urinary tract infection) Status: Acute (3) Paraplegia Status: Chronic (4) Spine fracture Status: Chronic (5) DM type 2 (diabetes mellitus, type 2) Status: Chronic (6) DVT prophylaxis Status: Acute Attending/Attestation - Attestation I have personally seen and examined this patient.: Yes I have fully participated in the care of the patient.: Yes I have reviewed all pertinent clinical information, including history, physical exam and plan: Yes
[2018-01-20] MEDS: Bacitracin OINT 15GM TOP SCH (17:45)
[2018-01-20] MEDS: Insulin Detemir 100 Units/ml Inj SC SCH (21:35)
[2018-01-21] MEDS: oxyCODONE 5 mg Immediate Release Tab PO SCH ×3 (04:48→21:20)
[2018-01-21] MEDS: Enoxaparin 40 mg Syringe SC SCH (08:42)
[2018-01-21] MEDS: Insulin Regular 100 units/ml SC SCH ×4 (08:43→21:22)
[2018-01-21] MEDS: Bacitracin OINT 15GM TOP SCH ×3 (08:43→16:52)
[2018-01-21] MEDS: Lactobacillus Acidophilus 500 MU Cap PO SCH ×2 (08:50→16:53)
--- NOTE | 2018-01-21 11:01 | CP.PCM.PN ---
<[place] - Last Filed: 01/21/18 11:07> Subjective - Date & Time of Evaluation Date of Evaluation: 01/21/18 Time of Evaluation: 10:15 - Subjective Subjective: Patient seen and examined this morning. No acute overnight events. Denies any complaints. Tolerating abx. Grey intact. Denies diarrhea, abdominal pain, fever or chills. Objective - Vital Signs/Intake and Output Vital Signs (last 24 hours): Temp Pulse Resp BP Pulse Ox 97.5 F L 86 22 122/77 97 01/21/18 07:54 01/21/18 07:54 01/21/18 07:54 01/21/18 07:54 01/21/18 07:54 - Medications Medications: Current Medications Acetaminophen (Tylenol 325mg Tab) 650 mg PO Q6 PRN PRN Reason: Pain, Mild (1-3) Bacitracin (Bacitracin Oint) 1 applic TOP TID [facility] Last Admin: 01/21/18 08:43 Dose: 1 applic Ciprofloxacin (Cipro) 500 mg PO Q12 [facility] PRN Reason: Protocol Last Admin: 01/21/18 08:42 Dose: 500 mg Dextrose (Dextrose 50% Inj) 0 ml IV STAT PRN; Protocol PRN Reason: Hypoglycemia Protocol Dextrose (Glutose 15) 0 gm PO ONCE PRN; Protocol PRN Reason: Hypoglycemia Protocol Enoxaparin Sodium (Lovenox) 40 mg SC DAILY [facility] PRN Reason: Protocol Last Admin: 01/21/18 08:42 Dose: 40 mg Glipizide (Glucotrol) 10 mg PO BIDAC [facility] Last Admin: 01/21/18 08:43 Dose: 10 mg Glucagon (Glucagen Diagnostic Kit) 0 mg IM STAT PRN; Protocol PRN Reason: Hypoglycemia Protocol Vancomycin HCl 1 gm/ Sodium (Chloride) 250 mls @ 166.667 mls/hr IVPB Q12 [facility] PRN Reason: Protocol Last Admin: 01/21/18 08:42 Dose: 166.667 mls/hr Insulin Detemir (Levemir) 30 units SC HS [facility] Last Admin: 01/20/18 21:35 Dose: 30 u Insulin Human Regular (Humulin R) 0 units SC ACHS [facility] PRN Reason: Protocol Last Admin: 01/21/18 08:43 Dose: 3 units Lactobacillus Acidophilus (Bacid Acidophilus) 1 cap PO BID [facility] Last Admin: 01/21/18 08:50 Dose: 1 cap Oxycodone HCl (Oxycodone Immediate Release Tab) 5 mg PO Q8@0500,1300,2100 [facility] Last Admin: 01/21/18 04:48 Dose: 5 mg - Labs Labs: 12/29/17 06:00 01/08/18 05:50 PT 13.9 Seconds (9.8-13.1) H 12/13/17 17:38 INR 1.3 (0.9-1.2) H 12/13/17 17:38 APTT 30.2 Seconds (25.6-37.1) 12/13/17 17:38 - Additional Findings Additional findings: - Constitutional Appears: Non-toxic, No Acute Distress - Head Exam Head Exam: NORMAL INSPECTION - ENT Exam ENT Exam: Mucous Membranes Moist - Respiratory Exam Respiratory Exam: Clear to Ausculation Bilateral. absent: Rales, Rhonchi, Wheezes - Cardiovascular Exam Cardiovascular Exam: REGULAR RHYTHM, RRR, +S1, +S2 - GI/Abdominal Exam GI & Abdominal Exam: Soft, Normal Bowel Sounds. absent: Guarding, Tenderness - Back Exam Additional comments: Spinal wound with dressing - upper thoracic wound with has some drainage over the dressing , lumbar wound no drainage. No surrounding erythema or swelling. Non tender spine. - Neurological Exam Neurological Exam: Alert, Awake - Psychiatric Exam Psychiatric exam: Normal Affect, Normal Mood - Skin Skin Exam: Dry, Normal Color, Warm Assessment and Plan - Assessment and Plan (Free Text) Assessment: Assessment: 37 y/o male 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 Patient came in to our ED because of fever, pain and tenderness on his lower back and increased drainage from his wound. CT of L spine/T spine :3.2 x 2.9 x 3.4 cm low-attenuation collection with peripheral enhancement in the right posterior paraspinal soft tissues. Nonspecific moderate left hydroureteronephrosis. Neurosurgery was consulted and recommended IV antibiotics no surgical intervention Wound c/s : MSSA, Proteus Urine c/s : Providencia MRI of Thoracic and Lumbar Spine :Status post fusion and internal fixation at the lower thoracic and upper lumbar spine including bilateral pedicles screws and posterior longitudinal rods at L1 and L2. No evidence of spinal stenosis or neural foraminal narrowing at the lumbar spine. Endplate destruction and disc space fusion at L1-L2. Subcutaneous fluid collection to the right of the midline at the level of L2 and L2-L3 may represent seroma or abscess formation. Severe narrowing of the spinal canal at T10-T11 with possible cord compression at this level. Please correlate clinically. Partial destruction of the mid and upper T11 and adjacent T10-T11 disc. The possibility of osteomyelitis discitis also should be considered. Patient will need 6 weeks of IV antibiotics until Jan 24. No changes. Tolerating well. 1. Sepsis ( POA) sec to Paraspinal Soft Tissue abscess with Discitis / Osteomyelitis s/p Drainage of abscess by IR ( Staph aureus - MSSA) Acute Neurosurgery and General surgery consulted Per Neurosurgery - no surgical intervention IR Aspiration of abscess 12/18 - obtained 22 ml purulent material- sent for c/s- MSSA Wound c/s : MSSA and Proteus cont IV Vanco , and Cipro (Dr Carolina d/c Zosyn, Ceftriaxone and added Cipro ) till ESR high (however now 42 from 99) CRP high consistent with infection Procalcitonin level normal Patient would need 6 weeks of IV abx. Since patient is uninsured, he has no means to come back for daily IV abx tx. ( till Jan 24) 2. UTI (urinary tract infection) Acute urine c/s : Providencia pt received ceftriaxone and Cipro ( Cipro changed to PO) Left Hydronephrosis noted- as per patient's mother , this is chronic , pt is voiding freely, Grey in place Urology consulted - Dr Huizar - rec to just tx UTI Yeast also noted on UA - pt received PO Diflucan 3.Paraplegia Chronic hx of Cord compression from spine fracture 2007 4.Spine fracture s/p Bedolla Rods Chronic as above 5. DM type 2 (diabetes mellitus, type 2) Chronic accucheck with coverage Glucotrol 10 mg bid Levemir to 30 units q hs 6. DVT prophylaxis -Lovenox 40 mg sc daily <Adwoa Lin - Last Filed: 01/21/18 16:22> Objective - Vital Signs/Intake and Output Vital Signs (last 24 hours): Temp Pulse Resp BP Pulse Ox 97.5 F L 86 22 122/77 97 01/21/18 07:54 01/21/18 07:54 01/21/18 07:54 01/21/18 07:54 01/21/18 07:54 - Medications Medications: Current Medications Acetaminophen (Tylenol 325mg Tab) 650 mg PO Q6 PRN PRN Reason: Pain, Mild (1-3) Bacitracin (Bacitracin Oint) 1 applic TOP TID [facility] Last Admin: 01/21/18 08:43 Dose: 1 applic Ciprofloxacin (Cipro) 500 mg PO Q12 [facility] PRN Reason: Protocol Last Admin: 01/21/18 08:42 Dose: 500 mg Dextrose (Dextrose 50% Inj) 0 ml IV STAT PRN; Protocol PRN Reason: Hypoglycemia Protocol Dextrose (Glutose 15) 0 gm PO ONCE PRN; Protocol PRN Reason: Hypoglycemia Protocol Enoxaparin Sodium (Lovenox) 40 mg SC DAILY [facility] PRN Reason: Protocol Last Admin: 01/21/18 08:42 Dose: 40 mg Glipizide (Glucotrol) 10 mg PO BIDAC [facility] Last Admin: 01/21/18 08:43 Dose: 10 mg Glucagon (Glucagen Diagnostic Kit) 0 mg IM STAT PRN; Protocol PRN Reason: Hypoglycemia Protocol Vancomycin HCl 1 gm/ Sodium (Chloride) 250 mls @ 166.667 mls/hr IVPB Q12 [facility] PRN Reason: Protocol Last Admin: 01/21/18 08:42 Dose: 166.667 mls/hr Insulin Detemir (Levemir) 30 units SC HS [facility] Last Admin: 01/20/18 21:35 Dose: 30 u Insulin Human Regular (Humulin R) 0 units SC ACHS [facility] PRN Reason: Protocol Last Admin: 01/21/18 12:27 Dose: 4 units Lactobacillus Acidophilus (Bacid Acidophilus) 1 cap PO BID [facility] Last Admin: 01/21/18 08:50 Dose: 1 cap Oxycodone HCl (Oxycodone Immediate Release Tab) 5 mg PO Q8@0500,1300,2100 [facility] Last Admin: 01/21/18 04:48 Dose: 5 mg - Labs Labs: 12/29/17 06:00 01/08/18 05:50 PT 13.9 Seconds (9.8-13.1) H 12/13/17 17:38 INR 1.3 (0.9-1.2) H 12/13/17 17:38 APTT 30.2 Seconds (25.6-37.1) 12/13/17 17:38 Attending/Attestation - Attestation I have personally seen and examined this patient.: Yes I have fully participated in the care of the patient.: Yes I have reviewed all pertinent clinical information, including history, physical exam and plan: Yes Notes (Text): 01/21/18 16:22 Seen, examined, discussed with resident Dr. Rojas. Agree with findings and plan as above.
[2018-01-21] MEDS: Insulin Detemir 100 Units/ml Inj SC SCH (21:21)
[2018-01-22] MEDS: oxyCODONE 5 mg Immediate Release Tab PO SCH ×3 (04:39→20:30)
[2018-01-22] MEDS: Lactobacillus Acidophilus 500 MU Cap PO SCH ×2 (08:56→16:47)
[2018-01-22] MEDS: Bacitracin OINT 15GM TOP SCH ×3 (08:56→16:47)
[2018-01-22] MEDS: Insulin Regular 100 units/ml SC SCH ×4 (08:58→22:00)
[2018-01-22] MEDS: Enoxaparin 40 mg Syringe SC SCH (09:00)
--- NOTE | 2018-01-22 10:53 | CP.PCM.PN ---
<Sultan Bob - Last Filed: 01/22/18 11:19> Subjective - Date & Time of Evaluation Date of Evaluation: 01/22/18 Time of Evaluation: 09:35 - Subjective Subjective: Patient seen and examined today. No acute overnight events. Afebrile, stable vitals. Denies any complaints. Tolerating abx. Denies diarrhea, abdominal pain, fever or chills. Objective - Vital Signs/Intake and Output Vital Signs (last 24 hours): Temp Pulse Resp BP Pulse Ox 97.3 F L 92 H 20 119/75 98 01/22/18 09:00 01/22/18 09:00 01/22/18 09:00 01/22/18 09:00 01/22/18 09:00 - Medications Medications: Current Medications Acetaminophen (Tylenol 325mg Tab) 650 mg PO Q6 PRN PRN Reason: Pain, Mild (1-3) Last Admin: 01/21/18 17:01 Dose: 650 mg Bacitracin (Bacitracin Oint) 1 applic TOP TID [facility] Last Admin: 01/22/18 08:56 Dose: 1 applic Ciprofloxacin (Cipro) 500 mg PO Q12 [facility] PRN Reason: Protocol Last Admin: 01/22/18 08:56 Dose: 500 mg Dextrose (Dextrose 50% Inj) 0 ml IV STAT PRN; Protocol PRN Reason: Hypoglycemia Protocol Dextrose (Glutose 15) 0 gm PO ONCE PRN; Protocol PRN Reason: Hypoglycemia Protocol Enoxaparin Sodium (Lovenox) 40 mg SC DAILY [facility]AM PRN Reason: Protocol Last Admin: 01/22/18 09:00 Dose: 40 mg Glipizide (Glucotrol) 10 mg PO BIDAC [facility] Last Admin: 01/22/18 08:57 Dose: 10 mg Glucagon (Glucagen Diagnostic Kit) 0 mg IM STAT PRN; Protocol PRN Reason: Hypoglycemia Protocol Vancomycin HCl 1 gm/ Sodium (Chloride) 250 mls @ 166.667 mls/hr IVPB Q12 [facility] PRN Reason: Protocol Last Admin: 01/22/18 09:01 Dose: 166.667 mls/hr Insulin Detemir (Levemir) 30 units SC HS [facility] Last Admin: 01/21/18 21:21 Dose: 30 u Insulin Human Regular (Humulin R) 0 units SC ACHS [facility] PRN Reason: Protocol Last Admin: 01/22/18 08:58 Dose: 2 units Lactobacillus Acidophilus (Bacid Acidophilus) 1 cap PO BID [facility] Last Admin: 01/22/18 08:56 Dose: 1 cap Oxycodone HCl (Oxycodone Immediate Release Tab) 5 mg PO Q8@0500,1300,2100 [facility] Last Admin: 01/22/18 04:39 Dose: 5 mg - Labs Labs: 12/29/17 06:00 01/08/18 05:50 PT 13.9 Seconds (9.8-13.1) H 12/13/17 17:38 INR 1.3 (0.9-1.2) H 12/13/17 17:38 APTT 30.2 Seconds (25.6-37.1) 12/13/17 17:38 - Additional Findings Additional findings: - Constitutional Appears: Non-toxic, No Acute Distress - Head Exam Head Exam: NORMAL INSPECTION - ENT Exam ENT Exam: Mucous Membranes Moist - Respiratory Exam Respiratory Exam: Clear to Ausculation Bilateral. absent: Rales, Rhonchi, Wheezes - Cardiovascular Exam Cardiovascular Exam: REGULAR RHYTHM, RRR, +S1, +S2 - GI/Abdominal Exam GI & Abdominal Exam: Soft, Normal Bowel Sounds. absent: Guarding, Tenderness - Back Exam Additional comments: Spinal wound with dressing - upper and mid thoracic wound with has some drainage over the dressing , lumbar wound no drainage. No surrounding erythema or swelling. Non tender spine. 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 Patient came in to our ED because of fever, pain and tenderness on his lower back and increased drainage from his wound. CT of L spine/T spine :3.2 x 2.9 x 3.4 cm low-attenuation collection with peripheral enhancement in the right posterior paraspinal soft tissues. Nonspecific moderate left hydroureteronephrosis. Neurosurgery was consulted and recommended IV antibiotics no surgical intervention Wound c/s : MSSA, Proteus Urine c/s : Providencia MRI of Thoracic and Lumbar Spine :Status post fusion and internal fixation at the lower thoracic and upper lumbar spine including bilateral pedicles screws and posterior longitudinal rods at L1 and L2. No evidence of spinal stenosis or neural foraminal narrowing at the lumbar spine. Endplate destruction and disc space fusion at L1-L2. Subcutaneous fluid collection to the right of the midline at the level of L2 and L2-L3 may represent seroma or abscess formation. Severe narrowing of the spinal canal at T10-T11 with possible cord compression at this level. Please correlate clinically. Partial destruction of the mid and upper T11 and adjacent T10-T11 disc. The possibility of osteomyelitis discitis also should be considered. Patient will need 6 weeks of IV antibiotics until Jan 24. No changes. Tolerating well. 1. Sepsis ( POA) sec to Paraspinal Soft Tissue abscess with Discitis / Osteomyelitis s/p Drainage of abscess by IR ( Staph aureus - MSSA) Acute Neurosurgery and General surgery consulted Per Neurosurgery - no surgical intervention IR Aspiration of abscess 12/18 - obtained 22 ml purulent material- sent for c/s- MSSA Wound c/s : MSSA and Proteus cont IV Vanco , and Cipro (Dr Carolina d/c Zosyn, Ceftriaxone and added Cipro ) till ESR high (however now 42 from 99) CRP high consistent with infection Procalcitonin level normal Patient would need 6 weeks of IV abx. Since patient is uninsured, he has no means to come back for daily IV abx tx. ( till Jan 24) 2. UTI (urinary tract infection) Acute urine c/s : Providencia pt received ceftriaxone and Cipro ( Cipro changed to PO) Left Hydronephrosis noted- as per patient's mother , this is chronic , pt is voiding freely, Grey in place Urology consulted - Dr Huizar - rec to just tx UTI Yeast also noted on UA - pt received PO Diflucan 3.Paraplegia Chronic hx of Cord compression from spine fracture 2007 4.Spine fracture s/p Bedolla Rods Chronic as above 5. DM type 2 (diabetes mellitus, type 2) Chronic accucheck with coverage Glucotrol 10 mg bid Levemir to 30 units q hs 6. DVT prophylaxis -Lovenox 40 mg sc daily <Riley,Adwoa K - Last Filed: 01/22/18 18:04> Objective - Vital Signs/Intake and Output Vital Signs (last 24 hours): Temp Pulse Resp BP Pulse Ox 97.6 F 93 H 20 111/71 97 01/22/18 17:00 01/22/18 17:00 01/22/18 17:00 01/22/18 17:00 01/22/18 17:00 - Medications Medications: Current Medications Acetaminophen (Tylenol 325mg Tab) 650 mg PO Q6 PRN PRN Reason: Pain, Mild (1-3) Last Admin: 01/21/18 17:01 Dose: 650 mg Bacitracin (Bacitracin Oint) 1 applic TOP TID [facility] Last Admin: 01/22/18 16:47 Dose: 1 applic Ciprofloxacin (Cipro) 500 mg PO Q12 [facility] PRN Reason: Protocol Last Admin: 01/22/18 08:56 Dose: 500 mg Dextrose (Dextrose 50% Inj) 0 ml IV STAT PRN; Protocol PRN Reason: Hypoglycemia Protocol Dextrose (Glutose 15) 0 gm PO ONCE PRN; Protocol PRN Reason: Hypoglycemia Protocol Enoxaparin Sodium (Lovenox) 40 mg SC DAILY ADAM PRN Reason: Protocol Last Admin: 01/22/18 09:00 Dose: 40 mg Glipizide (Glucotrol) 10 mg PO BIDAC [facility] Last Admin: 01/22/18 16:47 Dose: 10 mg Glucagon (Glucagen Diagnostic Kit) 0 mg IM STAT PRN; Protocol PRN Reason: Hypoglycemia Protocol Vancomycin HCl 1 gm/ Sodium (Chloride) 250 mls @ 166.667 mls/hr IVPB Q12 [facility] PRN Reason: Protocol Last Admin: 01/22/18 09:01 Dose: 166.667 mls/hr Insulin Detemir (Levemir) 30 units SC HS [facility] Last Admin: 01/21/18 21:21 Dose: 30 u Insulin Human Regular (Humulin R) 0 units SC ACHS [facility] PRN Reason: Protocol Last Admin: 01/22/18 16:48 Dose: 3 units Lactobacillus Acidophilus (Bacid Acidophilus) 1 cap PO BID [facility] Last Admin: 01/22/18 16:47 Dose: 1 cap Oxycodone HCl (Oxycodone Immediate Release Tab) 5 mg PO Q8@0500,1300,2100 [facility] Last Admin: 01/22/18 12:38 Dose: 5 mg - Labs Labs: 12/29/17 06:00 01/08/18 05:50 PT 13.9 Seconds (9.8-13.1) H 12/13/17 17:38 INR 1.3 (0.9-1.2) H 12/13/17 17:38 APTT 30.2 Seconds (25.6-37.1) 12/13/17 17:38 Attending/Attestation - Attestation I have personally seen and examined this patient.: Yes I have fully participated in the care of the patient.: Yes I have reviewed all pertinent clinical information, including history, physical exam and plan: Yes Notes (Text): 01/22/18 18:03 Seen, examined, and discussed with resident. Agree with findings and plan as above.
[2018-01-22] MEDS: Insulin Detemir 100 Units/ml Inj SC SCH (21:23)
[2018-01-23] MEDS: oxyCODONE 5 mg Immediate Release Tab PO SCH ×3 (05:47→20:23)
[2018-01-23 06:18] LABS: HEMOGLOBIN 14.2 g/dL (12.0-18.0); MEAN CELL VOLUME 77.5 fl (80.0-94.0); MEAN CORPUSCULAR HEMOGLOBIN 25.8 pg (27.0-31.0); MEAN CORPUSCULAR HGB CONC 33.3 g/dL (33.0-37.0); RBC 5.51 Mil/uL (4.40-5.90); RED CELL DISTRIBUTION WIDTH 14.1 % (11.5-14.5); WHITE BLOOD COUNT 4.9 K/uL (4.8-10.8)
[2018-01-23 06:53] LABS: BLOOD UREA NITROGEN 16 mg/dl (9-20); CALCIUM 9.7 mg/dL (8.4-10.2); GFR NON-AFRICAN AMERICAN > 60
[2018-01-23] MEDS: Bacitracin OINT 15GM TOP SCH ×3 (09:01→16:27)
[2018-01-23] MEDS: Insulin Regular 100 units/ml SC SCH ×4 (09:01→21:55)
[2018-01-23] MEDS: Lactobacillus Acidophilus 500 MU Cap PO SCH ×2 (09:01→16:31)
[2018-01-23] MEDS: Enoxaparin 40 mg Syringe SC SCH (09:02)
--- NOTE | 2018-01-23 11:32 | CP.PCM.PN ---
<Sultan Bob - Last Filed: 01/23/18 11:39> Subjective - Date & Time of Evaluation Date of Evaluation: 01/23/18 Time of Evaluation: 09:35 - Subjective Subjective: Patient seen and examined this morning. No acute overnight events. Denies any complaints. Tolerating abx. Denies abdominal pain, diarrhea, nausea, vomiting, chest pain, dyspnea, fever or chills. Objective - Vital Signs/Intake and Output Vital Signs (last 24 hours): Temp Pulse Resp BP Pulse Ox 97.5 F L 101 H 20 114/75 94 L 01/23/18 08:14 01/23/18 08:14 01/23/18 08:14 01/23/18 08:14 01/23/18 08:14 - Medications Medications: Current Medications Acetaminophen (Tylenol 325mg Tab) 650 mg PO Q6 PRN PRN Reason: Pain, Mild (1-3) Last Admin: 01/21/18 17:01 Dose: 650 mg Bacitracin (Bacitracin Oint) 1 applic TOP TID [facility] Last Admin: 01/23/18 09:01 Dose: 1 applic Ciprofloxacin (Cipro) 500 mg PO Q12 [facility] PRN Reason: Protocol Last Admin: 01/23/18 09:01 Dose: 500 mg Dextrose (Dextrose 50% Inj) 0 ml IV STAT PRN; Protocol PRN Reason: Hypoglycemia Protocol Dextrose (Glutose 15) 0 gm PO ONCE PRN; Protocol PRN Reason: Hypoglycemia Protocol Enoxaparin Sodium (Lovenox) 40 mg SC DAILY [facility]AM PRN Reason: Protocol Last Admin: 01/23/18 09:02 Dose: 40 mg Glipizide (Glucotrol) 10 mg PO BIDAC [facility] Last Admin: 01/23/18 09:01 Dose: 10 mg Glucagon (Glucagen Diagnostic Kit) 0 mg IM STAT PRN; Protocol PRN Reason: Hypoglycemia Protocol Vancomycin HCl 1 gm/ Sodium (Chloride) 250 mls @ 166.667 mls/hr IVPB Q12 [facility] PRN Reason: Protocol Last Admin: 01/23/18 09:02 Dose: 166.667 mls/hr Insulin Detemir (Levemir) 30 units SC HS [facility] Last Admin: 01/22/18 21:23 Dose: 30 u Insulin Human Regular (Humulin R) 0 units SC ACHS [facility] PRN Reason: Protocol Last Admin: 01/23/18 09:01 Dose: 3 units Lactobacillus Acidophilus (Bacid Acidophilus) 1 cap PO BID [facility] Last Admin: 01/23/18 09:01 Dose: 1 cap Oxycodone HCl (Oxycodone Immediate Release Tab) 5 mg PO Q8@0500,1300,2100 [facility] Last Admin: 01/23/18 05:47 Dose: 5 mg - Labs Labs: 01/23/18 05:35 01/23/18 05:35 PT 13.9 Seconds (9.8-13.1) H 12/13/17 17:38 INR 1.3 (0.9-1.2) H 12/13/17 17:38 APTT 30.2 Seconds (25.6-37.1) 12/13/17 17:38 - Constitutional Appears: Non-toxic, No Acute Distress - Head Exam Head Exam: NORMAL INSPECTION - Eye Exam Eye Exam: Normal appearance - ENT Exam ENT Exam: Mucous Membranes Moist - Respiratory Exam Respiratory Exam: Clear to Ausculation Bilateral, NORMAL BREATHING PATTERN. absent: Rales, Rhonchi, Wheezes - Cardiovascular Exam Cardiovascular Exam: REGULAR RHYTHM, RRR, +S1, +S2 - GI/Abdominal Exam GI & Abdominal Exam: Soft, Normal Bowel Sounds. absent: Tenderness - Extremities Exam Additional comments: Spinal wound with dressing - upper and mid thoracic wound with has some drainage over the dressing , lumbar wound no drainage. No surrounding erythema or swelling. Non tender spine. - Neurological Exam Neurological Exam: Alert, Awake - Psychiatric Exam Psychiatric exam: Normal Affect, Normal Mood - Skin Skin Exam: Dry, Normal Color Assessment and Plan - Assessment and Plan (Free Text) Assessment: 37 y/o male 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 Patient came in to our ED because of fever, pain and tenderness on his lower back and increased drainage from his wound. CT of L spine/T spine :3.2 x 2.9 x 3.4 cm low-attenuation collection with peripheral enhancement in the right posterior paraspinal soft tissues. Nonspecific moderate left hydroureteronephrosis. Neurosurgery was consulted and recommended IV antibiotics no surgical intervention Wound c/s : MSSA, Proteus Urine c/s : Providencia MRI of Thoracic and Lumbar Spine :Status post fusion and internal fixation at the lower thoracic and upper lumbar spine including bilateral pedicles screws and posterior longitudinal rods at L1 and L2. No evidence of spinal stenosis or neural foraminal narrowing at the lumbar spine. Endplate destruction and disc space fusion at L1-L2. Subcutaneous fluid collection to the right of the midline at the level of L2 and L2-L3 may represent seroma or abscess formation. Severe narrowing of the spinal canal at T10-T11 with possible cord compression at this level. Please correlate clinically. Partial destruction of the mid and upper T11 and adjacent T10-T11 disc. The possibility of osteomyelitis discitis also should be considered. Patient will need 6 weeks of IV antibiotics until Jan 24. No changes. Tolerating well. 1. Sepsis ( POA) sec to Paraspinal Soft Tissue abscess with Discitis / Osteomyelitis s/p Drainage of abscess by IR ( Staph aureus - MSSA) Acute Neurosurgery and General surgery consulted Per Neurosurgery - no surgical intervention IR Aspiration of abscess 12/18 - obtained 22 ml purulent material- sent for c/s- MSSA Wound c/s : MSSA and Proteus cont IV Vanco , and Cipro (Dr Carolina d/c [place], Ceftriaxone and added Cipro ) till ESR high (however now 42 from 99) CRP high consistent with infection Procalcitonin level normal Patient would need 6 weeks of IV abx. Since patient is uninsured, he has no means to come back for daily IV abx tx. ( till Jan 24) 2. UTI (urinary tract infection) Acute urine c/s : Providencia pt received ceftriaxone and Cipro ( Cipro changed to PO) Left Hydronephrosis noted- as per patient's mother , this is chronic , pt is voiding freely, Grey in place Urology consulted - Dr Huizar - rec to just tx UTI Yeast also noted on UA - pt received PO Diflucan 3.Paraplegia Chronic hx of Cord compression from spine fracture 2007 4.Spine fracture s/p Bedolla Rods Chronic as above 5. DM type 2 (diabetes mellitus, type 2) Chronic accucheck with coverage Glucotrol 10 mg bid Levemir 30 units q hs 6. DVT prophylaxis -Lovenox 40 mg sc daily <RileyAdwoa - Last Filed: 01/23/18 15:28> Objective - Vital Signs/Intake and Output Vital Signs (last 24 hours): Temp Pulse Resp BP Pulse Ox 97.5 F L 101 H 20 114/75 94 L 01/23/18 08:14 01/23/18 08:14 01/23/18 08:14 01/23/18 08:14 01/23/18 08:14 - Medications Medications: Current Medications Acetaminophen (Tylenol 325mg Tab) 650 mg PO Q6 PRN PRN Reason: Pain, Mild (1-3) Last Admin: 01/21/18 17:01 Dose: 650 mg Bacitracin (Bacitracin Oint) 1 applic TOP TID [facility] Last Admin: 01/23/18 12:52 Dose: 1 applic Ciprofloxacin (Cipro) 500 mg PO Q12 [facility] PRN Reason: Protocol Last Admin: 01/23/18 09:01 Dose: 500 mg Dextrose (Dextrose 50% Inj) 0 ml IV STAT PRN; Protocol PRN Reason: Hypoglycemia Protocol Dextrose (Glutose 15) 0 gm PO ONCE PRN; Protocol PRN Reason: Hypoglycemia Protocol Enoxaparin Sodium (Lovenox) 40 mg SC DAILY [facility] PRN Reason: Protocol Last Admin: 01/23/18 09:02 Dose: 40 mg Glipizide (Glucotrol) 10 mg PO BIDAC [facility] Last Admin: 01/23/18 09:01 Dose: 10 mg Glucagon (Glucagen Diagnostic Kit) 0 mg IM STAT PRN; Protocol PRN Reason: Hypoglycemia Protocol Vancomycin HCl 1 gm/ Sodium (Chloride) 250 mls @ 166.667 mls/hr IVPB Q12 [facility] PRN Reason: Protocol Last Admin: 01/23/18 09:02 Dose: 166.667 mls/hr Insulin Detemir (Levemir) 30 units SC HS [facility] Last Admin: 01/22/18 21:23 Dose: 30 u Insulin Human Regular (Humulin R) 0 units SC ACHS [facility] PRN Reason: Protocol Last Admin: 01/23/18 12:52 Dose: 4 units Lactobacillus Acidophilus (Bacid Acidophilus) 1 cap PO BID [facility] Last Admin: 01/23/18 09:01 Dose: 1 cap Oxycodone HCl (Oxycodone Immediate Release Tab) 5 mg PO Q8@0500,1300,2100 [facility] Last Admin: 01/23/18 12:49 Dose: 5 mg - Labs Labs: 01/23/18 05:35 01/23/18 05:35 PT 13.9 Seconds (9.8-13.1) H 12/13/17 17:38 INR 1.3 (0.9-1.2) H 12/13/17 17:38 APTT 30.2 Seconds (25.6-37.1) 12/13/17 17:38 Attending/Attestation - Attestation I have personally seen and examined this patient.: Yes I have fully participated in the care of the patient.: Yes I have reviewed all pertinent clinical information, including history, physical exam and plan: Yes Notes (Text): 01/23/18 15:28 Seen, examined, and discussed with resident. Agree with findings and plan as above.
[2018-01-23] MEDS: Insulin Detemir 100 Units/ml Inj SC SCH (21:59)
[2018-01-24] MEDS: oxyCODONE 5 mg Immediate Release Tab PO SCH (07:17)
[2018-01-24 08:10] VITALS: BP 139/98; PULSE 87; RESP 20; TEMP 97.6; O2SAT 97
[2018-01-24] MEDS: Lactobacillus Acidophilus 500 MU Cap PO SCH (08:46)
[2018-01-24] MEDS: Insulin Regular 100 units/ml SC SCH (08:47)
[2018-01-24] MEDS: Bacitracin OINT 15GM TOP SCH (08:47)
[2018-01-24] MEDS: Enoxaparin 40 mg Syringe SC SCH (08:48)
--- NOTE | 2018-01-24 11:30 | CP.PCM.DIS ---
Provider - Provider Date of Admission: 12/14/17 00:35 Attending physician: Anton Sorensen MD Consults: 12/14/17 00:54 Wound Care [Nursing Referral for Wound Care] Routine Comment: Physician Instructions: Reason For Exam: sub cutaneous abscess Time Spent in preparation of Discharge (in minutes): 50 Diagnosis - Discharge Diagnosis (1) Paraspinal abscess Status: Chronic (2) UTI (urinary tract infection) Status: Resolved (3) DM type 2 (diabetes mellitus, type 2) Status: Chronic (4) Paraplegia Status: Chronic (5) Spine fracture Status: Chronic Hospital Course - Lab Results Lab Results: Micro Results 12/18/17 11:42 Other: Please Indicate Gram Stain - Final 12/18/17 11:42 Other: Please Indicate Body Fluid Culture - Final Staphylococcus Aureus 12/13/17 17:25 Blood Blood Culture - Final NO GROWTH AFTER 5 DAYS 12/13/17 17:25 Blood Gram Stain - Final TEST NOT PERFORMED 12/13/17 17:00 Blood Blood Culture - Final NO GROWTH AFTER 5 DAYS 12/13/17 17:00 Blood Gram Stain - Final TEST NOT PERFORMED 12/14/17 07:10 Back Gram Stain - Final 12/14/17 07:10 Back Wound Culture - Final Proteus Mirabilis Staphylococcus Aureus 12/13/17 21:55 Back Gram Stain - Final 12/13/17 21:55 Back Wound Culture - Final Staphylococcus Aureus 12/13/17 17:56 Urine,Grey Urine Culture - Final Providencia Stuartii Most Recent Lab Values WBC 4.9 K/uL (4.8-10.8) 01/23/18 05:35 RBC 5.51 Mil/uL (4.40-5.90) 01/23/18 05:35 Hgb 14.2 g/dL (12.0-18.0) 01/23/18 05:35 Hct 42.7 % (35.0-51.0) 01/23/18 05:35 MCV 77.5 fl (80.0-94.0) L 01/23/18 05:35 MCH 25.8 pg (27.0-31.0) L 01/23/18 05:35 MCHC 33.3 g/dL (33.0-37.0) 01/23/18 05:35 RDW 14.1 % (11.5-14.5) 01/23/18 05:35 Plt Count 222 K/uL (130-400) 01/23/18 05:35 MPV 7.8 fl (7.2-11.7) 12/16/17 05:45 Neut % (Auto) 73.6 % (50.0-75.0) 12/16/17 05:45 Lymph % (Auto) 13.1 % (20.0-40.0) L 12/16/17 05:45 [place] % (Auto) 9.4 % (0.0-10.0) 12/16/17 05:45 Eos % (Auto) 3.6 % (0.0-4.0) 12/16/17 05:45 Baso % (Auto) 0.3 % (0.0-2.0) 12/16/17 05:45 Neut # (Auto) 4.4 K/uL (1.8-7.0) 12/16/17 05:45 Lymph # (Auto) 0.8 K/uL (1.0-4.3) L 12/16/17 05:45 [place] # (Auto) 0.6 K/uL (0.0-0.8) 12/16/17 05:45 Eos # (Auto) 0.2 K/uL (0.0-0.7) 12/16/17 05:45 Baso # (Auto) 0.0 K/uL (0.0-0.2) 12/16/17 05:45 Neutrophils % (Manual) 74 % (42-75) 12/13/17 17:38 Band Neutrophils % 4 % (0-2) H 12/13/17 17:38 Lymphocytes % (Manual) 11 % (20-50) L 12/13/17 17:38 Monocytes % (Manual) 10 % (0-10) 12/13/17 17:38 Eosinophils % (Manual) 1 % (0-7) 12/13/17 17:38 Toxic Granulation Present 12/13/17 17:38 Platelet Estimate Normal (NORMAL) 12/13/17 17:38 Microcytosis (manual) Slight 12/13/17 17:38 ESR 42 mm/hr (0-15) H 12/29/17 06:00 PT 13.9 Seconds (9.8-13.1) H 12/13/17 17:38 INR 1.3 (0.9-1.2) H 12/13/17 17:38 APTT 30.2 Seconds (25.6-37.1) 12/13/17 17:38 pO2 83 mm/Hg (30-55) H 12/13/17 20:16 VBG pH 7.47 (7.32-7.43) H 12/13/17 20:16 VBG pCO2 36 mmHg (40-60) L 12/13/17 20:16 VBG HCO3 27.0 mmol/L 12/13/17 20:16 VBG Total CO2 27.3 mmol/L (22-28) 12/13/17 20:16 VBG O2 Sat (Calc) 99.5 % (40-65) H 12/13/17 20:16 VBG Base Excess 2.7 mmol/L (0.0-2.0) H 12/13/17 20:16 VBG Potassium 3.5 mmol/L (3.6-5.2) L 12/13/17 20:16 Sodium 127.0 mmol/L (132-148) L 12/13/17 20:16 Chloride 100.0 mmol/L (98-107) 12/13/17 20:16 Glucose 355 mg/dL (75-110) H 12/13/17 20:16 Lactate 1.5 mmol/L (0.7-2.1) 12/13/17 20:16 FiO2 21.0 % 12/13/17 20:16 Sodium 137 mmol/l (132-148) 01/23/18 05:35 Potassium 4.2 MMOL/L (3.6-5.0) 01/23/18 05:35 Chloride 102 mmol/L (98-107) 01/23/18 05:35 Carbon Dioxide 27 mmol/L (22-30) 01/23/18 05:35 Anion Gap 12 (10-20) 01/23/18 05:35 BUN 16 mg/dl (9-20) 01/23/18 05:35 Creatinine 0.5 mg/dl (0.8-1.5) L 01/23/18 05:35 Est GFR ( Amer) > 60 01/23/18 05:35 Est GFR (Non-Af Amer) > 60 01/23/18 05:35 POC Glucose (mg/dL) 211 mg/dL (65-110) H 01/24/18 10:44 Random Glucose 222 mg/dL (75-110) H 01/23/18 05:35 Hemoglobin A1c 10.3 % (4.2-6.5) H 12/14/17 05:20 Calcium 9.7 mg/dL (8.4-10.2) 01/23/18 05:35 Phosphorus 3.0 mg/dl (2.5-4.5) 12/13/17 17:38 Magnesium 1.6 MG/DL (1.6-2.3) 12/13/17 17:38 Total Bilirubin 0.7 mg/dl (0.2-1.3) 12/15/17 05:20 AST 15 U/L (17-59) L D 12/15/17 05:20 ALT 20 U/L (21-72) L D 12/15/17 05:20 Alkaline Phosphatase 122 U/L (38-126) 12/15/17 05:20 C-Reactive Protein 154.70 mg/L (0.0-9.9) H 12/16/17 05:45 Total Protein 7.2 G/DL (6.3-8.2) 12/15/17 05:20 Albumin 3.5 g/dL (3.5-5.0) 12/15/17 05:20 Globulin 3.7 gm/dL (2.2-3.9) 12/15/17 05:20 Albumin/Globulin Ratio 1.0 (1.0-2.1) 12/15/17 05:20 Procalcitonin 0.05 NG/ML (0.19-0.49) L 12/15/17 05:20 TSH 3rd Generation 2.97 mIU/ML (0.46-4.68) 12/14/17 05:20 Venous Blood Potassium 3.5 mmol/L (3.6-5.2) L 12/13/17 20:16 Urine Color Yellow (YELLOW) 12/13/17 17:56 Urine Clarity Turbid (Clear) 12/13/17 17:56 Urine pH 5.0 (5.0-8.0) 12/13/17 17:56 Ur Specific [place] 1.030 (1.003-1.030) 12/13/17 17:56 Urine Protein 100 mg/dL (NEGATIVE) 12/13/17 17:56 Urine Glucose (UA) >=500 mg/dL (Normal) 12/13/17 17:56 Urine Ketones Negative mg/dL (NEGATIVE) 12/13/17 17:56 Urine Blood Large (NEGATIVE) 12/13/17 17:56 Urine Nitrate Negative (NEGATIVE) 12/13/17 17:56 Urine Bilirubin Negative (NEGATIVE) 12/13/17 17:56 Urine Urobilinogen 2.0 mg/dL (0.2-1.0) 12/13/17 17:56 Ur Leukocyte Esterase Large [place]/uL (Negative) 12/13/17 17:56 Urine RBC (Auto) 140 /hpf (0-3) H 12/13/17 17:56 Urine Microscopic WBC 645 /hpf (0-5) H 12/13/17 17:56 Urine Bacteria Many (<OCC) H 12/13/17 17:56 Urine Yeast (Budding) Occ /hpf (NEGATIVE) H 12/13/17 17:56 Vancomycin Trough 10.5 ug/mL (5.0-10.0) H 01/08/18 05:50 - Hospital Course Hospital Course: 37 y/o Syriac speaking male who is paraplegic as a result of cord compression from spinal fracture after fall 10 yrs ago s/p spinal surgery ( Bedolla rods placed), hx of chronic wound infection and spine osteomyelitis, post spine surgery treated only with IV antibiotics presented with chronic drainage from his wound intermittently for years however his last IV abx tx was 10 yrs ago. Patient states he recently moved from [place] approx 3 weeks back but never attended doctors back in [place] for the last 10 yrs and is therefore not on any medications or knows of any other medical conditions other than that mentioned above. He became paraplegic in 2003 after he attempted suicide by jumping off a building. Family member states patient constantly drains from sinus tracts and they change his dressing daily due to it. Patient was initially prescribed antibiotics but hasn't taken any in many years despite the constant draining. He has no other complaints. Patient came in to [facility] ED on 12/13/17 and admitted to inpatient because of fever , pain and tenderness on his lower back and increased drainage from his wound. CT of L spine/T spine on 12/13/17 showed :3.2 x 2.9 x 3.4 cm low-attenuation collection with peripheral enhancement in the right posterior paraspinal soft tissues. Nonspecific moderate left hydroureteronephrosis. MRI of Thoracic and Lumbar Spine on 12/14/17: Status post fusion and internal fixation at the lower thoracic and upper lumbar spine including bilateral pedicles screws and posterior longitudinal rods at L1 and L2.No evidence of spinal stenosis or neural foraminal narrowing at the lumbar spine. Endplate destruction and disc space fusion at L1-L2. Subcutaneous fluid collection to the right of the midline at the level of L2 and L2-L3 may represent seroma or abscess formation. Severe narrowing of the spinal canal at T10-T11 with possible cord compression at this level. Please correlate clinically. Partial destruction of the mid and upper T11 and adjacent T10-T11 disc. The possibility of osteomyelitis discitis also should be considered. Neurosurgery was consulted and recommended IV antibiotics and no surgical intervention. Pt had IR drainage of throacic and lumbar subcuatanous collection on 12/18/17: drained 22 cc purulent drainage. Wound c/s on 12/13, 12/14 and 12/18 grew : MSSA, Proteus Urine c/s on 12/13/17 : Providencia ID Dr. Carolina was consulted during this hospitalization. Pt initially started on ceftriaxone, vancomycin and zoysn on 12/14/17. Ceftriaxone and zosyn was discontinued on 12/18/17 and cipro was initiated on 12/18/17 due to UTI. Patient completed 6 weeks of IV vancomycin and ciprofloxacin today. Pt still has some drainage from upper and middle throracic area. Has been afebrile and stable vitals. Pt is medically stable to discharge home with bactrim ds po bid x 30 (per ID rec). Advised to f/u with PMD in 1 week. assessment and plan: 1. Sepsis ( POA) sec to Paraspinal Soft Tissue abscess with Discitis / Osteomyelitis s/p Drainage of abscess by IR ( Staph aureus - MSSA) Acute Neurosurgery and General surgery consulted Per Neurosurgery - no surgical intervention IR Aspiration of abscess 12/18 - obtained 22 ml purulent material- sent for c/s- MSSA Wound c/s : MSSA and Proteus cont IV Vanco , and Cipro (Dr Carolina d/c Milenasykenzie, Ceftriaxone and added Cipro ) till ESR high (however now 42 from 99) CRP high consistent with infection Procalcitonin level normal Patient would need 6 weeks of IV abx. Since patient is uninsured, he has no means to come back for daily IV abx tx. ( till Jan 24) 2. UTI (urinary tract infection) Acute urine c/s : Providencia pt received ceftriaxone and Cipro ( Cipro changed to PO) Left Hydronephrosis noted- as per patient's mother , this is chronic , pt is voiding freely, Grey in place Urology consulted - Dr Huizar - rec to just tx UTI Yeast also noted on UA - pt received PO Diflucan 3.Paraplegia Chronic hx of Cord compression from spine fracture 2007 4.Spine fracture s/p Bedolla Rods Chronic as above 5. DM type 2 (diabetes mellitus, type 2) Chronic accucheck with coverage Glucotrol 10 mg bid Levemir 30 units q hs Discharge Exam - Head Exam Head Exam: NORMAL INSPECTION - Eye Exam Eye Exam: Normal appearance - ENT Exam ENT Exam: Mucous Membranes Moist - Respiratory Exam Respiratory Exam: Clear to PA & Lateral, NORMAL BREATHING PATTERN. absent: Rales, Rhonchi - Cardiovascular Exam Cardiovascular Exam: REGULAR RHYTHM, RRR, +S1, +S2 - GI/Abdominal Exam GI & Abdominal Exam: Normal Bowel Sounds, Soft. absent: Tenderness - Back Exam Additional comments: Paraplegic Spinal wound with dressing - upper and mid thoracic wound with has some drainage over the dressing , lumbar wound no drainage. No surrounding erythema or swelling. Non tender spine. - Neurological Exam Neurological exam: Alert, Oriented x3 - Psychiatric Exam Psychiatric exam: Normal Affect, Normal Mood Discharge Plan - Discharge Medications Prescriptions: Bacitracin OINT 1 applic TOP TID #1 tube GlipiZIDE [Glucotrol] 10 mg PO BIDAC 30 Days #60 tab Insulin Detemir [Levemir] 30 units SC HS #10 vial Lactobacillus Acidophilus [Bacid Acidophilus] 1 cap PO BID #60 cap oxyCODONE [oxyCODONE Immediate Release Tab] 5 mg PO Q6 PRN #20 tab PRN Reason: Pain, Severe (8-10) Sulfamethoxazole/Trimethoprim [Bactrim Ds Tablet] 1 each PO BID #60 tablet - Follow Up Plan Condition: GUARDED Disposition: HOME/ ROUTINE Instructions: Skin Abscess, Abscess Incision and Drainage (DC) Additional Instructions: follow up with primary MD 1 week Referrals: [facility] [place] [Outside] Lisa Julio MD [Staff Provider] - Patrick Carolina MD [Medical Doctor] -
== END 2018-01-24 12:25 | disposition home or self-care (01) | DRG 872 ==
LOC: H.ER 16:37 → H.ERHOLD 12-14 00:35 → H.MEDSURG1 12-14 02:15
PROVIDERS: ADMIT Internal Medicine; ATTEND Internal Medicine
PROC: 3E0234Z Introduction of Serum, Toxoid and Vaccine into Muscle, Percutaneous Approach (ICD-10-PCS; principal; 2017-12-15)
PROC: 0J973ZX Drainage of Back Subcutaneous Tissue and Fascia, Percutaneous Approach, Diagnostic (ICD-10-PCS; 2017-12-18)
PROC: 0J973ZZ Drainage of Back Subcutaneous Tissue and Fascia, Percutaneous Approach (ICD-10-PCS; 2017-12-18)
PROC: 02HV33Z Insertion of Infusion Device into Superior Vena Cava, Percutaneous Approach (ICD-10-PCS; 2017-12-19)
DX: A41.9 Sepsis, unspecified organism (principal); G82.20 Paraplegia, unspecified; N13.6 Pyonephrosis; M46.20 Osteomyelitis of vertebra, site unspecified; L02.212 Cutaneous abscess of back [any part, except buttock and flank]; E11.65 Type 2 diabetes mellitus with hyperglycemia; G89.29 Other chronic pain; N31.9 Neuromuscular dysfunction of bladder, unspecified; Z23 Encounter for immunization; Z88.6 Allergy status to analgesic agent; Z91.013 Allergy to seafood; E86.0 Dehydration; B95.61 Methicillin susceptible Staphylococcus aureus infection as the cause of diseases classified elsewhere; B96.4 Proteus (mirabilis) (morganii) as the cause of diseases classified elsewhere; M84.48XD Pathological fracture, other site, subsequent encounter for fracture with routine healing; M46.40 Discitis, unspecified, site unspecified; E11.69 Type 2 diabetes mellitus with other specified complication